=== PATIENT | female | born 1945 | race Caucasian/White ===

== ENCOUNTER 2019-09-13 03:20 | Inpatient (IN) | payer MEDICARE, SELFPAY ==
[2019-09-13] VITALS (17 sets, daily range): BP systolic 94–160; BP diastolic 56–95; PULSE 84–110; RESP 13–25; TEMP 36.5–37.9; O2SAT 91–100; BMI 22.3
--- NOTE | 2019-09-13 | DI.RAD.S_ITS ---
PROCEDURE: XR LUMBAR SPINE 1V INDICATIONS: T11-L1 LAMI TECHNIQUE: Single lateral view of the lumbar spine was acquired. COMPARISON: [facility], CT, CT LUMBAR SPINE WITHOUT CONTRAST, 09/12/2019, 17:41. [facility], CT, CT THORACIC SPINE WITHOUT CONTRAST, 09/12/2019, 17:41. [facility], MR, MR THORACIC SPINE WO CON, 09/13/2019, 8:30. [facility], CR, L-SPINE 2-3 VIEWS, 08/01/2014, 0:00. FINDINGS: Bones: Localization lateral view shows a posterior metallic probe overlying the hub of the L1 transverse pedicle screws, with reference to prior LS-spine CT scanning from 09/12/19 Soft tissues: Overlying bowel gas pattern is normal. No suspicious soft tissue calcifications. IMPRESSION: Single lateral view showing localization of the posterior elements of L1 by metallic probe. Dictated by: Clay Silvestre M.D. on 09/13/2019 at 13:33 Approved by: Clay Silvestre M.D. on 09/13/2019 at 13:37
--- NOTE | 2019-09-13 04:22 | PM.HP.1 ---
History of Present Illness History of Present Illness Date Patient Seen: 09/13/19 Time Patient Seen: 04:01 Chief complaint: Chronic Back Pain, Post Procedure Pain, Neuropathy Narrative: Ms. Marisol Valentine is a 74-year-old female with a history significant for thyroid disease, spinal stenosis, scoliosis, restless leg syndrome, chronic low back pain, osteoporosis, hyperlipidemia, GERD, degenerative joint disease and basal cell carcinoma and osteoarthritis who presents to [facility] for profound back pain and leg numbness following placement of a spinal stimulator by Dr. Mercer at [facility] earlier in the day on 09/12/2019. The patient reports her weakness has improved since onset and has sensation to touch bilateral feet but is unable to discern sharp or dull. She describes weakness that is greater on the left than the right but is unable to lift or move her legs. She denies systemic symptoms of headaches or dizziness, fevers or chills or vision changes. She reports no complaints of chest pain though she has had in the past and was told was related to her spine. She reports having a cough but no shortness of breath for 4 days. She complains of generalized abdominal tenderness but has no nausea or vomiting. Upon arrival to [facility] at 5:17 p.m. on 09/12/2019 she was afebrile with a temperature of 36.4? degrees centigrade, pulse 78, blood pressure 171/117, respirations 17 saturating 100% on room air. The patient was evaluated with imaging: CT lumbar spine identified extensive postsurgical changes with increased lucency between bone and hardware interface, no acute fracture, interval progression of mid level at endplate sclerosis. CT thoracic spine identifies no acute fracture diffuse osteopenia, multilevel spondylosis, spinal electrodes are noted, no high-grade bony canal stenosis or definite bony foraminal narrowing, no aleksey vertebral masses or hematomas. She was found to have neurogenic bladder with over 700 cc of urine and had a catheter placed. On laboratory analysis CBC from 1 day ago and found WBCs to be 13.4, hemoglobin 13.2, hematocrit 40.6 and platelets 286. On chemistry she had a sodium 136, potassium 4.0, BUN of 10, creatinine of 0.54, nonfasting glucose 127. The hospital service at [facility] was contacted regarding admission which was declined as the do not have spinal surgery or neurology services available. The patient previously had spinal surgery done by Dr. Vizcaino. [facility] was contacted and Dr. Navarro cabinet professional orthopedist was consulted regarding transfer the patient to [facility] for observation. He agreed to consult and requested medicine to admit the patient. He indicates that Dr. Vizcaino has reviewed the patient's imaging and does not need emergent surgery. The patient will be transferred from [facility] as a direct admit to the acute care floor. Patient History Medical History (Updated 09/13/19 @ 04:49 by FABIOLA Pacheco) Basal cell carcinoma (Acute) Cervical disc disease (Acute) Chronic low back pain (Acute) Degenerative joint disease (Acute) Gastroesophageal reflux disease (Acute) Hyperlipidemia (Acute) Hypothyroidism (Acute) Osteoarthritis (Acute) Osteoporosis (Acute) Restless leg syndrome (Acute) Scoliosis (Acute) Spinal stenosis (Acute) Surgical History (Updated 09/13/19 @ 04:49 by FABIOLA Pacheco) History of appendectomy (Acute) History of cervical spinal surgery (Acute) History of cholecystectomy (Acute) History of colonoscopy (Acute) History of esophagogastroduodenoscopy (EGD) (Acute) History of laminectomy (Acute) History of repair of rotator cuff (Acute) History of skin graft (Acute) History of tonsillectomy (Acute) History of total abdominal hysterectomy and bilateral salpingo-oophorectomy (Acute) Family & Social History Family History (Updated 09/13/19 @ 04:50 by FABIOLA Pacheco) Father Suicide Mother Alcohol abuse Sister Hyperthyroidism Comment: The patient is for 1 year and lives alone in a single family home. She has assistance in Max from her daughter. Smoking: Per the medical record patient is former smoker previously smoked 2.5 packs per day for 68 years Alcohol: Patient denies consuming alcohol beverages. Substance use: The patient denies recreation pharmaceuticals, herbal or cannabis products. Advanced directives: Patient does not have formal advanced directives but states her wish to be FULL CODE. She designates her daughter Rayna to be her surrogate decision maker. Meds Home Medications and Allergies Home Medications Medication Instructions Recorded Confirmed Type aspirin 81 mg PO TID #0 07/11/16 History fluticasone propionate 2 spray INTRANASAL QDAY #0 07/11/16 History ketotifen fumarate 1 drp OPHTH BID #0 07/11/16 History latanoprost 1 drp OPHTH HS #0 07/11/16 09/13/19 History oxycodone 0.5 tab PO BID #0 07/11/16 History pravastatin 20 mg PO EVERY OTHER DAY #0 07/11/16 History calcium carbonate-vitamin D3 1 tab PO QDAY #0 07/12/16 History [Calcium 600 with Vitamin D3] diphenhydramine HCl [Diphedryl] 25 mg PO BID #0 07/12/16 History ginkgo biloba 120 mg PO QDAY #0 07/12/16 History clopidogrel [Plavix] 75 mg PO DAILY 09/13/19 09/13/19 History dorzolamide-timolol 1 drp OPHTHALMIC (EYE) BID 09/13/19 09/13/19 History gabapentin 300 mg PO TID 09/13/19 09/13/19 History gemfibrozil 600 mg PO BID 09/13/19 09/13/19 History levothyroxine 88 mcg PO DAILY 09/13/19 09/13/19 History pantoprazole 40 mg PO BID 09/13/19 09/13/19 History Allergies Allergy/AdvReac Type Severity Reaction Status Date / Time baclofen [BACLOFEN] Allergy Severe RASH/FRAGA Verified 09/13/19 04:52 fenoprofen [FENOPROFEN] Allergy Severe RASH/FRAGA Verified 09/13/19 04:52 neomycin [NEOMYCIN] Allergy Severe RASH/FRAGA Verified 09/13/19 04:52 nickel [NICKEL] Allergy Severe RASH/FRAGA Verified 09/13/19 04:52 Penicillins [PENICILLINS] Allergy Severe RASH/FRAGA Verified 09/13/19 04:52 pentazocine [PENTAZOCINE] Allergy Severe RASH/FRAGA Verified 09/13/19 04:52 Sulfa (Sulfonamide Allergy Severe Rash Verified 09/13/19 04:24 Antibiotics) tapentadol [TAPENTADOL] Allergy Severe RASH - Verified 09/13/19 04:52 PAPER/SILK TAPE OK thimerosal [THIMEROSAL] Allergy Severe RASH/FRAGA Verified 09/13/19 04:52 Review of Systems Review of Systems Narrative: All systems reviewed and found unremarkable under discussed in the HPI above. Exam Vital Signs (past 8 hours): - 09/13/19 03:54 Temperature 98.2 F Pulse Rate 103 H Respiratory Rate 18 Blood Pressure 160/79 H Pulse Oximetry 95 Oxygen Flow Rate 3 Narrative Exam Narrative: GENERAL APPEARANCE: well developed, adequately nourished, BMI of 22.3, lying supine in bed restless in acute pain. HEENT: Normocephalic, wears glasses, PERRLA, conjunctiva clear, EOMs intact without nystagmus, clear rhinorrhea, mucous membranes are moist and pink. NECK/THYROID: Diminished range of motion, no JVD, no carotid bruit, no thyromegaly, trachea midline. LYMPH NODES: no cervical or supraclavicular lymphadenopathy. SKIN: [place], warm and dry, no visible lesions. HEART: regular rate and rhythm, S1-S2, 1/6 systolic murmur, no rubs or gallops, brisk capillary refill, no edema LUNGS: clear to auscultation bilaterally, no coarseness crackles or wheezing, no cough present CHEST: Symmetrical movement, no accessory muscle use, good tidal volume. ABDOMEN: Soft, dull to percussion, generalized abdominal tenderness, no organomegaly, active bowel tones. BACK: Lumbar spinal dressing with small amount of blood with spinal stimulator leads. EXTREMITIES: Full range of motion BUE, well-healed scar anterior right knee, poor muscle tone. NEUROLOGIC: AAO x4, cranial nerves II-XII grossly intact, sensation intact to gross touch bilateral lower extremities, no 2 point discrimination or sharp/dull discrimination, patellar and Achilles reflexes absent, no response to Babinski. PSYCH: Good eye contact, cooperative, restless Assessment & Plan Assessment & Plan narrative: This is a 74-year-old female patient who was transferred from [facility] to [facility] following placement of a spinal stimulator with acute and sudden onset of severe back pain and bilateral lower extremity neuropathy. 1. Acute exacerbation of chronic low back pain, status post spinal stimulator implant, present on admission, active. Patient has protracted history of chronic lumbar back pain status post lumbar fusion. Dr. Mercer, physical medicine and rehab implanted spinal stimulator earlier today. Patient returns to the ER with profound back pain and bilateral lower extremity motor and sensory neuropathy. CT scan thoracic spine finds no spinal hematoma or fractures. In the ER the patient received morphine, Dilaudid and fentanyl with incomplete pain control. Ordered acetaminophen 975 mg every 8 hours scheduled. Ordered oxycodone 5-10 mg every 4 hours as needed for pain. Ordered hydromorphone 1 mg IV every 4 hours as needed for breakthrough pain. Ordered amitriptyline 25 mg 1 time dose. Increased patient's gabapentin to 600 mg 3 times daily. Continued patient's home regimen of Flexeril 10 mg 3 times daily. 2. Bilateral lower extremity neuropathy, acute, present on admission, active. The patient reports that she had no movement or sensation in her legs and that now she has more sensation but is still unable to move her lower extremities. Patient can activate left quadriceps but not right and has no dorsi/plantar flexion of the foot. She has gross sensation but no 2 point or sharp/dull discrimination. CT of the thoracic spine finds no spinal hematoma or fractures spinal or foraminal stenosis. In discussion from Dr. Holley, ER physician at [facility], is noted the patient's neurological symptoms are improving and per Dr. Mercer the patient may experience transient neuropathy postprocedure. Dr. Navarro has agreed to consult the patient and will have spinal surgeon evaluate the patient in the morning. 3. Hypothyroidism, chronic, stable. Will continue the patient's home regimen of levothyroxine 88 mcg daily. 4. Mixed hyperlipidemia, chronic, stable Will continue the patient's home regimen of pravastatin 20 mg every other day. 5. Osteoporosis, age related, chronic, stable The patient is currently taking calcium and vitamin-D supplementation. VTE prophylaxis: Compression hose, chemical prophylaxis contraindicated to recent spinal surgery Diet: Clear liquid pending evaluation by surgery. IV fluid: Saline lock The patient is admitted to related to the severity of her symptoms, risk of complications and adverse events as well as availability of spinal surgeon to evaluate the patient. Patient is currently admitted observation with expected length of stay to be less than 2 midnights. Scores GCS [place] coma scale eye opening: Spontaneous [place] coma scale verbal response: Orientated [place] coma scale motor response: Obey commands [place] coma scale total score: 15
[2019-09-13] MEDS: HYDROMORPHONE 2 MG INJ 1 MG IV (05:02)
[2019-09-13] MEDS: SODIUM CHLORIDE 0.9% FLUSH 10 ML IV ×2 (05:03→08:00)
[2019-09-13] MEDS: ACETAMINOPHEN 325 MG TABLET 975 MG PO (05:04)
[2019-09-13] MEDS: GABAPENTIN 600 MG TABLET PO (05:04)
[2019-09-13] MEDS: AMITRIPTYLINE 25 MG TABLET PO (05:05)
[2019-09-13] MEDS: OXYCODONE IR 10 MG TABLET PO (05:32)
[2019-09-13] MEDS: PANTOPRAZOLE 20 MG TABLET PO (05:32)
--- NOTE | 2019-09-13 06:34 | PC.NURSE ---
Patient admitted to room 206 per stretcher from [facility] around 0320 for complaint of severe back pain occurring since spinal nerve stimulator implanted yesterday. States pain is 10/10, dull, burning in back radiating around to abdomen and down legs. Reports tingling in bilateral LE and unable to move them by herself. Tossing/turning side to side unable to get comfortable. Was medicated with Tylenol, Dilaudid, Amitriptyline and Oxycodone (after discussion with DICE SPOTTER, Clay, who okayed giving both Dilaudid and Oxycodone) and now pain is down to 8/10 but both patient and daughter continue to ask for additional pain meds. DICE SPOTTER informed of their concerns. Patient is oriented. Breath sounds CTA but is on oxygen at 3L/min and sat at 97% although was dropping with constant movements and difficulty getting good connection on oximeter so RT provided oximeter that sticks to finger and now maintaining. HRR but tachy in low 100's and per Glenys, INTERPRETER AND TRANSLATOR, telemetry reading was ST. BT present and abdomen is soft but has diffuse tenderness on palpation. Indwelling catheter patent (placed at [facility]). RD stockings applied as per order. Oriented to bed controls and call light. Fall risk score is moderate; bed alarm to be used when daughter not in room.
[2019-09-13 06:43] LABS: Bacteria Urine None Seen
[2019-09-13 06:44] LABS: Appearance Urine UA CLEAR; Bilirubin Urine UA NEGATIVE (NEGATIVE); Color Urine UA YELLOW; Glucose Urine UA NEGATIVE (Negative); Ketones Urine UA 2+ (NEGATIVE); Leukocyte Esterase Urine UA NEGATIVE (NEGATIVE); Nitrite Urine UA NEGATIVE (Negative); Occult Blood Urine UA 3+ (Negative); Protein Urine UA 2+ (Negative); Specific Gravity Urine UA >=1.030 (1.000-1.035); Urobilinogen Urine UA 0.2 E.U./dL (0.2)
[2019-09-13 06:51] LABS: Culture Indicated Urine Cult Not Indicated; Hyaline Casts Urine 0-1/LPF; RBC Urine 10-30/HPF (0-5/HPF); WBC Urine 0-1/HPF (0-5/HPF)
[2019-09-13 07:06] LABS: Add Manual Diff / Slide Review NO; Basophils Absolute Auto 0 /uL (0-100); Basophils Percent Auto 0.2 % (0-2); Eosinophils Absolute Auto 0 /uL (0-450); Eosinophils Percent Auto 0.1 % (2-4); Hematocrit 42.7 % (36-46); Hemoglobin 14.2 g/dL (12.0-16.0); Lymphocytes Absolute Auto 1000 /uL (1100-4500); Lymphocytes Percent Auto 6.5 % (25-40); Mean Corpuscular HGB Conc 33.2 % (30-36); Mean Corpuscular Hemoglobin 28.5 PG (26-34); Monocytes Absolute Auto 800 /uL (0-900); Monocytes Percent Auto 5.5 % (3-14); Neutrophils Absolute Auto 13400 /uL (1500-7000); Neutrophils Percent Auto 87.7 % (50-75); Platelet Count 312 X10^3/uL (150-400); Red Blood Cell Count 4.96 X10^6/uL (4.0-5.2); Red Cell Distribution Width 13.6 % (11.6-14.8); White Blood Cell Count 15.2 X10^3/uL (4.5-11.0)
[2019-09-13 07:18] LABS: Magnesium 1.7 mg/dL (1.6-2.3)
--- NOTE | 2019-09-13 07:24 | DI.MRI.S_ITS ---
PROCEDURE: MR LUMBAR SPINE WO CON INDICATIONS: back pain TECHNIQUE: Noncontrast sagittal T1 spin echo and T2 fast echo, sagittal STIR, axial T1 and T2 fast spin echo through the lumbar spine. In a previous scanning protocol was used, as the patient was in a lot of pain during the scan. COMPARISON: [facility], MR, MR THORACIC SPINE WO CON, 09/13/2019, 8:30. [facility], CR, L-SPINE 2-3 VIEWS, 08/01/2014, 0:00. FINDINGS: Image quality: Excellent. Alignment and Curvature: There is mild retrolisthesis at T12-L1 and L1-L2. Minimal anterolisthesis is seen at L4-L5 and minimal retrolisthesis is seen at L5-S1. Bone Marrow: Marrow is of normal overall signal. No acute vertebral body compression fractures. Spinal Cord: Conus medullaris terminates at the L1 level. Visualized cord demonstrates normal signal and size. There is heterogeneous material seen within the spinal canal posterior to the spinal cord primarily at the T12 and L1 levels, which is attributed to a hematoma measuring 6 cm craniocaudal. There is associated severe central canal narrowing with mass effect upon the conus medullaris, pushing it anteriorly and to the right. Paraspinous Soft Tissues: No paravertebral masses. Extensive postoperative hardware is seen, with right-sided pedicle screws at the L1-L5 levels and left-sided pedicle screws at L3-L4. Disc spacers are seen at L1-L2, L2-L3, and L4-L5. There has been removal of portions of the posterior elements. T12-L1: There is at least moderate loss of disc height and disc signal seen. Bridging endplate osteophytes are seen. Moderate generalized disc bulge is seen. There is a superimposed central/right disc extrusion. [id number] facet hypertrophy is seen. There is moderate to severe left-sided neural foraminal narrowing seen, with compression upon the exiting right T12 nerve root. There is moderate left-sided neural foraminal narrowing. At this level, there is severe central canal narrowing, which is attributed to a postoperative hematoma on the left posteriorly. L1-L2: Moderate to severe loss of disc height and disc signal are seen. Moderate disc bulge is seen. There is moderate to severe right-sided neural foraminal narrowing, with associated mass effect upon the exiting right L5. There is moderate left-sided neural foraminal narrowing. Severe central canal narrowing is seen, which is attributed to a postoperative hematoma on the left side posteriorly. L2-L3: The disc height is well-preserved. Moderate disc bulge is seen. At moderate facet hypertrophy is seen. There is moderate right-sided and mild left-sided neural foraminal narrowing seen and mild to moderate central canal narrowing is seen. L3-L4: Mild loss of disc height is seen. Loss of disc signal is seen. Mild to moderate disc bulge is seen. There is mild right-sided and no significant left-sided neural foraminal narrowing seen. The central canal is widely patent. L4-L5: At least moderate disc bulge is seen. Moderate facet joint hypertrophy is seen. There is moderate to severe right-sided neural foraminal narrowing seen, with the patient mass effect upon the exiting right L4 nerve root. There is moderate left-sided neural frontal narrowing. Moderate central canal narrowing is seen. L5-S1: Severe loss of disc height is seen at this level, with bony fusion anteriorly. Bridging endplate osteophytes are seen. Moderate disc bulge is seen. Mild to moderate facet hypertrophy is seen. There is mild right-sided and mild to moderate left-sided neural foraminal narrowing seen. No significant central canal narrowing is seen. IMPRESSION: There is abnormal soft tissue material seen within the spinal canal posteriorly and on the left measures 6 cm craniocaudally and is centered at the T12-L1 level. This is attributed to a postoperative hematoma. There is associated severe central canal narrowing. Extensive postoperative changes are seen. Multiple levels of degenerative change are seen elsewhere. Note: Case discussed by telephone with Dr. Wilcox at 9:41 AM Sebastian time on September 13, 2019. Dictated by: Michael Conner M.D. on 09/13/2019 at 8:29 Approved by: Michael Conner M.D. on 09/13/2019 at 8:42
--- NOTE | 2019-09-13 07:25 | DI.MRI.S_ITS ---
PROCEDURE: MR THORACIC SPINE WO CON INDICATIONS: back pain TECHNIQUE: Noncontrast sagittal T1 spine echo and T2 fast spin echo, sagittal STIR, axial T1 and T2 fast spin echo through the thoracic spine. In this patient, coronal T2-weighted images were also performed. An abbreviated scanning protocol was followed, as the patient was in significant pain during the scan. COMPARISON: [facility], MR, MR LUMBAR SPINE WO CON, 09/13/2019, 8:30. [facility], CR, L-SPINE 2-3 VIEWS, 08/01/2014, 0:00. FINDINGS: Image quality: This examination is limited by involuntary motion artifact, particularly on the axial images. Alignment and Curvature: Levoconvex thoracolumbar scoliotic curvature is seen. Mild retrolisthesis is seen at the T12-L1 level. Bone Marrow: Marrow is of normal overall signal. No acute vertebral body compression fractures. Spinal Cord: Visualized spinal cord is normal in size and signal. Paraspinous Soft Tissues: No paravertebral masses. Miscellaneous: Extensive cervical spine fixation hardware and lumbar spine fixation hardware can be seen. Scattered levels of mild to moderate disc space narrowing can be seen. Mild endplate irregularity can be seen. Several levels of central disc bulges can be seen. The most prominent of these can be seen at T7-T8 and at T10-T11. There is believed to be moderate central canal narrowing at the T7-T8 level, with mild mass effect upon the ventral spinal cord. At T10-T11, there is a relatively prominent disc protrusion seen, with protruding components into both lateral recesses. At least moderate mass effect can be seen on the ventral spinal cord, as on series 4 image 8. Moderate to severe neural bilateral foraminal narrowing can be seen at this level. At the T12-L1 level, there is moderate to severe disc space narrowing seen. At least moderate disc bulge is seen. There is an apparent central/right disc protrusion seen, with associated mass effect upon the conus medullaris. There is moderate to severe right-sided and at least moderate left-sided neural foraminal narrowing seen. IMPRESSION: Degenerative changes are seen throughout, which are worst at the T10-T11 and T12-T1 levels. Study limited by patient motion. When clinically appropriate, please consider a repeat examination, when the patient is able to hold still. Extensive cervical spine and lumbar spine fixation hardware can be seen. Dictated by: Michael Conner M.D. on 09/13/2019 at 8:23 Approved by: Michael Conner M.D. on 09/13/2019 at 8:29
[2019-09-13 07:29] LABS: Alanine Aminotransferase 13 IU/L (<35); Albumin 5.1 g/dL (3.5-5.0); Albumin Globulin Ratio 1.5 (1.0-2.8); Alkaline Phosphatase 108 U/L (38-126); Aspartate Aminotransferase 48 IU/L (14-36); Bilirubin Total 0.6 mg/dL (0.2-1.3); Blood Urea Nitrogen 11 mg/dL (7-17); Calcium 9.7 mg/dL (8.4-10.2); Carbon Dioxide 23 mmol/L (22-32); Chloride 98 mmol/L (98-107); Estimated Glomerular Filt Rate > 60.0 mL/min (>60); Globulin 3.5 g/dL (1.7-4.1); Glucose 113 mg/dL (80-110); HEMOLYSIS 18 (0-50); Potassium 3.6 mmol/L (3.4-5.1); Sodium 137 mmol/L (137-145); Total Protein 8.6 g/dL (6.3-8.2)
[2019-09-13] MEDS: HYDROMORPHONE 2 MG INJ IV (08:13)
[2019-09-13] MEDS: LORazepam 2 MG/ML INJ 1 MG IV (08:13)
--- NOTE | 2019-09-13 08:33 | PC.NURSE ---
Addendum entered by Sonya Figueroa R.N. 09/13/19 11:50: pt returned from MRI, she was on 3L NC, placed on continuous pulse ox, able to drop to 2L. RR=10 and she was sleeping comfortably. daughter present in room. sent down to OR for surgery with Dr Higgins around 1130. Original Note: Day Shift During change of shift, Dr Wilcox arrived and discussed case. MD removed spinal stimulator at bedside, dressing in place- gauze and tegaderm. After removal pt reports pain is decreased down to 5-6/10, she appears sleepy. Asked if she could lay on her back for MRI she reported no. Order for 2mg IV dilaudid and 1mg Ativan, only gave pt 1mg IV dilaudid and 0.5 mg Ativan as she was more comfortable than previously assessed and somewhat somnolent. On continuous pulse ox and tele on floor. on 3L O2 for transfer and MRI.
--- NOTE | 2019-09-13 10:50 | PT-IP ANOTE ---
Spoke to VALERIE Brown who stated pt is not medically stable to work with therapy team d/t severe pain and MRI showed abnormal soft tissue material seen within the spinal canal posteriorly at the T12-L1 level. Pt is scheduled to have surgery later this pm. Will attempt PT eval again tomorrow morning
--- NOTE | 2019-09-13 11:20 | P.CONS_ITS ---
History of Present Illness Consult details Date Patient Seen: 09/13/19 Time Patient Seen: 11:20 Chief complaint: Chronic Back Pain, Post Procedure Pain, Neuropathy Reason for consult: Epidural hematoma Requesting provider: Ruperto Wilcox Narrative: 74-year-old female well known to me. I have done previous L1 through L5 instrumented fusions on her. She had ongoing chronic nerve pain and yesterday had a spinal cord stimulator trial placed with Dr. Wilcox. Postoperatively she was having difficulty moving her legs and was feeling weak. She was transferred over to [facility] where CT scans were obtained. The CT scan last night did not indicate epidural hematoma. There was a concern that possibly this was just coming from an inadvertent spinal injection with the local at the time of the stimulator. She was transferred and admitted here. This morning Dr. Mercer saw her and pulled out the stimulator leads and MRI was obtained which showed a definite epidural hematoma. Her pain is better with pain medication but she has been having severe pain across the back. She has greatly decreased sensation from the waist down. She can touch her hips and quadriceps a little bit but otherwise can move her legs. She also had to have a urinary catheter placed for urinary retention last night. She has a history of Plavix use, but has been off this for a week. Meds Home Medications and Allergies Home Medications Medication Instructions Recorded Confirmed Type fluticasone propionate 2 spray INTRANASAL QDAY #0 07/11/16 09/13/19 History latanoprost 1 drp [facility] HS #0 07/11/16 09/13/19 History pravastatin 20 mg PO DAILY #0 07/11/16 09/13/19 History diphenhydramine HCl [Diphedryl] 25 mg PO 3-4XD #0 07/12/16 09/13/19 History ginkgo biloba 120 mg PO BID #0 07/12/16 09/13/19 History acetaminophen [Tylenol Extra 1,000 mg PO TID 09/13/19 09/13/19 History Strength] calcium carbonate [Calcium 600] 600 mg PO DAILY 09/13/19 09/13/19 History cholecalciferol (vitamin D3) 400 unit PO DAILY 09/13/19 09/13/19 History [Vitamin D3] cholestyramine (with sugar) 4 g PO BID 09/13/19 09/13/19 History clopidogrel [Plavix] 75 mg PO DAILY 09/13/19 09/13/19 History coQ10 (ubiquinol) 100 mg PO DAILY 09/13/19 09/13/19 History cyclobenzaprine 10 mg PO BEDTIME 09/13/19 09/13/19 History dorzolamide-timolol 1 drp OPHTHALMIC (EYE) BID 09/13/19 09/13/19 History pxjc-wfw-tkc-blkbor-om 3,6,9 5 1 cap PO BID 09/13/19 09/13/19 History [[place] 3-6-9 Fatty Acids] gabapentin 300 mg PO TID 09/13/19 09/13/19 History gemfibrozil 600 mg PO BID 09/13/19 09/13/19 History glucos sul 5ZEc-kct-epttc-C-Mn 1 cap PO BID 09/13/19 09/13/19 History [Glucosamine Chondroitin] hydrocodone-acetaminophen 1 tab PO Q6H 09/13/19 09/13/19 History levothyroxine 88 mcg PO DAILY 09/13/19 09/13/19 History wbtkijjtsaxn-rls-qiua-FA-vit K 1 tab PO DAILY 09/13/19 09/13/19 History [Adults Multivitamin] pantoprazole 40 mg PO BID 09/13/19 09/13/19 History psyllium husk [Metamucil] 1.5 tsp PO DAILY 09/13/19 09/13/19 History sertraline 25 mg PO DAILY 09/13/19 09/13/19 History trazodone 75 - 100 mg PO BEDTIME 09/13/19 09/13/19 History Allergies Allergy/AdvReac Type Severity Reaction Status Date / Time baclofen [BACLOFEN] Allergy Severe RASH/FRAGA Verified 09/13/19 04:52 fenoprofen [FENOPROFEN] Allergy Severe RASH/FRAGA Verified 09/13/19 04:52 neomycin [NEOMYCIN] Allergy Severe RASH/FRAGA Verified 09/13/19 04:52 nickel [NICKEL] Allergy Severe RASH/FRAGA Verified 09/13/19 04:52 Penicillins [PENICILLINS] Allergy Severe RASH/FRAGA Verified 09/13/19 04:52 pentazocine [PENTAZOCINE] Allergy Severe RASH/FRAGA Verified 09/13/19 04:52 Sulfa (Sulfonamide Allergy Severe Rash Verified 09/13/19 04:24 Antibiotics) tapentadol [TAPENTADOL] Allergy Severe RASH - Verified 09/13/19 04:52 PAPER/SILK TAPE [place] thimerosal [THIMEROSAL] Allergy Severe RASH/FRAGA Verified 09/13/19 04:52 Review of Systems Respiratory Respiratory: Reports cough Gastrointestinal Gastrointestinal: Denies abdominal pain Genitourinary Genitourinary: Reports difficulty voiding Musculoskeletal Musculoskeletal: Reports numbness Neurologic Neurologic: Reports numbness Hematologic/Lymphatic Hematologic/Lymphatic: Reports easy bleeding Exam Vital Signs (past 8 hours): - 09/13/19 03:54 09/13/19 07:40 Temperature 98.2 F 100.2 F H Pulse Rate 103 H 84 Respiratory Rate 18 16 Blood Pressure 160/79 H 146/82 H Pulse Oximetry 95 98 Oxygen Delivery Method Nasal Cannula Oxygen Flow Rate 0 Const Orientation: alert and oriented x3 Resp Auscultation: clear to auscultation bilaterally Cardio Rate: regular rate Rhythm: regular rhythm Back/Spine/Pelvis Other: Intact but greatly decreased sensation from the waist down. Cannot discern sharp from touch. Unable to move her legs although there is some twitching of her hip flexors and quadriceps with attempts. 1+ dorsalis pedis pulses. Tender across the thoracolumbar junction. No drainage on dressing. Objective Labs Result Diagrams: 09/13/19 06:40 09/13/19 06:40 Labs: Laboratory Results - last 24 hr 09/13/19 09/13/19 09/13/19 06:25 06:40 06:40 WBC 15.2 H RBC 4.96 Hgb 14.2 Hct 42.7 MCV 86.0 MCH 28.5 MCHC 33.2 RDW 13.6 Plt Count 312 Neut % (Auto) 87.7 H Lymph % (Auto) 6.5 L [place] % (Auto) 5.5 Eos % (Auto) 0.1 L Baso % (Auto) 0.2 Neut # (Auto) 08180 H Lymph # (Auto) 1000 L [place] # (Auto) 800 Eos # (Auto) 0 Baso # (Auto) 0 Sodium Potassium Chloride Carbon Dioxide BUN Creatinine Estimated GFR BUN/Creatinine Ratio Glucose Calcium Magnesium 1.7 Total Bilirubin AST ALT Alkaline Phosphatase Total Protein Albumin Globulin Albumin/Globulin Ratio Urine Color Yellow Urine Appearance Clear Urine pH 5.0 Ur Specific [place] >=1.030 H Urine Protein 2+ H Urine Glucose (UA) Negative Urine Ketones 2+ H Urine Occult Blood 3+ H Urine Nitrate Negative Urine Bilirubin Negative Urine Urobilinogen 0.2 Ur Leukocyte Esterase Negative Urine RBC 10-30/hpf H Urine WBC 0-1/hpf Urine Bacteria None seen Hyaline Casts 0-1/lpf Ur Culture Indicated? Cult not indicated 09/13/19 06:40 WBC RBC Hgb Hct MCV MCH MCHC RDW Plt Count Neut % (Auto) Lymph % (Auto) [place] % (Auto) Eos % (Auto) Baso % (Auto) Neut # (Auto) Lymph # (Auto) [place] # (Auto) Eos # (Auto) Baso # (Auto) Sodium 137 Potassium 3.6 Chloride 98 Carbon Dioxide 23 BUN 11 Creatinine 0.50 L Estimated GFR > 60.0 BUN/Creatinine Ratio 22.0 Glucose 113 H Calcium 9.7 Magnesium Total Bilirubin 0.6 AST 48 H ALT 13 Alkaline Phosphatase 108 Total Protein 8.6 H Albumin 5.1 H Globulin 3.5 Albumin/Globulin Ratio 1.5 Urine Color Urine Appearance Urine pH Ur Specific [place] Urine Protein Urine Glucose (UA) Urine Ketones Urine Occult Blood Urine Nitrate Urine Bilirubin Urine Urobilinogen Ur Leukocyte Esterase Urine RBC Urine WBC Urine Bacteria Hyaline Casts Ur Culture Indicated? Assessment & Plan Assessment & Plan narrative: She is a large epidural hematoma from T11 through L1. She needs to go to the operating room for evacuation of the hematoma with a laminectomy from T11 through L1. This is an emergency due to her paralysis cord compression from the hematoma. Risks and benefits of surgery were discussed including not limited to medical risk with heart attack, stroke, , DVT, PE, infection, ongoing bleeding, scarring, nerve injury with pain numbness weakness, ongoing paralysis, failure to alleviate symptoms, need for further surgery. Consents were obtained. We're taking her straight to the operating room.
--- NOTE | 2019-09-13 11:30 | PM.PREOP ---
Pre-operative Note Interval Note History & Physical reviewed/Exam performed by Physician: Yes Changes to H&P: No
--- NOTE | 2019-09-13 11:51 | SUR.HOLD ---
Patient to Holding area with daughter. Patient GCS 15 on arrival. Daughter signing anesthesia consent for patient. VSS. Blood sugar 100.
--- NOTE | 2019-09-13 12:28 | SUR.OPER ---
Prone on padded kypho spine table, head in foam head support, gel chest rolls, gel pad under knees, pillow under lower legs, toes free of pressure, arms secured on padded arm boards at <90 degrees abduction. Safety belt at thigh.
[2019-09-13] MEDS: SODIUM CHLORIDE 0.9% 1,000 ML, GENTAMICIN 80 MG IRR (12:39)
[2019-09-13] MEDS: THROMBIN (RECOMBINANT) 5,000 UNIT VIAL 5000 UNIT TOP (12:41)
[2019-09-13] MEDS: BUPIVACAINE 0.25% W/ EPI 30 ML VIAL INJ (12:41)
--- NOTE | 2019-09-13 12:41 | CM.DANOTE ---
Discharge Planning/Care Management DCP: assessment: case received, EMR reviewed, discussed in Team Rounds. Went now to room to meet pt for introduction of self and role. VALERIE Brown confirms she has just been taken to the OR. Pt is a 74 year old female who admitted early this morning to care of hospitalist team. Dr. Morgan confirmed in Rounds that orthopedic team was consulting. Payer: Medicare and [employer] Admission status: in review: per UR VALERIE Alberto. Dr. Higgins did see pt, notes that pt is very familiar to him as he has followed her in the past and hx of prior surgeries with pt. He has taken her urgently to the OR for evacuation of epidural hematoma and T11 to L1 spinal/see his consultation for more specifics. Pt is ; her daughter Rayna and a service dog have been in the room today per VALERIE Brown. P: will check in tomorrow with pt and follow accordingly. Expect PT and OT will be following as appropriate. CM Discharge Assessment Start: 09/13/19 12:39 Freq: Status: Active Protocol: Document 09/13/19 12:39 ITV (Rec: 09/13/19 12:41 ITV [id number]) Discharge Planning Assessment Advance Directives? No History Provided By Medical Record Prior Living Arrangements House Household Members none White board Updated in Patient Room with Yes name and ext. # of Grounds Manager Review Status In Process
[2019-09-13] MEDS: VANCOMYCIN 1,000 MG VIAL 1000 MG TOP (12:44)
--- NOTE | 2019-09-13 13:33 | PM.OP.1 ---
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 It was felt that she would require decompression of the hematoma. Risks and benefits of surgery were discussed and appropriate consents were obtained. Surgeon: Matthew Higgins Click Yes if Unassisted: Yes Anesthesia Type: General Operative Notes Findings: None Closure Type: primary Specimen(s): none sent Estimated Blood Loss (mL): 10 Procedure in detail: Patient brought the operating room and intubated on the stretcher. She was rolled over to the well-padded prone position on the table. The back was prepped and draped in the standard sterile fashion. Preoperative antibiotics were given. A time-out was performed. We used fluoroscopy for localization and made a 10 cm longitudinal incision in the midline at the thoracolumbar junction, incorporating part of her previous incision. We carefully dissected down the left-sided paraspinal muscles. A marker was placed to confirm positioning with fluoroscopy. Under magnification, we then used a bur and Kerrison rongeur is to perform a left-sided laminectomy from T11 through L2. We had to go approximately correction up T11 until there was no more hematoma and just underneath the superior aspect of L2 caudally. We used suction and a ball probe to remove the large hematoma. The cord was significantly depressed to the right side and anteriorly, but as the hematoma was removed to gradually build back into its normal channel. At the end we could sweep the probe across to the opposite side on the right, and also along the left lateral aspect of the canal where had been quite prominent on the preoperative MRI and there was no more hematoma. The wound was irrigated. We used FloSeal for additional prophylaxis, although there was no actual drainage going on. A deep drain was placed. The fascia was closed in layers. Vancomycin powder was placed in the wound. Superficial and skin were closed. Sterile dressing was placed. She was then rolled over, extubated, and brought the recovery with no complications. Complications: none Post-operative Condition: stable Disposition: PACU Plan for aftercare: Inpatient care. We will have to watch her neurologic status and see how quickly this hopefully returns.
--- NOTE | 2019-09-13 14:11 | SUR.PHASEI ---
Report called to Stephanie
--- NOTE | 2019-09-13 14:29 | SUR.PHASEI ---
Patient transferred to the floor. VS stable. Report to Stephanie. Dressing checked with RN. IV saline locked.
--- NOTE | 2019-09-13 15:21 | PM.PNPO.1 ---
Subjective Subjective Date Patient Seen: 09/13/19 Time Patient Seen: 15:21 Interval history: Pain is much better now. She is just starting to wiggle her toes, which she could not do in recovery room. Getting some charley horses in the legs. Exam Vital Signs (past 8 hours): - 09/13/19 07:40 09/13/19 11:36 09/13/19 13:39 Temperature 100.2 F H 98.3 F 100.2 F H Pulse Rate 84 105 H 109 H Respiratory Rate 16 13 14 Blood Pressure 146/82 H 110/72 100/57 L Pulse Oximetry 98 100 94 09/13/19 13:44 09/13/19 13:49 09/13/19 13:54 Temperature Pulse Rate 109 H 110 H 106 H Respiratory Rate 17 25 H 18 Blood Pressure 97/64 102/63 94/68 Pulse Oximetry 96 92 96 09/13/19 13:59 09/13/19 14:07 09/13/19 14:25 Temperature 97.7 F 98.6 F Pulse Rate 102 H 108 H 101 H Respiratory Rate 23 19 16 Blood Pressure 116/75 132/78 128/76 Pulse Oximetry 92 96 100 09/13/19 14:30 Temperature Pulse Rate Respiratory Rate Blood Pressure Pulse Oximetry 100 Oxygen Delivery Method Nasal Cannula Oxygen Flow Rate 2 Const Orientation: alert and oriented x3 Back/Spine/Pelvis Other: Able to twitch her hip flexors and quadriceps. Now starting to move her toes a little bit up and down both legs. Objective Labs Result Diagrams: 09/13/19 06:40 09/13/19 06:40 Labs: Laboratory Results - last 24 hr 09/13/19 09/13/19 09/13/19 06:25 06:40 06:40 WBC 15.2 H RBC 4.96 Hgb 14.2 Hct 42.7 MCV 86.0 MCH 28.5 MCHC 33.2 RDW 13.6 Plt Count 312 Neut % (Auto) 87.7 H Lymph % (Auto) 6.5 L [place] % (Auto) 5.5 Eos % (Auto) 0.1 L Baso % (Auto) 0.2 Neut # (Auto) 49297 H Lymph # (Auto) 1000 L [place] # (Auto) 800 Eos # (Auto) 0 Baso # (Auto) 0 Sodium Potassium Chloride Carbon Dioxide BUN Creatinine Estimated GFR BUN/Creatinine Ratio Glucose Calcium Magnesium 1.7 Total Bilirubin AST ALT Alkaline Phosphatase Total Protein Albumin Globulin Albumin/Globulin Ratio Urine Color Yellow Urine Appearance Clear Urine pH 5.0 Ur Specific [place] >=1.030 H Urine Protein 2+ H Urine Glucose (UA) Negative Urine Ketones 2+ H Urine Occult Blood 3+ H Urine Nitrate Negative Urine Bilirubin Negative Urine Urobilinogen 0.2 Ur Leukocyte Esterase Negative Urine RBC 10-30/hpf H Urine WBC 0-1/hpf Urine Bacteria None seen Hyaline Casts 0-1/lpf Ur Culture Indicated? Cult not indicated 09/13/19 06:40 WBC RBC Hgb Hct MCV MCH MCHC RDW Plt Count Neut % (Auto) Lymph % (Auto) [place] % (Auto) Eos % (Auto) Baso % (Auto) Neut # (Auto) Lymph # (Auto) [place] # (Auto) Eos # (Auto) Baso # (Auto) Sodium 137 Potassium 3.6 Chloride 98 Carbon Dioxide 23 BUN 11 Creatinine 0.50 L Estimated GFR > 60.0 BUN/Creatinine Ratio 22.0 Glucose 113 H Calcium 9.7 Magnesium Total Bilirubin 0.6 AST 48 H ALT 13 Alkaline Phosphatase 108 Total Protein 8.6 H Albumin 5.1 H Globulin 3.5 Albumin/Globulin Ratio 1.5 Urine Color Urine Appearance Urine pH Ur Specific [place] Urine Protein Urine Glucose (UA) Urine Ketones Urine Occult Blood Urine Nitrate Urine Bilirubin Urine Urobilinogen Ur Leukocyte Esterase Urine RBC Urine WBC Urine Bacteria Hyaline Casts Ur Culture Indicated? Assessment & Plan Post-op Postoperative Procedures: Procedures Operation Date: 09/13/19 11:45 Actual Procedures Side Surgeon p T11-L2 Laminectomy and removal of blood clot Matthew Higgins MD She is still extremely weak but making progress in the past hour. I discussed this with Dr. Wilcox and we will add some IV steroids, although the literature is equivocal. Continue to watch for now. Quality VTE Deep Vein Thrombosis/Pulmonary Embolism Present on Admission: No
[2019-09-13] MEDS: dexAMETHasone 20 MG in SODIUM CHLORIDE 0.9% 50 ML 208 ML IV (15:48)
[2019-09-13] MEDS: LACTATED RINGERS 1,000 ML 125 ML IV (15:49)
--- NOTE | 2019-09-13 16:04 | OT.IP.TRT ---
Surgery Performed Operation Date: 09/13/19 11:45 Actual Procedures p T11-L2 Laminectomy and removal of blood clot - Matthew Higgins MD Occupational Therapy Administrative Note M3 OT- IP Subjective and Pain Start: 09/13/19 15:52 Freq: Status: Active Protocol: Document 09/13/19 16:04 MANNIE (Rec: 09/13/19 16:07 MANNIE [id number]) OT- Subjective Occupational Therapy Visit Type Type Administrative Note Visit Start Time 16:00 Notes OT referral received. Chart reviewed. Pt to surgery today for emergent decompression of T11-L1 epidural hematoma with T11-L1 lami's to relieve spinal cord compression. Pt is s/p placement of spine stimulator on 09/12/19 at [facility]. Will initiate OT evaluation in AM as medical status permits.
[2019-09-13] MEDS: GABAPENTIN 300 MG CAPSULE PO ×2 (16:07→20:50)
[2019-09-13] MEDS: HYDROCODONE/ACET 5/325 TABLET 1 TAB PO ×2 (16:07→20:51)
[2019-09-13] MEDS: diphenhydrAMINE 25 MG TABLET PO ×2 (17:52→20:49)
[2019-09-13] MEDS: gemfibroziL 600 MG TABLET PO (17:52)
[2019-09-13] MEDS: KETOROLAC 30 MG/ML VIAL IV (17:59)
--- NOTE | 2019-09-13 19:20 | PC.NURSE ---
Addendum entered by Ela Mcneil R.N. 09/13/19 23:16: Pt does exhibit some short term memory loss, this specification writer finds need to repeat self frequently. When questioned about sensation to BL LE's, pt reports has sensation to buttocks and legs, but needs to move legs with own hands to position. This specification writer has witnessed movement in pt's legs this evening shift. Vicodin for pain effective. Prefers flat lying in bed. Daughter has left for the evening. Original Note: Pt lying in bed moving both legs up and down and wiggling toes. Able to log roll with assistance. Pt's daughter is present, attentive and involved in pt's care. BL foot pumps in place. Dr. Higgins has seen pt this evening shift. Pt is able to sit up @ bedside to eat evening meal. Dressing to back is dry and intact with hemovac intact. Vicodin and toradol to manage pain 3-4/10. Toblert to gravity. Waffle cushion under buttocks as pt c/o discomfort under bottom. BL kevin hose in place. Palpable post tib pulses.
[2019-09-13] MEDS: CLINDAMYCIN 600 MG/50 ML PIGGYBACK 50 MG IV (20:01)
[2019-09-13] MEDS: LATANOPROST 0.005% OPHTH 2.5 ML 1 DROPS EYE-BOTH (20:40)
[2019-09-13] MEDS: GLUCOSAMINE/CHONDROITIN CAPSULE 1 EACH PO (20:48)
[2019-09-13] MEDS: CYCLOBENZAPRINE 10 MG TABLET PO (20:49)
[2019-09-13] MEDS: PANTOPRAZOLE 40 MG TABLET PO (20:50)
[2019-09-13] MEDS: PRAVASTATIN 20 MG TABLET PO (20:51)
[2019-09-13] MEDS: TRAZODONE 50 MG TABLET 75 MG PO (20:51)
[2019-09-13] MEDS: FISH OIL 1,000 MG CAPSULE 1000 MG PO ×2 (21:04→21:05)
[2019-09-13] MEDS: DEXAMETHASONE 4 MG/ML VIAL IV (22:47)
[2019-09-14 01:30] VITALS: BP 119/74; PULSE 99; RESP 18; TEMP 36.7; O2SAT 93
[2019-09-14] MEDS: LACTATED RINGERS 1,000 ML 125 ML IV ×2 (01:31→03:59)
[2019-09-14] MEDS: KETOROLAC 30 MG/ML VIAL IV (01:31)
[2019-09-14] MEDS: HYDROCODONE/ACET 5/325 TABLET 1 TAB PO ×2 (02:59→03:46)
[2019-09-14] MEDS: DEXAMETHASONE 4 MG/ML VIAL IV ×4 (03:45→22:14)
[2019-09-14] MEDS: CLINDAMYCIN 600 MG/50 ML PIGGYBACK 50 MG IV (03:45)
[2019-09-14] MEDS: hydrOXYzine pamoate 25 MG CAPSULE PO (03:46)
[2019-09-14 05:00] VITALS: BP 108/64; PULSE 88; RESP 16; TEMP 37.1; O2SAT 93
[2019-09-14] MEDS: LEVOTHYROXINE 88 MCG TABLET PO (05:35)
[2019-09-14] MEDS: gemfibroziL 600 MG TABLET PO ×2 (05:35→15:57)
--- NOTE | 2019-09-14 06:40 | PC.NURSE ---
Pt s/p hematoma removal that was 7cm long and compressing spinal cord. Pt has sensation returning to bilat lower extremities, was encouraged when she saw her toes/feet wiggle when she tried overnight. Pt described pain in legs as heavy and big. Pt with new complaint of frontal headache. Denies vision changes. 1 tabe norco given at 0330 and pt with con't pain. 2nd tab norco given at 0430. Pt appeared to sleep without discomfort after that. 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 TEDS/foot SCDs on. Con't to monitor for signs of dural leak, increased headache, further neuro changes related to spinal cord compression and possible development of hematoma.
[2019-09-14 07:50] VITALS: BP 134/85; PULSE 100; RESP 16; TEMP 36.6; O2SAT 95
[2019-09-14] MEDS: GABAPENTIN 300 MG CAPSULE PO ×3 (08:22→21:51)
[2019-09-14] MEDS: FISH OIL 1,000 MG CAPSULE 1000 MG PO ×2 (08:22→21:48)
[2019-09-14] MEDS: diphenhydrAMINE 25 MG TABLET PO ×4 (08:22→21:45)
[2019-09-14] MEDS: PANTOPRAZOLE 40 MG TABLET PO ×2 (08:23→18:52)
[2019-09-14] MEDS: HYDROCODONE/ACET 5/325 TABLET 2 TAB PO ×4 (08:23→19:56)
[2019-09-14] MEDS: DOCUSATE 100 MG CAPSULE PO ×2 (08:23→21:54)
[2019-09-14] MEDS: PSYLLIUM HUSK 1 PACKET PO (08:24)
[2019-09-14] MEDS: FLUTICASONE 120 SPRAY/16 GM SPRAY.SUSP NASAL (08:24)
[2019-09-14] MEDS: CHOLESTYRAMINE/ASPARTAME 4 GM PACK PO (08:24)
[2019-09-14] MEDS: DORZOLAMIDE/TIMOLOL OPHTH 10 ML 1 DROPS EYE-BOTH ×2 (08:25→21:47)
[2019-09-14] MEDS: CALCIUM CARBONATE 600 MG TABLET PO (08:26)
[2019-09-14] MEDS: MULTIVIT,CALC,MINS/IRON/FOLIC 1 TABLET 1 TAB PO (08:26)
[2019-09-14] MEDS: SERTRALINE 25 MG TABLET PO (08:27)
[2019-09-14] MEDS: GLUCOSAMINE/CHONDROITIN CAPSULE 1 EACH PO ×2 (08:27→21:53)
[2019-09-14] MEDS: CHOLECALCIFEROL (VITAMIN D3) 400 UNIT TABLET PO (08:27)
--- NOTE | 2019-09-14 08:39 | PM.PNPO.1 ---
Subjective Subjective Date Patient Seen: 09/14/19 Time Patient Seen: 08:39 Interval history: She had some bad lower back to hip pain this morning but with repositioning was doing much better. She started move her legs more. Exam Vital Signs (past 8 hours): - 09/14/19 01:30 09/14/19 05:00 09/14/19 07:50 Temperature 98.0 F 98.8 F 97.9 F Pulse Rate 99 H 88 100 H Respiratory Rate 18 16 16 Blood Pressure 119/74 108/64 134/85 Pulse Oximetry 93 93 95 Oxygen Delivery Method Room Air Oxygen Flow Rate 0 Const Orientation: alert and oriented x3 Back/Spine/Pelvis Other: Mild dry drainage. Minimal drain output. IP Q AT [facility] GC R 1 2 1 3 3 L 1 2 1 0 0 Objective Labs Result Diagrams: 09/13/19 06:40 09/13/19 06:40 Assessment & Plan Post-op Postoperative Procedures: Procedures Operation Date: 09/13/19 11:45 Actual Procedures Side Surgeon p T11-L2 Laminectomy and removal of blood clot Matthew Higgins MD She is getting more strength recovery, but is still quite weak in the legs. I explained to her that I do not know her eventual outcome but I am very happy with the progress since yesterday so far. This is something we are going to have to watch and wait. Continue to mobilize today with physical therapy. Anticipate skilled rehab for her. Quality VTE Deep Vein Thrombosis/Pulmonary Embolism Present on Admission: No
--- NOTE | 2019-09-14 12:57 | PT-IP ANOTE ---
unable to complete eval in the morning due to schedule conflict. will complete later in the afternoon
--- NOTE | 2019-09-14 13:34 | P.PN_ITS ---
Subjective Subjective Date Patient Seen: 09/14/19 Time Patient Seen: 09:05 Interval history: Ms. Marisol Valentine is a 74-year-old female with a history significant for thyroid disease, spinal stenosis, scoliosis, restless leg syndrome, chronic low back pain, osteoporosis, hyperlipidemia, GERD, degenerative joint disease and basal cell carcinoma and osteoarthritis who presented initially to [facility] for profound back pain and leg numbness following placement of a spinal stimulator by Dr. Mercer at [facility] earlier in the day on 09/12/2019. She was then asked to transfer here for further surgical intervention by Dr. Higgins. On 09/13/2019 he performed a hematoma evacuation. She remains profoundly weak but is able to move her knees bilaterally from side to side and wiggle her toes. Exam Vital Signs (past 8 hours): - 09/14/19 07:50 Temperature 97.9 F Pulse Rate 100 H Respiratory Rate 16 Blood Pressure 134/85 Pulse Oximetry 95 Oxygen Delivery Method Room Air Oxygen Flow Rate 0 Narrative Exam Narrative: GENERAL APPEARANCE: well developed, adequately nourished female in NAD sitting upright in hospital bed. HEENT: Normocephalic, wears glasses, PERRLA, conjunctiva clear, EOMs intact without nystagmus, clear rhinorrhea, mucous membranes are moist and pink. NECK/THYROID: Diminished range of motion, no JVD, no carotid bruit, no thyromegaly, trachea midline. LYMPH NODES: no cervical or supraclavicular lymphadenopathy. SKIN: [place], warm and dry, no visible lesions. HEART: regular rate and rhythm, S1-S2, no murmur, rubs or gallops, brisk capillary refill, no edema LUNGS: clear to auscultation bilaterally, no wheezes, rhonchi, rales. CHEST: Symmetrical movement, no accessory muscle use. ABDOMEN: Soft, dull to percussion, generalized abdominal tenderness, no organomegaly, active bowel tones. BACK: Lumbar spinal dressing with small amount of blood with spinal stimulator leads. EXTREMITIES: Full range of motion BUE, well-healed scar anterior right knee, poor muscle tone lower extremities. NEUROLOGIC: AAO x4, cranial nerves II-XII grossly intact, sensation intact to gross touch bilateral lower extremities. unable to wiggle her R toes this morning but not her left, able to move bilateral knees from side to side but not much else. PSYCH: Good eye contact, cooperative, pleasant. Objective Labs Result Diagrams: 09/13/19 06:40 09/13/19 06:40 Assessment & Plan Assessment & Plan narrative: This is a 74-year-old female patient who was transferred from [facility] to [facility] following placement of a spinal stimulator with acute and sudden onset of severe back pain and bilateral lower extremity neuropathy, she is s/p a hematoma evacuation with Dr. Higgins on 09/13/2019. 1. Acute exacerbation of chronic low back pain, status post spinal stimulator implant, present on admission, active. Patient has protracted history of chronic lumbar back pain status post lumbar fusion. Dr. Mercer, physical medicine and rehab implanted spinal stimulator on 09/12/2019. Patient returned to the ER with profound back pain and bilateral lower extremity motor and sensory neuropathy. CT scan thoracic spine finds no spinal hematoma or fractures. In the ER the patient received morphine, Dilaudid and fentanyl with incomplete pain control. MRI done the next morning showed: extensive heterogeneous fluid collection seen posteriorly within the spinal canal that measures approximately 7 cm craniocaudally which is centered at the T12-L1 level. There is associated mass effect upon the spinal cord, coursing anteriorly and to the left, with associated severe central canal narrowing. Patient was taken to the operating room on 09/13/2019 for hematoma evacuation with Dr. Higgins. Postoperatively she has gained a small amount of function, but the amount that she will recover is yet to be determined. Patient will continue with physical therapy, and she was recommended for inpatient rehab per orthopedic surgery recommendations at this time. Continue pain management: flexeril 10 mg, gabapentin, norco 1-2 tab q4 prn. decadron 4 mg q6 hr x 8 doses per surgery, benadryl 25 mg QID per surgery. 2. Bilateral lower extremity neuropathy, acute, present on admission, active. As noted above this is a likely consequence of the spinal hematoma. 3. Hypothyroidism, chronic, stable. Will continue the patient's home regimen of levothyroxine 88 mcg daily. 4. Mixed hyperlipidemia, chronic, stable Will continue the patient's home regimen of pravastatin 20 mg every other day. 5. Osteoporosis, age related, chronic, stable The patient is currently taking calcium and vitamin-D supplementation. VTE prophylaxis: Compression hose, chemical prophylaxis contraindicated to recent spinal surgery with hematoma. Diet: General diet, patient is on an extensive bowel regimen. IV fluid: Saline lock Code: Full Quality VTE Deep Vein Thrombosis/Pulmonary Embolism Present on Admission: No
[2019-09-14 14:30] VITALS: BP 138/79; PULSE 91; RESP 16; TEMP 36.9; O2SAT 96
--- NOTE | 2019-09-14 14:37 | PC.NURSE ---
Nurse Note Patient alert and oriented this shift. CMS altered to LE, but patient reports increased mobility and sensation to LE post-surgically. Circulation intact. Frequent repositioning offered. Tolbert in place r/t diagnosis/previous neurogenic bladder. Patient denies any kind of increasing headache, pain managed with ordered PO meds. Care is ongoing.
--- NOTE | 2019-09-14 15:50 | CM.DANOTE ---
Discharge Planning/Care Management DCP: assessment: case received, EMR reviewed yesterday (pt was in surgery) and again today. Spoke with Dr. Higgins early today and he confirmed that pt would need INPT rehab setting after hospital stay. Met now with pt and her daughter Rayna Fitzpatrick, accompanied by her service dog Devon, to discuss this plan. Introduced self and role. Pt is a 74 year old female who admitted yesterday after being sent over from [facility] to care of hospitalist team. Dr. Higgins was consulted and took pt immediately to surgery. Payer: Medicare and [employer]. Discussed INPT rehab facilities in area with pt and Rayna paco for [facility] INPT rehab in [place] as they live in that area. Referral is now given to [facility] via to admissions line: [phone] and fax: [phone]. PT and OT are planning to co-treat pt this afternoon for first eval so these notes are not yet available. Discussed plan for post inpt rehab stay: Rayna plans to move in with pt to help her as she recovers and marcos Carpio is available for backup. P: DCP team will be following closely. Will check in tomorrow to see where the referral request stands. CM Discharge Assessment Start: 09/13/19 12:39 Freq: Status: Active Protocol: Document 09/13/19 12:39 ITV (Rec: 09/13/19 12:41 ITV [id number]) Discharge Planning Assessment Advance Directives? No History Provided By Medical Record Prior Living Arrangements House Household Members none Whiteboard Updated in Patient Room with Yes name and ext. # of Manager Product Design Review Status In Process Document 09/14/19 15:48 ITV (Rec: 09/14/19 15:50 ITV [id number]) Discharge Planning Assessment Advance Directives? No History Provided By Patient,Family Member,Medical Record Prior Living Arrangements House Comment 24 year old marcos Rodríguez lives in [facility] on lower level of the home Household Members none Comment Marcos works in day but is available during evening/night for prn support Is patient alert and oriented? Yes Discharge Plan Inpatient Rehab Unit Whiteboard Updated in Patient Room with Yes name and ext. # of Manager Product Design Review Status In Process
--- NOTE | 2019-09-14 16:28 | OT.IP.EVAL ---
Current Diagnoses Postprocedural hematoma of a nervous system organ or structure following a nervous system procedure (09/13/19) Surgery Performed Operation Date: 09/13/19 11:45 Actual Procedures p T11-L2 Laminectomy and removal of blood clot - Matthew Higgins MD Past Medical History (Last Reviewed 09/13/19 @ 11:25 by Matthew Higgins MD) Basal cell carcinoma (Acute) Cervical disc disease (Acute) Chronic low back pain (Acute) Degenerative joint disease (Acute) Gastroesophageal reflux disease (Acute) Hyperlipidemia (Acute) Hypothyroidism (Acute) Osteoarthritis (Acute) Osteoporosis (Acute) Restless leg syndrome (Acute) Scoliosis (Acute) Spinal stenosis (Acute) Surgical History (Last Reviewed 09/13/19 @ 11:25 by Matthew Higgins MD) History of appendectomy (Acute) History of cervical spinal surgery (Acute) History of cholecystectomy (Acute) History of colonoscopy (Acute) History of esophagogastroduodenoscopy (EGD) (Acute) History of laminectomy (Acute) History of repair of rotator cuff (Acute) History of skin graft (Acute) History of tonsillectomy (Acute) History of total abdominal hysterectomy and bilateral salpingo-oophorectomy (Acute) Occupational Therapy Inpatient Evaluation/Re-Eval M1 PT/OT-IP Prior Functional Status Start: 09/13/19 09:31 Freq: NEEDED Status: Active Protocol: Document 09/14/19 16:28 MANNIE (Rec: 09/14/19 18:01 PJAngeles [id number]) Medical Review Prior Functional Status Medical History Reviewed Yes Diet/Fluid Consistency Mechanical Soft Communication WNL Mobility and Gait Pt independent with ambulation without a device but with significant back pain. Activities of Daily Living and IADL's Pt independent with all self care, IADLS, driving. Pt limits lifting to gallon of milk due to back pain. Prior Functional Level (Other details) Daughter stops in 2x week to assist with yard work and heavy household appliances salesperson. Social History Household Members family Living Arrangements House Number of Floors (Floors) Two Floors Number of Stairs To Enter/Railing? 7 stairs to enter with old railing (not sturdy per daughter) Pt lives in manufactured home over daylight basement with separate entrance. Pt does not use basement. Her grandson lives there. Home Environment Standard Height Toilet,Walk in Shower,Built-In Shower Seat Home Equipment Shower Seat with Backrest Additional Social History Comment Pt has small built in shower seat (too small to be useful). Pt has separate shower seat but was not using it. M2 OT-IP Current Condition Start: 09/13/19 15:52 Freq: Status: Active Protocol: Document 09/14/19 16:28 PJM (Rec: 09/14/19 18:01 PJ [id number]) Occupational Therapy Current Condition Current Condition Evaluation Date 09/14/19 Treatment Diagnosis decr'd self care care, mobility due to incomplete T11 spinal cord injury Diagnosis Onset Date 09/13/19 Post Operative Precautions Lumbar Precautions Log Roll,No Twisting,Limit Bending,Lifting Restriction of 10 lbs,Gait Belt above Incisional Area Other Precautions fall risk, minimal motor function in BLE's, ceiling lift transfer at present, position changes q 2 hrs in bed to prevent skin breakdown, waffle cushion in bed, chair M3 OT- IP Subjective and Pain Start: 09/13/19 15:52 Freq: Status: Active Protocol: Document 09/14/19 16:28 PJM (Rec: 09/14/19 18:01 PJ [id number]) OT- Subjective Occupational Therapy Visit Type Type Initial Evaluation Visit Start Time 13:50 Visit Stop Time 14:28 Total Visit Minutes 38 Notes Pt's daughter observing this session. Occupational Therapy Visit Comments Patient Comments You know I can't move my legs. Right? Patient/Caregiver Goals to get stronger, be able to walk and go home OT Pain Assessment Pain When Pain Assessed After Treatment Pain Present Pain Present Pain Reported Location back/abdomen/legs Intensity 6 Scale Used Numeric (1 - 10) Description Aching,Acute M4 OT- IP ADL's Start: 09/13/19 15:52 Freq: Status: Active Protocol: Document 09/14/19 16:28 PJM (Rec: 09/14/19 18:01 [facility] [id number]) OT [id number] General Evaluation Self-Feeding Ability Independent Comments OT Self-Feeding Comments after set up in bed OT ADL-Grooming General Evaluation Grooming Ability Standby Assistance Areas Needing Assistance Retrieving/Set-up of Grooming Items,Combing/Brushing Hair, Face Washing Comments OT Grooming Comments after set up in bed OT ADL-Oral Care General Eval Oral Care Ability Standby Assistance Areas of Assistance Retrieving/Set-Up of Items Devices Oral Care Devices Toothbrush Comments Oral Care Comments after set up in bed OT ADL-Dressing General Eval Upper Body Dressing Ability Minimal Assistance Lower Body Dressing Ability Minimal Assistance,Total Assistance Areas Needing Assistance Socks, pants Comments OT Dressing Comments min assist with socks with head of bed fully elevated, total assist pants at present; began education re: lower body dressing techniques in bed with use of power bed features OT ADL-Toileting General Evaluation Toileting Ability Total Assistance Areas Needing Assistance Empty Catheter or Colostomy Devices Toileting Assistive Devices Bedpan Comments OT Toileting Comments pt has neurogenic bowel and bladder with stephens in place OT ADL-Bathing Bathing Type Bathing Type Bed Bath General Evaluation Bathing Ability Maximal Assistance M5 OT- IP IADL's Start: 09/13/19 15:52 Freq: Status: Active Protocol: Document 09/14/19 16:28 PJ (Rec: 09/14/19 18:01 [id number]) OT-Instrumental Activities of Daily Living Deficits IADL Deficits Identified Deficits Home Safety Awareness Awareness of Need for Assistance at Home Good Awareness Ability to Problem Solve Emergency Able to Problem Solve Situations Medication Management Medication Management No Deficits Identified Money Management Money Management No Deficits Identified Meal Preparation Meal Preparation Caregiver Provides Assist Meal Preparation Comments pt needs total assist at this time Mold Presser Mold Presser Caregiver Provides Assist Mold Presser Comments pt needs total assist at this time Driving Driving Comments pt unable to drive at this time M6 OT- IP Functional Cognition Start: 09/13/19 15:52 Freq: Status: Active Protocol: Document 09/14/19 16:28 PJ (Rec: 09/14/19 18:01 [facility] [id number]) Cognitive Factors Limiting Selfcare Function Cognitive Ability Level of Alertness Alert Patient Orientation Name,Age,Birthday,Month,Date, Year,Day of Week,Place, Situation Attention Span Ability Capable of Focused Attention, Capable of Sustained Attention Ability to Follow Commands Able to Follow One Step Commands Memory Description No Deficits Noted Problem Solving Ability Needs Assist to Identify Solutions Cognitive Comments Cognitive Assessment Comments Pt alert and oriented. Very motivated and determined to improve function. OT- Vision and Hearing OT- Hearing Assessment OT- Hearing Assessment WFL OT- Vision Assessment Visual Acuity WFL,Glasses All The Time M7 OT- IP Mobility and Balance Start: 09/13/19 15:52 Freq: Status: Active Protocol: Document 09/14/19 16:28 PJM (Rec: 09/14/19 18:01 PJ [id number]) OT- Bed Mobility Assessment Rolling Type of Rolling Roll to Left Level of Assistance Moderate Assistance,1 Person Assistance OT-Transfer Assessment Technique Transfer Technique Mechanical Lift OT- Gait Assessment Comments Gait Ability Comments pt non ambulatory due to lack of BLE motor function OT- Balance Assessment Comments Other Balance Tests/Deviations/Treatment see P.T. notes : M8 OT- IP Objective Assessments Start: 09/13/19 15:52 Freq: Status: Active Protocol: Document 09/14/19 16:28 PJM (Rec: 09/14/19 18:01 PJ [id number]) OT Gross Range of Motion Upper Extremity Range of Motion Assessment Bilaterally Impaired ROM Impairments Pt has old R rotator cuff tear with AROM to 90 then AAROM to 110, difficulty with eccentric motor control. LUE WFL but painful at end range of about 110 degrees. Distal AROM WFL in BUE. OT Strength Upper Extremity Strength Assessment Within Functional Limits Shoulder R scaption 3-/5, L scaption 3+/5 Hand Epoxy Fabrication Supervisor Strength Hand Dominance Right OT- Coordination Assessment Comments Coordination Comments BUE WFL OT-Muscle Tone Assessment Muscle Tone WNL Yes OT Sensation Assessment Comments Summary Comments B hand tingling for many years due to poor circulation Edema Edema Absent M9 OT- IP Assessment and Plan Start: 09/13/19 15:52 Freq: Status: Active Protocol: Document 09/14/19 16:28 PJM (Rec: 09/14/19 18:01 PJ [id number]) OT Summary Assessment and Plan Potential Rehabilitation Potential Good Analytic Complexity at Evaluation Moderate Summary OT Impairments Pain,Range of Motion,Strength, Balance,Functional Mobility, Dressing,Toileting,Bathing, Toilet Transfers,Shower Transfers,Activity Tolerance Assessment Summary Moderate complexity OT assessment completed on this 74 yr old woman s/p implantation of spinal cord stimulator 09/12/19 with post op pain, rapid onset BLE weakness/numbness, urinary retention with DX of T11-L1 epidural hematoma s/p emergent evacuation with T11-L1 lami's on 09/13/19. Pt presents with T11 incomplete paraplegia, neurogenic bowel, bladder, with 1+/5 BLE muscle contractions and impaired, but not absent, sensation in BLE's. See P.T. report for details of BLE function. Pt seen at bedside this session. Pt has significant performance deficits in all bed mobility/ transfers, dressing, bathing and toileting. With use of power bed features, pt beginning to participate in lower body dressing and rolling in bed. Pt very motivated to increase strength , mobility and independence. Provide education re: rehab process after spinal cord injury to pt/daughter at their request. Waffle cushion provided and turn q 2 hrs schedule discussed with RN and posted on white board to prevent skin breakdown. Recommend acute in pt rehab services at d/c. Will provide OT services here to address the goals below. Goals Grooming Goal Standby Assistance Dressing Goal Minimal Assistance Toileting Goal Moderate Assistance Bathing Goal Minimal Assistance Toilet Transfer Goal Moderate Assistance OT-Other Goals Grooming to be done sitting on EOB with no LOB. Dressing goal is for lower body dressing using power bed features to don/doff pants, socks, shoes. Bathing goal is for upper body sponge bath seated in chair. Toilet transfer goal is for sliding board transfer to [facility] Days to Meet Goals 10 Frequency of Treatment Frequency Of Treatment Once a Day Treatment Plan OT Treatment Plan ADL Training,Functional Mobility,Patient/Family Education,Discharge Planning Discharge Recommendations OT Discharge Recommendations Acute Rehab Home Equipment Needs to be determined pending progress in next rehab setting Transportation Needs at Discharge Wheelchair/Cabulance OR Stretcher /Ambulance pending progress with sitting tolerance here
[2019-09-14 16:40] VITALS: BP 140/90; PULSE 91; RESP 16; TEMP 36.3; O2SAT 91
--- NOTE | 2019-09-14 16:47 | PT.IIE ---
Current Diagnoses Postprocedural hematoma of a nervous system organ or structure following a nervous system procedure (09/13/19) Surgery Performed Operation Date: 09/13/19 11:45 Actual Procedures p T11-L2 Laminectomy and removal of blood clot - Matthew Higgins MD Surgical History (Last Reviewed 09/13/19 @ 11:25 by Matthew Higgins MD) History of appendectomy (Acute) History of cervical spinal surgery (Acute) History of cholecystectomy (Acute) History of colonoscopy (Acute) History of esophagogastroduodenoscopy (EGD) (Acute) History of laminectomy (Acute) History of repair of rotator cuff (Acute) History of skin graft (Acute) History of tonsillectomy (Acute) History of total abdominal hysterectomy and bilateral salpingo-oophorectomy (Acute) Medical History (Last Reviewed 09/13/19 @ 11:25 by Matthew Higgins MD) Basal cell carcinoma (Acute) Cervical disc disease (Acute) Chronic low back pain (Acute) Degenerative joint disease (Acute) Gastroesophageal reflux disease (Acute) Hyperlipidemia (Acute) Hypothyroidism (Acute) Osteoarthritis (Acute) Osteoporosis (Acute) Restless leg syndrome (Acute) Scoliosis (Acute) Spinal stenosis (Acute) Physical Therapy Inpatient Evaluation/Re-Eval M1 PT/OT-IP Prior Functional Status Start: 09/13/19 09:31 Freq: NEEDED Status: Active Protocol: Document 09/14/19 16:47 AB (Rec: 09/14/19 18:17 AB [id number]) Medical Review Prior Functional Status Medical History Reviewed Yes Communication able to make needs known Mobility and Gait pt stated that she was independent with all mobilities and ambulation without AD Social History Household Members none Living Arrangements House Number of Floors (Floors) Two Floors Number of Stairs To Enter/Railing? pt stays on main level of the house; has 8 steps with L rail ascending to enter. Home Environment Standard Height Toilet,Walk in Shower,Built-In Shower Seat Home Equipment Front Wheel Walker,Four Wheel Walker Employment Status Retired M2 PT-IP Current Condition Start: 09/13/19 09:31 Freq: NEEDED Status: Active Protocol: Document 09/14/19 16:47 AB (Rec: 09/14/19 18:17 AB [id number]) Physical Therapy Current Condition Current Condition Evaluation Date 09/14/19 Treatment Diagnosis large epidural hematoma s/p decompression lami; difficulty in walking Onset Date 09/13/2019 Precautions Lumbar Precautions Log Roll,No Twisting,Limit Bending,Lifting Restriction of 10 lbs,Gait Belt above Incisional Area M3 PT-IP Subjective Start: 09/13/19 09:31 Freq: NEEDED Status: Active Protocol: Document 09/14/19 16:47 AB (Rec: 09/14/19 18:17 AB [id number]) Subjective Physical Therapy Visit Type Type Initial Evaluation Visit Start Time 16:47 Visit Stop Time 17:29 Total Visit Minutes 42 Number of PUSHER OPERATOR Visits 0 Physical Therapy Visit Comments Patient Comments pt agreed to do PT Therapy Pain Assessment Pain When Pain Assessed At Rest Pain Present Pain Present Pain Reported Location back/abdomen/legs Intensity 6 Scale Used Numeric (1 - 10) Pain Management Techniques Modification of Treatment,Re- positioning,Timing of Activity with Medications M4 PT-IP Mobility and Gait Start: 09/13/19 09:31 Freq: NEEDED Status: Active Protocol: Document 09/14/19 16:47 AB (Rec: 09/14/19 18:17 AB [id number]) PT-Bed Mobility Assessment Rolling Type of Rolling Log Rolling Level of Assist Maximal Assistance Supine to Sit Supine to Sit Maximum Assistance,1 Person Assistance,2 Person Assistance Sit to Supine Sit to Supine Maximum Assistance,2 Person Assistance Scooting Scooting to Edge of Bed Maximum Assistance Scooting Up and Down in Bed Maximum Assistance PT-Transfer Assessment Sit to and From Stand Sit to and from Stand Maximum Assistance,Total Assistance,2 Person Assistance ,Use of Upper Extremities Equipment Transfer Assistive Device Gait Belt Orthotic/Prosthetic Devices or Brace: No Comments Mobility Comments pt supine in bed. completed supine to sit max A x 1-2 and max cues. pt sat on EOB requiring mod to max A with sitting balance. pt has poor trunk control. pt completed sit to stand requiring max A x 2 to total A with PT assisting pt from the front and stabilizing pt knees/legs. pt completed a partial stand with inability to maintain knee extension requiring 2 person max to total A. completed 2 sit to stand. assisted pt back to bed requiring max A with sit to supine. positioned pt in bed. call light and table placed within reach. Gait Assessment Comments Gait Comments unable at this time PT-Balance Assessment Sitting Balance and Reactions Static Sitting Balance Ability Poor Dynamic Sitting Balance Ability Poor Standing Balance and Reactions Static Standing Balance Ability Poor Dynamic Standing Balance Ability Poor Device Used PT stabilizing and assisting pt from the front M5 PT-IP Objective Assessments Start: 09/13/19 09:31 Freq: NEEDED Status: Active Protocol: Document 09/14/19 16:47 AB (Rec: 09/14/19 18:17 AB [id number]) Orientation Orientation/Cognition Level of Alertness Alert Orientation Name,Place,Situation Language Function Ability No Deficits Noted Safety Awareness Understands Safety Issues Memory Description No Deficits Noted Gross Range of Motion Lower Extremity ROM Assessment Within Functional Limits Strength Upper Extremity Strength Shoulder stated that she does not have R rotator cuff Lower Extremity Strength Assessment Bilaterally Impaired Comments Strength Comments R hip/knee flexion: 2-/5 R hip/knee extension: 1/5 R ankle DF: 1/5 R ankle PF: 1/5 L hip/knee flexion: 1/5 L hip/knee extension: 2-/5 L ankle DF/PF: 2-/5 Sensation Assessment Sensation Gross Sensation WNL Comments Sensation Comments no c/o numbness/tingling M6 PT-IP Treatment Start: 09/13/19 09:31 Freq: NEEDED Status: Active Protocol: Document 09/14/19 16:47 AB (Rec: 09/14/19 18:17 AB [id number]) Physical Therapy Treatment Exercises Exercises Quad Sets Education Education Provided Precautions,Weight Bearing Status,Post-Op Packet,Safety M7 PT-IP Assessment and Plan Start: 09/13/19 09:31 Freq: NEEDED Status: Active Protocol: Document 09/14/19 16:47 AB (Rec: 09/14/19 18:17 AB [id number]) PT Summary Assessment and Plan Potential Rehabilitation Potential Fair Status of Condition at Evaluation Evolving Summary Impairments Pain,ROM,Strength,Balance, Coordination,Sensation,Tone, Cognition,Bed Mobility, Transfers,Gait,Activity Tolerance Assessment Summary pt with large epidural hematoma after undergoing stimulator placement and just underwent 3 level thoracic lami to decompress hematoma. Pt with trunk weakness and BLE weakness and seems to be presenting a SCI. pt currently requiring 2-3 person assist and unable to sit on EOB without AD and unable to stand upright despite assistance provided. pt will require SNF rehab or acute rehab to improve strength and mobility. will continue to assess. Goals Bed Mobility Goal Moderate Assistance Transfer Goal Moderate Assistance,Front Wheeled Walker Gait Goal Moderate Assistance,Front Wheel Walker Gait Distance 10 Days to Meet Goals 10 Frequency of Treatment Frequency Of Treatment Twice a Day Treatment Plan Physical Therapy Treatment Plan Bed Mobility Training,Transfer Training,Gait Training, Therapeutic Exercise,Balance Retraining,Post Op Education, Discharge Planning,Hot or Cold Pack,Neuromuscular Re-ed, Coordination Retraining,Manual Therapy Other Recommendations and Next Treatment bed mobility, sitting balance/ Focus tolerance, trunk/LE strengthening Recommendations To Nursing Amount of Assist Needed 3 or More Person Assist, Mechanical Lift Discharge Recommendations PT Discharge Recommendations SNF Rehab,Acute Rehab
--- NOTE | 2019-09-14 17:28 | PM.CHAP ---
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 She was doing PT.
[2019-09-14 20:55] VITALS: BP 160/93; PULSE 92; RESP 18; TEMP 36.7; O2SAT 96
[2019-09-14] MEDS: LATANOPROST 0.005% OPHTH 2.5 ML 1 DROPS EYE-BOTH (21:47)
[2019-09-14] MEDS: TRAZODONE 50 MG TABLET 75 MG PO (21:50)
[2019-09-14] MEDS: PRAVASTATIN 20 MG TABLET PO (21:51)
[2019-09-14] MEDS: CYCLOBENZAPRINE 10 MG TABLET PO (21:53)
[2019-09-14] MEDS: SENNOSIDES 8.6 MG TABLET 17.2 MG PO (21:55)
--- NOTE | 2019-09-14 23:36 | PC.NURSE ---
Pt. stable throughout shift. Pain controlled. Repositioned q2 hours throughout. Waffle cushion under patient in bed. Wearing brief for stool incontinence. Drainage on surgical dressing increased slightly during shift; borders marked with Gloria at 2230.
[2019-09-15] VITALS (9 sets, daily range): BP systolic 102–189; BP diastolic 61–105; PULSE 71–102; RESP 15–18; TEMP 36.1–36.9; O2SAT 92–96
[2019-09-15] MEDS: HYDROCODONE/ACET 5/325 TABLET 2 TAB PO ×2 (01:16→06:02)
--- NOTE | 2019-09-15 02:35 | PC.NURSE ---
Addendum entered by Elena Paulino R.N. 09/15/19 06:18: pt in bed performing exercises. RD dupree bilat with SCD's on and pumping. 0600 and 0700 medications administered with 2 tabs [place] for 5/10 pain. Original Note: NOC shift. pt AO and receptive to care. pt able to express need to reposition, pain and ask for pain medication. Back dressing dry and intact with shadowing outlined in marker. pt able to lift lower extremities mildly and reports a dull sensation from her buttock down. Foot SCD's on. VSS. Hemovac compressed, Tolbert draining to gravity. Waffle cushion is under buttock and back. [place] 2 tabs managing moderate 5-6/10 pain. pt requesting a couple of her medications get re-timed. Her eye drops (dorzolamide) and protonix to pre-breakfast and pre-dinner. She also notes only wanting to take Prevalite in AM only.
[2019-09-15] MEDS: LACTATED RINGERS 1,000 ML 125 ML IV (03:14)
[2019-09-15] MEDS: DEXAMETHASONE 4 MG/ML VIAL IV ×3 (04:50→16:24)
[2019-09-15] MEDS: LEVOTHYROXINE 88 MCG TABLET PO (06:02)
[2019-09-15] MEDS: gemfibroziL 600 MG TABLET PO ×2 (06:02→16:24)
[2019-09-15] MEDS: hydrOXYzine pamoate 25 MG CAPSULE PO ×2 (07:49→12:37)
[2019-09-15] MEDS: KETOROLAC 30 MG/ML VIAL IV (07:50)
[2019-09-15] MEDS: DORZOLAMIDE/TIMOLOL OPHTH 10 ML 1 DROPS EYE-BOTH ×2 (08:00→17:42)
[2019-09-15] MEDS: PANTOPRAZOLE 40 MG TABLET PO ×2 (08:02→17:44)
--- NOTE | 2019-09-15 08:36 | PM.PNPO.1 ---
Subjective Subjective Date Patient Seen: 09/15/19 Time Patient Seen: 08:36 Interval history: Having some pain control issues across the back but this is better now with medication. Some charley horses in the front of the thighs but otherwise no leg pain. She does feel numb along the back of her thighs but denies saddle anesthesia. She reports that in the past she has felt like she needs to urinate when she has had a catheter. However this point she does not have any sensation for that. She does have rectal sensation and feels like she could have a bowel movement. Exam Vital Signs (past 8 hours): - 09/15/19 01:25 09/15/19 04:10 Temperature 97.8 F 98.5 F Pulse Rate 85 89 Respiratory Rate 17 18 Blood Pressure 131/105 H 102/62 Pulse Oximetry 96 92 Oxygen Delivery Method Room Air Oxygen Flow Rate 0 Const Orientation: alert and oriented x3 Back/Spine/Pelvis Other: Mild dry drainage. No drain output. IP Q AT [facility] GC R 2 2 1 3 3 L 2 2 1 0 0 Objective Labs Result Diagrams: 09/13/19 06:40 09/13/19 06:40 Assessment & Plan Post-op Postoperative Procedures: Procedures Operation Date: 09/13/19 11:45 Actual Procedures Side Surgeon p T11-L2 Laminectomy and removal of blood clot Matthew Higgins MD Her quads and hip flexors are definitely stronger today than they were yesterday. She is making slow neurologic recovery, more so on the right-hand side. I again explained her the not sure of her eventual outcome, this is going to take time. She most likely still has a neurogenic bladder, and I will continue the catheter for 1 more day and then try removing this tomorrow. Definitely will need inpatient neuro facility for recovery. Quality VTE Deep Vein Thrombosis/Pulmonary Embolism Present on Admission: No
--- NOTE | 2019-09-15 08:54 | CM.DPC ---
DCP: continued: Follow up this morning with Clay/S[facility] global program manager at [facility]/INPT rehab unit. He confirms he received the referral and will take to his senior microsoft consultant for review. A new liaison for the program, Dora, will come out tomorrow to see pt for assessment/acceptance consideration. OT/PT evals from late yesterday afternoon are faxed to Clay now. P: update pt and daughter re above. Acute INPT rehab at d/c when stable for same. Plan in process. Please see d/c planning note from yesterday for more detail.
[2019-09-15] MEDS: diphenhydrAMINE 25 MG TABLET PO ×4 (09:07→20:23)
[2019-09-15] MEDS: GABAPENTIN 300 MG CAPSULE PO ×3 (09:07→20:22)
[2019-09-15] MEDS: FLUTICASONE 120 SPRAY/16 GM SPRAY.SUSP NASAL (09:07)
[2019-09-15] MEDS: CALCIUM CARBONATE 600 MG TABLET PO (09:08)
[2019-09-15] MEDS: CHOLECALCIFEROL (VITAMIN D3) 400 UNIT TABLET PO (09:08)
[2019-09-15] MEDS: MULTIVIT,CALC,MINS/IRON/FOLIC 1 TABLET 1 TAB PO (09:08)
[2019-09-15] MEDS: CHOLESTYRAMINE/ASPARTAME 4 GM PACK PO (09:09)
[2019-09-15] MEDS: SERTRALINE 25 MG TABLET PO (09:09)
[2019-09-15] MEDS: GLUCOSAMINE/CHONDROITIN CAPSULE 1 EACH PO ×2 (09:09→20:23)
[2019-09-15] MEDS: PSYLLIUM HUSK 1 PACKET PO (09:10)
[2019-09-15] MEDS: FISH OIL 1,000 MG CAPSULE 1000 MG PO ×2 (09:20→20:28)
--- NOTE | 2019-09-15 09:41 | PC.NURSE ---
Day shift: Dr Garcia informed about Pt's high BP. Dr Garcia wants to continue to monitor and also stated that BP that is somewhat elevated is OK with this back surgery. Will continue to monitor. Pt denies any headache at this time. Call light in reach. Pt agrees to jot get OOB w/o help from staff. Pt stated this AM I can't stand and I can't even sit at the side of the bed.
[2019-09-15] MEDS: OXYCODONE IR 10 MG TABLET PO ×3 (11:14→19:03)
--- NOTE | 2019-09-15 11:30 | PT-IP ANOTE ---
Pt refused tx stating she would work with PT in afternoon.
[2019-09-15] MEDS: LABETALOL 20 MG/4 ML SYRINGE 10 MG IV (13:29)
--- NOTE | 2019-09-15 14:03 | PC.NURSE ---
Day shift: First dose Labetolol per MAR Pt on tele and per ELASTIC ATTACHER CHAINSTITCH Pt ok to take off tele. Will continue to monitor.
--- NOTE | 2019-09-15 14:19 | P.PN_ITS ---
Subjective Subjective Date Patient Seen: 09/15/19 Interval history: Marisol Valentine is a 74-year-old female with a past medical history significant for hyperlipidemia, depression, hypothyroidism, GERD, basal cell carcinoma, RLS, DJD, osteoarthritis, spinal stenosis, scoliosis, and chronic low back pain with opiate dependence who presented to [facility] ED and transferred to [facility] for direct admission following placement of a spinal stimulator with acute and sudden onset of severe back pain and bilateral lower extremity neuropathy. She is now status post hematoma evacuation with Dr. Higgins on 09/13/2019. The patient is resting in bed comfortably. She is quite anxious. She reports that she has had return of sensation in her lower extremities that was initially tingling and uncomfortable but now normal. She endorses lumbar back pain that is not well controlled. Orthopedic surgery has implemented oxycodone and added IV Dilaudid for significant breakthrough pain. She continues to have significant motor weakness L> R that is slightly improved. She continues to r eport that she believes she had a allergic reaction causing complication related to the nickel leads in the spinal stimulator. She is also concerned about her blood pressure potentially causing stroke and informed her that this is likely pain driven and will control pain and added antihypertensive if needed and to treat. She has no other complaints and denies headache, chest pain, shortness of breath, abdominal pain, nausea, vomiting, fever, chills, dysuria, diarrhea or constipation. She is voiding and eliminating without difficulty. She denies saddle anesthesia. She is up with moderate to maximum assistance. Continue physical and occupational therapy. Exam Vital Signs (past 8 hours): - 09/15/19 09:03 09/15/19 13:29 09/15/19 14:15 Temperature 97.4 F L Pulse Rate 102 H 82 71 Respiratory Rate 18 Blood Pressure 189/105 H 188/97 H 156/77 H Pulse Oximetry 95 Oxygen Delivery Method Room Air Oxygen Flow Rate 0 Narrative Exam Narrative: General: Elderly female lying in bed comfortably and in no acute distress, well-developed, well-nourished, anxious but otherwise appropriately interactive. HEENT: Normocephalic, atraumatic. External ears without defect. Pupils equal, round, and reactive to light. Anicteric sclerae, moist conjunctivae, and no lid lag. Oropharynx free of erythema and cobble stoning with moist mucosa. Neck: Supple with full range of motion. No jugular venous distension. No bruits. No lymphadenopathy or thyromegaly. Cardiovascular: Regular rate and rhythm without murmurs, rubs, or gallops appreciated Pulmonary: Clear to auscultation bilaterally without crackles, wheezes, or rhonchi. Normal respiratory effort with no use of accessory muscles. Abdomen: Soft, bowel sounds present, nontender, nondistended. No hepatosplenomegaly or masses appreciated. Extremities: No clubbing, cyanosis, or edema. Back: Low lumbar back with dressing in place C/D/I. Skin: Normal temperature, turgor, and texture; no rash, ulcers, or subcutaneous nodules appreciated. Neurological: Lower extremity paresis with L> R motor weakness +2/5. Sensation intact with mild numbness along posterior thighs. Psychiatric: Anxious mood and normal affect. Appears to be alert and oriented to person, place, and time. Objective Labs Result Diagrams: 09/15/19 16:24 09/15/19 16:24 Assessment & Plan Assessment & Plan narrative: Marisol Valentine is a 74-year-old female with a past medical history significant for hyperlipidemia, depression, hypothyroidism, GERD, basal cell carcinoma, RLS, DJD, osteoarthritis, spinal stenosis, scoliosis, and chronic low back pain with opiate dependence who presented to [facility] ED and transferred to [facility] for direct admission following placement of a spinal stimulator with acute and sudden onset of severe back pain and bilateral lower extremity neuropathy. She is now status post hematoma evacuation with Dr. Higgins on 09/13/2019. 1. Acute postoperative spinal hematoma with cord compression and paralysis, status post three level thoracic laminectomy to decompress epidural hematoma, present on admission. Active. -Patient has protracted history of chronic lumbar back pain status post lumbar fusion. -Dr. Wilcox, physical medicine and rehab implanted spinal stimulator on 09/12/2019. Patient returned to the ER with profound back pain and bilateral lower extremity motor and sensory neuropathy. -CT thoracic spine did not demonstrate any spinal hematoma or fractures. -MRI demonstrated extensive heterogeneous fluid collection seen posteriorly within the spinal canal that measures approximately 7 cm craniocaudally which is centered at the T12-L1 level. There is associated mass effect upon the spinal cord, coursing anteriorly and to the left, with associated severe central canal narrowing. -Patient was taken to the operating room on 09/13/2019 for hematoma evacuation with Dr. Higgins. Postoperatively she has gained a small amount of function, but the amount that she will recover is yet to be determined. -Continue with physical and occupational therapy evaluation and treatment. Plan for inpatient rehab per orthopedic surgery recommendations at this time. -Continue pain management per Orthopedic surgery with: Flexeril 10 mg daily at bedtime, gabapentin 300 mg 3 times daily, and oxycodone 10 mg every 3 hours. Added Dilaudid 0.5 mg IV every 6 hours as needed for severe breakthrough pain. -Continue decadron 4 mg every 6 hours x 8 doses and benadryl 25 mg 4 times daily per Orthopedic surgery. 2. Acute postoperative hypertension, not present on admission. Active. -Patient has no history and is not not treated for hypertension -Likely secondary to pain response. -Continue to control pain per Orthopedic surgery. Ordered labetalol 10 mg every 4 hours as needed for SBP > 180 mmHg sustain for 15 minutes and HR > 60. -Continue to monitor blood pressure closely. If patient remains hypertensive despite pain control could consider starting long-acting agents such as losartan 25 mg daily. 3. Hypothyroidism, chronic, present on admission. Stable. -Ordered TSH with reflex, pending. -Continue home levothyroxine 88 mcg daily. 4. Hyperlipidemia and carotid artery stenosis, present on admission. Presumed stable. -Continue pravastatin 20 mg every other day. Plavix for carotid artery stenosis has been held due to intra and extra spinal hematoma with cord compression as above. 5. Osteoporosis, chronic, present on admission. Stable. -Continue calcium and vitamin-D supplementation. Code: Full Code DVT prophylaxis: SCDs and chemical prophylaxis contraindicated to recent spinal surgery with hematoma. Disposition: Patient likely to discharge to inpatient rehabilitation in the next several days per Orthopedic surgery. Thank you for this most interesting consult. Medicine team will sign off at th is time but if you need any further assistance do not hesitate to contact us. Quality VTE Deep Vein Thrombosis/Pulmonary Embolism Present on Admission: No
--- NOTE | 2019-09-15 15:01 | PT.IPTN ---
Current Diagnoses Postprocedural hematoma of a nervous system organ or structure following a nervous system procedure (09/13/19) Surgery Performed Operation Date: 09/13/19 11:45 Actual Procedures p T11-L2 Laminectomy and removal of blood clot - Matthew Higgins MD Physical Therapy Treatment Note M2 PT-IP Current Condition Start: 09/13/19 09:31 Freq: NEEDED Status: Active Protocol: Document 09/14/19 16:47 AB (Rec: 09/14/19 18:17 AB [id number]) Physical Therapy Current Condition Current Condition Evaluation Date 09/14/19 Treatment Diagnosis large epidural hematoma s/p decompression lami; difficulty in walking Onset Date 09/13/2019 Precautions Lumbar Precautions Log Roll,No Twisting,Limit Bending,Lifting Restriction of 10 lbs,Gait Belt above Incisional Area M3 PT-IP Subjective Start: 09/13/19 09:31 Freq: NEEDED Status: Active Protocol: Document 09/15/19 15:01 CLB (Rec: 09/15/19 16:54 CLB [id number]) Subjective Physical Therapy Visit Type Type Treatment Note Visit Start Time 15:01 Visit Stop Time 15:35 Total Visit Minutes 34 Number of SOLID STATE TESTER Visits 1 Physical Therapy Visit Comments Patient Comments pt agreed to do PT Therapy Pain Assessment Pain When Pain Assessed At Rest Pain Present Pain Present Pain Reported Location back/abdomen/legs Intensity 5 Scale Used Numeric (1 - 10) Pain Management Techniques Modification of Treatment,Re- positioning,Timing of Activity with Medications M4 PT-IP Mobility and Gait Start: 09/13/19 09:31 Freq: NEEDED Status: Active Protocol: Document 09/15/19 15:01 CLB (Rec: 09/15/19 16:54 CLB [id number]) PT-Bed Mobility Assessment Rolling Type of Rolling Log Rolling Level of Assist Maximal Assistance Supine to Sit Supine to Sit Maximum Assistance,1 Person Assistance Sit to Supine Sit to Supine Maximum Assistance,1 Person Assistance Scooting Scooting to Edge of Bed Minimal Assistance Scooting Up and Down in Bed Maximum Assistance PT-Transfer Assessment Comments Mobility Comments Pt able to sit at EOB and was able to hip walk to EOB. Pt able to sit on EOB first with CGA then able to sit SBA while holding onto bed rail and bed cane then able to have walker in front of pt and pt held onto walker for support SBA. Pt able to perform seated knee ext/flex able to bring left leg up into ext but unable to remain in ext. Pt able to move right foot but unable to move left foot into PF/DF. Pt sat on bed for 15 minutes.Pt was then able to hip walk back onto bed, then required Max A for upper and lower extremities into bed. Left pt in bed with bed alarm on and SCD's on bilateral LE's with all needs within reach. Gait Assessment Comments Gait Comments unable at this time M5 PT-IP Objective Assessments Start: 09/13/19 09:31 Freq: NEEDED Status: Active Protocol: Document 09/14/19 16:47 AB (Rec: 09/14/19 18:17 AB [id number]) Orientation Orientation/Cognition Level of Alertness Alert Orientation Name,Place,Situation Language Function Ability No Deficits Noted Safety Awareness Understands Safety Issues Memory Description No Deficits Noted Gross Range of Motion Lower Extremity ROM Assessment Within Functional Limits Strength Upper Extremity Strength Shoulder stated that she does not have R rotator cuff Lower Extremity Strength Assessment Bilaterally Impaired Comments Strength Comments R hip/knee flexion: 2-/5 R hip/knee extension: 1/5 R ankle DF: 1/5 R ankle PF: 1/5 L hip/knee flexion: 1/5 L hip/knee extension: 2-/5 L ankle DF/PF: 2-/5 Sensation Assessment Sensation Gross Sensation WNL Comments Sensation Comments no c/o numbness/tingling M6 PT-IP Treatment Start: 09/13/19 09:31 Freq: NEEDED Status: Active Protocol: Document 09/15/19 15:01 CLB (Rec: 09/15/19 16:54 CLB [id number]) Physical Therapy Treatment Exercises Exercises Quad Sets Education Education Provided Precautions,Weight Bearing Status,Post-Op Packet,Safety M7 PT-IP Assessment and Plan Start: 09/13/19 09:31 Freq: NEEDED Status: Active Protocol: Document 09/15/19 15:01 CLB (Rec: 09/15/19 16:54 CLB [id number]) PT Summary Assessment and Plan Potential Rehabilitation Potential Fair Status of Condition at Evaluation Evolving Summary Impairments Pain,ROM,Strength,Balance, Coordination,Sensation,Tone, Cognition,Bed Mobility, Transfers,Gait,Activity Tolerance Assessment Summary Pt improving with bed mobility and was able to sit on EOB and able to perform knee flx/ ext exercies with minimal movement of feet and no movement of toes. Pt was able to walk hips to EOB with CGA and was able to sit on EOB for 15 minutes. Pt will require SNF rehab or acute rehab to improve strength and mobility. Goals Bed Mobility Goal Moderate Assistance Transfer Goal Moderate Assistance,Front Wheeled Walker Gait Goal Moderate Assistance,Front Wheel Walker Gait Distance 10 Days to Meet Goals 10 Frequency of Treatment Frequency Of Treatment Twice a Day Treatment Plan Physical Therapy Treatment Plan Bed Mobility Training,Transfer Training,Gait Training, Therapeutic Exercise,Balance Retraining,Post Op Education, Discharge Planning,Hot or Cold Pack,Neuromuscular Re-ed, Coordination Retraining,Manual Therapy Recommendations To Nursing Amount of Assist Needed 2 Person Assist,Mechanical Lift Discharge Recommendations PT Discharge Recommendations SNF Rehab,Acute Rehab
--- NOTE | 2019-09-15 15:07 | PM.CHAP ---
short visit and aprayer with patient. she asked me to return.
--- NOTE | 2019-09-15 16:33 | PC.NURSE ---
Addendum entered by Nayeli Bella R.N. 09/15/19 20:55: Pt had relatively uneventful evening. Med at x 1 @ 1900 for discomfort w/good relief. Dsg remains unchanged. TEDS & foot SCD in place. Call light w/in reach, bed alarm on for pt safety. Continue w/plan of care. Original Note: Pt repositioned in bed. Denies discomfort at this time. Lungs clear/diminished, SpO2 96% RA Dsg to back w/small shadow drainage noted. RD hose & foot SCD in place. Call light w/in reach, bed alarm on for pt safety.
[2019-09-15 16:35] LABS: Add Manual Diff / Slide Review NO; Basophils Absolute Auto 100 /uL (0-100); Basophils Percent Auto 0.2 % (0-2); Eosinophils Absolute Auto 0 /uL (0-450); Hemoglobin 14.1 g/dL (12.0-16.0); Lymphocytes Absolute Auto 1200 /uL (1100-4500); Lymphocytes Percent Auto 5.7 % (25-40); Mean Corpuscular HGB Conc 33.6 % (30-36); Mean Corpuscular Volume 86.5 fL (80-100); Monocytes Absolute Auto 1700 /uL (0-900); Neutrophils Absolute Auto 18300 /uL (1500-7000); Neutrophils Percent Auto 86.1 % (50-75); Platelet Count 347 X10^3/uL (150-400); Red Blood Cell Count 4.85 X10^6/uL (4.0-5.2); Red Cell Distribution Width 13.7 % (11.6-14.8); White Blood Cell Count 21.2 X10^3/uL (4.5-11.0)
[2019-09-15 16:46] LABS: Blood Urea Nitrogen 17 mg/dL (7-17); Calcium 10.4 mg/dL (8.4-10.2); Carbon Dioxide 31 mmol/L (22-32); Chloride 98 mmol/L (98-107); Estimated Glomerular Filt Rate > 60.0 mL/min (>60); Glucose 124 mg/dL (80-110); HEMOLYSIS < 15 (0-50); Magnesium 2.1 mg/dL (1.6-2.3); Potassium 3.4 mmol/L (3.4-5.1); Sodium 140 mmol/L (137-145)
[2019-09-15 17:28] LABS: TSH w/ Reflex to FT4 6.33 uIU/mL (0.47-4.68)
[2019-09-15 17:54] LABS: Free T4, Direct Thyroxine 1.28 ng/dL (0.78-2.19)
[2019-09-15] MEDS: TRAZODONE 50 MG TABLET 75 MG PO (20:22)
[2019-09-15] MEDS: PRAVASTATIN 20 MG TABLET PO (20:22)
[2019-09-15] MEDS: CYCLOBENZAPRINE 10 MG TABLET PO (20:22)
[2019-09-15] MEDS: LATANOPROST 0.005% OPHTH 2.5 ML 1 DROPS EYE-BOTH (20:24)
[2019-09-16] VITALS: BP 102/60; PULSE 74; RESP 14; TEMP 36.6; O2SAT 96
[2019-09-16 04:09] VITALS: BP 133/63; PULSE 73; RESP 15; TEMP 36.6; O2SAT 99
[2019-09-16] MEDS: OXYCODONE IR 10 MG TABLET PO ×6 (04:46→23:53)
--- NOTE | 2019-09-16 07:35 | P.PN_ITS ---
Subjective Subjective Date Patient Seen: 09/16/19 Time Patient Seen: 07:35 Interval history: She feels stronger. Pain is getting better. Complains of heartburn and draining sinuses Exam Vital Signs (past 8 hours): - 09/16/19 00:00 09/16/19 04:09 Temperature 97.8 F 97.9 F Pulse Rate 74 73 Respiratory Rate 14 15 Blood Pressure 102/60 133/63 Pulse Oximetry 96 99 Oxygen Delivery Method Room Air Oxygen Flow Rate 0 Const Orientation: alert and oriented x3 Back/Spine/Pelvis Other: CDI. IP Q AT [facility] GC R 2 2+ 2 3 3 L 2 2+ 1 0 0 Objective Labs Result Diagrams: 09/15/19 16:24 09/15/19 16:24 Labs: Laboratory Results - last 24 hr 09/15/19 09/15/19 09/15/19 16:24 16:24 16:24 WBC 21.2 H RBC 4.85 Hgb 14.1 Hct 42.0 MCV 86.5 MCH 29.0 MCHC 33.6 RDW 13.7 Plt Count 347 Neut % (Auto) 86.1 H Lymph % (Auto) 5.7 L [place] % (Auto) 8.0 Eos % (Auto) 0.0 L Baso % (Auto) 0.2 Neut # (Auto) 68041 H Lymph # (Auto) 1200 [place] # (Auto) 1700 H Eos # (Auto) 0 Baso # (Auto) 100 Sodium 140 Potassium 3.4 Chloride 98 Carbon Dioxide 31 BUN 17 Creatinine 0.50 L Estimated GFR > 60.0 BUN/Creatinine Ratio 34.0 H Glucose 124 H Calcium 10.4 H Magnesium 2.1 TSH 6.33 H Free T4 1.28 Assessment & Plan Post-op Postoperative Procedures: Procedures Operation Date: 09/13/19 11:45 Actual Procedures Side Surgeon p T11-L2 Laminectomy and removal of blood clot Matthew Higgins MD She is a little bit stronger today, mostly in the quadriceps. I am going to still keep her off her Plavix until postoperative day 5 as she is at risk another epidural hematoma if we anticoagulate too soon. I want to give her a trial without her catheter to see if her urinary function is working at all, we may have to replace the catheter if there is no result. Continue with pain management. I am going to restart her on her home guaifenesin and Tums for her severe heartburn. Quality VTE Deep Vein Thrombosis/Pulmonary Embolism Present on Admission: No
[2019-09-16] MEDS: gemfibroziL 600 MG TABLET PO ×2 (07:37→17:11)
[2019-09-16] MEDS: DORZOLAMIDE/TIMOLOL OPHTH 10 ML 1 DROPS EYE-BOTH ×2 (07:38→17:08)
[2019-09-16] MEDS: PANTOPRAZOLE 40 MG TABLET PO ×2 (07:38→17:06)
[2019-09-16] MEDS: LEVOTHYROXINE 88 MCG TABLET PO (07:38)
[2019-09-16 08:10] VITALS: BP 117/71; PULSE 85; RESP 18; TEMP 36.6; O2SAT 94
[2019-09-16] MEDS: GABAPENTIN 300 MG CAPSULE PO ×3 (09:22→21:48)
[2019-09-16] MEDS: PSYLLIUM HUSK 1 PACKET PO (09:22)
[2019-09-16] MEDS: CHOLESTYRAMINE/ASPARTAME 4 GM PACK PO (09:22)
[2019-09-16] MEDS: diphenhydrAMINE 25 MG TABLET PO ×4 (09:22→21:43)
[2019-09-16] MEDS: CALCIUM CARBONATE 500 MG TAB PO (09:22)
[2019-09-16] MEDS: guaiFENesin ER 600 MG TAB PO (09:23)
[2019-09-16] MEDS: CALCIUM CARBONATE 600 MG TABLET PO (09:25)
[2019-09-16] MEDS: MULTIVIT,CALC,MINS/IRON/FOLIC 1 TABLET 1 TAB PO (09:25)
[2019-09-16] MEDS: CHOLECALCIFEROL (VITAMIN D3) 400 UNIT TABLET PO (09:25)
[2019-09-16] MEDS: SERTRALINE 25 MG TABLET PO (09:25)
[2019-09-16] MEDS: FLUTICASONE 120 SPRAY/16 GM SPRAY.SUSP NASAL (09:25)
[2019-09-16] MEDS: GLUCOSAMINE/CHONDROITIN CAPSULE 1 EACH PO ×2 (09:26→21:49)
[2019-09-16] MEDS: FISH OIL 1,000 MG CAPSULE 1000 MG PO (09:32)
--- NOTE | 2019-09-16 10:56 | CM.DPC ---
Addendum entered by Marlyn Decker R.N. 09/16/19 14:01: Dora from [facility] called back, and stated that her rn medical inpatient services was wanting more information regarding discharge after inpatient rehab. Wanted to know if patient had a wheel-chair accessible home, and if she had an electric wheel-chair in the home. Spoke to Caitlin in [facility], and she has not spent much time working with patient to see how she would do in a wheel-chair. Called patient's daughter, Rayna. Also, let her know that quan would cost $180.[address], confirmed this with non-emergent transport. Daughter stated, they could put ramps in the home if necessary, they have neighbors that would help out with this. Daughter also stated that patient does have an electric wheel-chair at home, they just need to get new batteries. Stated that her and her would help patient when she gets home from rehab. Updated Dora at [facility]. Also, gave Dora daughter's phone number so she can get additional information regarding equipment in the home. Addendum entered by Marlyn Decker R.N. 09/16/19 12:29: Dora from [facility] came by to see patient, and confirmed acceptance. Gave her latest prog note and P.T. notes, as well as vitals and labs for Dora. Will need to talk to daughter about transportation, since they do not transport. Original Note: DCP Cont: Called [facility] to follow up regarding having nurse come and assess patient for placement. Was able to get in touch with Clay at [facility]. He mentioned that nurse, Dora, would be coming by this afternoon to see patient. NurseDora, called from [facility], and stated that she would be here shortly to see patient. She asked if patient's med sheets could be faxed over to their pharmacy. Faxed med sheets over to [facility] at [phone]. Will keep copies if Dora needs them when she arrives. P: DCP to continue to follow. Plan is for patient to go over to [facility], as long as they accept. will meet with nurseDora, today. Marlyn Decker RN/Chief Meter Reader
[2019-09-16 11:28] VITALS: BP 166/98; PULSE 82; RESP 16; TEMP 36.1; O2SAT 95
[2019-09-16] MEDS: hydrOXYzine pamoate 25 MG CAPSULE PO ×2 (11:29→23:53)
--- NOTE | 2019-09-16 11:38 | PT.IPTN ---
Current Diagnoses Postprocedural hematoma of a nervous system organ or structure following a nervous system procedure (09/13/19) Surgery Performed Operation Date: 09/13/19 11:45 Actual Procedures p T11-L2 Laminectomy and removal of blood clot - Matthew Higgins MD Physical Therapy Treatment Note M2 PT-IP Current Condition Start: 09/13/19 09:31 Freq: NEEDED Status: Active Protocol: Document 09/14/19 16:47 AB (Rec: 09/14/19 18:17 AB [id number]) Physical Therapy Current Condition Current Condition Evaluation Date 09/14/19 Treatment Diagnosis large epidural hematoma s/p decompression lami; difficulty in walking Onset Date 09/13/2019 Precautions Lumbar Precautions Log Roll,No Twisting,Limit Bending,Lifting Restriction of 10 lbs,Gait Belt above Incisional Area M3 PT-IP Subjective Start: 09/13/19 09:31 Freq: NEEDED Status: Active Protocol: Document 09/16/19 11:38 CLB (Rec: 09/16/19 16:39 CLB [id number]) Subjective Physical Therapy Visit Type Type Treatment Note Visit Start Time 11:38 Visit Stop Time 12:09 Total Visit Minutes 31 Notes Co-treat with OT Number of ANTHROPOLOGY FACULTY MEMBER Visits 2 Physical Therapy Visit Comments Patient Comments pt agreed to do PT Therapy Pain Assessment Pain When Pain Assessed At Rest Pain Present Pain Present Pain Reported Location back/abdomen/legs Intensity 7 Scale Used Numeric (1 - 10) Pain Management Techniques Modification of Treatment,Re- positioning,Timing of Activity with Medications M4 PT-IP Mobility and Gait Start: 09/13/19 09:31 Freq: NEEDED Status: Active Protocol: Document 09/16/19 11:38 CLB (Rec: 09/16/19 16:39 CLB [id number]) PT-Bed Mobility Assessment Rolling Type of Rolling Log Rolling Level of Assist Maximal Assistance Supine to Sit Supine to Sit Maximum Assistance,1 Person Assistance Scooting Scooting to Edge of Bed Minimal Assistance PT-Transfer Assessment Equipment Transfer Assistive Device Gait Belt,Sliding Board Orthotic/Prosthetic Devices or Brace: No Transfers Transfer Destination Chair Transfer Technique Lateral Scoot Transfer Ability Level of Assist Moderate Assistance,2 Person Assistance,Use of Upper Extremities Comments Mobility Comments Pt required Max A for bed mobility, CGA-Mod A for sitting balance. Pt attempted sit-stand with Max A x3 but was unable to come to full stand. Pt required Mod A x2 for slide board transfer. Transfer to left due to shoulder issue of RUE. Pt can push down with RUE but is unable to perform shoulder flx or abduction. Pt leaned to right with Mod A x1 while therapist put slide board under left hip. Pt then reached with left arm and pushed with right arm assisting with transfer. Pt was positioned in chair in reclined position with several pillow behind for support due to pt's small stature. Pt was left in chair and chair alarm was placed on chair and on pt . Pt left in room with OT and Dora from acute care facility. Gait Assessment Comments Gait Comments unable at this time PT-Balance Assessment Sitting Balance and Reactions Static Sitting Balance Ability Poor Dynamic Sitting Balance Ability Poor Standing Balance and Reactions Static Standing Balance Ability Poor Dynamic Standing Balance Ability Poor Device Used PT stabilizing and assisting pt from the front M5 PT-IP Objective Assessments Start: 09/13/19 09:31 Freq: NEEDED Status: Active Protocol: Document 09/14/19 16:47 AB (Rec: 09/14/19 18:17 AB [id number]) Orientation Orientation/Cognition Level of Alertness Alert Orientation Name,Place,Situation Language Function Ability No Deficits Noted Safety Awareness Understands Safety Issues Memory Description No Deficits Noted Gross Range of Motion Lower Extremity ROM Assessment Within Functional Limits Strength Upper Extremity Strength Shoulder stated that she does not have R rotator cuff Lower Extremity Strength Assessment Bilaterally Impaired Comments Strength Comments R hip/knee flexion: 2-/5 R hip/knee extension: 1/5 R ankle DF: 1/5 R ankle PF: 1/5 L hip/knee flexion: 1/5 L hip/knee extension: 2-/5 L ankle DF/PF: 2-/5 Sensation Assessment Sensation Gross Sensation WNL Comments Sensation Comments no c/o numbness/tingling M6 PT-IP Treatment Start: 09/13/19 09:31 Freq: NEEDED Status: Active Protocol: Document 09/16/19 11:38 CLB (Rec: 09/16/19 16:39 CLB [id number]) Physical Therapy Treatment Exercises Exercises Ankle Pumps,Quad Sets,Heel Slides Education Education Provided Precautions,Weight Bearing Status,Post-Op Packet,Safety M7 PT-IP Assessment and Plan Start: 09/13/19 09:31 Freq: NEEDED Status: Active Protocol: Document 09/16/19 11:38 CLB (Rec: 09/16/19 16:39 CLB [id number]) PT Summary Assessment and Plan Potential Rehabilitation Potential Fair Status of Condition at Evaluation Evolving Summary Impairments Pain,ROM,Strength,Balance, Coordination,Sensation,Tone, Cognition,Bed Mobility, Transfers,Gait,Activity Tolerance Assessment Summary Pt with increased difficulty with pain requiring Max A for sup-sit and Min A for scooting then Mod A for sitting balance. Once pt tood a seated rest break she was able to sit on EOB with FWW for UE support CGA. Pt able to transfer to chair with slide board transfer Mod Ax2. Pt with increased activity tolerance with transfers and sitting balance. Pt will require SNF rehab or acute rehab to improve strength and mobility. Goals Bed Mobility Goal Moderate Assistance Transfer Goal Moderate Assistance,Front Wheeled Walker Gait Goal Moderate Assistance,Front Wheel Walker Gait Distance 10 Days to Meet Goals 10 Frequency of Treatment Frequency Of Treatment Twice a Day Treatment Plan Physical Therapy Treatment Plan Bed Mobility Training,Transfer Training,Gait Training, Therapeutic Exercise,Balance Retraining,Post Op Education, Discharge Planning,Hot or Cold Pack,Neuromuscular Re-ed, Coordination Retraining,Manual Therapy Other Recommendations and Next Treatment bed mobility, sitting balance/ Focus tolerance, trunk/LE strengthening Recommendations To Nursing Amount of Assist Needed 2 Person Assist,Mechanical Lift Discharge Recommendations PT Discharge Recommendations SNF Rehab,Acute Rehab
--- NOTE | 2019-09-16 11:40 | OT.IP.TRT ---
Current Diagnoses Postprocedural hematoma of a nervous system organ or structure following a nervous system procedure (09/13/19) Surgery Performed Operation Date: 09/13/19 11:45 Actual Procedures p T11-L2 Laminectomy and removal of blood clot - Matthew Higgins MD Occupational Therapy Treatment Note M2 OT-IP Current Condition Start: 09/13/19 15:52 Freq: Status: Active Protocol: Document 09/14/19 16:28 PJM (Rec: 09/14/19 18:01 PJM [id number]) Occupational Therapy Current Condition Current Condition Evaluation Date 09/14/19 Treatment Diagnosis decr'd self care care, mobility due to incomplete T11 spinal cord injury Diagnosis Onset Date 09/13/19 Post Operative Precautions Lumbar Precautions Log Roll,No Twisting,Limit Bending,Lifting Restriction of 10 lbs,Gait Belt above Incisional Area Other Precautions fall risk, minimal motor function in BLE's, ceiling lift transfer at present, position changes q 2 hrs in bed to prevent skin breakdown, waffle cushion in bed, chair M3 OT- IP Subjective and Pain Start: 09/13/19 15:52 Freq: Status: Active Protocol: Document 09/16/19 12:18 [facility] (Rec: 09/16/19 12:41 [facility] [email or web address]) OT- Subjective Occupational Therapy Visit Type Type Treatment Note Visit Start Time 11:40 Visit Stop Time 12:11 Total Visit Minutes 31 Occupational Therapy Visit Comments Patient Comments Cotxt with INDUSTRIAL CONTROLS TECHNICIAN for mobility needs due to pt needing extensive assist for mobility at this time due to BLE weakness. Patient/Caregiver Goals Pt wanting to get stronger to be able to take care of herself again. OT Pain Assessment Pain When Pain Assessed During Mobility Pain Present Pain Present Pain Reported Location back/abdomen/legs Intensity 7 Scale Used Numeric (1 - 10) M4 OT- IP ADL's Start: 09/13/19 15:52 Freq: Status: Active Protocol: Document 09/16/19 12:18 CCC (Rec: 09/16/19 12:41 [facility] [id number]) OT [id number] Comments OT Self-Feeding Comments NOt at meal time. OT ADL-Grooming Comments OT Grooming Comments Pt states already did her grooming needs. OT ADL-Dressing General Eval Lower Body Dressing Ability Maximum Assistance Areas Needing Assistance Socks M5 OT- IP IADL's Start: 09/13/19 15:52 Freq: Status: Active Protocol: Document 09/14/19 16:28 PJM (Rec: 09/14/19 18:01 [facility] [id number]) OT-Instrumental Activities of Daily Living Deficits IADL Deficits Identified Deficits Home Safety Awareness Awareness of Need for Assistance at Home Good Awareness Ability to Problem Solve Emergency Able to Problem Solve Situations Medication Management Medication Management No Deficits Identified Money Management Money Management No Deficits Identified Meal Preparation Meal Preparation Caregiver Provides Assist Meal Preparation Comments pt needs total assist at this time Rail Car Repairer Rail Car Repairer Caregiver Provides Assist Rail Car Repairer Comments pt needs total assist at this time Driving Driving Comments pt unable to drive at this time M6 OT- IP Functional Cognition Start: 09/13/19 15:52 Freq: Status: Active Protocol: Document 09/16/19 12:18 [facility] (Rec: 09/16/19 12:41 [facility] [id number]) Cognitive Factors Limiting Selfcare Function Cognitive Ability Level of Alertness Alert Patient Orientation Name,Age,Birthday,Month,Date, Year,Day of Week,Place, Situation Attention Span Ability Capable of Focused Attention, Capable of Sustained Attention Ability to Follow Commands Able to Follow One Step Commands Problem Solving Ability Needs Assist to Identify Solutions Cognitive Comments Cognitive Assessment Comments Pt O x4, able to follow one step commands and very motivated to work with therapy. M7 OT- IP Mobility and Balance Start: 09/13/19 15:52 Freq: Status: Active Protocol: Document 09/16/19 12:18 [facility] (Rec: 09/16/19 12:41 [facility] [email or web address]) OT- Bed Mobility Assessment Rolling Type of Rolling Roll to Right Level of Assistance Maximum Assistance,1 Person Assistance,Bedrails OT-Transfer Assessment Transfers Transfer Ability Maximum Assistance,2 Person Assistance Technique Transfer Destination Bed,Chair Transfer Technique Lateral Scoot Devices Transfer Assistive Devices Sliding Board Comments Mobility Comments Attempted to stand with MAX A x 3 with FWW and pt not able to stand all the way up all the and having flexed trunk and not able to extend her hips. Pt use of hands on FWW heavily trying to assist . MAX A X 2 for sliding board transfer, total assist for set -up assist to place sliding board underneath the pt, her feet into position and to block her knees and help slowly control her down from the bed to recliner. Pt able to use of BUE to push down on the armrests and scoot her bottom back. OT- Gait Assessment Comments Gait Ability Comments pt non ambulatory due to lack of BLE motor function OT- Balance Assessment Sitting Balance and Reactions Static Sitting Balance Ability Poor Dynamic Sitting Balance Ability Poor Standing Balance and Reactions Static Standing Balance Ability Poor Dynamic Standing Balance Ability Poor Comments Other Balance Tests/Deviations/Treatment Initially pt needing MODA for : sitting balance and then after help to get to the edge of the bed with MAX A x1 able to sit with CGA. M8 OT- IP Objective Assessments Start: 09/13/19 15:52 Freq: Status: Active Protocol: Document 09/14/19 16:28 PJM (Rec: 09/14/19 18:01 [facility] [id number]) OT Gross Range of Motion Upper Extremity Range of Motion Assessment Bilaterally Impaired ROM Impairments Pt has old R rotator cuff tear with AROM to 90 then AAROM to 110, difficulty with eccentric motor control. LUE WFL but painful at endrange of about 110 degrees. Distal AROM WFL in BUE. OT Strength Upper Extremity Strength Assessment Within Functional Limits Shoulder R scaption 3-/5, L scaption 3+ /5 Hand Sweetbread Trimmer Strength Hand Dominance Right OT- Coordination Assessment Comments Coordination Comments BUE WFL OT-Muscle Tone Assessment Muscle Tone WNL Yes OT Sensation Assessment Comments Summary Comments B hand tingling for many years due to poor circulation Edema Edema Absent M9 OT- IP Assessment and Plan Start: 09/13/19 15:52 Freq: Status: Active Protocol: Document 09/16/19 12:18 [facility] (Rec: 09/16/19 12:41 [facility] [email or web address]) OT Summary Assessment and Plan Potential Rehabilitation Potential Good Analytic Complexity at Evaluation Moderate Summary OT Impairments Pain,Range of Motion,Strength, Balance,Functional Mobility, Dressing,Toileting,Bathing, Toilet Transfers,Shower Transfers,Activity Tolerance Progress Towards Goals Progressing Toward Goals Assessment Summary Pt able to tolerate transfer with sliding board today and trial on trying to stand up. Per INDUSTRIAL CONTROLS TECHNICIAN, noted improvements with movements to her BLE today. Increase frequency to twice a day due to improved overall activity tolerance and motivating to work on ADl and functional mobility needs. Trapeze bar place in the hospital pt so pt able to assist with bed mobility and to help keep up her BUE strength. Pt would benefit from acute rehab to maximize her independence with ADl, functional mobility, strength, balance and overall activity tolerance. Goals Grooming Goal Standby Assistance Dressing Goal Minimal Assistance Toileting Goal Moderate Assistance Bathing Goal Minimal Assistance Toilet Transfer Goal Moderate Assistance OT-Other Goals Grooming to be done sitting on EOB with no LOB. Dressing goal is for lower body dressing using power bed features to don/doff pants, socks, shoes. Bathing goal is for upper body sponge bath seated in chair. Toilet transfer goal is for sliding board transfer to [facility] Days to Meet Goals 9 Frequency of Treatment Frequency Of Treatment Twice a Day Treatment Plan OT Treatment Plan ADL Training,Functional Mobility,Patient/Family Education,Discharge Planning Discharge Recommendations OT Discharge Recommendations Acute Rehab Home Equipment Needs to be determined pending progress in next rehab setting Transportation Needs at Discharge Wheelchair/Cabulance,Stretcher /Ambulance
--- NOTE | 2019-09-16 13:25 | PT.IPTN ---
Current Diagnoses Postprocedural hematoma of a nervous system organ or structure following a nervous system procedure (09/13/19) Surgery Performed Operation Date: 09/13/19 11:45 Actual Procedures p T11-L2 Laminectomy and removal of blood clot - Matthew Higgins MD Physical Therapy Treatment Note M2 PT-IP Current Condition Start: 09/13/19 09:31 Freq: NEEDED Status: Active Protocol: Document 09/14/19 16:47 AB (Rec: 09/14/19 18:17 AB [id number]) Physical Therapy Current Condition Current Condition Evaluation Date 09/14/19 Treatment Diagnosis large epidural hematoma s/p decompression lami; difficulty in walking Onset Date 09/13/2019 Precautions Lumbar Precautions Log Roll,No Twisting,Limit Bending,Lifting Restriction of 10 lbs,Gait Belt above Incisional Area M3 PT-IP Subjective Start: 09/13/19 09:31 Freq: NEEDED Status: Active Protocol: Document 09/16/19 13:25 [facility] (Rec: 09/16/19 16:52 [facility] [id number]) Subjective Physical Therapy Visit Type Type Treatment Note Visit Start Time 13:25 Visit Stop Time 13:44 Total Visit Minutes 19 Number of RELIEF PILOT Visits 3 Physical Therapy Visit Comments Patient Comments Pt wanting to transfer back to bed. Therapy Pain Assessment Pain When Pain Assessed At Rest Pain Present Pain Present Pain Reported Location back/abdomen/legs Intensity 7 Scale Used Numeric (1 - 10) Pain Management Techniques Modification of Treatment,Re- positioning,Timing of Activity with Medications M4 PT-IP Mobility and Gait Start: 09/13/19 09:31 Freq: NEEDED Status: Active Protocol: Document 09/16/19 13:25 [facility] (Rec: 09/16/19 16:52 [facility] [id number]) PT-Bed Mobility Assessment Sit to Supine Sit to Supine Maximum Assistance,1 Person Assistance Scooting Scooting Up and Down in Bed Moderate Assistance PT-Transfer Assessment Equipment Transfer Assistive Device Gait Belt Orthotic/Prosthetic Devices or Brace: No Transfers Transfer Destination Bed Transfer Technique Squat Pivot Transfer Ability Level of Assist Maximum Assistance,2 Person Assistance Comments Mobility Comments Pt required Max A x2 for squat pivot transfer to bed. Pt then required Max A to scoot back on bed. Once pt was in bed pt was able to use trapeze to adjust her upper body in bed and required Mod A to postion LE's. Pt had difficulty finding comfortable position in bed due to pain. Pt left in bed with alarm on, call light and all other needs within reach. Gait Assessment Comments Gait Comments unable at this time M5 PT-IP Objective Assessments Start: 09/13/19 09:31 Freq: NEEDED Status: Active Protocol: Document 09/14/19 16:47 AB (Rec: 09/14/19 18:17 AB [id number]) Orientation Orientation/Cognition Level of Alertness Alert Orientation Name,Place,Situation Language Function Ability No Deficits Noted Safety Awareness Understands Safety Issues Memory Description No Deficits Noted Gross Range of Motion Lower Extremity ROM Assessment Within Functional Limits Strength Upper Extremity Strength Shoulder stated that she does not have R rotator cuff Lower Extremity Strength Assessment Bilaterally Impaired Comments Strength Comments R hip/knee flexion: 2-/5 R hip/knee extension: 1/5 R ankle DF: 1/5 R ankle PF: 1/5 L hip/knee flexion: 1/5 L hip/knee extension: 2-/5 L ankle DF/PF: 2-/5 Sensation Assessment Sensation Gross Sensation WNL Comments Sensation Comments no c/o numbness/tingling M6 PT-IP Treatment Start: 09/13/19 09:31 Freq: NEEDED Status: Active Protocol: Document 09/16/19 11:38 [facility] (Rec: 09/16/19 16:39 [facility] [id number]) Physical Therapy Treatment Exercises Exercises Ankle Pumps,Quad Sets,Heel Slides Education Education Provided Precautions,Weight Bearing Status,Post-Op Packet,Safety M7 PT-IP Assessment and Plan Start: 09/13/19 09:31 Freq: NEEDED Status: Active Protocol: Document 09/16/19 13:25 [facility] (Rec: 09/16/19 16:52 [facility] [id number]) PT Summary Assessment and Plan Potential Rehabilitation Potential Fair Status of Condition at Evaluation Evolving Summary Impairments Pain,ROM,Strength,Balance, Coordination,Sensation,Tone, Cognition,Bed Mobility, Transfers,Gait,Activity Tolerance Assessment Summary Pt transferred back to bed from chair total assist using squat pivot transfer. Pt required Max A for log roll and sit- supine and Mod A to position LE's, pt was able to use trapeze to position upper body. Pt will require SNF rehab or acute rehab to improve strength and mobility. Goals Bed Mobility Goal Moderate Assistance Transfer Goal Moderate Assistance,Front Wheeled Walker Gait Goal Moderate Assistance,Front Wheel Walker Gait Distance 10 Days to Meet Goals 10 Frequency of Treatment Frequency Of Treatment Twice a Day Treatment Plan Physical Therapy Treatment Plan Bed Mobility Training,Transfer Training,Gait Training, Therapeutic Exercise,Balance Retraining,Post Op Education, Discharge Planning,Hot or Cold Pack,Neuromuscular Re-ed, Coordination Retraining,Manual Therapy Other Recommendations and Next Treatment bed mobility, sitting balance, Focus trunk/LE strengthening, slide board transfer to . Recommendations To Nursing Amount of Assist Needed 2 Person Assist,Mechanical Lift Discharge Recommendations PT Discharge Recommendations SNF Rehab,Acute Rehab
--- NOTE | 2019-09-16 13:25 | OT.IP.TRT ---
Current Diagnoses Postprocedural hematoma of a nervous system organ or structure following a nervous system procedure (09/13/19) Surgery Performed Operation Date: 09/13/19 11:45 Actual Procedures p T11-L2 Laminectomy and removal of blood clot - Matthew Higgins MD Occupational Therapy Treatment Note M2 OT-IP Current Condition Start: 09/13/19 15:52 Freq: Status: Active Protocol: Document 09/14/19 16:28 PJM (Rec: 09/14/19 18:01 PJM [email or web address]) Occupational Therapy Current Condition Current Condition Evaluation Date 09/14/19 Treatment Diagnosis decr'd self care care, mobility due to incomplete T11 spinal cord injury Diagnosis Onset Date 09/13/19 Post Operative Precautions Lumbar Precautions Log Roll,No Twisting,Limit Bending,Lifting Restriction of 10 lbs,Gait Belt above Incisional Area Other Precautions fall risk, minimal motor function in BLE's, ceiling lift transfer at present, position changes q 2 hrs in bed to prevent skin breakdown, waffle cushion in bed, chair M3 OT- IP Subjective and Pain Start: 09/13/19 15:52 Freq: Status: Active Protocol: Document 09/16/19 13:58 CCC (Rec: 09/16/19 14:08 [facility] [email or web address]) OT- Subjective Occupational Therapy Visit Type Type Treatment Note Visit Start Time 13:25 Visit Stop Time 13:44 Total Visit Minutes 19 Occupational Therapy Visit Comments Patient Comments Pt wanting to get back to bed form the recliner. Patient/Caregiver Goals Pt wanting to get stronger to be able to take care of herself again. OT Pain Assessment Pain When Pain Assessed At Rest Pain Present Pain Present Pain Reported M4 OT- IP ADL's Start: 09/13/19 15:52 Freq: Status: Active Protocol: Document 09/16/19 12:18 CCC (Rec: 09/16/19 12:41 [facility] [email or web address]) OT [id number] Comments OT Self-Feeding Comments NOt at meal time. OT ADL-Grooming Comments OT Grooming Comments Pt states already did her grooming needs. OT ADL-Dressing General Eval Lower Body Dressing Ability Maximum Assistance Areas Needing Assistance Socks M5 OT- IP IADL's Start: 09/13/19 15:52 Freq: Status: Active Protocol: Document 09/14/19 16:28 PJM (Rec: 09/14/19 18:01 [facility] [id number]) OT-Instrumental Activities of Daily Living Deficits IADL Deficits Identified Deficits Home Safety Awareness Awareness of Need for Assistance at Home Good Awareness Ability to Problem Solve Emergency Able to Problem Solve Situations Medication Management Medication Management No Deficits Identified Money Management Money Management No Deficits Identified Meal Preparation Meal Preparation Caregiver Provides Assist Meal Preparation Comments pt needs total assist at this time Dental Surgeon Dental Surgeon Caregiver Provides Assist Dental Surgeon Comments pt needs total assist at this time Driving Driving Comments pt unable to drive at this time M6 OT- IP Functional Cognition Start: 09/13/19 15:52 Freq: Status: Active Protocol: Document 09/16/19 13:58 [facility] (Rec: 09/16/19 14:08 [facility] [id number]) Cognitive Factors Limiting Selfcare Function Cognitive Ability Level of Alertness Alert Patient Orientation Name,Age,Birthday,Month,Date, Year,Day of Week,Place, Situation Attention Span Ability Capable of Focused Attention, Capable of Sustained Attention Ability to Follow Commands Able to Follow One Step Commands Problem Solving Ability Needs Assist to Identify Solutions Cognitive Comments Cognitive Assessment Comments Pt having difficulty to get herself in a comfortable position in bed and needing therapist to assist via hospital bed positioning. Pt able to follow one step commands and needing step by step instructions to follow. M7 OT- IP Mobility and Balance Start: 09/13/19 15:52 Freq: Status: Active Protocol: Document 09/16/19 13:58 [facility] (Rec: 09/16/19 14:08 [facility] [email or web address]) OT- Bed Mobility Assessment Sit to Supine Sit to Supine Assist Contact Guard Assistance, Maximum Assistance,2 Person Assistance OT-Transfer Assessment Transfers Transfer Ability Maximum Assistance,2 Person Assistance Technique Transfer Destination Bed,Chair Transfer Technique Squat Pivot Devices Transfer Assistive Devices Gait Belt Comments Mobility Comments Squat pivot transfer MAX A X 2 , one person to block her knees and another to help guide her hips. Assist for sitting balance as pt able to assist to get hips back into bed. CGA with trunk needs and Total assist to help get legs back into bed. OT- Gait Assessment Comments Gait Ability Comments pt non ambulatory due to lack of BLE motor function OT- Balance Assessment Sitting Balance and Reactions Static Sitting Balance Ability Fair Dynamic Sitting Balance Ability Poor Standing Balance and Reactions Static Standing Balance Ability Poor Dynamic Standing Balance Ability Poor Comments Other Balance Tests/Deviations/Treatment Noted better sitting balance : after lunch from poor to fair if sitting still. M8 OT- IP Objective Assessments Start: 09/13/19 15:52 Freq: Status: Active Protocol: Document 09/14/19 16:28 PJM (Rec: 09/14/19 18:01 [facility] [id number]) OT Gross Range of Motion Upper Extremity Range of Motion Assessment Bilaterally Impaired ROM Impairments Pt has old R rotator cuff tear with AROM to 90 then AAROM to 110, difficulty with eccentric motor control. LUE WFL but painful at endrange of about 110 degrees. Distal AROM WFL in BUE. OT Strength Upper Extremity Strength Assessment Within Functional Limits Shoulder R scaption 3-/5, L scaption 3+ /5 Hand Supervisor Building Maintenance Strength Hand Dominance Right OT- Coordination Assessment Comments Coordination Comments BUE WFL OT-Muscle Tone Assessment Muscle Tone WNL Yes OT Sensation Assessment Comments Summary Comments B hand tingling for many years due to poor circulation Edema Edema Absent M9 OT- IP Assessment and Plan Start: 09/13/19 15:52 Freq: Status: Active Protocol: Document 09/16/19 13:58 [facility] (Rec: 09/16/19 14:08 [facility] [email or web address]) OT Summary Assessment and Plan Potential Rehabilitation Potential Good Analytic Complexity at Evaluation Moderate Summary OT Impairments Pain,Range of Motion,Strength, Balance,Functional Mobility, Dressing,Toileting,Bathing, Toilet Transfers,Shower Transfers,Activity Tolerance Progress Towards Goals Progressing Toward Goals Assessment Summary Pt able to do squat pivot transfer with therapists, mainly just able to assist with her arms at this time. Pt will continue to benefit from acute rehab however may also benefit from skilled rehab as pending the rate of progress on her BLE to be able to assist her for functional mobility needs or whether pt will need to be wheelchair bound for part or all of her mobility needs. Goals Grooming Goal Standby Assistance Dressing Goal Minimal Assistance Toileting Goal Moderate Assistance Bathing Goal Minimal Assistance Toilet Transfer Goal Moderate Assistance OT-Other Goals Grooming to be done sitting on EOB with no LOB. Dressing goal is for lower body dressing using power bed features to don/doff pants, socks, shoes. Bathing goal is for upper body sponge bath seated in chair. Toilet transfer goal is for sliding board transfer to [facility] Days to Meet Goals 9 Frequency of Treatment Frequency Of Treatment Twice a Day Treatment Plan OT Treatment Plan ADL Training,Functional Mobility,Patient/Family Education,Discharge Planning Other Treatment Recommendations and Next Transfer to to assess Treatment Focus mobility witih her BUE. Discharge Recommendations OT Discharge Recommendations SNF Rehab,Acute Rehab Home Equipment Needs to be determined pending progress in next rehab setting Transportation Needs at Discharge Wheelchair/Cabulance,Stretcher /Ambulance
--- NOTE | 2019-09-16 14:02 | PC.NURSE ---
Day shift: Pt c/o bladder distension and pain in that area. Placed indwelling and contacted [facility] for orders to leave in. 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 Put orders in for Tolbert. Will continue to monitor. Call light in reach. Bed alarm on. Also PT/OT placed trapeze bar to help Pts mobility in bed. Pt using and tolerating well.
[2019-09-16 15:55] VITALS: BP 166/103; PULSE 81; RESP 16; TEMP 36.4; O2SAT 95
--- NOTE | 2019-09-16 18:10 | PC.NURSE ---
Addendum entered by Nayeli Bella R.N. 09/16/19 22:45: Condition remains essentially unchanged. Tolbert cath patent clear urine. Med @ 1820 for discomfort w/good relief. Call light w/in reach, bed alarm on for pt safety. Continue w/plan of care. Original Note: Pt watching TV States that discomfort is 4/10. Lungs clear/slightly diminished SpO2 95% RA Dsg to back CDI. Tolbert cath patent clear yellow urine. Satisfactory post op course. Call light w/in reach, bed alrm on for pt safety.
[2019-09-16] MEDS: TRAZODONE 50 MG TABLET 75 MG PO (21:42)
[2019-09-16] MEDS: DOCUSATE 100 MG CAPSULE PO (21:43)
[2019-09-16] MEDS: PRAVASTATIN 20 MG TABLET PO (21:43)
[2019-09-16] MEDS: CYCLOBENZAPRINE 10 MG TABLET PO (21:43)
[2019-09-16] MEDS: SENNOSIDES 8.6 MG TABLET 17.2 MG PO (21:43)
[2019-09-16] MEDS: LATANOPROST 0.005% OPHTH 2.5 ML 1 DROPS EYE-BOTH (21:49)
[2019-09-16 21:55] VITALS: BP 122/72; PULSE 80; RESP 17; TEMP 36.6; O2SAT 92
[2019-09-17] VITALS (7 sets, daily range): BP systolic 103–198; BP diastolic 63–99; PULSE 80–99; RESP 15–18; TEMP 36.3–37; O2SAT 92–98
[2019-09-17] MEDS: OXYCODONE IR 10 MG TABLET PO ×7 (02:56→22:00)
[2019-09-17] MEDS: PANTOPRAZOLE 40 MG TABLET PO ×2 (06:00→16:51)
[2019-09-17] MEDS: LEVOTHYROXINE 88 MCG TABLET PO (06:00)
[2019-09-17] MEDS: DORZOLAMIDE/TIMOLOL OPHTH 10 ML 1 DROPS EYE-BOTH ×2 (06:00→15:48)
[2019-09-17] MEDS: gemfibroziL 600 MG TABLET PO ×2 (06:00→16:50)
--- NOTE | 2019-09-17 07:32 | PM.PNPO.1 ---
Subjective Subjective Date Patient Seen: 09/17/19 Time Patient Seen: 07:32 Interval history: She is still having fair amount of low back pain. We tried removing the catheter yesterday but she had no urinary sensation and was unable to urinate. The catheter was replaced Exam Vital Signs (past 8 hours): - 09/17/19 00:00 09/17/19 04:08 09/17/19 04:27 Temperature 97.3 F L 97.9 F Pulse Rate 80 88 99 H Respiratory Rate 18 18 Blood Pressure 124/78 198/90 H 152/99 H Pulse Oximetry 94 98 Oxygen Delivery Method Room Air Oxygen Flow Rate 0 Const Orientation: alert and oriented x3 Back/Spine/Pelvis Other: CDI. IP Q AT [facility] GC R 2+ 2+ 1 1 2 L 2+ 3 0 0 0 Objective Labs Result Diagrams: 09/15/19 16:24 09/15/19 16:24 Assessment & Plan Post-op Postoperative Procedures: Procedures Operation Date: 09/13/19 11:45 Actual Procedures Side Surgeon p T11-L2 Laminectomy and removal of blood clot Matthew Higgins MD for proximal function is much better today and hip flexors and is now starting to be able to resist gravity with the quadriceps. However she is not moving the right foot and toes up and down as well as she had previously. Still has a neurogenic bladder. I think fair amount of pain is from being in bed, even with repositioning to prevent bedsores, just being stuck in 1 position is quite painful. However this is being managed just with oral medication at this point. Continue work with mobility and plan to transfer to inpatient rehab in the next 1-2 days. Quality VTE Deep Vein Thrombosis/Pulmonary Embolism Present on Admission: No
[2019-09-17] MEDS: CHOLESTYRAMINE/ASPARTAME 4 GM PACK PO (08:53)
[2019-09-17] MEDS: hydrOXYzine pamoate 25 MG CAPSULE PO ×3 (08:54→16:55)
[2019-09-17] MEDS: GABAPENTIN 300 MG CAPSULE PO ×3 (08:54→20:20)
[2019-09-17] MEDS: diphenhydrAMINE 25 MG TABLET PO ×4 (08:54→20:18)
[2019-09-17] MEDS: CALCIUM CARBONATE 600 MG TABLET PO (08:55)
[2019-09-17] MEDS: CHOLECALCIFEROL (VITAMIN D3) 400 UNIT TABLET PO (08:55)
[2019-09-17] MEDS: FLUTICASONE 120 SPRAY/16 GM SPRAY.SUSP NASAL (08:55)
[2019-09-17] MEDS: GLUCOSAMINE/CHONDROITIN CAPSULE 1 EACH PO ×2 (08:56→20:20)
[2019-09-17] MEDS: MULTIVIT,CALC,MINS/IRON/FOLIC 1 TABLET 1 TAB PO (08:56)
[2019-09-17] MEDS: SERTRALINE 25 MG TABLET PO (08:56)
[2019-09-17] MEDS: PSYLLIUM HUSK 1 PACKET PO (08:57)
[2019-09-17] MEDS: FISH OIL 1,000 MG CAPSULE 1000 MG PO ×2 (09:06→20:20)
--- NOTE | 2019-09-17 10:09 | PT.IPTN ---
Current Diagnoses Postprocedural hematoma of a nervous system organ or structure following a nervous system procedure (09/13/19) Surgery Performed Operation Date: 09/13/19 11:45 Actual Procedures p T11-L2 Laminectomy and removal of blood clot - Matthew Higgins MD Physical Therapy Treatment Note M2 PT-IP Current Condition Start: 09/13/19 09:31 Freq: NEEDED Status: Active Protocol: Document 09/14/19 16:47 AB (Rec: 09/14/19 18:17 AB [id number]) Physical Therapy Current Condition Current Condition Evaluation Date 09/14/19 Treatment Diagnosis large epidural hematoma s/p decompression lami; difficulty in walking Onset Date 09/13/2019 Precautions Lumbar Precautions Log Roll,No Twisting,Limit Bending,Lifting Restriction of 10 lbs,Gait Belt above Incisional Area M3 PT-IP Subjective Start: 09/13/19 09:31 Freq: NEEDED Status: Active Protocol: Document 09/17/19 10:09 CLB (Rec: 09/17/19 12:46 CLB [id number]) Subjective Physical Therapy Visit Type Type Treatment Note Visit Start Time 10:09 Visit Stop Time 10:44 Total Visit Minutes 35 Notes Co-treat with OT Number of INSIDE PARTS SALES Visits 4 Physical Therapy Visit Comments Patient Comments Pt agreeable to do therapy. Therapy Pain Assessment Pain When Pain Assessed During Mobility Pain Present Pain Present Pain Reported Location back/abdomen/legs Intensity 5 Scale Used Numeric (1 - 10) Pain Management Techniques Modification of Treatment,Re- positioning,Timing of Activity with Medications M4 PT-IP Mobility and Gait Start: 09/13/19 09:31 Freq: NEEDED Status: Active Protocol: Document 09/17/19 10:09 CLB (Rec: 09/17/19 12:46 CLB [id number]) PT-Bed Mobility Assessment Rolling Type of Rolling Log Rolling,Roll to Right Level of Assist Moderate Assistance,1 Person Assistance Supine to Sit Supine to Sit Moderate Assistance,1 Person Assistance Scooting Scooting Up and Down in Bed Moderate Assistance PT-Transfer Assessment Equipment Transfer Assistive Device Gait Belt,Sliding Board Transfers Transfer Destination Wheelchair Transfer Ability Level of Assist Minimal Assistance,2 Person Assistance,Use of Upper Extremities Comments Mobility Comments Pt required Max A supine to sit, pt able to shift wt onto hips to then required Mod A to scoot hip forward to EOB. Pt required Min A for balance while OT placed slide board under left hip. Pt was then able to use UE's to transfer to WC Min A for balance. Pt was able to manuever WC in room and position herself by making a 180 and backing up to park . Pt was left in WC with brakes locked, pillows on either side as WC for balance support and table in front. Chair alarm and all other needs within reach. Informed nursing staff of pt progress and position in WC. Gait Assessment Comments Gait Comments unable at this time M5 PT-IP Objective Assessments Start: 09/13/19 09:31 Freq: NEEDED Status: Active Protocol: Document 09/14/19 16:47 AB (Rec: 09/14/19 18:17 AB [id number]) Orientation Orientation/Cognition Level of Alertness Alert Orientation Name,Place,Situation Language Function Ability No Deficits Noted Safety Awareness Understands Safety Issues Memory Description No Deficits Noted Gross Range of Motion Lower Extremity ROM Assessment Within Functional Limits Strength Upper Extremity Strength Shoulder stated that she does not have R rotator cuff Lower Extremity Strength Assessment Bilaterally Impaired Comments Strength Comments R hip/knee flexion: 2-/5 R hip/knee extension: 1/5 R ankle DF: 1/5 R ankle PF: 1/5 L hip/knee flexion: 1/5 L hip/knee extension: 2-/5 L ankle DF/PF: 2-/5 Sensation Assessment Sensation Gross Sensation WNL Comments Sensation Comments no c/o numbness/tingling M6 PT-IP Treatment Start: 09/13/19 09:31 Freq: NEEDED Status: Active Protocol: Document 09/17/19 10:09 CLB (Rec: 09/17/19 12:46 CLB [id number]) Physical Therapy Treatment Exercises Exercises Ankle Pumps,Quad Sets,Heel Slides Education Education Provided Precautions,Weight Bearing Status,Post-Op Packet,Safety M7 PT-IP Assessment and Plan Start: 09/13/19 09:31 Freq: NEEDED Status: Active Protocol: Document 09/17/19 10:09 CLB (Rec: 09/17/19 12:46 CLB [id number]) PT Summary Assessment and Plan Potential Rehabilitation Potential Fair Status of Condition at Evaluation Evolving Summary Impairments Pain,ROM,Strength,Balance, Coordination,Sensation,Tone, Cognition,Bed Mobility, Transfers,Gait,Activity Tolerance Assessment Summary Pt improving with all mobility requiring Mod A for bed mobilty and Min A for balance during slide board transfer. Pt was able to manuever WC safely in room. Goals Bed Mobility Goal Moderate Assistance Transfer Goal Moderate Assistance,Front Wheeled Walker Gait Goal Moderate Assistance,Front Wheel Walker Gait Distance 10 Days to Meet Goals 10 Frequency of Treatment Frequency Of Treatment Twice a Day Treatment Plan Physical Therapy Treatment Plan Bed Mobility Training,Transfer Training,Gait Training, Therapeutic Exercise,Balance Retraining,Post Op Education, Discharge Planning,Hot or Cold Pack,Neuromuscular Re-ed, Coordination Retraining,Manual Therapy Recommendations To Nursing Amount of Assist Needed 2 Person Assist,Mechanical Lift Discharge Recommendations PT Discharge Recommendations SNF Rehab,Acute Rehab
--- NOTE | 2019-09-17 11:03 | CM.DPC ---
DCP Cont: Dr. Higgins stopped by the care management office and stated that it is likely that patient will discharge tomorrow. Updated Dora at inpatient [facility]. She gave fax number for nurses to give report. Their number is: [phone], option 2. Stated that is she needs any additional information from today, will let us know. Confirmed that [facility] is not needed for their facility. She may need updated P.T notes, vitals, and prog notes for tomorrow, along with signed med list. Do have ambulance paper work signed. Patient will need to go by cabulence, not BLS. Confirmed the cost of $[address], and did let daughter know the cost. P: DCP to continue to follow. Plan is for [facility] inpatient for tomorrow. Marlyn Decker RN/Veterinary Assistant
--- NOTE | 2019-09-17 11:40 | PM.DS.1 ---
History of Present Illness History of Present Illness Date Patient Seen: 09/23/19 Time Patient Seen: 07:47 Chief complaint: Chronic Back Pain, Post Procedure Pain, Neuropathy Narrative: 74-year-old female with an epidural hematoma. 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 She also has been on Plavix. She had a spinal cord stimulator trial placed on 09/12/2019. In the recovery room she began having difficulty moving her legs. She was sent to [facility] for an emergent CT scan to make sure there was no epidural hematoma. Her CT scan was read out as no epidural hematoma and then she was transferred late that night to [facility] for further management. At that point it was presumed that the patient had an inadvertent spinal block with Marcaine at the time the spinal cord stimulator placement to explain her leg weakness. Discharge Providers Provider Date of admission: 09/13/19 03:20 Discharge Date: 09/23/19 Consults: 09/13/19 04:00 Consult to Discharge Planning Routine Comment: 09/13/19 04:01 Consult to Orthopedic Surgery Routine Comment: Consulting Provider: Keven Navarro Reason for consultation: BLE neuropathy post spinal stimulator Has provider been notified: Yes 09/13/19 04:51 Consult to Pastoral Services Routine Comment: would like visit 09/13/19 14:35 Consult to Occupational Therapy Evaluate & Treat Comment: Physician Instructions: Evaluate and treat Consult to Physical Therapy Evaluate & Treat Comment: Physician Instructions: Evaluate and Treat 09/14/19 08:42 Consult to NEON TECHNICIAN - Transit Proof Machine Operator Routine Comment: will need skilled rehab unit for DC Discharge provider: Matthew Higgins MD Summary Hospital Course Hospital Course: The morning after her admission her weakness had not resolved and the spinal cord stimulator was removed. An urgent MRI showed an epidural hematoma and she was urgently brought to the operating room on 09/13/19 for an irrigation debridement of her epidural hematoma. She began getting slow improvement in her leg function with increasing strength in the proximal muscle groups as well as the distal right leg but nothing on the left. However, she began having increasing back and right leg pain and loss of her right leg function on 09/18/2019 and and repeat MRI was obtained showing a recurrent epidural hematoma. She was brought back to the operating room for repeat debridement this day. Postoperatively her pain was much better and her strength began improving. However, she still required multi person assist for any mobility due to her leg weakness. She was found to have a E coli urinary tract infection which was treated with Levaquin. Postoperatively the 2nd time, her bleeding time was investigated due to her recurrent hematoma even though she had been off Plavix for almost 2 weeks at that point. She had an elevated PT/PTT. Abdominal ultrasound showed a normal appearance to the liver. There is felt that this could be an acute phase reaction or an underlying bleeding disorder that could be worked up outpatient once things at stabilized with Hematology. 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 It was felt that this should be restarted sometime in the future but her surgical region had to be stable and healed before this. Status at Discharge Cognitive/behavioral status at discharge: oriented Functional status at discharge: wheelchair bound Overall status at discharge: patient is progressing back to baseline Exam Vital Signs (past 8 hours): - 09/17/19 04:08 09/17/19 04:27 09/17/19 08:00 Temperature 97.9 F 97.4 F L Pulse Rate 88 99 H 84 Respiratory Rate 18 16 Blood Pressure 198/90 H 152/99 H 104/74 Pulse Oximetry 98 97 Oxygen Delivery Method Room Air Oxygen Flow Rate 0 Const Orientation: alert and oriented x3 Back/Spine/Pelvis Other: CDI IP Q AT [facility] CG R 3 3 2 2 3 L 4 4 0 0 0 Objective Labs Result Diagrams: 09/22/19 05:30 09/22/19 05:30 Discharge Plan Discharge Plan Patient Disposition: SNF Other facility: [facility] inpatient rehab unit Under care of provider: facility physician Consult as needed: Dental, Hearing, Mental health, Podiatry and Vision Discharge comment: f/u [address] Higgins Discharge orders & Medications Prescriptions: New guaifenesin [Mucus Relief ER] 600 mg Tablet Extended Release 12hr 600 mg PO Q12HR PRN (Reason: Cough) Qty: 60 RF: 0 levofloxacin 250 mg Tablet 250 mg PO Q24H Qty: 1 RF: 0 oxycodone 5 mg Tablet 5 mg PO Q3HR PRN (Reason: Pain, Moderate (4-6)) Qty: 30 RF: 0 Continued pravastatin 20 MG tablet 20 mg PO DAILY Qty: 0 RF: 0 latanoprost 0.005 % drops 1 drp OPHTH HS Qty: 0 RF: 0 fluticasone propionate 16 GM spray,suspension 2 spray Intranasal QDAY Qty: 0 RF: 0 ginkgo biloba 120 MG tablet 120 mg PO BID Qty: 0 RF: 0 diphenhydramine HCl [Diphedryl] 25 MG tablet 25 mg PO 3-4XD Qty: 0 RF: 0 levothyroxine 88 mcg Tablet 88 mcg PO DAILY RF: 0 gemfibrozil 600 mg Tablet 600 mg PO BID RF: 0 pantoprazole 40 mg Tablet,Delayed Release (Dr/Ec) 40 mg PO BID RF: 0 gabapentin 300 mg Capsule 300 mg PO TID RF: 0 dorzolamide-timolol 22.3-6.8 mg/mL Drops 1 drp OPHTHALMIC (EYE) BID RF: 0 cyclobenzaprine 10 mg Tablet 10 mg PO BEDTIME RF: 0 hydrocodone-acetaminophen 5-325 mg Tablet 1 tab PO Q6H RF: 0 acetaminophen [Tylenol Extra Strength] 500 mg Tablet 1,000 mg PO TID RF: 0 sertraline 25 mg Tablet 25 mg PO DAILY RF: 0 cholecalciferol (vitamin D3) [Vitamin D3] 10 mcg (400 unit) Capsule 400 unit PO DAILY RF: 0 Lorraine 3-6-9 Fatty Acids 400-400-200 mg Capsule 1 cap PO BID RF: 0 calcium carbonate [Calcium 600] 600 mg calcium (1,500 mg) Tablet 600 mg PO DAILY RF: 0 coQ10 (ubiquinol) 100 mg Capsule 100 mg PO DAILY RF: 0 Adults Multivitamin 18 mg iron-400 mcg-25 mcg Tablet 1 tab PO DAILY RF: 0 Glucosamine Chondroitin 550-30-1 mg Capsule 1 cap PO BID RF: 0 cholestyramine (with sugar) 4 gram Powder 4 g PO BID RF: 0 Metamucil 3.4 gram/5.4 gram Powder 1.5 tsp PO DAILY RF: 0 trazodone 50 mg Tablet 75 - 100 mg PO BEDTIME RF: 0 Discontinued clopidogrel [Plavix] 75 mg Tablet 75 mg PO DAILY RF: 0 Discharge Health Status Multidrug resistant organism: No MDRO Precautions: [place] Diet/Activity/Treatments Diet: Diet as Tolerated Liquid consistency: Normal/Thin Food texture: Regular Activity: as tolerated Skin/Wound/Dressing Care Report to your healthcare provider any signs of infection, such as:: chills, fever, night sweats, increased pain, unusual drainage and unusual redness Dressing: may change and shower prn Visit Report/Discharge Packet Instructions: DI for Laminectomy, DI for Incision and Drainage, DI for Epidural Hematoma Stand Alone Forms: Surgery Discharge Quality VTE Deep Vein Thrombosis/Pulmonary Embolism Present on Admission: No
--- NOTE | 2019-09-17 12:47 | PM.CHAP ---
visit with patient and prayer at request.
--- NOTE | 2019-09-17 12:48 | PT.IPTN ---
Current Diagnoses Postprocedural hematoma of a nervous system organ or structure following a nervous system procedure (09/13/19) Surgery Performed Operation Date: 09/13/19 11:45 Actual Procedures p T11-L2 Laminectomy and removal of blood clot - Matthew Higgins MD Physical Therapy Treatment Note M2 PT-IP Current Condition Start: 09/13/19 09:31 Freq: NEEDED Status: Active Protocol: Document 09/14/19 16:47 AB (Rec: 09/14/19 18:17 AB [id number]) Physical Therapy Current Condition Current Condition Evaluation Date 09/14/19 Treatment Diagnosis large epidural hematoma s/p decompression lami; difficulty in walking Onset Date 09/13/2019 Precautions Lumbar Precautions Log Roll,No Twisting,Limit Bending,Lifting Restriction of 10 lbs,Gait Belt above Incisional Area M3 PT-IP Subjective Start: 09/13/19 09:31 Freq: NEEDED Status: Active Protocol: Document 09/17/19 12:48 CLB (Rec: 09/17/19 15:40 CLB [id number]) Subjective Physical Therapy Visit Type Type Treatment Note Visit Start Time 12:47 Visit Stop Time 13:10 Total Visit Minutes 23 Notes Co-treat with OT Number of FIREWORKS MAKER Visits 5 Physical Therapy Visit Comments Patient Comments Pt wanting to transfer back to bed. Therapy Pain Assessment Pain When Pain Assessed During Mobility Pain Present Pain Present Pain Reported Location back/abdomen/legs Intensity 6 Scale Used Numeric (1 - 10) Pain Management Techniques Modification of Treatment,Re- positioning,Timing of Activity with Medications M4 PT-IP Mobility and Gait Start: 09/13/19 09:31 Freq: NEEDED Status: Active Protocol: Document 09/17/19 12:48 CLB (Rec: 09/17/19 15:40 CLB [id number]) PT-Bed Mobility Assessment Rolling Type of Rolling Log Rolling,Bilateral Level of Assist Moderate Assistance,1 Person Assistance Sit to Supine Sit to Supine Maximum Assistance,1 Person Assistance Scooting Scooting Up and Down in Bed Moderate Assistance PT-Transfer Assessment Equipment Transfer Assistive Device Gait Belt,Sliding Board Transfers Transfer Destination Bed,Wheelchair Transfer Ability Level of Assist Maximum Assistance,2 Person Assistance,Use of Upper Extremities Comments Mobility Comments Pt required Max A x2 for slide board transfer from WC to bed. Pt then required Max A sit-supine and Mod A log rolling to get comfortable in bed. Pt can assist with shifting in bed with use of trapeze. Left pt in bed with bed alarm on and all needs within reach. Pt requesting pain meds from RN. Gait Assessment Comments Gait Comments unable at this time M5 PT-IP Objective Assessments Start: 09/13/19 09:31 Freq: NEEDED Status: Active Protocol: Document 09/14/19 16:47 AB (Rec: 09/14/19 18:17 AB [id number]) Orientation Orientation/Cognition Level of Alertness Alert Orientation Name,Place,Situation Language Function Ability No Deficits Noted Safety Awareness Understands Safety Issues Memory Description No Deficits Noted Gross Range of Motion Lower Extremity ROM Assessment Within Functional Limits Strength Upper Extremity Strength Shoulder stated that she does not have R rotator cuff Lower Extremity Strength Assessment Bilaterally Impaired Comments Strength Comments R hip/knee flexion: 2-/5 R hip/knee extension: 1/5 R ankle DF: 1/5 R ankle PF: 1/5 L hip/knee flexion: 1/5 L hip/knee extension: 2-/5 L ankle DF/PF: 2-/5 Sensation Assessment Sensation Gross Sensation WNL Comments Sensation Comments no c/o numbness/tingling M6 PT-IP Treatment Start: 09/13/19 09:31 Freq: NEEDED Status: Active Protocol: Document 09/17/19 10:09 CLB (Rec: 09/17/19 12:46 CLB [id number]) Physical Therapy Treatment Exercises Exercises Ankle Pumps,Quad Sets,Heel Slides Education Education Provided Precautions,Weight Bearing Status,Post-Op Packet,Safety M7 PT-IP Assessment and Plan Start: 09/13/19 09:31 Freq: NEEDED Status: Active Protocol: Document 09/17/19 12:48 CLB (Rec: 09/17/19 15:40 CLB [id number]) PT Summary Assessment and Plan Potential Rehabilitation Potential Fair Status of Condition at Evaluation Evolving Summary Impairments Pain,ROM,Strength,Balance, Coordination,Sensation,Tone, Cognition,Bed Mobility, Transfers,Gait,Activity Tolerance Assessment Summary After sitting in WC for a few hours pt requested to return to bed. Pt agreed to slide board transfer requiring Max A x2 due to increased fatigue and pain this afternoon. Pt required Max A to supine and Mod A to roll bilaterally to find a comfortable position. Goals Bed Mobility Goal Moderate Assistance Transfer Goal Moderate Assistance,Front Wheeled Walker Gait Goal Moderate Assistance,Front Wheel Walker Gait Distance 10 Days to Meet Goals 10 Frequency of Treatment Frequency Of Treatment Twice a Day Treatment Plan Physical Therapy Treatment Plan Bed Mobility Training,Transfer Training,Gait Training, Therapeutic Exercise,Balance Retraining,Post Op Education, Discharge Planning,Hot or Cold Pack,Neuromuscular Re-ed, Coordination Retraining,Manual Therapy Other Recommendations and Next Treatment bed mobility, sitting balance, Focus trunk/LE strengthening, slide board transfer to . Recommendations To Nursing Amount of Assist Needed 2 Person Assist,Mechanical Lift Discharge Recommendations PT Discharge Recommendations SNF Rehab,Acute Rehab
--- NOTE | 2019-09-17 13:12 | OT.IP.TRT ---
Current Diagnoses Postprocedural hematoma of a nervous system organ or structure following a nervous system procedure (09/13/19) Surgery Performed Operation Date: 09/13/19 11:45 Actual Procedures p T11-L2 Laminectomy and removal of blood clot - Matthew Higgins MD Occupational Therapy Treatment Note M2 OT-IP Current Condition Start: 09/13/19 15:52 Freq: Status: Active Protocol: Document 09/14/19 16:28 PJM (Rec: 09/14/19 18:01 PJM [id number]) Occupational Therapy Current Condition Current Condition Evaluation Date 09/14/19 Treatment Diagnosis decr'd self care care, mobility due to incomplete T11 spinal cord injury Diagnosis Onset Date 09/13/19 Post Operative Precautions Lumbar Precautions Log Roll,No Twisting,Limit Bending,Lifting Restriction of 10 lbs,Gait Belt above Incisional Area Other Precautions fall risk, minimal motor function in BLE's, ceiling lift transfer at present, position changes q 2 hrs in bed to prevent skin breakdown, waffle cushion in bed, chair M3 OT- IP Subjective and Pain Start: 09/13/19 15:52 Freq: Status: Active Protocol: Document 09/17/19 15:00 [facility] (Rec: 09/17/19 15:24 [facility] [id number]) OT- Subjective Occupational Therapy Visit Type Type Treatment Note Visit Start Time 10:17 Visit Stop Time 13:12 Total Visit Minutes 53 Notes Saw pt twice for mobility needs to assess safety of sliding board and mobility with WC with OPERATOR ASSISTANT I CEMENTING. Occupational Therapy Visit Comments Patient Comments Pt agreeable to get up and try sliding board transfers and try to get around in a manual wc. Patient/Caregiver Goals Pt wanting to go to rehab. OT Pain Assessment Pain When Pain Assessed During Mobility Pain Present Pain Present Pain Reported Location back/abdomen/legs Intensity 5 Scale Used Numeric (1 - 10) M4 OT- IP ADL's Start: 09/13/19 15:52 Freq: Status: Active Protocol: Document 09/17/19 15:00 [facility] (Rec: 09/17/19 15:24 [facility] [id number]) OT XQT-[id number]-[id number] Comments OT Self-Feeding Comments NOt at meal time. OT ADL-Dressing General Eval Lower Body Dressing Ability Maximum Assistance Areas Needing Assistance Socks Comments OT Dressing Comments Pt wanting to focus on transfers and mobility needs. Therefore MAX A for socks. M5 OT- IP IADL's Start: 09/13/19 15:52 Freq: Status: Active Protocol: Document 09/14/19 16:28 PJM (Rec: 09/14/19 18:01 PJM [id number]) OT-Instrumental Activities of Daily Living Deficits IADL Deficits Identified Deficits Home Safety Awareness Awareness of Need for Assistance at Home Good Awareness Ability to Problem Solve Emergency Able to Problem Solve Situations Medication Management Medication Management No Deficits Identified Money Management Money Management No Deficits Identified Meal Preparation Meal Preparation Caregiver Provides Assist Meal Preparation Comments pt needs total assist at this time Weather Observer Weather Observer Caregiver Provides Assist Weather Observer Comments pt needs total assist at this time Driving Driving Comments pt unable to drive at this time M6 OT- IP Functional Cognition Start: 09/13/19 15:52 Freq: Status: Active Protocol: Document 09/17/19 15:00 [facility] (Rec: 09/17/19 15:24 [facility] [id number]) Cognitive Factors Limiting Selfcare Function Cognitive Ability Level of Alertness Alert Patient Orientation Name,Age,Birthday,Month,Date, Year,Day of Week,Place, Situation Attention Span Ability Capable of Focused Attention, Capable of Sustained Attention Ability to Follow Commands Able to Follow One Step Commands Problem Solving Ability Needs Assist to Identify Solutions Cognitive Comments Cognitive Assessment Comments Pt able follow concrete commands for mobility needs today and able to states her needs. M7 OT- IP Mobility and Balance Start: 09/13/19 15:52 Freq: Status: Active Protocol: Document 09/17/19 15:00 [facility] (Rec: 09/17/19 15:24 [facility] [id number]) OT- Bed Mobility Assessment Rolling Type of Rolling Roll to Right Level of Assistance Moderate Assistance Supine to Sit Supine to Sit Assist Moderate Assistance,1 Person Assistance Sit to Supine Sit to Supine Assist Maximum Assistance,1 Person Assistance OT-Transfer Assessment Transfers Transfer Ability Minimal Assistance,Maximum Assistance,2 Person Assistance Technique Transfer Destination Bed,Chair,Wheelchair Transfer Technique Lateral Scoot Devices Transfer Assistive Devices Gait Belt Comments Mobility Comments Dependent for board placement and CRYSTAL x2 from bed down to . Pt able to maneuver the wc on her own and needing crystal for tight spaces. Transfer from wc to bed with sliding board, MAX A X 2 as going , uphill. Overall noted increased trunk control today just SBA while sitting at the edge of the bed after helping to get her to the edge of the bed. OT- Gait Assessment Comments Gait Ability Comments pt non ambulatory due to lack of BLE motor function OT- Balance Assessment Sitting Balance and Reactions Static Sitting Balance Ability Fair Dynamic Sitting Balance Ability Poor Comments Other Balance Tests/Deviations/Treatment Sittignn balance FAir + today. : M8 OT- IP Objective Assessments Start: 09/13/19 15:52 Freq: Status: Active Protocol: Document 09/14/19 16:28 PJM (Rec: 09/14/19 18:01 PJM [id number]) OT Gross Range of Motion Upper Extremity Range of Motion Assessment Bilaterally Impaired ROM Impairments Pt has old R rotator cuff tear with AROM to 90 then AAROM to 110, difficulty with eccentric motor control. LUE WFL but painful at endrange of about 110 degrees. Distal AROM WFL in BUE. OT Strength Upper Extremity Strength Assessment Within Functional Limits Shoulder R scaption 3-/5, L scaption 3+ /5 Hand Sales Assistant Displays Strength Hand Dominance Right OT- Coordination Assessment Comments Coordination Comments BUE WFL OT-Muscle Tone Assessment Muscle Tone WNL Yes OT Sensation Assessment Comments Summary Comments B hand tingling for many years due to poor circulation Edema Edema Absent M9 OT- IP Assessment and Plan Start: 09/13/19 15:52 Freq: Status: Active Protocol: Document 09/17/19 15:00 [facility] (Rec: 09/17/19 15:24 [facility] [id number]) OT Summary Assessment and Plan Potential Rehabilitation Potential Good Analytic Complexity at Evaluation Moderate Summary OT Impairments Pain,Range of Motion,Strength, Balance,Functional Mobility, Dressing,Toileting,Bathing, Toilet Transfers,Shower Transfers,Activity Tolerance Progress Towards Goals Progressing Toward Goals Assessment Summary Pt able to tolerate slding board transfer bed to and then wc to bed and able to assist with her arms and noted overall better trunk control today to assist. Pt looking to go to acute rehab tomorrow to continue to work towards independence for Adl and functional mobility from level. Goals Grooming Goal Standby Assistance Dressing Goal Minimal Assistance Toileting Goal Moderate Assistance Bathing Goal Minimal Assistance Toilet Transfer Goal Moderate Assistance OT-Other Goals Grooming to be done sitting on EOB with no LOB. Dressing goal is for lower body dressing using power bed features to don/doff pants, socks, shoes. Bathing goal is for upper body sponge bath seated in chair. Toilet transfer goal is for sliding board transfer to [facility] Days to Meet Goals 7 Frequency of Treatment Frequency Of Treatment Once a Day Treatment Plan OT Treatment Plan ADL Training,Functional Mobility,Patient/Family Education,Discharge Planning Discharge Recommendations OT Discharge Recommendations SNF Rehab,Acute Rehab Home Equipment Needs to be determined pending progress in next rehab setting Transportation Needs at Discharge Wheelchair/Cabulance
--- NOTE | 2019-09-17 17:34 | PC.NURSE ---
Addendum entered by Nayeli Bella R.N. 09/17/19 20:21: Pt having relatively uneventful evening. Dozing @ intervals HL intact. Tolbert cath patent clear yellow urine. Stable post op course. Call light w/in reach, bed alarm on for pt safety. Continue w/plan of care. Original Note: P:t visiting w/family Med at 1655 w/ vistaril for more relief. HL intact. Surgical dsg CDI Tolbert cath patent clear yellow urine. Call light w/in reach, bed alrm on for pt safety.
[2019-09-17] MEDS: CYCLOBENZAPRINE 10 MG TABLET PO (20:18)
[2019-09-17] MEDS: PRAVASTATIN 20 MG TABLET PO (20:20)
[2019-09-17] MEDS: TRAZODONE 50 MG TABLET 75 MG PO (20:21)
[2019-09-17] MEDS: LATANOPROST 0.005% OPHTH 2.5 ML 1 DROPS EYE-BOTH (21:53)
[2019-09-18] VITALS (15 sets, daily range): BP systolic 101–145; BP diastolic 52–81; PULSE 92–107; RESP 10–18; TEMP 36.1–38.6; O2SAT 88–97; BMI 22.3
--- NOTE | 2019-09-18 | DI.RAD.S_ITS ---
PROCEDURE: XR LUMBAR SPINE 2-3V INDICATIONS: INTER OP TECHNIQUE: 2 views of the lumbar spine were acquired. COMPARISON: [facility], [place], XR LUMBAR SPINE 1V, 09/13/2019, 13:24. [facility], [place], L-SPINE 2-3 VIEWS, 08/01/2014, 0:00. FINDINGS: Bones: Intraoperative localization probe is present, correlated with the upper lumbosacral spine initially and then the thoracolumbar junction more superiorly subsequently. Soft tissues: Overlying bowel gas pattern is normal. No suspicious soft tissue calcifications. IMPRESSION: Limited intraoperative visualization during metallic probe localization of area of operative intervention at the just below the thoracolumbar junction. Previously present fixation devices are identified also evaluated by CT scanning 09/12/19. Dictated by: Clay Silvestre M.D. on 09/18/2019 at 17:34 Approved by: Clay Silvestre M.D. on 09/18/2019 at 17:36
--- NOTE | 2019-09-18 05:41 | PC.NURSE ---
Addendum entered by Gena Beal R.N. 09/18/19 06:47: Patient woke up around 0545 calling out for pain meds and since has not be able to get comfortable. This is compounded by the patient unable to tolerate many adjustments to her position or any movements that she judges as occurring too fast. Nursing staff has made multiple attempts to provide positioning relief to patient including turns, pillows, towels, etc but patient is unsure what position will make her comfortable. Original Note: Pt had a restful night, allowed to have maximum uninterrupted sleep as possible without impacting cares. Turned on request, can make needs known using call light. VSS, on room air.
[2019-09-18] MEDS: OXYCODONE IR 10 MG TABLET PO ×4 (05:49→19:04)
[2019-09-18] MEDS: PANTOPRAZOLE 40 MG TABLET PO ×2 (05:52→19:14)
[2019-09-18] MEDS: DORZOLAMIDE/TIMOLOL OPHTH 10 ML 1 DROPS EYE-BOTH ×2 (05:52→19:13)
[2019-09-18] MEDS: gemfibroziL 600 MG TABLET PO ×2 (05:52→19:13)
[2019-09-18] MEDS: LEVOTHYROXINE 88 MCG TABLET PO (05:52)
--- NOTE | 2019-09-18 07:58 | DI.MRI.S_ITS ---
PROCEDURE: MR THORACIC SPINE W CON INDICATIONS: back pain, hx epidural hematoma TECHNIQUE: Noncontrast images were performed on 09/13/19 and not repeated. After the administration of contrast, axial and sagittal T1 spin echo with fat saturation through the thoracic spine. COMPARISON: [facility], MR, MR THORACIC SPINE WO CON, 09/13/2019, 8:30. [facility], MR, MR LUMBAR SPINE WO CON, 09/13/2019, 8:30. [facility], MR, MR LUMBAR SPINE W CON, 09/18/2019, 10:30. [facility], CR, XR LUMBAR SPINE 1V, 09/13/2019, 13:24. FINDINGS: Image quality: Diagnostic, but limited by the lack of precontrast images. Since the prior examination, decompressive surgery has taken place, with removal of the previously seen epidural hematoma. There does appear to be an improvement in the degree of central canal narrowing in the lower thoracic spine. Mild enhancement can be seen within the spinal canal, which is centered at the T12 level, as on series 3 image 9. Postoperative changes are seen of the lumbar spine with interval removal of portions of posterior elements within the lower thoracic spine. IMPRESSION: Interval decompressive surgery, with improvement in the degree of central canal narrowing with removal of the epidural hematoma. This study is limited by the lack of precontrast images. Please consider a repeat examination, performed without and with IV contrast, which could be performed at no additional charge to the patient. Dictated by: Micheal Conner M.D. on 09/18/2019 at 10:50 Approved by: Michael Conner M.D. on 09/18/2019 at 10:52
--- NOTE | 2019-09-18 07:58 | DI.MRI.S_ITS ---
PROCEDURE: MR LUMBAR SPINE W CON INDICATIONS: back pain, hx epidural hematoma TECHNIQUE: Precontrast images were performed on 09/13/19 and not repeated. After the administration of contrast, sagittal and axial T1 spin echo with fat saturation through the lumbar spine. COMPARISON: [facility], MR, MR LUMBAR SPINE WO CON, 09/13/2019, 8:30. [facility], MR, MR THORACIC SPINE W CON, 09/18/2019, 10:30. FINDINGS: Image quality: Diagnostic, but limited by the lack of the precontrast images. On these postcontrast only images, there are postoperative changes seen within the thoracolumbar region. On these images, the previously seen epidural hematoma has been removed. There is a mild degree of enhancement seen within the thecal sac, which is centered at the T12 level, as on series 6 image 9. The degree of central canal narrowing appears greatly improved. IMPRESSION: Postoperative study, with improvement in the degree of central canal narrowing. The study is limited in that only postcontrast images were obtained. (If clinically appropriate, a full lumbar MRI (performed without and with IV contrast) could be considered for further evaluation, no additional charge to the patient.) Dictated by: Michael Conner M.D. on 09/18/2019 at 10:40 Approved by: Michael Conner M.D. on 09/18/2019 at 10:48
--- NOTE | 2019-09-18 07:59 | PM.DS.1 ---
History of Present Illness History of Present Illness Chief complaint: Chronic Back Pain, Post Procedure Pain, Neuropathy Narrative: 74-year-old female with an epidural hematoma. 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 She also has been on Plavix. She had a spinal cord stimulator trial placed on 09/12/2019. In the recovery room she began having difficulty moving her legs. She was sent to [facility] for an emergent CT scan to make sure there was no epidural hematoma. Her CT scan was read out as no epidural hematoma and then she was transferred late that night to [facility] for further management. At that point it was presumed that the patient had an inadvertent spinal block with Marcaine at the time the spinal cord stimulator placement to explain her leg weakness. Discharge Providers Provider Date of admission: 09/13/19 03:20 Consults: 09/13/19 04:00 Consult to Discharge Planning Routine Comment: 09/13/19 04:01 Consult to Orthopedic Surgery Routine Comment: Consulting Provider: Keven Navarro Reason for consultation: BLE neuropathy post spinal stimulator Has provider been notified: Yes 09/13/19 04:51 Consult to Pastoral Services Routine Comment: would like visit 09/13/19 14:35 Consult to Occupational Therapy Evaluate & Treat Comment: Physician Instructions: Evaluate and treat Consult to Physical Therapy Evaluate & Treat Comment: Physician Instructions: Evaluate and Treat 09/14/19 08:42 Consult to FIRE EXTINGUISHER CHARGER - Simulation Software Engineer Routine Comment: will need skilled rehab unit for DC Discharge provider: Matthew Higgins MD Exam Vital Signs (past 8 hours): - 09/18/19 03:00 09/18/19 05:37 Temperature 98.4 F 98.9 F Pulse Rate 103 H 107 H Respiratory Rate 18 18 Blood Pressure 101/52 L 107/69 Pulse Oximetry 92 97 Oxygen Delivery Method Room Air Oxygen Flow Rate 0 Objective Labs Result Diagrams: 09/15/19 16:24 09/15/19 16:24 Discharge Plan Discharge Plan Patient Disposition: SNF Other facility: [facility] inpatient rehab unit Under care of provider: facility physician Consult as needed: Dental, Hearing, Mental health, Podiatry and Vision Discharge orders & Medications Prescriptions: No Action pravastatin 20 MG tablet 20 mg PO DAILY Qty: 0 RF: 0 latanoprost 0.005 % drops 1 drp OPHTH HS Qty: 0 RF: 0 fluticasone propionate 16 GM spray,suspension 2 spray Intranasal QDAY Qty: 0 RF: 0 ginkgo biloba 120 MG tablet 120 mg PO BID Qty: 0 RF: 0 diphenhydramine HCl [Diphedryl] 25 MG tablet 25 mg PO 3-4XD Qty: 0 RF: 0 levothyroxine 88 mcg Tablet 88 mcg PO DAILY RF: 0 clopidogrel [Plavix] 75 mg Tablet 75 mg PO DAILY RF: 0 gemfibrozil 600 mg Tablet 600 mg PO BID RF: 0 pantoprazole 40 mg Tablet,Delayed Release (Dr/Ec) 40 mg PO BID RF: 0 gabapentin 300 mg Capsule 300 mg PO TID RF: 0 dorzolamide-timolol 22.3-6.8 mg/mL Drops 1 drp OPHTHALMIC (EYE) BID RF: 0 cyclobenzaprine 10 mg Tablet 10 mg PO BEDTIME RF: 0 hydrocodone-acetaminophen 5-325 mg Tablet 1 tab PO Q6H RF: 0 acetaminophen [Tylenol Extra Strength] 500 mg Tablet 1,000 mg PO TID RF: 0 sertraline 25 mg Tablet 25 mg PO DAILY RF: 0 cholecalciferol (vitamin D3) [Vitamin D3] 10 mcg (400 unit) Capsule 400 unit PO DAILY RF: 0 [place] 3-6-9 Fatty Acids 400-400-200 mg Capsule 1 cap PO BID RF: 0 calcium carbonate [Calcium 600] 600 mg calcium (1,500 mg) Tablet 600 mg PO DAILY RF: 0 coQ10 (ubiquinol) 100 mg Capsule 100 mg PO DAILY RF: 0 Adults Multivitamin 18 mg iron-400 mcg-25 mcg Tablet 1 tab PO DAILY RF: 0 Glucosamine Chondroitin 550-30-1 mg Capsule 1 cap PO BID RF: 0 cholestyramine (with sugar) 4 gram Powder 4 g PO BID RF: 0 Metamucil 3.4 gram/5.4 gram Powder 1.5 tsp PO DAILY RF: 0 trazodone 50 mg Tablet 75 - 100 mg PO BEDTIME RF: 0 Discharge Health Status Multidrug resistant organism: No MDRO Precautions: [place] Diet/Activity/Treatments Diet: Diet as Tolerated Liquid consistency: Normal/Thin Food texture: Regular Activity: as tolerated Skin/Wound/Dressing Care Dressing: may change and shower prn Visit Report/Discharge Packet Instructions: DI for Laminectomy Stand Alone Forms: Surgery Discharge Quality VTE Deep Vein Thrombosis/Pulmonary Embolism Present on Admission: No
--- NOTE | 2019-09-18 08:00 | PM.PNPO.1 ---
Subjective Subjective Date Patient Seen: 09/18/19 Time Patient Seen: 08:00 Interval history: She is complaining of still ongoing and severe pain in the right lower back radiating into the right groin. Exam Vital Signs (past 8 hours): - 09/18/19 03:00 09/18/19 05:37 Temperature 98.4 F 98.9 F Pulse Rate 103 H 107 H Respiratory Rate 18 18 Blood Pressure 101/52 L 107/69 Pulse Oximetry 92 97 Oxygen Delivery Method Room Air Oxygen Flow Rate 0 Const Orientation: alert and oriented x3 Back/Spine/Pelvis Other: CDI. Tender right lower lumbars. IP Q AT [facility] GC R 2 2+ 0 0 0 L 3 3 0 0 0 Objective Labs Result Diagrams: 09/15/19 16:24 09/15/19 16:24 Assessment & Plan Post-op Postoperative Procedures: Procedures Operation Date: 09/13/19 11:45 Actual Procedures Side Surgeon p T11-L2 Laminectomy and removal of blood clot Matthew Higgins MD she is having increasing pain and while her proximal strength is improving, she no longer has any function in the distal leg. I am going to get new MRIs with contrast of the thoracic and lumbar spine to make sure there is no ongoing hematoma. Her white count is up. This could be from the steroids, or this could be urinary infection as she does have an indwelling catheter. I will check a urinalysis today. I do not think she is going to be stable for discharge today. Quality VTE Deep Vein Thrombosis/Pulmonary Embolism Present on Admission: No
--- NOTE | 2019-09-18 08:45 | PT.IPTN ---
Current Diagnoses Postprocedural hematoma of a nervous system organ or structure following a nervous system procedure (09/13/19) Surgery Performed Operation Date: 09/13/19 11:45 Actual Procedures p T11-L2 Laminectomy and removal of blood clot - Matthew Higgins MD Physical Therapy Treatment Note M2 PT-IP Current Condition Start: 09/13/19 09:31 Freq: NEEDED Status: Active Protocol: Document 09/14/19 16:47 AB (Rec: 09/14/19 18:17 AB [id number]) Physical Therapy Current Condition Current Condition Evaluation Date 09/14/19 Treatment Diagnosis large epidural hematoma s/p decompression lami; difficulty in walking Onset Date 09/13/2019 Precautions Lumbar Precautions Log Roll,No Twisting,Limit Bending,Lifting Restriction of 10 lbs,Gait Belt above Incisional Area M3 PT-IP Subjective Start: 09/13/19 09:31 Freq: NEEDED Status: Active Protocol: Document 09/18/19 08:05 SP (Rec: 09/18/19 12:45 SP [id number]) Subjective Physical Therapy Visit Type Type Progress Note Visit Start Time 08:05 Visit Stop Time 08:45 Total Visit Minutes 40 Number of EXTRUDER Visits 6 Physical Therapy Visit Comments Patient Comments Pt willing to work with PT and get up to w/c like yesterday. Therapy Pain Assessment Pain When Pain Assessed During Mobility Pain Present Pain Present Pain Reported Location back/abdomen/legs Intensity 6 Scale Used 6/10 at rest, 8/10 during mobility Pain Management Techniques Modification of Treatment,Re- positioning,Timing of Activity with Medications M4 PT-IP Mobility and Gait Start: 09/13/19 09:31 Freq: NEEDED Status: Active Protocol: Document 09/18/19 08:05 SP (Rec: 09/18/19 12:45 SP [id number]) PT-Bed Mobility Assessment Rolling Type of Rolling Log Rolling,Bilateral Level of Assist Moderate Assistance,Maximal Assistance,1 Person Assistance Supine to Sit Supine to Sit Moderate Assistance,Maximum Assistance,1 Person Assistance ,Bedrails Sit to Supine Sit to Supine Moderate Assistance,2 Person Assistance,Bedrails Scooting Scooting to Edge of Bed Maximum Assistance PT-Transfer Assessment Sit to and From Stand Sit to and from Stand Maximum Assistance,1 Person Assistance,Use of Upper Extremities Equipment Transfer Assistive Device Gait Belt,Sliding Board Orthotic/Prosthetic Devices or Brace: No Transfers Transfer Destination Bed,Wheelchair Transfer Ability Level of Assist Maximum Assistance,2 Person Assistance,Use of Upper Extremities Comments Mobility Comments Pt required Mod-Max A for log roll to L and support for R>L LE to EOB and trunk transtioning to sitting then scoot foward to EOB (one LE scoot at time) with good patient directioning for coordiinating self support needed with good response to decreased pain if patient muscle facilitation. Pt was not successful sit to stand from EOB Max A of 1 and use of FWW for support. Pt was ableto slide board transfer bed to w/c Max A of 2 person with BUE support to WB on slide board and cuing for trunk hip hinge and BLe on floor pressure to unweight bottom, therapist provided support to anterior knees to prevent buckling and not scooting forward off board with good success. Completed bed to w/c with nursing home administrator 2nd Max A but needed to go back to bed due to BM accident during transition to w/c. Pt unable to stand so recommended to patient going back to bed for assist hygiene is the safest option with agreement. Max A x2 to w/c> bed slide board and scoot back in bed then transition sitting side lying then log roll to supine to maintian spinal alignment with no increase in pain reported. Pt had no adverse reactions to tx . Pt was laying in bed with nursing asistant to help patient and provide all needs when complete. Discussed progress during tx to OT and nurse at end of tx. PT-Balance Assessment Sitting Balance and Reactions Static Sitting Balance Ability Fair Dynamic Sitting Balance Ability Poor Standing Balance and Reactions Static Standing Balance Ability Poor Dynamic Standing Balance Ability Poor Device Used PT stabilizing and assisting pt from the front unsuccessful with use of FWW Comments Other Balance Tests/Deviations/Treatment Pt did demonstrate a LOB : forward during sititng at EOB with Mod A from front withcuing for body awareness upright posture for recovery. Pt requires BUE support on bed for self sitting balance. M5 PT-IP Objective Assessments Start: 09/13/19 09:31 Freq: NEEDED Status: Active Protocol: Document 09/14/19 16:47 AB (Rec: 09/14/19 18:17 AB [id number]) Orientation Orientation/Cognition Level of Alertness Alert Orientation Name,Place,Situation Language Function Ability No Deficits Noted Safety Awareness Understands Safety Issues Memory Description No Deficits Noted Gross Range of Motion Lower Extremity ROM Assessment Within Functional Limits Strength Upper Extremity Strength Shoulder stated that she does not have R rotator cuff Lower Extremity Strength Assessment Bilaterally Impaired Comments Strength Comments R hip/knee flexion: 2-/5 R hip/knee extension: 1/5 R ankle DF: 1/5 R ankle PF: 1/5 L hip/knee flexion: 1/5 L hip/knee extension: 2-/5 L ankle DF/PF: 2-/5 Sensation Assessment Sensation Gross Sensation WNL Comments Sensation Comments no c/o numbness/tingling M6 PT-IP Treatment Start: 09/13/19 09:31 Freq: NEEDED Status: Active Protocol: Document 09/18/19 08:05 SP (Rec: 09/18/19 12:45 SP [id number]) Physical Therapy Treatment Education Education Provided Precautions,Weight Bearing Status,Post-Op Packet,Safety M7 PT-IP Assessment and Plan Start: 09/13/19 09:31 Freq: NEEDED Status: Active Protocol: Document 09/18/19 08:05 SP (Rec: 09/18/19 12:45 SP [id number]) PT Summary Assessment and Plan Potential Rehabilitation Potential Fair Status of Condition at Evaluation Evolving Summary Impairments Pain,ROM,Strength,Balance, Coordination,Sensation,Tone, Cognition,Bed Mobility, Transfers,Gait,Activity Tolerance Assessment Summary See mobillity comments. Pt requires additional acute PT to increase strength and progress in functional mobiltiy, slide board transfer Max A of 2 persons. Recommending SNF when medically cleared for DC to progress in strength and funcitional mobility. Goals Bed Mobility Goal Moderate Assistance Transfer Goal Moderate Assistance,Front Wheeled Walker Gait Goal Moderate Assistance,Front Wheel Walker Gait Distance 10 Days to Meet Goals 10 Frequency of Treatment Frequency Of Treatment Twice a Day Treatment Plan Physical Therapy Treatment Plan Bed Mobility Training,Transfer Training,Gait Training, Therapeutic Exercise,Balance Retraining,Post Op Education, Discharge Planning,Hot or Cold Pack,Neuromuscular Re-ed, Coordination Retraining,Manual Therapy Other Recommendations and Next Treatment bed mobility, sitting balance, Focus trunk/LE strengthening, slide board transfer to . Recommendations To Nursing Amount of Assist Needed 2 Person Assist Discharge Recommendations PT Discharge Recommendations SNF Rehab,Acute Rehab
[2019-09-18] MEDS: GABAPENTIN 300 MG CAPSULE PO ×2 (09:29→21:53)
[2019-09-18] MEDS: CHOLECALCIFEROL (VITAMIN D3) 400 UNIT TABLET PO (09:29)
[2019-09-18] MEDS: PSYLLIUM HUSK 1 PACKET PO (09:29)
[2019-09-18] MEDS: CHOLESTYRAMINE/ASPARTAME 4 GM PACK PO ×2 (09:29→21:51)
[2019-09-18] MEDS: CALCIUM CARBONATE 600 MG TABLET PO (09:29)
[2019-09-18] MEDS: diphenhydrAMINE 25 MG TABLET PO ×3 (09:30→21:56)
[2019-09-18] MEDS: MULTIVIT,CALC,MINS/IRON/FOLIC 1 TABLET 1 TAB PO (09:30)
[2019-09-18] MEDS: GLUCOSAMINE/CHONDROITIN CAPSULE 1 EACH PO ×2 (09:30→21:53)
[2019-09-18] MEDS: FISH OIL 1,000 MG CAPSULE 1000 MG PO ×2 (09:31→21:54)
[2019-09-18] MEDS: FLUTICASONE 120 SPRAY/16 GM SPRAY.SUSP NASAL (09:31)
[2019-09-18] MEDS: SERTRALINE 25 MG TABLET PO (09:31)
--- NOTE | 2019-09-18 10:57 | PC.NURSE ---
Addendum entered by Cande Naylor R.N. 09/18/19 15:03: Patient just down to surgery now, states that patient is bleeding in one of her thoracic spinal area's. Consent signed. Original Note: Assess: Patient is a&ox3, she is very precise on making her needs know. Patient has some blanchable redness on her buttocks and between butt cheeks. She has been having some lose stools and incontinent of this. Patient always wants to have her legs repositioned but it seems that she may not want to completely turn on her sides and she has been laying on her buttocks quite a bit. Will make sure and turn patient as often as she will let us. Applying barrier cream to area's. Given 10mg of oxycodone for discomfort. Just got back from her MRI.... Patient has better movement of her left side and her dressing to her lower back is cdi.
--- NOTE | 2019-09-18 14:31 | DIET.PN ---
Dietary Progress Note Assessment: 74y F assessed by RD r/t 5d stay at . Pt experiencing severe px s/p hematoma evacuation with POs <50% for 3d. Because pt is experiencing px and has a BMI borderline normal for age (22.3), will send ensure enlive bid until d/c to support healing and nutritional status. HT: 151.77cm WT: 51.4kg BMI: 22.3 Diet Order: General
--- NOTE | 2019-09-18 14:41 | PT-IP ANOTE ---
Nursing reported patient on hold for PT this afternoon. See nursing for further details.
--- NOTE | 2019-09-18 14:41 | OT.IPNOTE ---
Per nursing hold pt from therapy at this time. To check on pt tomorrow.
--- NOTE | 2019-09-18 15:03 | PM.PREOP ---
Pre-operative Note Interval Note History & Physical reviewed/Exam performed by Physician: Yes Changes to H&P: No
--- NOTE | 2019-09-18 15:26 | PC.NURSE ---
Evening Shift Note Assigned patient. However, patient off floor to surgery less than 5 minutes into start of shift, unable to asses before report completed. Anticipate return to floor.
[2019-09-18] MEDS: METOCLOPRAMIDE 10 MG/2 ML INJ IV (15:43)
[2019-09-18] MEDS: LACTATED RINGERS 1,000 ML 42 ML IV ×2 (15:45→16:24)
--- NOTE | 2019-09-18 15:45 | SUR.HOLD ---
Reglan and famotidine ordered, pt on protonix- Dr. Tolbert notified, d/c'ed, Reglan only given as instructed.
[2019-09-18] MEDS: CLINDAMYCIN 600 MG/50 ML PIGGYBACK 50 MG IV ×2 (15:48→23:55)
--- NOTE | 2019-09-18 16:10 | CM.DPC ---
DCP Cont: Per MD, pt seems to have decreased neuro and waiting for scan to determine any further needs prior to d/c and pt not stable for d/c yet today. MALENA called Dora at [facility] and updated that pt not stable for d/c yet today. Dora confirms they can accept when stable and that cabulance will still need to be set up by DCP private pay and family aware. Dora requests med rec, d/c summ, updated labs be faxed at discharge and that pt family bring pt's eye drops Cosopt with her. Per RN, pt may now be scheduled for I&D tonight. Plan: MALENA to follow closely for scheduling cabulance private pay when pt stable for d/c and keeping Dora at [facility] updated on pt status and if stable for d/c tomorrow. Loyda Sam, SH[employer]ER
--- NOTE | 2019-09-18 16:12 | SUR.OPER ---
Prone on padded OR bed, head in foam head support, gel chest rolls, gel pad under knees, pillow under lower legs, toes free of pressure, arms secured on padded arm boards at <90 degrees abduction. Safety belt at thigh.
[2019-09-18] MEDS: SODIUM CHLORIDE 0.9% 1,000 ML, GENTAMICIN 80 MG IRR (16:28)
--- NOTE | 2019-09-18 17:09 | PM.OP.1 ---
Operative Date/Time/Diagnoses Date of procedure: 09/18/19 Time of procedure: 17:09 Pre-op diagnosis: Epidural hematoma Post-op diagnosis: same Procedure & Clinicians Procedure: Lumbar laminectomy with removal of epidural hematoma Same procedure as scheduled: Yes Indications: 74-year-old female who had an epidural hematoma we that was decompressed a week ago. She began having decline in her neurologic status. Of repeat MRI was taken showing recurrent hematoma mostly behind T12. His felt she would need a repeat removal of the hematoma. Risks and benefits were discussed and the appropriate consent obtained. Surgeon: Matthew Higgins Click Yes if Unassisted: Yes Anesthesia Type: General Operative Notes Findings: Moderate epidural hematoma primarily around T12. Closure Type: primary Specimen(s): none sent Estimated Blood Loss (mL): 15 Procedure in detail: Patient brought to the operating room and intubated on the stretcher. She was rolled over the well-padded prone position on the Charlie table. The back was prepped and draped in the standard sterile fashion. Preoperative antibiotics were given. Time-out was performed. We opened up her previous incision and opened up the deep fascia and came down to the thoracic laminectomy sites. There is a small appropriate postoperative hematoma around the T11 as well as the lower L1 region but there did not appear to be cord compression. However, mostly behind T12 and some of L1 the cord was pressed down as the hematoma was deeper. I did not see any quinitn fresh blood or any active bleeding. This was cleared up with suction and a ball probe until we could easily move the ball probe all along the length of the T12 through L2 laminectomies. The dura at the L1-2 level appeared to be more darker and bruised appearance. I opened up a little bit inferiorly and did a L2 laminectomy as well. I never saw any hematoma but the dura fill back into this space and retracted down to normal tissue. X-ray confirmed that we had been down to L2-3 and as high as mid T11. We used FloSeal prophylactically. The wound was then irrigated. A deep drain was placed. The fascia, superficial, and skin were closed. Sterile dressings placed. She was then rolled over, extubated, and brought to the recovery room with no complications. Complications: none Post-operative Condition: stable Disposition: PACU Plan for aftercare: Continue inpatient care.
[2019-09-18] MEDS: LACTATED RINGERS 1,000 ML 125 ML IV (19:15)
--- NOTE | 2019-09-18 19:54 | PC.NURSE ---
Nurse Note Patient arrives to floor from PACU alert and oriented. Patient endorses pain to back, states it is currently tolerable. Surgical dressing to back CDI, hemavac dressing shadowed, drain in place and to suction. Patient with significant decline in motion to bilateral lower extremities. Patient has a small amount of muscle movement to right lower extremity, with a flicker of muscle to move foot and toes. However, unable to discern any movement to left lower extremity. Patient is able to correctly identify touch to both lower extremities. Dressing to sacrum CDI. Frequent turning to offload back offered, but declined. Care is ongoing.
[2019-09-18 20:29] LABS: INR 1.3 (0.9-1.3); Prothrombin Time 15.5 SECONDS (10.1-12.7)
[2019-09-18 20:31] LABS: PTT Partial Thromboplastin Tim 40 SECONDS (26.4-36.2)
[2019-09-18] MEDS: ACETAMINOPHEN 325 MG TABLET 975 MG PO (21:50)
[2019-09-18] MEDS: CYCLOBENZAPRINE 10 MG TABLET PO (21:52)
[2019-09-18] MEDS: LATANOPROST 0.005% OPHTH 2.5 ML 1 DROPS EYE-BOTH (21:54)
[2019-09-18] MEDS: PRAVASTATIN 20 MG TABLET PO (21:59)
[2019-09-18] MEDS: TRAZODONE 50 MG TABLET 75 MG PO (21:59)
[2019-09-19] VITALS (16 sets, daily range): BP systolic 54–141; BP diastolic 35–75; PULSE 73–96; RESP 17–20; TEMP 36.5–37.4; O2SAT 94–98
--- NOTE | 2019-09-19 00:22 | PC.NURSE ---
Addendum entered by Gena Beal R.N. 09/19/19 04:00: Patient getting 2nd liter of LR, also had EKG, labs, and UA sent. Patient's VS have rebounded and are currently 127/75 HR 80. Hospitalist consulting. Addendum entered by Gena Beal R.N. 09/19/19 02:49: Gave patient both 500ml boluses of LR for a total liter of LR. Notified Dr Garcia who requested the hospitalist to consult. Will notify hospitalist. Original Note: Patient appears to be resting comfortably at time of assessment. Daughter Rayna rooming in, explained medications and purpose and timing of administration when asked if she was due for pain medication. Due to blanching forming on patient's back side, turned patient while asleep onto right side with combination of pillow and bed tilt. Patient on 2L by NC for 96% saturation, lung sounds clear bilaterally VS unstable with BP at 54/37 55/35/ 82/42 with HR of 80. manager call center surgeon paged, Dr Garcia returned page and gave new orders to bolus 500ml LR with second 500ml LR bolus if needed for pressures. Patient returned to her back during this time. Will continue to monitor.
[2019-09-19] MEDS: LACTATED RINGERS 500 ML 1000 ML IV ×2 (01:02→02:03)
--- NOTE | 2019-09-19 03:16 | P.PN_ITS ---
Subjective Subjective Date Patient Seen: 09/19/19 Time Patient Seen: 03:16 Interval history: Ms. Marisol Valentine is a 74-year-old female with a past medical history significant for hyperlipidemia, depression, hypothyroidism, GERD, basal cell carcinoma, RLS, DJD, osteoarthritis, spinal stenosis, scoliosis, and chronic low back pain with opiate dependence who presented to [facility] ED and transferred to [facility] for direct admission following placement of a spi nal stimulator with acute and sudden onset of severe back pain and bilateral lower extremity neuropathy. She is now status post hematoma evacuation with Dr. Higgins on 09/13/2019 and again taken to the OR on 09/18/2023 reoccurring hematoma at T12. The medicine team had admitted the patient however care with me managed by Orthopedics and as such hospitalist team had signed off. We were contacted to re-engage at the request of Dr. Garcia due to the patient having hypotension. Patient undergone her surgical procedure at 5:00 p.m. today. Postoperatively the patient was maintaining a pressure in the 110s after having previous marked hypertension on initial admission that resolved with pain management. At midnight and the patient was check she was found to be significantly hypertensive with a systolic blood pressure of 54/37. The patient is not tachycardic and maintains a heart rate in the 70s. She is not complaining of pain in is arousable but drowsy. Patient wakes to verbal stimulus and denies chest pain or shortness of breath. Dr. Garcia was contacted and the patient received 1 L bolus of lactated Ringer's with improvement of blood pressure up to 86/48 with heart rate of 75 with respirations of 20 saturating 97%. There are no recent laboratory studies completed for review. Exam Vital Signs (past 8 hours): - 09/18/19 20:00 09/18/19 21:00 09/19/19 00:00 Temperature 98.7 F 97.8 F 97.7 F Pulse Rate 97 H 92 H 80 Respiratory Rate 16 16 20 Blood Pressure 110/64 105/60 82/42 L Pulse Oximetry 97 09/19/19 00:47 09/19/19 01:02 09/19/19 01:17 Temperature Pulse Rate 77 76 77 Respiratory Rate Blood Pressure 79/47 L 83/55 L 94/52 L Pulse Oximetry 09/19/19 01:47 09/19/19 02:02 09/19/19 02:32 Temperature Pulse Rate 73 73 76 Respiratory Rate Blood Pressure 85/46 L 85/49 L 94/45 L Pulse Oximetry 09/19/19 02:47 Temperature Pulse Rate 75 Respiratory Rate Blood Pressure 86/48 L Pulse Oximetry Oxygen Delivery Method Nasal Cannula Oxygen Flow Rate 2 Narrative Exam Narrative: GENERAL APPEARANCE: well developed, adequately nourished, pale in appearance, responsive to verbal stimulus. HEENT: Symmetrical facies, no ptosis, PERRLA, conjunctiva clear, EOMs intact without nystagmus, no sinus tenderness to percussion, mucous membranes are dry. NECK/THYROID: neck supple, flat jugular veins, no carotid bruit, no thyromegaly, trachea midline. LYMPH NODES: no cervical or supraclavicular lymphadenopathy. SKIN: Pale, warm and dry, no visible lesions or rashes. HEART: regular rate and rhythm, S1-S2, slight murmur, no rubs or gallops, brisk capillary refill, no edema LUNGS: clear to auscultation bilaterally, no coarseness crackles or wheezing, no cough present CHEST: Symmetrical movement, no accessory muscle use, shallow tidal volume. ABDOMEN: Soft, no distention, no abdominal tenderness, no guarding or peritoneal signs, no organomegaly, no flank or suprapubic tenderness, active bowel tones. BACK: Normal curvature, nontender to palpation, no CVA tenderness on percussion EXTREMITIES: moves all extremities, strength is 5/5 and symmetrical, no deformities or joint effusions. NEUROLOGIC: GCS is 13 (3/4/6), cranial nerves II-XII grossly intact, patient reports intact sensation bilateral feet, slight wiggle of the left toes but not the right, thigh activation on the left, very weakly on the right, hearing grossly normal to speech. PSYCH: Patient is drowsy but cooperative and follows commands. Objective Labs Result Diagrams: 09/15/19 16:24 09/15/19 16:24 Labs: Laboratory Results - last 24 hr 09/18/19 20:09 PT 15.5 H INR 1.3 APTT 40 H Assessment & Plan Assessment & Plan narrative: This is a 74-year-old female who is status post 2nd evacuation of epidural hematoma. The patient has adequate respirations but remains hypotensive following 1 L bolus. Patient is not tachycardic denies chest pain or shortness of breath. 1. Hypotension, acute, post procedure, active -The patient is found hypotensive and is afebrile with adequate respirations saturating 94-95% with nasal cannula oxygen with no evidence of pulmonary congestion. -patient previously with hypertension following 1st evacuation of epidural hematoma. -The patient with improvement in her blood pressure from 54/37 to 86/48 with 1 L of fluid. -I&O balance reflex a negative balance of over 8 L, will repeat 1 L bolus of lactated Ringer's. -Obtain stat CBC, CMP, procalcitonin and urinalysis. -Obtain stat EKG. -the patient is no longer on antihypertensives, will review results and treat accordingly. 2. Acute postoperative spinal hematoma with cord compression and paralysis, status post three level thoracic laminectomy to decompress epidural hematoma, present on admission. Active. -Patient has protracted history of chronic lumbar back pain status post lumbar fusion. -Dr. Wilcox, physical medicine and rehab implanted spinal stimulator on 09/12/2019. Patient returned to the ER with profound back pain and bilateral lower extremity motor and sensory neuropathy. -CT thoracic spine did not demonstrate any spinal hematoma or fractures. -MRI demonstrated extensive heterogeneous fluid collection seen posteriorly within the spinal canal that measures approximately 7 cm craniocaudally which is centered at the T12-L1 level. There is associated mass effect upon the spinal cord, coursing anteriorly and to the left, with associated severe central canal narrowing. -Patient was taken to the operating room on 09/13/2019 for hematoma evacuation with Dr. Higgins. Postoperatively she has gained a small amount of function, but the amount that she will recover is yet to be determined. -patient was progressing satisfactorily when she had an increase in pain and neurological deficits. She had a recurrent epidural hematoma that was evacuated on 09/18/2019. -Continue with physical and occupational therapy evaluation and treatment. Plan for inpatient rehab per orthopedic surgery recommendations at this time. -Continue pain management per Orthopedic surgery with: Flexeril 10 mg daily at bedtime, gabapentin 300 mg 3 times daily, and oxycodone 10 mg every 3 hours. 3. Hypothyroidism, chronic, present on admission. Stable. -Continue home levothyroxine 88 mcg daily. 4. Hyperlipidemia and carotid artery stenosis, present on admission. Presumed stable. -Continue pravastatin 20 mg every other day. 5. Osteoporosis, chronic, present on admission. Stable. -Continue calcium and vitamin-D supplementation. Thank you for this most interesting consult. Medicine team will continue to follow along with you. Quality VTE Deep Vein Thrombosis/Pulmonary Embolism Present on Admission: No
[2019-09-19 03:35] LABS: Add Manual Diff / Slide Review NO; Basophils Absolute Auto 0 /uL (0-100); Basophils Percent Auto 0.2 % (0-2); Eosinophils Absolute Auto 400 /uL (0-450); Eosinophils Percent Auto 2.7 % (2-4); Hematocrit 31.3 % (36-46); Hemoglobin 10.6 g/dL (12.0-16.0); Lymphocytes Absolute Auto 1600 /uL (1100-4500); Lymphocytes Percent Auto 11.8 % (25-40); Mean Corpuscular HGB Conc 33.8 % (30-36); Mean Corpuscular Hemoglobin 29.3 PG (26-34); Mean Corpuscular Volume 86.7 fL (80-100); Monocytes Absolute Auto 1900 /uL (0-900); Neutrophils Absolute Auto 9900 /uL (1500-7000); Neutrophils Percent Auto 71.3 % (50-75); Platelet Count 310 X10^3/uL (150-400); Red Blood Cell Count 3.62 X10^6/uL (4.0-5.2); Red Cell Distribution Width 13.8 % (11.6-14.8); White Blood Cell Count 13.9 X10^3/uL (4.5-11.0)
[2019-09-19 03:44] LABS: Alanine Aminotransferase 16 IU/L (<35); Albumin 3.1 g/dL (3.5-5.0); Albumin Globulin Ratio 1.1 (1.0-2.8); Alkaline Phosphatase 63 U/L (38-126); Aspartate Aminotransferase 85 IU/L (14-36); Bilirubin Total 0.3 mg/dL (0.2-1.3); Blood Urea Nitrogen 14 mg/dL (7-17); Calcium 8.8 mg/dL (8.4-10.2); Carbon Dioxide 28 mmol/L (22-32); Chloride 100 mmol/L (98-107); Estimated Glomerular Filt Rate > 60.0 mL/min (>60); Globulin 2.8 g/dL (1.7-4.1); Glucose 117 mg/dL (80-110); HEMOLYSIS < 15 (0-50); Potassium 4.4 mmol/L (3.4-5.1); Sodium 134 mmol/L (137-145); Total Protein 5.9 g/dL (6.3-8.2)
[2019-09-19] MEDS: LACTATED RINGERS 1,000 ML 1000 ML IV (03:50)
[2019-09-19 03:56] LABS: Bilirubin Urine UA NEGATIVE (NEGATIVE); Color Urine UA YELLOW; Glucose Urine UA NEGATIVE (Negative); Ketones Urine UA NEGATIVE (NEGATIVE); Leukocyte Esterase Urine UA 3+ (NEGATIVE); Nitrite Urine UA NEGATIVE (Negative); Occult Blood Urine UA 2+ (Negative); Protein Urine UA NEGATIVE (Negative); Specific Gravity Urine UA <=1.005 (1.000-1.035); Urobilinogen Urine UA 0.2 E.U./dL (0.2)
[2019-09-19 03:57] LABS: Appearance Urine UA SL CLOUDY
[2019-09-19 04:01] LABS: WBC Urine 5-10/HPF (0-5/HPF)
[2019-09-19 04:02] LABS: Bacteria Urine Many (>30); RBC Urine 0-1/HPF (0-5/HPF)
[2019-09-19 04:03] LABS: Culture Indicated Urine Specimen Cultured
[2019-09-19 04:06] LABS: Procalcitonin 1.24 ng/mL (<0.5)
[2019-09-19] MEDS: OXYCODONE IR 10 MG TABLET PO ×5 (04:32→18:21)
[2019-09-19] MEDS: DORZOLAMIDE/TIMOLOL OPHTH 10 ML 1 DROPS EYE-BOTH ×2 (06:01→17:54)
[2019-09-19] MEDS: gemfibroziL 600 MG TABLET PO ×2 (06:01→17:53)
[2019-09-19] MEDS: LEVOTHYROXINE 88 MCG TABLET PO (06:01)
[2019-09-19] MEDS: PANTOPRAZOLE 40 MG TABLET PO ×2 (06:01→17:54)
--- NOTE | 2019-09-19 07:34 | PM.PNPO.1 ---
Subjective Subjective Date Patient Seen: 09/19/19 Time Patient Seen: 07:34 Interval history: She is feeling much better today. The pain in the right groin has resolved as well as a large amount of back pain. Exam Vital Signs (past 8 hours): - 09/19/19 00:00 09/19/19 00:47 09/19/19 01:02 Temperature 97.7 F Pulse Rate 80 77 76 Respiratory Rate 20 Blood Pressure 82/42 L 79/47 L 83/55 L Pulse Oximetry 97 09/19/19 01:17 09/19/19 01:47 09/19/19 02:02 Temperature Pulse Rate 77 73 73 Respiratory Rate Blood Pressure 94/52 L 85/46 L 85/49 L Pulse Oximetry 09/19/19 02:32 09/19/19 02:47 09/19/19 03:35 Temperature 97.8 F Pulse Rate 76 75 82 Respiratory Rate 17 Blood Pressure 94/45 L 86/48 L 113/63 Pulse Oximetry 94 09/19/19 03:59 Temperature Pulse Rate 80 Respiratory Rate Blood Pressure 127/75 Pulse Oximetry Oxygen Delivery Method Nasal Cannula Oxygen Flow Rate 2 Const Orientation: alert and oriented x3 Back/Spine/Pelvis Other: CDI. 0 drain output. IP Q AT [facility] GC R 3 3 2 2 2 L 3 4 0 0 0 Objective Labs Result Diagrams: 09/19/19 03:15 09/19/19 03:15 Labs: Laboratory Results - last 24 hr 09/18/19 09/19/19 09/19/19 20:09 03:15 03:15 WBC 13.9 H RBC 3.62 L Hgb 10.6 L Hct 31.3 L MCV 86.7 MCH 29.3 MCHC 33.8 RDW 13.8 Plt Count 310 Neut % (Auto) 71.3 Lymph % (Auto) 11.8 L Stanton % (Auto) 14.0 Eos % (Auto) 2.7 Baso % (Auto) 0.2 Neut # (Auto) 9900 H Lymph # (Auto) 1600 Stanton # (Auto) 1900 H Eos # (Auto) 400 Baso # (Auto) 0 PT 15.5 H INR 1.3 APTT 40 H Sodium Potassium Chloride Carbon Dioxide BUN Creatinine Estimated GFR BUN/Creatinine Ratio Glucose Calcium Magnesium Total Bilirubin AST ALT Alkaline Phosphatase Total Protein Albumin Globulin Albumin/Globulin Ratio Procalcitonin 1.24 H Urine Color Urine Appearance Urine pH Ur Specific [place] Urine Protein Urine Glucose (UA) Urine Ketones Urine Occult Blood Urine Nitrate Urine Bilirubin Urine Urobilinogen Ur Leukocyte Esterase Urine RBC Urine WBC Urine Bacteria Ur Culture Indicated? 09/19/19 09/19/19 09/19/19 03:15 03:15 03:50 WBC RBC Hgb Hct MCV MCH MCHC RDW Plt Count Neut % (Auto) Lymph % (Auto) Stanton % (Auto) Eos % (Auto) Baso % (Auto) Neut # (Auto) Lymph # (Auto) Stanton # (Auto) Eos # (Auto) Baso # (Auto) PT INR APTT Sodium 134 L Potassium 4.4 Chloride 100 Carbon Dioxide 28 BUN 14 Creatinine 0.70 Estimated GFR > 60.0 BUN/Creatinine Ratio 20.0 Glucose 117 H Calcium 8.8 Magnesium 2.0 Total Bilirubin 0.3 AST 85 H ALT 16 Alkaline Phosphatase 63 Total Protein 5.9 L Albumin 3.1 L Globulin 2.8 Albumin/Globulin Ratio 1.1 Procalcitonin Urine Color Yellow Urine Appearance Sl cloudy Urine pH 6.0 Ur Specific [place] <=1.005 Urine Protein Negative Urine Glucose (UA) Negative Urine Ketones Negative Urine Occult Blood 2+ H Urine Nitrate Negative Urine Bilirubin Negative Urine Urobilinogen 0.2 Ur Leukocyte Esterase 3+ H Urine RBC 0-1/hpf D Urine WBC 5-10/hpf H Urine Bacteria Many (>30) H Ur Culture Indicated? Specimen cultured Assessment & Plan Post-op Postoperative Procedures: Procedures Operation Date: 09/13/19 11:45 Actual Procedures Side Surgeon p T11-L2 Laminectomy and removal of blood clot Matthew Higgins MD Operation Date: 09/18/19 14:45 Actual Procedures Side Surgeon p Incision and Drainage Wound/Spine Matthew Higgins MD She is doing much better and her neurologic exam is greatly improved since her washout again yesterday. Hypotensive overnight, but this has resolved. Her PT/PTT are elevated. She has been off her Plavix for 2 weeks now but had a recurrent bleed and epidural hematoma. I will consult with Medicine to try to determine because of her increased bleeding. It looks like she has a urinary infection on her most recent urinalysis. Waiting for culture results. Quality VTE Deep Vein Thrombosis/Pulmonary Embolism Present on Admission: No
--- NOTE | 2019-09-19 07:44 | DI.US.S_ITS ---
PROCEDURE: US ABDOMEN COMPLETE INDICATIONS: EVALUATE FOR LIVER DISEASE TECHNIQUE: Real-time scanning was performed of the abdominal and retroperitoneal organs, with image documentation. COMPARISON: [facility], CT, CT ABDOMEN PELVIS WITH CONTRAST, 02/20/2018, 14:58. [facility], CT, CT ANGIO CHEST ABDOMEN PELVIS, 03/25/2018, 17:49. FINDINGS: Liver: Normal in size. Within normal limits in echogenicity and echotexture. No mass identified. Gallbladder: Surgically absent. Biliary ducts: Intrahepatic bile ducts are within normal limits. Extrahepatic bile duct caliber measures 5 mm. Normal is 6-7 mm or less in diameter, or 10 mm or less post-cholecystectomy. Pancreas: Visualized portions of the pancreas are sonographically normal. Spleen: Spleen is normal in size and homogeneous in echotexture. Kidneys: Kidneys are normal in size and echotexture. Right kidney measures 9.4 cm long; left kidney measures 10.4 cm long. No hydronephrosis or nephrolithiasis. No solid masses. Aorta: Visualized aorta is normal in caliber at less than 3 cm. Iliacs: Not identified. IVC: Intrahepatic inferior vena cava is patent. Miscellaneous: No free abdominal fluid. IMPRESSION: 1. Normal sonographic appearance of the liver. 2. No biliary ductal dilatation seen. Post cholecystectomy. 3. No free fluid. No hydronephrosis. Dictated by: Skip Villa M.D. on 09/19/2019 at 11:59 Approved by: Skip Villa M.D. on 09/19/2019 at 12:02
[2019-09-19] MEDS: CLINDAMYCIN 600 MG/50 ML PIGGYBACK 50 MG IV (08:14)
[2019-09-19] MEDS: ACETAMINOPHEN 325 MG TABLET 975 MG PO ×3 (08:14→22:10)
[2019-09-19] MEDS: FISH OIL 1,000 MG CAPSULE 1000 MG PO ×2 (08:17→22:13)
[2019-09-19] MEDS: GABAPENTIN 300 MG CAPSULE PO ×3 (08:17→22:12)
[2019-09-19] MEDS: MULTIVIT,CALC,MINS/IRON/FOLIC 1 TABLET 1 TAB PO (08:17)
[2019-09-19] MEDS: CHOLESTYRAMINE/ASPARTAME 4 GM PACK PO ×2 (08:18→22:11)
[2019-09-19] MEDS: CALCIUM CARBONATE 600 MG TABLET PO (08:18)
[2019-09-19] MEDS: PSYLLIUM HUSK 1 PACKET PO (08:18)
[2019-09-19] MEDS: CHOLECALCIFEROL (VITAMIN D3) 400 UNIT TABLET PO (08:18)
[2019-09-19] MEDS: GLUCOSAMINE/CHONDROITIN CAPSULE 1 EACH PO ×2 (08:19→22:12)
[2019-09-19] MEDS: FLUTICASONE 120 SPRAY/16 GM SPRAY.SUSP NASAL (08:20)
[2019-09-19] MEDS: SERTRALINE 25 MG TABLET PO (08:25)
--- NOTE | 2019-09-19 11:10 | PT.IPRE ---
Current Diagnoses Postprocedural hematoma of a nervous system organ or structure following a nervous system procedure (09/13/19) Surgery Performed Operation Date: 09/13/19 11:45 Actual Procedures p T11-L2 Laminectomy and removal of blood clot - Matthew Higgins MD Operation Date: 09/18/19 14:45 Actual Procedures p Incision and Drainage Wound/Spine - Matthew Higgins MD Surgical History (Last Reviewed 09/13/19 @ 11:25 by Matthew Higgins MD) History of appendectomy (Acute) History of cervical spinal surgery (Acute) History of cholecystectomy (Acute) History of colonoscopy (Acute) History of esophagogastroduodenoscopy (EGD) (Acute) History of laminectomy (Acute) History of repair of rotator cuff (Acute) History of skin graft (Acute) History of tonsillectomy (Acute) History of total abdominal hysterectomy and bilateral salpingo-oophorectomy (Acute) Medical History (Last Reviewed 09/13/19 @ 11:25 by Matthew Higgins MD) Basal cell carcinoma (Acute) Cervical disc disease (Acute) Chronic low back pain (Acute) Degenerative joint disease (Acute) Gastroesophageal reflux disease (Acute) Hyperlipidemia (Acute) Hypothyroidism (Acute) Osteoarthritis (Acute) Osteoporosis (Acute) Restless leg syndrome (Acute) Scoliosis (Acute) Spinal stenosis (Acute) Physical Therapy Inpatient Evaluation/Re-Eval M1 PT/OT-IP Prior Functional Status Start: 09/13/19 09:31 Freq: NEEDED Status: Active Protocol: Document 09/19/19 11:10 AB (Rec: 09/19/19 12:48 AB [id number]) Medical Review Prior Functional Status Medical History Reviewed Yes Communication able to make needs known Mobility and Gait pt stated that she was independent with all mobilities and ambulation without AD Social History Household Members none Living Arrangements House Number of Floors (Floors) Two Floors Number of Stairs To Enter/Railing? pt stays on main level of the house; has 8 steps with L rail ascending to enter. Home Environment Standard Height Toilet,Walk in Shower,Built-In Shower Seat Home Equipment Front Wheel Walker,Four Wheel Walker M2 PT-IP Current Condition Start: 09/13/19 09:31 Freq: NEEDED Status: Active Protocol: Document 09/19/19 11:10 AB (Rec: 09/19/19 12:48 AB [id number]) Physical Therapy Current Condition Current Condition Evaluation Date 09/19/19 Treatment Diagnosis s/p lumbar lami w/removal of epidural hematoma; difficulty in walking Onset Date 09/13/2019 Precautions Lumbar Precautions Log Roll,No Twisting,Limit Bending,Lifting Restriction of 10 lbs,Gait Belt above Incisional Area M3 PT-IP Subjective Start: 09/13/19 09:31 Freq: NEEDED Status: Active Protocol: Document 09/19/19 11:10 AB (Rec: 09/19/19 12:48 AB [id number]) Subjective Physical Therapy Visit Type Type Re-Evaluation Visit Start Time 11:10 Visit Stop Time 11:46 Total Visit Minutes 36 Number of SIDEWALK INSPECTOR Visits 0 Physical Therapy Visit Comments Patient Comments pt agreeable to do PT. daughter present in room Therapy Pain Assessment Pain When Pain Assessed At Rest Pain Present Pain Present Pain Reported Location back/abdomen/legs Intensity 4 Scale Used increases with mobility Pain Behaviors Guarding,Holding Area Pain Management Techniques Distraction,Re-positioning, Timing of Activity with Medications M4 PT-IP Mobility and Gait Start: 09/13/19 09:31 Freq: NEEDED Status: Active Protocol: Document 09/19/19 11:10 AB (Rec: 09/19/19 12:48 AB [id number]) PT-Bed Mobility Assessment Rolling Type of Rolling Log Rolling Level of Assist Maximal Assistance,2 Person Assistance Supine to Sit Supine to Sit Maximum Assistance,2 Person Assistance,Bedrails Scooting Scooting to Edge of Bed Dependent PT-Transfer Assessment Sit to and From Stand Sit to and from Stand Maximum Assistance,2 Person Assistance,Use of Upper Extremities Equipment Transfer Assistive Device Gait Belt,Front Wheeled Walker Orthotic/Prosthetic Devices or Brace: No Transfers Transfer Destination Wheelchair Transfer Ability Level of Assist Maximum Assistance,2 Person Assistance,Use of Upper Extremities Comments Mobility Comments pt completed supine to sit using bed rail max A x 2 and max cues. pt was able to sit on EOB max A to maintain sitting balance with increase shakiness and posterior lean. pt stated that she has increase pain when body is flexed forward. completed sit to stand x 2 reps. max A x 2 -3 and max cues. required max x 2 to stabilize BLE with RLE requiring more assistance is weaker than LLE. pt agreed to transfer but refused recliner chair but agreed to sit on w/ c. pt completed stand pivot transfer using FWW max A x 3 and max cues using FWW. positioned pt on chair. call light and table placed within reach. PT-Balance Assessment Sitting Balance and Reactions Static Sitting Balance Ability Poor Dynamic Sitting Balance Ability Poor Standing Balance and Reactions Static Standing Balance Ability Poor Dynamic Standing Balance Ability Poor Device Used FWW M5 PT-IP Objective Assessments Start: 09/13/19 09:31 Freq: NEEDED Status: Active Protocol: Document 09/19/19 11:10 AB (Rec: 09/19/19 12:48 AB [id number]) Orientation Orientation/Cognition Level of Alertness Alert Orientation Name Safety Awareness Decreased Safety Awareness Memory Description Short Term Impaired Comments alert with confusion Gross Range of Motion Lower Extremity ROM Assessment Within Functional Limits Impairments c/o R groin pain with PROM Strength Lower Extremity Strength Assessment Bilaterally Impaired Comments Strength Comments R hip/knee flexion: 2-/5 R hip/knee extension: 2-/5 R ankle DF: 0/5 R ankle PF: 1/5 L hip/knee flexion: 2-/5 L hip/knee extension: 2+/5 L ankle DF/PF: 1/5 M6 PT-IP Treatment Start: 09/13/19 09:31 Freq: NEEDED Status: Active Protocol: Document 09/19/19 11:10 AB (Rec: 09/19/19 12:48 AB [id number]) Physical Therapy Treatment Exercises Exercises Quad Sets,Heel Slides,Seated Knee Flexion/Extension Education Education Provided Precautions,Safety M7 PT-IP Assessment and Plan Start: 09/13/19 09:31 Freq: NEEDED Status: Active Protocol: Document 09/19/19 11:10 AB (Rec: 09/19/19 12:48 AB [id number]) PT Summary Assessment and Plan Potential Rehabilitation Potential Good Status of Condition at Evaluation Stable Summary Impairments Pain,ROM,Strength,Balance, Coordination,Sensation,Tone, Cognition,Bed Mobility, Transfers,Gait,Activity Tolerance Assessment Summary pt admitted 09/13 and underwent decompression lami and hematoma evacuation on thoracic area. Evaluated for PT 09/14/2019. pt underwent another lami with removal of epidural hematoma yesterday warranting a re-eval. pt's LE strength seems to improve and able to stand with max A x 2-3 and max cues. Pt will benefit from acute rehab vs SNF depending on activity tolerance and mobility. Goals Bed Mobility Goal Moderate Assistance Transfer Goal Moderate Assistance,Front Wheeled Walker Gait Goal Moderate Assistance,Front Wheel Walker Gait Distance 10 Days to Meet Goals 10 Frequency of Treatment Frequency Of Treatment Twice a Day Treatment Plan Physical Therapy Treatment Plan Bed Mobility Training,Transfer Training,Gait Training, Therapeutic Exercise,Balance Retraining,Post Op Education, Discharge Planning,Hot or Cold Pack,Neuromuscular Re-ed, Coordination Retraining,Manual Therapy Other Recommendations and Next Treatment bed mobility, sitting/standing Focus balance/tolerance, trunk/LE strengthening, transfers Recommendations To Nursing Amount of Assist Needed 2 Person Assist,Mechanical Lift Discharge Recommendations PT Discharge Recommendations SNF Rehab,Acute Rehab
--- NOTE | 2019-09-19 11:13 | PC.NURSE ---
Addendum entered by Cande Naylor R.N. 09/19/19 15:32: Patient complains of r.lower hip pain, which she sais is new. But she was complaining of the same pain yesterday. Urine is callie and pt did drink plenty of fluids today. She is anxious and this has been passed onto Madyson PADILLA. Addendum entered by Cande Naylor R.N. 09/19/19 13:38: Patient up to chair with ot/pt and slider board, she is now back to bed and was given oxycodone. Original Note: Assess- Patient is doing better this morning. Given oxycodone for discomfort and helpful. Dressing to lower coccyx intact, as patient does have some redness and shearing to her bottom. Patients abdomen distended and patient worried that she was bleeding. Sent a note to Dr. Higgins and Dr. Diaz. She does not think patient has an illeus as she is having bowel movments, her white count is down, and she is eating small amounts. Patient does worry a lot. We trialed her on RA and she dips down to 85%. Put back on oxygen . also states that patient probably needs to have more bowel movements and her abdomen will be less firm. IVF decreased to 75cc/hr, she is resting comfortably at this time.
--- NOTE | 2019-09-19 12:05 | CM.DPC ---
DCP: continued: Case received and discussed in Team Rounds. Hospitalist team is again following for medical issues and FABIOLA Williamson did see pt in the early hours of the morning. [facility] inpt liaison Dora Prieto has called requesting an update and to confirm that pt must be medically stable before he can be accepted. She is faxed recent clinical updates. Pt did go to surgery again yesterday for washout of recurring hematoma at T12, Dr. Higgins is working with the hospitalist team to see why this keeps occurring and pt is not yet ready for d/c today. P: remains: INPT rehab as per above when stable for same.
--- NOTE | 2019-09-19 13:30 | PT.IPTN ---
Current Diagnoses Postprocedural hematoma of a nervous system organ or structure following a nervous system procedure (09/13/19) Surgery Performed Operation Date: 09/13/19 11:45 Actual Procedures p T11-L2 Laminectomy and removal of blood clot - Matthew Higgins MD Operation Date: 09/18/19 14:45 Actual Procedures p Incision and Drainage Wound/Spine - Matthew Higgins MD Physical Therapy Treatment Note M2 PT-IP Current Condition Start: 09/13/19 09:31 Freq: NEEDED Status: Active Protocol: Document 09/19/19 11:10 AB (Rec: 09/19/19 12:48 AB [id number]) Physical Therapy Current Condition Current Condition Evaluation Date 09/19/19 Treatment Diagnosis s/p lumbar lami w/removal of epidural hematoma; difficulty in walking Onset Date 09/13/2019 Precautions Lumbar Precautions Log Roll,No Twisting,Limit Bending,Lifting Restriction of 10 lbs,Gait Belt above Incisional Area M3 PT-IP Subjective Start: 09/13/19 09:31 Freq: NEEDED Status: Active Protocol: Document 09/19/19 13:30 AB (Rec: 09/19/19 15:21 AB [id number]) Subjective Physical Therapy Visit Type Type Treatment Note Visit Start Time 13:30 Visit Stop Time 13:57 Total Visit Minutes 27 Number of SUPERVISOR URANIUM PROCESSING Visits 0 Physical Therapy Visit Comments Patient Comments pt agreeable to do PT Therapy Pain Assessment Pain When Pain Assessed At Rest Pain Present Pain Present Pain Reported Location back/abdomen/legs Scale Used pain scale not stated but increases with mov't Pain Behaviors Guarding,Holding Area,Wincing Pain Management Techniques Distraction,Modification of Treatment,Re-positioning, Timing of Activity with Medications M4 PT-IP Mobility and Gait Start: 09/13/19 09:31 Freq: NEEDED Status: Active Protocol: Document 09/19/19 13:30 AB (Rec: 09/19/19 15:21 AB [id number]) PT-Bed Mobility Assessment Rolling Type of Rolling Log Rolling Level of Assist Maximal Assistance,2 Person Assistance Sit to Supine Sit to Supine Maximum Assistance,Total Assistance,2 Person Assistance Scooting Scooting to Edge of Bed Dependent Scooting Up and Down in Bed Dependent PT-Transfer Assessment Equipment Transfer Assistive Device Sliding Board Orthotic/Prosthetic Devices or Brace: No Transfers Transfer Destination Bed Transfer Technique Lateral Scoot Transfer Ability Level of Assist Maximum Assistance,Total Assistance,2 Person Assistance ,Use of Upper Extremities Comments Mobility Comments pt sitting on w/c. attempted sit to stand x 2 from w/c and pt unable to stand despite max A x 2 provided. completed slide board transfer w/c to bed requiring max A x 2 to total A x 2. pt continues to have increasre posterior trunk LOB requiring cues to shift weight forwards. required max A x 2 to total A x 2 for sit to supine. required total A x 2 for positioning in bed. max A x 2 for rolling L<>R. informed nurse that pt needs to be cleaned up. left pt in bed with daughter in room. call light and table placed within reach. M5 PT-IP Objective Assessments Start: 09/13/19 09:31 Freq: NEEDED Status: Active Protocol: Document 09/19/19 11:10 AB (Rec: 09/19/19 12:48 AB [id number]) Orientation Orientation/Cognition Level of Alertness Alert Orientation Name Safety Awareness Decreased Safety Awareness Memory Description Short Term Impaired Comments alert with confusion Gross Range of Motion Lower Extremity ROM Assessment Within Functional Limits Impairments c/o R groin pain with PROM Strength Lower Extremity Strength Assessment Bilaterally Impaired Comments Strength Comments R hip/knee flexion: 2-/5 R hip/knee extension: 2-/5 R ankle DF: 0/5 R ankle PF: 1/5 L hip/knee flexion: 2-/5 L hip/knee extension: 2+/5 L ankle DF/PF: 1/5 M6 PT-IP Treatment Start: 09/13/19 09:31 Freq: NEEDED Status: Active Protocol: Document 09/19/19 13:30 AB (Rec: 09/19/19 15:21 AB [id number]) Physical Therapy Treatment Exercises Exercises Quad Sets,Seated Knee Flexion/ Extension Education Education Provided Precautions,Safety M7 PT-IP Assessment and Plan Start: 09/13/19 09:31 Freq: NEEDED Status: Active Protocol: Document 09/19/19 13:30 AB (Rec: 09/19/19 15:21 AB [id number]) PT Summary Assessment and Plan Potential Rehabilitation Potential Fair Status of Condition at Evaluation Stable Summary Impairments Pain,ROM,Strength,Balance, Coordination,Sensation,Tone, Cognition,Bed Mobility, Transfers,Gait,Activity Tolerance Progress Towards Goals Slow Progress due to Pain,Slow Progress due to Activity Tolerance Assessment Summary pt continues to require max A x 2 to total A x 2. c/o increase pain this afternoon and requires more assistance compared to this morning. will continue to assess pt's progress. pt will need SNF vs acute rehab to improve strength and mobility. Goals Bed Mobility Goal Moderate Assistance Transfer Goal Moderate Assistance,Front Wheeled Walker Gait Goal Moderate Assistance,Front Wheel Walker Gait Distance 10 Days to Meet Goals 10 Frequency of Treatment Frequency Of Treatment Twice a Day Treatment Plan Physical Therapy Treatment Plan Bed Mobility Training,Transfer Training,Gait Training, Therapeutic Exercise,Balance Retraining,Post Op Education, Discharge Planning,Hot or Cold Pack,Neuromuscular Re-ed, Coordination Retraining,Manual Therapy Other Recommendations and Next Treatment bed mobility, sitting/standing Focus balance/tolerance, trunk/LE strengthening, transfers Recommendations To Nursing Amount of Assist Needed 2 Person Assist,Mechanical Lift Discharge Recommendations PT Discharge Recommendations SNF Rehab,Acute Rehab
--- NOTE | 2019-09-19 15:33 | OT.IPRE ---
Current Diagnoses Postprocedural hematoma of a nervous system organ or structure following a nervous system procedure (09/13/19) Surgery Performed Operation Date: 09/13/19 11:45 Actual Procedures p T11-L2 Laminectomy and removal of blood clot - Matthew Higgins MD Operation Date: 09/18/19 14:45 Actual Procedures p Incision and Drainage Wound/Spine - Matthew Higgins MD Past Medical History (Last Reviewed 09/13/19 @ 11:25 by Matthew Higgins MD) Basal cell carcinoma (Acute) Cervical disc disease (Acute) Chronic low back pain (Acute) Degenerative joint disease (Acute) Gastroesophageal reflux disease (Acute) Hyperlipidemia (Acute) Hypothyroidism (Acute) Osteoarthritis (Acute) Osteoporosis (Acute) Restless leg syndrome (Acute) Scoliosis (Acute) Spinal stenosis (Acute) Surgical History (Last Reviewed 09/13/19 @ 11:25 by Matthew Higgins MD) History of appendectomy (Acute) History of cervical spinal surgery (Acute) History of cholecystectomy (Acute) History of colonoscopy (Acute) History of esophagogastroduodenoscopy (EGD) (Acute) History of laminectomy (Acute) History of repair of rotator cuff (Acute) History of skin graft (Acute) History of tonsillectomy (Acute) History of total abdominal hysterectomy and bilateral salpingo-oophorectomy (Acute) Occupational Therapy Inpatient Evaluation/Re-Eval M1 PT/OT-IP Prior Functional Status Start: 09/13/19 09:31 Freq: NEEDED Status: Active Protocol: Document 09/19/19 15:11 [facility] (Rec: 09/19/19 15:33 [facility] [id number]) Medical Review Prior Functional Status Medical History Reviewed Yes Communication able to make needs known Mobility and Gait pt stated that she was independent with all mobilities and ambulation without AD Social History Household Members none Living Arrangements House Number of Floors (Floors) Two Floors Number of Stairs To Enter/Railing? pt stays on main level of the house; has 8 steps with L rail ascending to enter. Home Environment Standard Height Toilet,Walk in Shower,Built-In Shower Seat Home Equipment Front Wheel Walker,Four Wheel Walker M2 OT-IP Current Condition Start: 09/13/19 15:52 Freq: Status: Active Protocol: Document 09/19/19 15:11 [facility] (Rec: 09/19/19 15:33 [facility] [id number]) Occupational Therapy Current Condition Current Condition Evaluation Date 09/19/19 Treatment Diagnosis L2 Laminectomy with removal of epidural hemetoma Diagnosis Onset Date 09/04/19 Post Operative Precautions Lumbar Precautions Log Roll,No Twisting,Limit Bending,Lifting Restriction of 10 lbs,Gait Belt above Incisional Area Weight Bearing Status Weight Bearing Status Weight Bear as Tolerated M3 OT- IP Subjective and Pain Start: 09/13/19 15:52 Freq: Status: Active Protocol: Document 09/19/19 15:11 [facility] (Rec: 09/19/19 15:33 [facility] [id number]) OT- Subjective Occupational Therapy Visit Type Type Re-Evaluation Visit Start Time 11:47 Visit Stop Time 13:57 Total Visit Minutes 72 Notes Split session, combined OT/PT eval due to pt needing extensive assist for all need. Occupational Therapy Visit Comments Patient Comments Pt agreeable to get up , Pt's daughter in the room and nursing aid also present to assist. Patient/Caregiver Goals Pt wanting to do to rehab. OT Pain Assessment Pain When Pain Assessed During Mobility Pain Present Pain Present Pain Reported FLACC Pain Scale Face Occasional grimace/frown M4 OT- IP ADL's Start: 09/13/19 15:52 Freq: Status: Active Protocol: Document 09/19/19 15:11 [facility] (Rec: 09/19/19 15:33 [facility] [id number]) OT [id number] Comments OT Self-Feeding Comments Not at meal time. OT ADL-Grooming Comments OT Grooming Comments Not performed. OT ADL-Oral Care Comments Oral Care Comments Not performed. OT ADL-Dressing General Eval Lower Body Dressing Ability Total Assistance Comments OT Dressing Comments At this time pt is total assist for all LB dressing needs due to lack of mobility and function with BLE. OT ADL-Toileting Comments OT Toileting Comments At the end of the session, pt states needing to have brief changed. Notified nursing of pt's request. OT ADL-Bathing Comments OT Bathing Comments At this time sponge bathing preferred due to lack of mobility. M5 OT- IP IADL's Start: 09/13/19 15:52 Freq: Status: Active Protocol: Document 09/14/19 16:28 [facility] (Rec: 09/14/19 18:01 [facility] [id number]) OT-Instrumental Activities of Daily Living Deficits IADL Deficits Identified Deficits Home Safety Awareness Awareness of Need for Assistance at Home Good Awareness Ability to Problem Solve Emergency Able to Problem Solve Situations Medication Management Medication Management No Deficits Identified Money Management Money Management No Deficits Identified Meal Preparation Meal Preparation Caregiver Provides Assist Meal Preparation Comments pt needs total assist at this time Flight Service Specialist Flight Service Specialist Caregiver Provides Assist Flight Service Specialist Comments pt needs total assist at this time Driving Driving Comments pt unable to drive at this time M6 OT- IP Functional Cognition Start: 09/13/19 15:52 Freq: Status: Active Protocol: Document 09/19/19 15:11 [facility] (Rec: 09/19/19 15:33 [facility] [id number]) Cognitive Factors Limiting Selfcare Function Cognitive Ability Level of Alertness Alert,Drowsy Patient Orientation Name,Place,Situation Attention Span Ability Capable of Focused Attention, Unable to Sustain Attention Ability to Follow Commands Able to Follow One Step Commands Memory Description Short Term Impaired Problem Solving Ability Needs Assist to Identify Solutions Cognitive Comments Cognitive Assessment Comments Pt this morning able to follow commands better and needign visual and step by step commands. In the afternoon pt appears to be more groogy and having difficulty to follow commands. In addition pt having trouble to keep her eyes open during the OT/PT session. Pt needing additional hand over hand to help place her hands on the sliding board. OT- Vision and Hearing OT- Hearing Assessment OT- Hearing Assessment WFL OT- Vision Assessment Visual Acuity Glasses All The Time M7 OT- IP Mobility and Balance Start: 09/13/19 15:52 Freq: Status: Active Protocol: Document 09/19/19 15:11 [facility] (Rec: 09/19/19 15:33 [facility] [id number]) OT- Bed Mobility Assessment Rolling Type of Rolling Roll to Right Level of Assistance Maximum Assistance x2 and bed rail Supine to Sit Supine to Sit Assist Maximum Assistance,2 Person Assistance Sit to Supine Sit to Supine Assist Maximum Assistance,2 Person Assistance OT-Transfer Assessment Transfers Transfer Ability Maximum Assistance,2 Person Assistance Technique Transfer Destination Bed,Wheelchair Transfer Technique Lateral Scoot Devices Transfer Assistive Devices Gait Belt Comments Mobility Comments In the AM able to stand pt from the bed with MAX A X 3 to FWW. Able to assist pt to move RLE > LLE to be able to take a few small steps to the wheelchair. Pt heavy use of BUE on the FWW and therapist and aid also assist to keep her upright. Pt not able to dot compliance coordinator PM as in too much pain and tired and MAX A X 2 with sliding board to the bed , dependent for board placement and assist to help scoot up into the bed. Pt dependent form sit to supine and for all positioning needs. OT- Balance Assessment Sitting Balance and Reactions Static Sitting Balance Ability poor + Dynamic Sitting Balance Ability Poor Standing Balance and Reactions Static Standing Balance Ability Poor Dynamic Standing Balance Ability Poor M8 OT- IP Objective Assessments Start: 09/13/19 15:52 Freq: Status: Active Protocol: Document 09/19/19 15:11 [facility] (Rec: 09/19/19 15:33 [facility] [id number]) OT Gross Range of Motion Upper Extremity Range of Motion Assessment Bilaterally Impaired OT Strength Upper Extremity Strength Assessment Bilaterally Impaired Shoulder 3-/5 Elbow 4-/5 Hand 4-/5 M9 OT- IP Assessment and Plan Start: 09/13/19 15:52 Freq: Status: Active Protocol: Document 09/19/19 15:11 [facility] (Rec: 09/19/19 15:33 [facility] [id number]) OT Summary Assessment and Plan Potential Rehabilitation Potential Good Analytic Complexity at Evaluation Moderate Summary OT Impairments Pain,Range of Motion,Strength, Balance,Functional Mobility, Dressing,Toileting,Bathing, Toilet Transfers,Shower Transfers,Activity Tolerance Progress Towards Goals Slow Progress due to Pain,Slow Progress due to Medical Issues,Slow Progress due to Activity Tolerance Assessment Summary Pt just having surgery yesterday evening and still having to have extensive assist for all Adl and functional mobility needs 2-3 persons. Pt able to tolerate standing in the morning and transfer with MAX A x3 and assist to help move her legs. Noted in the PM, pt too tired but able to tolerate sliding board transfer. Pt will benefit from rehab when medically stable skilled rehab versus inpt rehab. Goals Grooming Goal Standby Assistance Dressing Goal Minimal Assistance Toileting Goal Moderate Assistance Bathing Goal Minimal Assistance Toilet Transfer Goal Moderate Assistance OT-Other Goals Grooming to be done sitting on EOB with no LOB. Dressing goal is for lower body dressing using power bed features to don/doff pants, socks, shoes. Bathing goal is for upper body sponge bath seated in chair. Toilet transfer goal is for sliding board transfer to [facility] Days to Meet Goals 15 Frequency of Treatment Frequency Of Treatment Once a Day Treatment Plan OT Treatment Plan ADL Training,Functional Mobility,Patient/Family Education,Discharge Planning Discharge Recommendations OT Discharge Recommendations SNF Rehab,Acute Rehab Home Equipment Needs to be determined pending progress in next rehab setting Transportation Needs at Discharge Wheelchair/Cabulance
[2019-09-19] MEDS: hydrOXYzine pamoate 25 MG CAPSULE PO (18:24)
[2019-09-19] MEDS: LATANOPROST 0.005% OPHTH 2.5 ML 1 DROPS EYE-BOTH (22:12)
[2019-09-19] MEDS: PRAVASTATIN 20 MG TABLET PO (22:20)
[2019-09-19] MEDS: TRAZODONE 50 MG TABLET 75 MG PO (23:00)
[2019-09-19] MEDS: LACTATED RINGERS 1,000 ML 125 ML IV (23:02)
[2019-09-19] MEDS: CYCLOBENZAPRINE 10 MG TABLET PO (23:03)
[2019-09-20] VITALS (8 sets, daily range): BP systolic 105–128; BP diastolic 56–95; PULSE 80–97; RESP 18–20; TEMP 36.6–38.1; O2SAT 90–100
[2019-09-20] MEDS: OXYCODONE IR 10 MG TABLET PO ×4 (06:06→17:28)
[2019-09-20] MEDS: gemfibroziL 600 MG TABLET PO ×2 (06:07→17:30)
[2019-09-20] MEDS: PANTOPRAZOLE 40 MG TABLET PO ×2 (06:07→17:30)
[2019-09-20] MEDS: LEVOTHYROXINE 88 MCG TABLET PO (06:07)
[2019-09-20] MEDS: DORZOLAMIDE/TIMOLOL OPHTH 10 ML 1 DROPS EYE-BOTH ×2 (06:07→17:29)
--- NOTE | 2019-09-20 07:24 | PM.PNPO.1 ---
Subjective Subjective Date Patient Seen: 09/20/19 Time Patient Seen: 07:24 Interval history: She is doing better. Pain is under much better control. Exam Vital Signs (past 8 hours): - 09/20/19 00:15 09/20/19 04:45 Temperature 97.9 F 98.1 F Pulse Rate 80 91 H Respiratory Rate 19 19 Blood Pressure 114/59 L 114/56 L Pulse Oximetry 99 100 Oxygen Delivery Method Nasal Cannula Oxygen Flow Rate 1 Const Orientation: alert and oriented x3 Back/Spine/Pelvis Other: CDI. Drain output 200/25 IP Q AT [facility] GC R 2 3 2 3 3 L 2 4 0 0 0 Objective Labs Result Diagrams: 09/19/19 03:15 09/19/19 03:15 Assessment & Plan Post-op Postoperative Procedures: Procedures Operation Date: 09/13/19 11:45 Actual Procedures Side Surgeon p T11-L2 Laminectomy and removal of blood clot Matthew Higgins MD Operation Date: 09/18/19 14:45 Actual Procedures Side Surgeon p Incision and Drainage Wound/Spine Matthew Higgins MD She is doing much better with pain control. Her left proximal leg is getting much stronger but still no distal function. Still mild improvement overall in the right, better proximally. Continue to mobilize with therapy. Awaiting urine cultures and will defer to Medicine for treatment of this Medicine is also working on evaluation of her increased PT/PTT and her bleeding. She is going to need inpatient rehab once she leaves the hospital, arrangements are being made for the rehab center [facility]. Not ready in the next 2 days, but may be ready Monday or Monday. Quality VTE Deep Vein Thrombosis/Pulmonary Embolism Present on Admission: No
--- NOTE | 2019-09-20 08:39 | CM.DPC ---
DCP: continued: Dr. Higgins saw pt early today and his progress note states that pt will not be medically ready for a d/c to INPT rehab setting until at least Monday or Monday. [facility] had already confirmed that they can take no admits this weekend,see DCP note of yesterday. Called [facility] to update. She will plan to be ready for pt on Friday 09/22 if stable for same. DCP team will be following.
[2019-09-20] MEDS: SERTRALINE 25 MG TABLET PO (09:02)
[2019-09-20] MEDS: CALCIUM CARBONATE 600 MG TABLET PO (09:02)
[2019-09-20] MEDS: ACETAMINOPHEN 325 MG TABLET 975 MG PO ×3 (09:02→22:02)
[2019-09-20] MEDS: GLUCOSAMINE/CHONDROITIN CAPSULE 1 EACH PO ×2 (09:02→22:04)
[2019-09-20] MEDS: MULTIVIT,CALC,MINS/IRON/FOLIC 1 TABLET 1 TAB PO (09:02)
[2019-09-20] MEDS: CHOLECALCIFEROL (VITAMIN D3) 400 UNIT TABLET PO (09:02)
[2019-09-20] MEDS: FISH OIL 1,000 MG CAPSULE 1000 MG PO ×2 (09:02→22:04)
[2019-09-20] MEDS: FLUTICASONE 120 SPRAY/16 GM SPRAY.SUSP NASAL (09:02)
[2019-09-20] MEDS: GABAPENTIN 300 MG CAPSULE PO ×3 (09:02→22:04)
[2019-09-20] MEDS: CHOLESTYRAMINE/ASPARTAME 4 GM PACK PO ×2 (09:03→22:03)
[2019-09-20] MEDS: PSYLLIUM HUSK 1 PACKET PO (09:03)
--- NOTE | 2019-09-20 09:27 | CM.DPC ---
DCP Cont: Faxed 09/20/19 progress note to [facility] at fax # [phone]. Fax confirmation scanned in. Bella Dudley, [facility] MichiganResponder
--- NOTE | 2019-09-20 10:32 | PT.IPTN ---
Current Diagnoses Postprocedural hematoma of a nervous system organ or structure following a nervous system procedure (09/13/19) Surgery Performed Operation Date: 09/13/19 11:45 Actual Procedures p T11-L2 Laminectomy and removal of blood clot - Matthew Higgins MD Operation Date: 09/18/19 14:45 Actual Procedures p Incision and Drainage Wound/Spine - Matthew Higgins MD Physical Therapy Treatment Note M2 PT-IP Current Condition Start: 09/13/19 09:31 Freq: NEEDED Status: Active Protocol: Document 09/19/19 11:10 [facility] (Rec: 09/19/19 12:48 AB [id number]) Physical Therapy Current Condition Current Condition Evaluation Date 09/19/19 Treatment Diagnosis s/p lumbar lami w/removal of epidural hematoma; difficulty in walking Onset Date 09/13/2019 Precautions Lumbar Precautions Log Roll,No Twisting,Limit Bending,Lifting Restriction of 10 lbs,Gait Belt above Incisional Area M3 PT-IP Subjective Start: 09/13/19 09:31 Freq: NEEDED Status: Active Protocol: Document 09/20/19 10:32 [facility] (Rec: 09/20/19 12:02 AB [id number]) Subjective Physical Therapy Visit Type Type Treatment Note Visit Start Time 10:32 Visit Stop Time 11:25 Total Visit Minutes 44 Notes pt seen for split visits: 1032 to 1037 and 1046 to 1125 Number of WIRE WORKER Visits 0 Physical Therapy Visit Comments Patient Comments pt agreeable to do PT Therapy Pain Assessment Pain When Pain Assessed During Mobility Pain Present Pain Present Pain Reported Location back/abdomen/legs Scale Used c/o increase pain but pain scale not stated Pain Behaviors Guarding,Holding Area,Wincing Pain Management Techniques Re-positioning,Timing of Activity with Medications M4 PT-IP Mobility and Gait Start: 09/13/19 09:31 Freq: NEEDED Status: Active Protocol: Document 09/20/19 10:32 [facility] (Rec: 09/20/19 12:02 AB [id number]) PT-Bed Mobility Assessment Rolling Type of Rolling Log Rolling Level of Assist Maximal Assistance,1 Person Assistance Supine to Sit Supine to Sit Maximum Assistance,2 Person Assistance,Bedrails Scooting Scooting to Edge of Bed Dependent PT-Transfer Assessment Sit to and From Stand Sit to and from Stand Maximum Assistance,2 Person Assistance,Use of Upper Extremities Equipment Transfer Assistive Device Gait Belt,Front Wheeled Walker Orthotic/Prosthetic Devices or Brace: No Transfers Transfer Destination Wheelchair Transfer Technique Stand Pivot Transfer Ability Level of Assist Maximum Assistance,2 Person Assistance,Use of Upper Extremities Comments Mobility Comments completed LE AAROM. pt completed supine to sit max A x 2 and max cues for log roll. required max A to maintain sititng balance on EOB. completed sit to stand max A x 2-3 and max cues and completed pivot transfer using FWW max A x 2-3 and max cues. positioned pt on chair. call light and table placed within reach. M5 PT-IP Objective Assessments Start: 09/13/19 09:31 Freq: NEEDED Status: Active Protocol: Document 09/19/19 11:10 [facility] (Rec: 09/19/19 12:48 AB [id number]) Orientation Orientation/Cognition Level of Alertness Alert Orientation Name Safety Awareness Decreased Safety Awareness Memory Description Short Term Impaired Comments alert with confusion Gross Range of Motion Lower Extremity ROM Assessment Within Functional Limits Impairments c/o R groin pain with PROM Strength Lower Extremity Strength Assessment Bilaterally Impaired Comments Strength Comments R hip/knee flexion: 2-/5 R hip/knee extension: 2-/5 R ankle DF: 0/5 R ankle PF: 1/5 L hip/knee flexion: 2-/5 L hip/knee extension: 2+/5 L ankle DF/PF: 1/5 M6 PT-IP Treatment Start: 09/13/19 09:31 Freq: NEEDED Status: Active Protocol: Document 09/20/19 10:32 AB (Rec: 09/20/19 12:02 AB [id number]) Physical Therapy Treatment Exercises Exercises Gluteal Sets,Quad Sets,Heel Slides,Seated Knee Flexion/ Extension Education Education Provided Precautions,Safety M7 PT-IP Assessment and Plan Start: 09/13/19 09:31 Freq: NEEDED Status: Active Protocol: Document 09/20/19 10:32 [facility] (Rec: 09/20/19 12:02 AB [id number]) PT Summary Assessment and Plan Potential Rehabilitation Potential Fair Summary Impairments Pain,ROM,Strength,Balance, Coordination,Sensation,Tone, Cognition,Bed Mobility, Transfers,Gait,Activity Tolerance Progress Towards Goals Slow Progress due to Pain,Slow Progress due to Activity Tolerance Assessment Summary pt continues to require max A x 2-3 and max cues for mobility. pt will benefit from acute rehab vs SNF rehab. will continue to work towards goals. Goals Bed Mobility Goal Moderate Assistance Transfer Goal Moderate Assistance,Front Wheeled Walker Gait Goal Moderate Assistance,Front Wheel Walker Gait Distance 10 Days to Meet Goals 10 Frequency of Treatment Frequency Of Treatment Twice a Day Treatment Plan Physical Therapy Treatment Plan Bed Mobility Training,Transfer Training,Gait Training, Therapeutic Exercise,Balance Retraining,Post Op Education, Discharge Planning,Hot or Cold Pack,Neuromuscular Re-ed, Coordination Retraining,Manual Therapy Other Recommendations and Next Treatment bed mobility, sitting/standing Focus balance/tolerance, trunk/LE strengthening, transfers Recommendations To Nursing Amount of Assist Needed 2 Person Assist,Mechanical Lift Discharge Recommendations PT Discharge Recommendations SNF Rehab,Acute Rehab
--- NOTE | 2019-09-20 11:43 | PC.NURSE ---
Assess- Patient is in better spirits this morning... She still has some anxieties about more things happening to her. Given 10mg of oxycodone and helpful with pain. Back dressing is cdi, hemovac present and putting out minimal drainage. She also has a stephens catheter that is putting out adequate callie colored urine. LEAD RUBY ON RAILS DEVELOPER states that she did have some urine leaking around her catheter site. Will take a look at catheter after she is back to bed. Patients bottom is looking much better and dressing is to coccyx is cdi. Daughter called this morning to check on patient, and in pass down she states that patient had a good night, message relayed to daughter.
--- NOTE | 2019-09-20 14:00 | PT.IPTN ---
Current Diagnoses Postprocedural hematoma of a nervous system organ or structure following a nervous system procedure (09/13/19) Surgery Performed Operation Date: 09/13/19 11:45 Actual Procedures p T11-L2 Laminectomy and removal of blood clot - Matthew Higgins MD Operation Date: 09/18/19 14:45 Actual Procedures p Incision and Drainage Wound/Spine - Matthew Higgins MD Physical Therapy Treatment Note M2 PT-IP Current Condition Start: 09/13/19 09:31 Freq: NEEDED Status: Active Protocol: Document 09/19/19 11:10 AB (Rec: 09/19/19 12:48 AB [id number]) Physical Therapy Current Condition Current Condition Evaluation Date 09/19/19 Treatment Diagnosis s/p lumbar lami w/removal of epidural hematoma; difficulty in walking Onset Date 09/13/2019 Precautions Lumbar Precautions Log Roll,No Twisting,Limit Bending,Lifting Restriction of 10 lbs,Gait Belt above Incisional Area M3 PT-IP Subjective Start: 09/13/19 09:31 Freq: NEEDED Status: Active Protocol: Document 09/20/19 14:00 AB (Rec: 09/20/19 17:37 AB [id number]) Subjective Physical Therapy Visit Type Type Treatment Note Visit Start Time 14:00 Visit Stop Time 14:45 Total Visit Minutes 45 Number of PLASTIC STRAIGHTENING ROLL OPERATOR Visits 0 Physical Therapy Visit Comments Patient Comments pt agreeable to do PT Therapy Pain Assessment Pain When Pain Assessed At Rest Pain Present Pain Present Pain Reported Location back/abdomen/legs Intensity 6 Scale Used Numeric (1 - 10) Pain Management Techniques Distraction,Re-positioning, Timing of Activity with Medications M4 PT-IP Mobility and Gait Start: 09/13/19 09:31 Freq: NEEDED Status: Active Protocol: Document 09/20/19 14:00 AB (Rec: 09/20/19 17:37 AB [id number]) PT-Bed Mobility Assessment Rolling Type of Rolling Log Rolling Level of Assist Maximal Assistance,2 Person Assistance Sit to Supine Sit to Supine Maximum Assistance,2 Person Assistance,Bedrails PT-Transfer Assessment Equipment Transfer Assistive Device Gait Belt,Sliding Board Orthotic/Prosthetic Devices or Brace: No Transfers Transfer Destination Bed Transfer Technique Lateral Scoot Transfer Ability Level of Assist Maximum Assistance,2 Person Assistance,Use of Upper Extremities Comments Mobility Comments pt completed slide board transfer w/c to bed requiring max A x 2 and max cues. pt was able to assist more with mobility this time. pt completed sit to supine max A x 2 and max cues. required max A x 2 for positioning in bed. educated pt on LE exercises. completed SAQs. left pt with daughter in room. Call light and table placed within reach. M5 PT-IP Objective Assessments Start: 09/13/19 09:31 Freq: NEEDED Status: Active Protocol: Document 09/19/19 11:10 AB (Rec: 09/19/19 12:48 AB [id number]) Orientation Orientation/Cognition Level of Alertness Alert Orientation Name Safety Awareness Decreased Safety Awareness Memory Description Short Term Impaired Comments alert with confusion Gross Range of Motion Lower Extremity ROM Assessment Within Functional Limits Impairments c/o R groin pain with PROM Strength Lower Extremity Strength Assessment Bilaterally Impaired Comments Strength Comments R hip/knee flexion: 2-/5 R hip/knee extension: 2-/5 R ankle DF: 0/5 R ankle PF: 1/5 L hip/knee flexion: 2-/5 L hip/knee extension: 2+/5 L ankle DF/PF: 1/5 M6 PT-IP Treatment Start: 09/13/19 09:31 Freq: NEEDED Status: Active Protocol: Document 09/20/19 14:00 AB (Rec: 09/20/19 17:37 AB [id number]) Physical Therapy Treatment Exercises Exercises Quad Sets,Seated Knee Flexion/ Extension Education Education Provided Safety M7 PT-IP Assessment and Plan Start: 09/13/19 09:31 Freq: NEEDED Status: Active Protocol: Document 09/20/19 14:00 AB (Rec: 09/20/19 17:37 [id number]) PT Summary Assessment and Plan Potential Rehabilitation Potential Good Summary Impairments Pain,ROM,Strength,Balance, Coordination,Sensation,Tone, Cognition,Bed Mobility, Transfers,Gait,Activity Tolerance Progress Towards Goals Slow Progress due to Pain,Slow Progress due to Medical Issues,Slow Progress due to Activity Tolerance Assessment Summary pt continues to require 2 person assist with mobility but able to assist with mobility better this afternoon . pt will benefit from acute rehab vs SNF to improve strength and mobility. Goals Bed Mobility Goal Moderate Assistance Transfer Goal Moderate Assistance,Front Wheeled Walker Gait Goal Moderate Assistance,Front Wheel Walker Gait Distance 10 Days to Meet Goals 10 Frequency of Treatment Frequency Of Treatment Twice a Day Treatment Plan Physical Therapy Treatment Plan Bed Mobility Training,Transfer Training,Gait Training, Therapeutic Exercise,Balance Retraining,Post Op Education, Discharge Planning,Hot or Cold Pack,Neuromuscular Re-ed, Coordination Retraining,Manual Therapy Other Recommendations and Next Treatment bed mobility, sitting/standing Focus balance/tolerance, trunk/LE strengthening, transfers Recommendations To Nursing Amount of Assist Needed 2 Person Assist,Mechanical Lift Discharge Recommendations PT Discharge Recommendations SNF Rehab,Acute Rehab
--- NOTE | 2019-09-20 14:45 | OT.IP.TRT ---
Current Diagnoses Postprocedural hematoma of a nervous system organ or structure following a nervous system procedure (09/13/19) Surgery Performed Operation Date: 09/13/19 11:45 Actual Procedures p T11-L2 Laminectomy and removal of blood clot - Matthew Higgins MD Operation Date: 09/18/19 14:45 Actual Procedures p Incision and Drainage Wound/Spine - Matthew Higgins MD Occupational Therapy Treatment Note M2 OT-IP Current Condition Start: 09/13/19 15:52 Freq: Status: Active Protocol: Document 09/19/19 15:11 [facility] (Rec: 09/19/19 15:33 [facility] [id number]) Occupational Therapy Current Condition Current Condition Evaluation Date 09/19/19 Treatment Diagnosis L2 Laminectomy with removal of epidural hemetoma Diagnosis Onset Date 09/04/19 Post Operative Precautions Lumbar Precautions Log Roll,No Twisting,Limit Bending,Lifting Restriction of 10 lbs,Gait Belt above Incisional Area Weight Bearing Status Weight Bearing Status Weight Bear as Tolerated M3 OT- IP Subjective and Pain Start: 09/13/19 15:52 Freq: Status: Active Protocol: Document 09/20/19 17:44 [facility] (Rec: 09/20/19 18:01 [facility] [id number]) OT- Subjective Occupational Therapy Visit Type Type Treatment Note Visit Start Time 10:34 Visit Stop Time 14:45 Total Visit Minutes 101 Notes Split session in AM and PM. Seen with PT due pt needing extensive assist for mobility needs. Occupational Therapy Visit Comments Patient Comments Pt agreeable to get up, pt's daughter present fro the second session. Patient/Caregiver Goals Pt wanting to do to rehab. OT Pain Assessment Pain When Pain Assessed During Mobility Pain Present Pain Present Pain Reported M4 OT- IP ADL's Start: 09/13/19 15:52 Freq: Status: Active Protocol: Document 09/20/19 17:44 [facility] (Rec: 09/20/19 18:01 [facility] [id number]) OT [id number] Comments OT Self-Feeding Comments Not at meal time. OT ADL-Grooming Comments OT Grooming Comments Not performed. OT ADL-Oral Care Comments Oral Care Comments Not performed. OT ADL-Dressing General Eval Lower Body Dressing Ability Total Assistance Areas Needing Assistance Underpants/Brief,Socks OT ADL-Toileting General Evaluation Toileting Ability Maximum Assistance Areas Needing Assistance Manage Clothing,Perform Perineal Hygiene Comments OT Toileting Comments Pt able to use grab bar and trapeze bar and able to do so with SARAHI to MODA today , and mainly to help position and hold her legs while turning side to side. M5 OT- IP IADL's Start: 09/13/19 15:52 Freq: Status: Active Protocol: Document 09/14/19 16:28 [facility] (Rec: 09/14/19 18:01 [facility] [id number]) OT-Instrumental Activities of Daily Living Deficits IADL Deficits Identified Deficits Home Safety Awareness Awareness of Need for Assistance at Home Good Awareness Ability to Problem Solve Emergency Able to Problem Solve Situations Medication Management Medication Management No Deficits Identified Money Management Money Management No Deficits Identified Meal Preparation Meal Preparation Caregiver Provides Assist Meal Preparation Comments pt needs total assist at this time Vp Biology Vp Biology Caregiver Provides Assist Vp Biology Comments pt needs total assist at this time Driving Driving Comments pt unable to drive at this time M6 OT- IP Functional Cognition Start: 09/13/19 15:52 Freq: Status: Active Protocol: Document 09/20/19 17:44 [facility] (Rec: 09/20/19 18:01 [facility] [id number]) Cognitive Factors Limiting Selfcare Function Cognitive Ability Level of Alertness Alert Attention Span Ability Capable of Focused Attention, Capable of Sustained Attention Ability to Follow Commands Able to Follow One Step Commands Problem Solving Ability Needs Assist to Identify Solutions Cognitive Comments Cognitive Assessment Comments Pt doing better with following commands for mobility needs. Pt however needs concrete cues and highly vocal for how her legs need to be positioned. . M7 OT- IP Mobility and Balance Start: 09/13/19 15:52 Freq: Status: Active Protocol: Document 09/20/19 17:44 [facility] (Rec: 09/20/19 18:01 [facility] [id number]) OT- Bed Mobility Assessment Rolling Type of Rolling Roll to Right,Roll to Left Level of Assistance Moderate Assistance Supine to Sit Supine to Sit Assist Maximum Assistance,2 Person Assistance Sit to Supine Sit to Supine Assist Maximum Assistance,2 Person Assistance OT-Transfer Assessment Transfers Transfer Ability Maximum Assistance,2 Person Assistance Technique Transfer Destination Bed,Wheelchair Transfer Technique Lateral Scoot Devices Transfer Assistive Devices Gait Belt Comments Mobility Comments ABle to stand pivot with MAX A X3 and needing assist to help move her feet to transfer with FWW to the . Transfer on the way back MAX X 2, pt having more trunk control and able to assist more with BUE/ trunk. OT- Gait Assessment Comments Gait Ability Comments pt non ambulatory due to lack of BLE motor function OT- Balance Assessment Sitting Balance and Reactions Static Sitting Balance Ability Fair Dynamic Sitting Balance Ability Poor Standing Balance and Reactions Static Standing Balance Ability Poor Dynamic Standing Balance Ability Poor M8 OT- IP Objective Assessments Start: 09/13/19 15:52 Freq: Status: Active Protocol: Document 09/19/19 15:11 [facility] (Rec: 09/19/19 15:33 [facility] [id number]) OT Gross Range of Motion Upper Extremity Range of Motion Assessment Bilaterally Impaired OT Strength Upper Extremity Strength Assessment Bilaterally Impaired Shoulder 3-/5 Elbow 4-/5 Hand 4-/5 M9 OT- IP Assessment and Plan Start: 09/13/19 15:52 Freq: Status: Active Protocol: Document 09/20/19 17:44 [facility] (Rec: 09/20/19 18:01 [facility] [id number]) OT Summary Assessment and Plan Potential Rehabilitation Potential Good Analytic Complexity at Evaluation Moderate Summary OT Impairments Pain,Range of Motion,Strength, Balance,Functional Mobility, Dressing,Toileting,Bathing, Toilet Transfers,Shower Transfers,Activity Tolerance Progress Towards Goals Progressing Toward Goals Assessment Summary Pt able to tolerate standpivot transfer and sliding transfer today. Pt better trunk control during sliding board and for bed mobility needs. Goals Grooming Goal Standby Assistance Dressing Goal Minimal Assistance Toileting Goal Moderate Assistance Bathing Goal Minimal Assistance Toilet Transfer Goal Moderate Assistance OT-Other Goals Grooming to be done sitting on EOB with no LOB. Dressing goal is for lower body dressing using power bed features to don/doff pants, socks, shoes. Bathing goal is for upper body sponge bath seated in chair. Toilet transfer goal is for sliding board transfer [place] [facility] [place] Meet Goals 14 Frequency of Treatment Frequency Of Treatment Once a Day Treatment Plan OT Treatment Plan ADL Training,Functional Mobility,Patient/Family Education,Discharge Planning Discharge Recommendations OT Discharge Recommendations SNF Rehab,Acute Rehab Home Equipment Needs to be determined pending progress in next rehab setting Transportation Needs at Discharge Wheelchair/Cabulance
--- NOTE | 2019-09-20 16:49 | DI.US.S_ITS ---
PROCEDURE: US PERIPH VENOUS LOW EXTREM BI INDICATIONS: BILAT LEG SWELLING TECHNIQUE: Real-time imaging, as well as color and pulse Doppler interrogation, were performed of the deep veins of both legs from the inguinal ligament to the popliteal fossa. COMPARISON: None. FINDINGS: Right: The common femoral, femoral and popliteal veins are normally compressible, and free of intraluminal thrombus. Color and pulse Doppler demonstrate normal phasic intravascular flow. There is normal augmentation response to distal compression maneuver. Left: The common femoral, femoral and popliteal veins are normally compressible, and free of intraluminal thrombus. Color and pulse Doppler demonstrate normal phasic intravascular flow. There is normal augmentation response to distal compression maneuver. Miscellaneous: Right-sided Stevenson's cyst is noted measuring 24 x 7 x 17 mm. A left-sided Stevenson's cyst is identified measuring 28 x 8 x 24 mm. IMPRESSION: No deep venous thrombosis. Bilateral Stevenson's cyst. Dictated by: Ghada Titus M.D. on 09/20/2019 at 18:19 Approved by: Ghada Titus M.D. on 09/20/2019 at 18:20
[2019-09-20] MEDS: FUROSEMIDE 20 MG/2 ML VIAL IV (18:04)
[2019-09-20] MEDS: levoFLOXacin 250 MG TABLET PO (18:04)
--- NOTE | 2019-09-20 20:37 | PM.PN.1 ---
Subjective Subjective Date Patient Seen: 09/20/19 Interval history: Patient is status post hematoma evacuation with Dr. Higgins on 09/13/2019 and again taken to the OR on 09/18/2023 reoccurring hematoma at T12. She complains of swelling and tightness in both her legs and abdomen since surgery. She had low-grade fever this morning, complaining of pain in her pelvis, and has urine culture from 09/19 growing gram-negative bacilli. Also there was some concern regarding her coags with a slightly elevated PT/INR and PTT in regards to possible undiagnosed coagulation disorder resulting in postop spinal hematomas Exam Vital Signs (past 8 hours): - 09/20/19 15:56 Temperature 98.4 F Pulse Rate 92 H Respiratory Rate 18 Blood Pressure 128/95 H Pulse Oximetry 98 Oxygen Delivery Method Room Air Oxygen Flow Rate 2 Narrative Exam Narrative: General: Alert and oriented with mild distress secondary to pain in her back Lungs: Clear to auscultation Heart: Regular rhythm Abdomen: Soft Extremities: There is symmetric edema in the legs up into the thighs Objective Labs Result Diagrams: 09/19/19 03:15 09/19/19 03:15 Assessment & Plan Assessment & Plan narrative: 1. Postop hypotension, resolved -not on antihypertensives -discontinue LR due to now getting edematous 2. Edema -DC IV fluids -Lasix 20 mg IV x1 -bilateral venous duplex ultrasound ordered which was negative for DVT 3. Acute postoperative spinal hematoma with cord compression and paralysis, status post three level thoracic laminectomy to decompress epidural hematoma, present on admission. Active. -continue pain management per surgery, per ortho note: Her left proximal leg is getting much stronger but still no distal function. Still mild improvement overall in the right, better proximally. -off Plavix which should be discontinued on discharge but probably okay to restart down the road once patient has further healed and drain removed, patient has history of TIA for which she was started on Plavix 4. Possible coagulation disorder -labs 09/18/2019 mild elevated PT 15.5 with INR 1.3 mild elevated PTT of 40, it is possible she has an acquired factor deficiency or inhibitor, further evaluation is best left to airport clerk which can be done as outpatient as these blood tests have a long turnaround time and sometimes can be a challenge to interpret in setting of acute illness -recommend repeat coags in a month and refer to Hematology if needed 5. Urinary tract infection associated with Tolbert catheter -low-grade fever, pelvic pain, urine culture positive for gram-negative bacilli -on 09/20 started Levaquin 250 mg p.o. q.d. x3 days 6. Hypothyroidism -continue her levothyroxine 7. Hyperlipidemia and carotid artery stenosis -continue pravastatin 20 mg q.o.d. per home routine Patient is medically stable. Per ortho patient will need another couple days in the hospital but may be ready to discharge to inpatient rehab Monday or Monday. Quality VTE Deep Vein Thrombosis/Pulmonary Embolism Present on Admission: No
[2019-09-20] MEDS: CYCLOBENZAPRINE 10 MG TABLET PO (22:04)
[2019-09-20] MEDS: LATANOPROST 0.005% OPHTH 2.5 ML 1 DROPS EYE-BOTH (22:04)
[2019-09-20] MEDS: PRAVASTATIN 20 MG TABLET PO (22:05)
[2019-09-20] MEDS: TRAZODONE 50 MG TABLET 75 MG PO (22:12)
[2019-09-21] MEDS: OXYCODONE IR 5 MG TABLET PO ×2 (04:23→14:04)
[2019-09-21 04:37] VITALS: BP 141/71; PULSE 87; RESP 18; TEMP 36.4; O2SAT 95
[2019-09-21] MEDS: LEVOTHYROXINE 88 MCG TABLET PO (06:29)
[2019-09-21] MEDS: PANTOPRAZOLE 40 MG TABLET PO ×2 (06:29→16:07)
[2019-09-21] MEDS: gemfibroziL 600 MG TABLET PO ×2 (06:29→16:05)
[2019-09-21] MEDS: DORZOLAMIDE/TIMOLOL OPHTH 10 ML 1 DROPS EYE-BOTH ×2 (06:30→16:07)
[2019-09-21 07:45] VITALS: BP 120/59; PULSE 87; RESP 18; TEMP 36.3; O2SAT 91
--- NOTE | 2019-09-21 08:09 | P.PN_ITS ---
Subjective Subjective Date Patient Seen: 09/21/19 Time Patient Seen: 08:09 Interval history: Pain 4-5/10. Denies fever or chills. Exam Vital Signs (past 8 hours): - 09/21/19 04:37 Temperature 97.5 F L Pulse Rate 87 Respiratory Rate 18 Blood Pressure 141/71 H Pulse Oximetry 95 Oxygen Delivery Method Room Air Oxygen Flow Rate 0 Narrative Exam Narrative: Other: CDI. Drain output 0 ml last shift. Resting comfortably in bed in NAD. IP Q AT [facility] GC R 2 3 2 3 3 L 2 4 0 0 0 Objective Labs Result Diagrams: 09/19/19 03:15 09/19/19 03:15 Assessment & Plan Post-op Postoperative Procedures: Procedures Operation Date: 09/13/19 11:45 Actual Procedures Side Surgeon p T11-L2 Laminectomy and removal of blood clot Matthew Higgins MD Operation Date: 09/18/19 14:45 Actual Procedures Side Surgeon p Incision and Drainage Wound/Spine Matthew Higgins MD Per Dr. Higgins 09/20/28 She is doing much better with pain control. Her left proximal leg is getting much stronger but still no distal function. Still mild improvement overall in the right, better proximally. Continue to mobilize with therapy. Awaiting urine cultures and will defer to Medicine for treatment of this Medicine is also working on evaluation of her increased PT/PTT and her bleeding. She is going to need inpatient rehab once she leaves the hospital, arrangements are being made for the rehab center [facility]. Not ready in the next 2 days, but may be ready Monday or Monday. 09/21/[address] Mary note reviewed from 09/20/2019 Quality VTE Deep Vein Thrombosis/Pulmonary Embolism Present on Admission: No
[2019-09-21] MEDS: DOCUSATE 100 MG CAPSULE PO (08:41)
[2019-09-21] MEDS: ACETAMINOPHEN 325 MG TABLET 975 MG PO ×3 (08:41→21:23)
[2019-09-21] MEDS: FLUTICASONE 120 SPRAY/16 GM SPRAY.SUSP NASAL (08:41)
[2019-09-21] MEDS: CHOLECALCIFEROL (VITAMIN D3) 400 UNIT TABLET PO (08:42)
[2019-09-21] MEDS: GABAPENTIN 300 MG CAPSULE PO ×3 (08:42→21:23)
[2019-09-21] MEDS: OXYCODONE IR 10 MG TABLET PO ×3 (08:42→20:02)
[2019-09-21] MEDS: PSYLLIUM HUSK 1 PACKET PO (08:42)
[2019-09-21] MEDS: CALCIUM CARBONATE 600 MG TABLET PO (08:42)
[2019-09-21] MEDS: GLUCOSAMINE/CHONDROITIN CAPSULE 1 EACH PO ×2 (08:43→21:26)
[2019-09-21] MEDS: CHOLESTYRAMINE/ASPARTAME 4 GM PACK PO ×2 (08:43→21:23)
[2019-09-21] MEDS: SERTRALINE 25 MG TABLET PO (08:43)
[2019-09-21] MEDS: MULTIVIT,CALC,MINS/IRON/FOLIC 1 TABLET 1 TAB PO (08:43)
[2019-09-21] MEDS: SODIUM CHLORIDE 0.9% FLUSH 10 ML IV ×2 (08:44→21:26)
[2019-09-21] MEDS: FISH OIL 1,000 MG CAPSULE 1000 MG PO ×2 (08:44→21:26)
--- NOTE | 2019-09-21 10:11 | PT.IPTN ---
Current Diagnoses Postprocedural hematoma of a nervous system organ or structure following a nervous system procedure (09/13/19) Surgery Performed Operation Date: 09/13/19 11:45 Actual Procedures p T11-L2 Laminectomy and removal of blood clot - Matthew Higgins MD Operation Date: 09/18/19 14:45 Actual Procedures p Incision and Drainage Wound/Spine - Matthew Higgins MD Physical Therapy Treatment Note M2 PT-IP Current Condition Start: 09/13/19 09:31 Freq: NEEDED Status: Active Protocol: Document 09/19/19 11:10 AB (Rec: 09/19/19 12:48 AB [id number]) Physical Therapy Current Condition Current Condition Evaluation Date 09/19/19 Treatment Diagnosis s/p lumbar lami w/removal of epidural hematoma; difficulty in walking Onset Date 09/13/2019 Precautions Lumbar Precautions Log Roll,No Twisting,Limit Bending,Lifting Restriction of 10 lbs,Gait Belt above Incisional Area M3 PT-IP Subjective Start: 09/13/19 09:31 Freq: NEEDED Status: Active Protocol: Document 09/21/19 10:11 AB (Rec: 09/21/19 12:55 AB [id number]) Subjective Physical Therapy Visit Type Type Treatment Note Visit Start Time 10:11 Visit Stop Time 10:50 Total Visit Minutes 39 Number of MEDICAL BILLING ASSISTANT Visits 0 Physical Therapy Visit Comments Patient Comments pt agreeable to do PT Therapy Pain Assessment Pain When Pain Assessed During Mobility Pain Present Pain Present Pain Reported Location back/abdomen/legs Scale Used pain scale not stated M4 PT-IP Mobility and Gait Start: 09/13/19 09:31 Freq: NEEDED Status: Active Protocol: Document 09/21/19 10:11 [facility] (Rec: 09/21/19 12:55 AB [id number]) PT-Bed Mobility Assessment Rolling Type of Rolling Log Rolling Level of Assist Minimal Assistance Supine to Sit Supine to Sit Maximum Assistance,Bedrails Scooting Scooting to Edge of Bed Maximum Assistance PT-Transfer Assessment Sit to and From Stand Sit to and from Stand Maximum Assistance,2 Person Assistance,Use of Upper Extremities Equipment Transfer Assistive Device Sliding Board Orthotic/Prosthetic Devices or Brace: No Transfers Transfer Destination Wheelchair Transfer Technique Lateral Scoot Transfer Ability Level of Assist Moderate Assistance,2 Person Assistance,Use of Upper Extremities Comments Mobility Comments pt completed BLE exercises. completed bed mobility supine to sit max A and cues with use of bed rail. pt was able to sit on EOB min A and cues. completed sit to stand max A x 2 and max cues. requires stabilization on B knees to prevent from buckling. completed slide board transfer bed to w/c mod A x 2 and max cues. positioned on w/c max A x 2 and max cues. call light and table placed within reach . M5 PT-IP Objective Assessments Start: 09/13/19 09:31 Freq: NEEDED Status: Active Protocol: Document 09/19/19 11:10 AB (Rec: 09/19/19 12:48 AB [id number]) Orientation Orientation/Cognition Level of Alertness Alert Orientation Name Safety Awareness Decreased Safety Awareness Memory Description Short Term Impaired Comments alert with confusion Gross Range of Motion Lower Extremity ROM Assessment Within Functional Limits Impairments c/o R groin pain with PROM Strength Lower Extremity Strength Assessment Bilaterally Impaired Comments Strength Comments R hip/knee flexion: 2-/5 R hip/knee extension: 2-/5 R ankle DF: 0/5 R ankle PF: 1/5 L hip/knee flexion: 2-/5 L hip/knee extension: 2+/5 L ankle DF/PF: 1/5 M6 PT-IP Treatment Start: 09/13/19 09:31 Freq: NEEDED Status: Active Protocol: Document 09/21/19 10:11 AB (Rec: 09/21/19 12:55 AB [id number]) Physical Therapy Treatment Exercises Exercises Ankle Pumps,Heel Slides,Seated Knee Flexion/Extension Education Education Provided Precautions,Safety M7 PT-IP Assessment and Plan Start: 09/13/19 09:31 Freq: NEEDED Status: Active Protocol: Document 09/21/19 10:11 AB (Rec: 09/21/19 12:55 AB [id number]) PT Summary Assessment and Plan Potential Rehabilitation Potential Good Summary Impairments Pain,ROM,Strength,Balance, Coordination,Sensation,Tone, Cognition,Bed Mobility, Transfers,Gait,Activity Tolerance Progress Towards Goals Slow Progress due to Pain,Slow Progress due to Medical Issues Assessment Summary pt continues to require 2 person assist with transfers using slide board. pt progressing slowly with increase in muscle strength/ control. pt will benefit from acute rehab vs SNF rehab. Goals Bed Mobility Goal Moderate Assistance Transfer Goal Moderate Assistance,Front Wheeled Walker Gait Goal Moderate Assistance,Front Wheel Walker Gait Distance 10 Days to Meet Goals 10 Frequency of Treatment Frequency Of Treatment Twice a Day Treatment Plan Physical Therapy Treatment Plan Bed Mobility Training,Transfer Training,Gait Training, Therapeutic Exercise,Balance Retraining,Post Op Education, Discharge Planning,Hot or Cold Pack,Neuromuscular Re-ed, Coordination Retraining,Manual Therapy Other Recommendations and Next Treatment bed mobility, sitting/standing Focus balance/tolerance, trunk/LE strengthening, transfers Recommendations To Nursing Amount of Assist Needed 2 Person Assist,Mechanical Lift Discharge Recommendations PT Discharge Recommendations SNF Rehab,Acute Rehab
[2019-09-21 12:13] VITALS: BP 126/79; PULSE 88; RESP 18; TEMP 36.7; O2SAT 93
--- NOTE | 2019-09-21 14:05 | OT.IP.TRT ---
Current Diagnoses Postprocedural hematoma of a nervous system organ or structure following a nervous system procedure (09/13/19) Surgery Performed Operation Date: 09/13/19 11:45 Actual Procedures p T11-L2 Laminectomy and removal of blood clot - Matthew Higgins MD Operation Date: 09/18/19 14:45 Actual Procedures p Incision and Drainage Wound/Spine - Matthew Higgins MD Occupational Therapy Treatment Note M2 OT-IP Current Condition Start: 09/13/19 15:52 Freq: Status: Active Protocol: Document 09/19/19 15:11 [facility] (Rec: 09/19/19 15:33 [facility] [id number]) Occupational Therapy Current Condition Current Condition Evaluation Date 09/19/19 Treatment Diagnosis L2 Laminectomy with removal of epidural hemetoma Diagnosis Onset Date 09/04/19 Post Operative Precautions Lumbar Precautions Log Roll,No Twisting,Limit Bending,Lifting Restriction of 10 lbs,Gait Belt above Incisional Area Weight Bearing Status Weight Bearing Status Weight Bear as Tolerated M3 OT- IP Subjective and Pain Start: 09/13/19 15:52 Freq: Status: Active Protocol: Document 09/21/19 13:50 [facility] (Rec: 09/21/19 14:04 [facility] [id number]) OT- Subjective Occupational Therapy Visit Type Type Treatment Note Visit Start Time 10:03 Visit Stop Time 10:55 Total Visit Minutes 52 Occupational Therapy Visit Comments Patient Comments Pt agreeable to get up. Patient/Caregiver Goals Pt wanting to do to rehab. OT Pain Assessment Pain When Pain Assessed During Mobility Pain Present Pain Present Pain Reported M4 OT- IP ADL's Start: 09/13/19 15:52 Freq: Status: Active Protocol: Document 09/21/19 13:50 [facility] (Rec: 09/21/19 14:04 [facility] [id number]) OT [id number] Comments OT Self-Feeding Comments Not at meal time. OT ADL-Grooming General Evaluation Grooming Ability Standby Assistance Areas Needing Assistance Retrieving/Set-up of Grooming Items OT ADL-Oral Care Comments Oral Care Comments Not performed. OT ADL-Dressing General Eval Lower Body Dressing Ability Total Assistance Areas Needing Assistance Underpants/Brief,Socks Comments OT Dressing Comments At this time pt is total assist for all LB dressing needs due to lack of mobility and function with BLE. M5 OT- IP IADL's Start: 09/13/19 15:52 Freq: Status: Active Protocol: Document 09/14/19 16:28 [facility] (Rec: 09/14/19 18:01 [facility] [id number]) OT-Instrumental Activities of Daily Living Deficits IADL Deficits Identified Deficits Home Safety Awareness Awareness of Need for Assistance at Home Good Awareness Ability to Problem Solve Emergency Able to Problem Solve Situations Medication Management Medication Management No Deficits Identified Money Management Money Management No Deficits Identified Meal Preparation Meal Preparation Caregiver Provides Assist Meal Preparation Comments pt needs total assist at this time Fast Food Crew Member Fast Food Crew Member Caregiver Provides Assist [employer] Food Crew Member Comments pt needs total assist at this time Driving Driving Comments pt unable to drive at this time M6 OT- IP Functional Cognition Start: 09/13/19 15:52 Freq: Status: Active Protocol: Document 09/21/19 13:50 [facility] (Rec: 09/21/19 14:04 [facility] [id number]) Cognitive Factors Limiting Selfcare Function Cognitive Ability Level of Alertness Alert Patient Orientation Name,Place,Situation Attention Span Ability Capable of Focused Attention, Capable of Sustained Attention Ability to Follow Commands Able to Follow One Step Commands Memory Description Short Term Impaired Problem Solving Ability Needs Assist to Identify Solutions Cognitive Comments Cognitive Assessment Comments Pt at times forgetting how to do her leg exercises. Pt feels that the pain medications make her groogy and not able to think as clearly. M7 OT- IP Mobility and Balance Start: 09/13/19 15:52 Freq: Status: Active Protocol: Document 09/21/19 13:50 [facility] (Rec: 09/21/19 14:04 [facility] [id number]) OT- Bed Mobility Assessment Supine to Sit Supine to Sit Assist Maximum Assistance,1 Person Assistance OT-Transfer Assessment Transfers Transfer Ability Moderate Assistance,2 Person Assistance Technique Transfer Destination Bed,Wheelchair Transfer Technique Lateral Scoot Devices Transfer Assistive Devices Gait Belt Comments Mobility Comments Pt able to stand with MAX A 2 with FWW and blocking of her knees. Pt not able to case picker her feet in at this time, therefore opted to do sliding board transfer. Pt noted increased ability with trunk control and hand placement to be able to assist . Today improved to MODA X 2. OT- Balance Assessment Sitting Balance and Reactions Static Sitting Balance Ability Fair Dynamic Sitting Balance Ability Poor Standing Balance and Reactions Static Standing Balance Ability Poor Dynamic Standing Balance Ability Poor M8 OT- IP Objective Assessments Start: 09/13/19 15:52 Freq: Status: Active Protocol: Document 09/19/19 15:11 [facility] (Rec: 09/19/19 15:33 [facility] [id number]) OT Gross Range of Motion Upper Extremity Range of Motion Assessment Bilaterally Impaired OT Strength Upper Extremity Strength Assessment Bilaterally Impaired Shoulder 3-/5 Elbow 4-/5 Hand 4-/5 M9 OT- IP Assessment and Plan Start: 09/13/19 15:52 Freq: Status: Active Protocol: Document 09/21/19 13:50 [facility] (Rec: 09/21/19 14:04 [facility] [id number]) OT Summary Assessment and Plan Potential Rehabilitation Potential Good Analytic Complexity at Evaluation Moderate Summary OT Impairments Pain,Range of Motion,Strength, Balance,Functional Mobility, Dressing,Toileting,Bathing, Toilet Transfers,Shower Transfers,Activity Tolerance Progress Towards Goals Progressing Toward Goals Assessment Summary Better sitting balance fair+, and better able to assist for sliding board transfer today and log rolling in the bed. Pt will benefit form skilled rehab versus acute rehab when medically ready. Goals Grooming Goal Standby Assistance Dressing Goal Minimal Assistance Toileting Goal Moderate Assistance Bathing Goal Minimal Assistance Toilet Transfer Goal Moderate Assistance Days to Meet Goals 13 Frequency of Treatment Frequency Of Treatment Once a Day Treatment Plan OT Treatment Plan ADL Training,Functional Mobility,Patient/Family Education,Discharge Planning Discharge Recommendations OT Discharge Recommendations SNF Rehab,Acute Rehab Home Equipment Needs to be determined pending progress in next rehab setting Transportation Needs at Discharge Wheelchair/Cabulance
--- NOTE | 2019-09-21 14:19 | PT.IPTN ---
Current Diagnoses Postprocedural hematoma of a nervous system organ or structure following a nervous system procedure (09/13/19) Surgery Performed Operation Date: 09/13/19 11:45 Actual Procedures p T11-L2 Laminectomy and removal of blood clot - Matthew Higgins MD Operation Date: 09/18/19 14:45 Actual Procedures p Incision and Drainage Wound/Spine - Matthew Higgins MD Physical Therapy Treatment Note M2 PT-IP Current Condition Start: 09/13/19 09:31 Freq: NEEDED Status: Active Protocol: Document 09/19/19 11:10 [facility] (Rec: 09/19/19 12:48 AB [id number]) Physical Therapy Current Condition Current Condition Evaluation Date 09/19/19 Treatment Diagnosis s/p lumbar lami w/removal of epidural hematoma; difficulty in walking Onset Date 09/13/2019 Precautions Lumbar Precautions Log Roll,No Twisting,Limit Bending,Lifting Restriction of 10 lbs,Gait Belt above Incisional Area M3 PT-IP Subjective Start: 09/13/19 09:31 Freq: NEEDED Status: Active Protocol: Document 09/21/19 14:19 [facility] (Rec: 09/21/19 14:51 [facility] [id number]) Subjective Physical Therapy Visit Type Type Treatment Note Visit Start Time 14:19 Visit Stop Time 14:42 Total Visit Minutes 23 Number of PRODUCTION SUPV Visits 0 Physical Therapy Visit Comments Patient Comments pt agreeable to do PT Therapy Pain Assessment Pain When Pain Assessed At Rest Pain Present Pain Present Pain Reported Location back/abdomen/legs Scale Used pain scale not stated but stated not too bad M4 PT-IP Mobility and Gait Start: 09/13/19 09:31 Freq: NEEDED Status: Active Protocol: Document 09/21/19 14:19 [facility] (Rec: 09/21/19 14:54 AB [id number]) PT-Bed Mobility Assessment Rolling Type of Rolling Log Rolling Level of Assist Maximal Assistance,1 Person Assistance Sit to Supine Sit to Supine Maximum Assistance,2 Person Assistance,Bedrails Scooting Scooting to Edge of Bed Maximum Assistance PT-Transfer Assessment Transfers Transfer Destination Bed Transfer Technique Lateral Scoot Transfer Ability Level of Assist Moderate Assistance,Maximum Assistance,2 Person Assistance ,Use of Upper Extremities Comments Mobility Comments completed slide board transfer w/c to bed requiring mod x 1- 2 with lateral scooting but required max A for scooting backwards onto the bed. positioned pt on the chair. call light and table placed within reach. Left pt with visitor in room. M5 PT-IP Objective Assessments Start: 09/13/19 09:31 Freq: NEEDED Status: Active Protocol: Document 09/19/19 11:10 [facility] (Rec: 09/19/19 12:48 AB [id number]) Orientation Orientation/Cognition Level of Alertness Alert Orientation Name Safety Awareness Decreased Safety Awareness Memory Description Short Term Impaired Comments alert with confusion Gross Range of Motion Lower Extremity ROM Assessment Within Functional Limits Impairments c/o R groin pain with PROM Strength Lower Extremity Strength Assessment Bilaterally Impaired Comments Strength Comments R hip/knee flexion: 2-/5 R hip/knee extension: 2-/5 R ankle DF: 0/5 R ankle PF: 1/5 L hip/knee flexion: 2-/5 L hip/knee extension: 2+/5 L ankle DF/PF: 1/5 M6 PT-IP Treatment Start: 09/13/19 09:31 Freq: NEEDED Status: Active Protocol: Document 09/21/19 14:19 [facility] (Rec: 09/21/19 14:54 AB [id number]) Physical Therapy Treatment Education Education Provided Safety M7 PT-IP Assessment and Plan Start: 09/13/19 09:31 Freq: NEEDED Status: Active Protocol: Document 09/21/19 14:19 [facility] (Rec: 09/21/19 14:51 AB [id number]) PT Summary Assessment and Plan Potential Rehabilitation Potential Good Summary Impairments Pain,ROM,Strength,Balance, Coordination,Sensation,Tone, Cognition,Bed Mobility, Transfers,Gait,Activity Tolerance Assessment Summary pt progressing with mobility but continues to require 2 person assist. pt will benefit from acute rehab vs SNF to improve strength and funciton. Goals Bed Mobility Goal Moderate Assistance Transfer Goal Moderate Assistance,Front Wheeled Walker Gait Goal Moderate Assistance,Front Wheel Walker Gait Distance 10 Days to Meet Goals 10 Frequency of Treatment Frequency Of Treatment Twice a Day Treatment Plan Physical Therapy Treatment Plan Bed Mobility Training,Transfer Training,Gait Training, Therapeutic Exercise,Balance Retraining,Post Op Education, Discharge Planning,Hot or Cold Pack,Neuromuscular Re-ed, Coordination Retraining,Manual Therapy Other Recommendations and Next Treatment bed mobility, sitting/standing Focus balance/tolerance, trunk/LE strengthening, transfers Recommendations To Nursing Amount of Assist Needed 2 Person Assist,Mechanical Lift Discharge Recommendations PT Discharge Recommendations SNF Rehab,Acute Rehab
--- NOTE | 2019-09-21 14:44 | OT.IP.TRT ---
Current Diagnoses Postprocedural hematoma of a nervous system organ or structure following a nervous system procedure (09/13/19) Surgery Performed Operation Date: 09/13/19 11:45 Actual Procedures p T11-L2 Laminectomy and removal of blood clot - Matthew Higgins MD Operation Date: 09/18/19 14:45 Actual Procedures p Incision and Drainage Wound/Spine - Matthew Higgins MD Occupational Therapy Treatment Note M2 OT-IP Current Condition Start: 09/13/19 15:52 Freq: Status: Active Protocol: Document 09/19/19 15:11 [facility] (Rec: 09/19/19 15:33 [facility] [id number]) Occupational Therapy Current Condition Current Condition Evaluation Date 09/19/19 Treatment Diagnosis L2 Laminectomy with removal of epidural hemetoma Diagnosis Onset Date 09/04/19 Post Operative Precautions Lumbar Precautions Log Roll,No Twisting,Limit Bending,Lifting Restriction of 10 lbs,Gait Belt above Incisional Area Weight Bearing Status Weight Bearing Status Weight Bear as Tolerated M3 OT- IP Subjective and Pain Start: 09/13/19 15:52 Freq: Status: Active Protocol: Document 09/21/19 13:50 [facility] (Rec: 09/21/19 14:04 [facility] [id number]) OT- Subjective Occupational Therapy Visit Type Type Treatment Note Visit Start Time 10:03 Visit Stop Time 10:55 saw from [id number] assist to get back to bed Total Visit Minutes 78 Occupational Therapy Visit Comments Patient Comments Pt agreeable to get up. Patient/Caregiver Goals Pt wanting to do to rehab. OT Pain Assessment Pain When Pain Assessed During Mobility Pain Present Pain Present Pain Reported M4 OT- IP ADL's Start: 09/13/19 15:52 Freq: Status: Active Protocol: Document 09/21/19 13:50 [facility] (Rec: 09/21/19 14:04 [facility] [id number]) OT [id number] Comments OT Self-Feeding Comments Not at meal time. OT ADL-Grooming General Evaluation Grooming Ability Standby Assistance Areas Needing Assistance Retrieving/Set-up of Grooming Items OT ADL-Oral Care Comments Oral Care Comments Not performed. OT ADL-Dressing General Eval Lower Body Dressing Ability Total Assistance Areas Needing Assistance Underpants/Brief,Socks Comments OT Dressing Comments At this time pt is total assist for all LB dressing needs due to lack of mobility and function with BLE. M5 OT- IP IADL's Start: 09/13/19 15:52 Freq: Status: Active Protocol: Document 09/14/19 16:28 [facility] (Rec: 09/14/19 18:01 [facility] [id number]) OT-Instrumental Activities of Daily Living Deficits IADL Deficits Identified Deficits Home Safety Awareness Awareness of Need for Assistance at Home Good Awareness Ability to Problem Solve Emergency Able to Problem Solve Situations Medication Management Medication Management No Deficits Identified Money Management Money Management No Deficits Identified Meal Preparation Meal Preparation Caregiver Provides Assist Meal Preparation Comments pt needs total assist at this time Home Appliance Installer Home Appliance Installer Caregiver Provides Assist Home Appliance Installer Comments pt needs total assist at this time Driving Driving Comments pt unable to drive at this time M6 OT- IP Functional Cognition Start: 09/13/19 15:52 Freq: Status: Active Protocol: Document 09/21/19 13:50 [facility] (Rec: 09/21/19 14:04 [facility] [id number]) Cognitive Factors Limiting Selfcare Function Cognitive Ability Level of Alertness Alert Patient Orientation Name,Place,Situation Attention Span Ability Capable of Focused Attention, Capable of Sustained Attention Ability to Follow Commands Able to Follow One Step Commands Memory Description Short Term Impaired Problem Solving Ability Needs Assist to Identify Solutions Cognitive Comments Cognitive Assessment Comments Pt at times forgetting how to do her leg exercises. Pt feels that the pain medications make her groogy and not able to think as clearly. M7 OT- IP Mobility and Balance Start: 09/13/19 15:52 Freq: Status: Active Protocol: Document 09/21/19 13:50 [facility] (Rec: 09/21/19 14:04 [facility] [id number]) OT- Bed Mobility Assessment Supine to Sit Supine to Sit Assist Maximum Assistance,1 Person Assistance OT-Transfer Assessment Transfers Transfer Ability Moderate Assistance,2 Person Assistance Technique Transfer Destination Bed,Wheelchair Transfer Technique Lateral Scoot Devices Transfer Assistive Devices Gait Belt Comments Mobility Comments Pt able to stand with MAX A 2 with FWW and blockinig of her knees. Pt not able to filler picker her feet in at this time, therefore opted to do sliding board transfer. Pt noted increased ability with trunk control and hand placement to be able to assist . Today improved to MODA X 2. Transfer back to bed from with bed tipped 5 degrees. Pt mainly assist x1 MAX A assist for BLE management and pt able to slide on the board without another person to assist initially and then at the end due to going uphill on the sliding board needing another person to help scoot back. Pt was soiled but not wanting to be changed yet , due to her son just coming in to visit her. Pt told nursing will call them when she is ready to be changed. OT- Balance Assessment Sitting Balance and Reactions Static Sitting Balance Ability Fair Dynamic Sitting Balance Ability Poor Standing Balance and Reactions Static Standing Balance Ability Poor Dynamic Standing Balance Ability Poor M8 OT- IP Objective Assessments Start: 09/13/19 15:52 Freq: Status: Active Protocol: Document 09/19/19 15:11 [facility] (Rec: 09/19/19 15:33 [facility] [id number]) OT Gross Range of Motion Upper Extremity Range of Motion Assessment Bilaterally Impaired OT Strength Upper Extremity Strength Assessment Bilaterally Impaired Shoulder 3-/5 Elbow 4-/5 Hand 4-/5 M9 OT- IP Assessment and Plan Start: 09/13/19 15:52 Freq: Status: Active Protocol: Document 09/21/19 13:50 [facility] (Rec: 09/21/19 14:04 [facility] [id number]) OT Summary Assessment and Plan Potential Rehabilitation Potential Good Analytic Complexity at Evaluation Moderate Summary OT Impairments Pain,Range of Motion,Strength, Balance,Functional Mobility, Dressing,Toileting,Bathing, Toilet Transfers,Shower Transfers,Activity Tolerance Progress Towards Goals Progressing Toward Goals Assessment Summary Better sitting balance fair+, and better able to assist for sliding board transfer today and log rolling in the bed. Pt will benefit from skilled rehab versus acute rehab when medically ready. Goals Grooming Goal Standby Assistance Dressing Goal Minimal Assistance Toileting Goal Moderate Assistance Bathing Goal Minimal Assistance Toilet Transfer Goal Moderate Assistance Days to Meet Goals 13 Frequency of Treatment Frequency Of Treatment Once a Day Treatment Plan OT Treatment Plan ADL Training,Functional Mobility,Patient/Family Education,Discharge Planning Discharge Recommendations OT Discharge Recommendations SNF Rehab,Acute Rehab Home Equipment Needs to be determined pending progress in next rehab setting Transportation Needs at Discharge Wheelchair/Cabulance
--- NOTE | 2019-09-21 15:22 | CM.DPC ---
Addendum entered by Marlyn Decker R.N. 09/21/19 15:27: Did speak to Dora, she called back from [facility]. Stated that upon a rare case, they do not have a psysiatrist on campus tomorrow, and one is needed to do a face to face upon admit. Let her know that there is a possibility that patient may be medically stable for tomorrow, and will need to update orthopedic MD. Dora stated to call her back tomorrow, if ortho wants to discharge patient tomorrow. Original Note: DCP Cont: Called [facility], and spoke to Dora, who is in admissions and communications agent this week-end. Originally, attempted to reach [place]. Let Dora know that there is a chance that patient can be discharged tomorrow. Dora mentioned that she will need to consult their new MD, for their other MD has moved. She stated that she will get back to this piano case maker. P: DCP to continue to follow. There is a possibility that patient can be discharged tomorrow. Will await phone call back from Dora at [facility] acute rehab. Marlyn Decker RN/Senior Reservoir Engineer
--- NOTE | 2019-09-21 15:25 | PC.NURSE ---
Shift summary: Alert and oriented X3. Remains very weak in BLE's. Was up to wheelchair for a few hours- PT/OT transferred her there using slider board. Remains a PT only transfer, aide lift for nursing staff. Tolbert patent. Hemovac intact, no output this shift. Midline back dressing C/D/I, hemovac insertion site w/ sanguinous drainage on gauze under tegaderm. Reports pain well-managed with scheduled Tylenol and prn Oxycodone. Lungs CTA, HRR. C/O increasing edema in BLE's, asking this RN about getting another dose of Lasix like they gave me yesterday. Passed request for Lasix on to catherine shift RN to ask Dr Mary about (he still needs to make rounds on this patient). Back in bed now. Call light and belongings within reach, bed alarm on.
[2019-09-21 16:20] VITALS: BP 128/69; PULSE 99; RESP 16; TEMP 36.4; O2SAT 97
[2019-09-21] MEDS: levoFLOXacin 250 MG TABLET PO (18:05)
--- NOTE | 2019-09-21 19:13 | PM.PN.1 ---
Subjective Subjective Date Patient Seen: 09/21/19 Interval history: Patient is status post hematoma evacuation with Dr. Higgins on 09/13/2019 and again taken to the OR on 09/18/2023 reoccurring hematoma at T12. She is being treated for simple UTI. She does complain of pain across her pelvis which seems more musculoskeletal. She also had complained of swelling in her legs and abdomen and put out 5 L after IV Lasix last night. She feels there is still some swelling present. She does not feel dyspneic. Additionally there was some concern regarding her coags with a slightly elevated PT/INR and PTT in regards to possible undiagnosed coagulation disorder resulting in postop spinal hematomas Exam Vital Signs (past 8 hours): - 09/21/19 12:13 09/21/19 16:20 Temperature 98.1 F 97.6 F Pulse Rate 88 99 H Respiratory Rate 18 16 Blood Pressure 126/79 128/69 Pulse Oximetry 93 97 Oxygen Delivery Method Room Air Oxygen Flow Rate 0 Narrative Exam Narrative: General: Alert and appearing comfortable Abdomen: Appears swollen, nontender Extremities: Improvement of edema in the legs though thighs are still swollen Objective Labs Result Diagrams: 09/19/19 03:15 09/19/19 03:15 Assessment & Plan Assessment & Plan narrative: 1. Postop hypotension, resolved -not on antihypertensives 2. Edema, lower extremities and abdomen -stopped IV fluids 09/20 -Lasix 20 mg IV x1 with brisk diuresis, repeated Lasix 20 mg IV dose on -bilateral venous duplex ultrasound was negative for DVT 3. Acute postoperative spinal hematoma with cord compression and paralysis, status post three level thoracic laminectomy to decompress epidural hematoma, present on admission. Active. -continue pain management per surgery, per ortho note: Her left proximal leg is getting much stronger but still no distal function. Still mild improvement overall in the right, better proximally. -off Plavix which should be discontinued on discharge but probably okay to restart down the road once patient has further healed and drain removed -patient has history of TIA for which she was started on Plavix 4. Possible coagulation disorder -labs 09/18/2019 mild elevated PT 15.5 with INR 1.3 mild elevated PTT of 40, it is possible she has an acquired factor deficiency or inhibitor, further evaluation is best left to fixture repairer fabricator which can be done as outpatient as these blood tests have a long turnaround time and sometimes can be a challenge to interpret in setting of acute illness -recommend repeat coags in a month and refer to Hematology if abnormal 5. Urinary tract infection associated with Tolbert catheter -low-grade fever, pelvic pain, urine culture positive for pansensitive E coli -on 09/20 started Levaquin 250 mg p.o. q.d. x 3 days 6. Hypothyroidism -continue her levothyroxine 7. Hyperlipidemia and carotid artery stenosis -continue pravastatin 20 mg q.o.d. per home routine Patient is medically stable for discharge whenever cleared by Ortho. She still has wound drain in her back. Quality VTE Deep Vein Thrombosis/Pulmonary Embolism Present on Admission: No
[2019-09-21] MEDS: POTASSIUM CHLORIDE 20 MEQ TAB 40 MEQ PO (20:02)
[2019-09-21] MEDS: FUROSEMIDE 20 MG/2 ML VIAL IV (20:02)
[2019-09-21 20:30] VITALS: BP 127/71; PULSE 90; RESP 18; TEMP 37.5; O2SAT 98
[2019-09-21] MEDS: TRAZODONE 50 MG TABLET 75 MG PO (21:24)
[2019-09-21] MEDS: CYCLOBENZAPRINE 10 MG TABLET PO (21:25)
[2019-09-21] MEDS: PRAVASTATIN 20 MG TABLET PO (21:25)
[2019-09-21] MEDS: LATANOPROST 0.005% OPHTH 2.5 ML 1 DROPS EYE-BOTH (21:26)
--- NOTE | 2019-09-21 22:46 | PC.NURSE ---
A&OX4. pain controlled with 10mg oxycodone. stephens patent. UOP . q2turn. waffle cushion. pt states she starting to feel some sensation. pt is incontinent/continent of bowel. midline dressing cdi. HV compressed. call light in reach. bed alarm active.
[2019-09-21 23:00] VITALS: BP 103/57; PULSE 85; RESP 16; TEMP 36.6; O2SAT 92
[2019-09-22] MEDS: OXYCODONE IR 10 MG TABLET PO ×6 (03:12→22:05)
[2019-09-22 05:51] LABS: Hematocrit 30.1 % (36-46); Hemoglobin 10.1 g/dL (12.0-16.0); Mean Corpuscular HGB Conc 33.5 % (30-36); Mean Corpuscular Hemoglobin 28.9 PG (26-34); Mean Corpuscular Volume 86.3 fL (80-100); Platelet Count 463 X10^3/uL (150-400); Red Blood Cell Count 3.49 X10^6/uL (4.0-5.2); White Blood Cell Count 10.3 X10^3/uL (4.5-11.0)
[2019-09-22 05:53] LABS: Add Manual Diff / Slide Review YES
[2019-09-22 05:55] LABS: Blood Urea Nitrogen 5 mg/dL (7-17); Calcium 9.1 mg/dL (8.4-10.2); Carbon Dioxide 31 mmol/L (22-32); Chloride 100 mmol/L (98-107); Estimated Glomerular Filt Rate > 60.0 mL/min (>60); Glucose 110 mg/dL (80-110); HEMOLYSIS < 15 (0-50); Potassium 4.8 mmol/L (3.4-5.1); Sodium 135 mmol/L (137-145)
[2019-09-22] MEDS: LEVOTHYROXINE 88 MCG TABLET PO (05:59)
[2019-09-22 06:00] VITALS: BP 143/72; PULSE 96; RESP 16; TEMP 36.3
[2019-09-22] MEDS: DORZOLAMIDE/TIMOLOL OPHTH 10 ML 1 DROPS EYE-BOTH ×2 (06:00→16:12)
[2019-09-22] MEDS: gemfibroziL 600 MG TABLET PO ×2 (06:00→16:12)
[2019-09-22] MEDS: PANTOPRAZOLE 40 MG TABLET PO ×2 (06:00→16:16)
[2019-09-22 06:35] LABS: Neutrophils Absolute Manual 6180 /uL (3000-5900); RBC Morphology Normal Morphology; Total Cells Counted 100
--- NOTE | 2019-09-22 07:58 | PM.PNPO.1 ---
Subjective Subjective Date Patient Seen: 09/22/19 Time Patient Seen: 07:58 Interval history: She is doing well. Still requiring significant assistance for any mobility. Not much back pain but more discomfort across the lower abdomen. Exam Vital Signs (past 8 hours): - 09/22/19 06:00 Temperature 97.4 F L Pulse Rate 96 H Respiratory Rate 16 Blood Pressure 143/72 H Oxygen Delivery Method Room Air Oxygen Flow Rate 0 Const Orientation: alert and oriented x3 Back/Spine/Pelvis Other: CDI. Minimal drain output. IP Q AT [facility] GC R 3 3 3 2 3 L 3 4 0 0 0 Objective Labs Result Diagrams: 09/22/19 05:30 09/22/19 05:30 Labs: Laboratory Results - last 24 hr 09/22/19 09/22/19 05:30 05:30 WBC 10.3 RBC 3.49 L Hgb 10.1 L Hct 30.1 L MCV 86.3 MCH 28.9 MCHC 33.5 RDW 14.0 Plt Count 463 H Neut % (Auto) Not Reportable Lymph % (Auto) Not Reportable Atlantic % (Auto) Not Reportable Eos % (Auto) Not Reportable Baso % (Auto) Not Reportable Lymph # (Auto) Not Reportable [place] # (Auto) Not Reportable Baso # (Auto) Not Reportable Total Counted 100 Seg Neutrophils % 57.0 Band Neutrophils % 3.0 Lymphocytes % (Manual) 16.0 L Monocytes % (Manual) 10.0 Eosinophils % (Manual) 12.0 H Basophils % (Manual) 2.0 H Neutrophils # (Manual) 6180 H RBC Morphology Normal morphology Sodium 135 L Potassium 4.8 Chloride 100 Carbon Dioxide 31 BUN 5 L Creatinine 0.50 L Estimated GFR > 60.0 BUN/Creatinine Ratio 10.0 Glucose 110 Calcium 9.1 Assessment & Plan Post-op Postoperative Procedures: Procedures Operation Date: 09/13/19 11:45 Actual Procedures Side Surgeon p T11-L2 Laminectomy and removal of blood clot Matthew Higgins MD Operation Date: 09/18/19 14:45 Actual Procedures Side Surgeon p Incision and Drainage Wound/Spine Matthew Higgins MD she continues to gain a fair amount of proximal leg strength and is getting a little bit more on the right distal leg but still nothing on the left distally. Continue to mobilize with physical therapy. She is going to require inpatient rehab. Anticipate discharge tomorrow. Currently being treated for urinary tract infection. Most likely cause of lower abdominal pain. Last dose IV antibiotics tomorrow. Quality VTE Deep Vein Thrombosis/Pulmonary Embolism Present on Admission: No
[2019-09-22 08:01] VITALS: BP 111/66; PULSE 87; RESP 16; TEMP 36.5; O2SAT 94
[2019-09-22] MEDS: DOCUSATE 100 MG CAPSULE PO (09:14)
[2019-09-22] MEDS: GABAPENTIN 300 MG CAPSULE PO ×3 (09:14→20:20)
[2019-09-22] MEDS: ACETAMINOPHEN 325 MG TABLET 975 MG PO ×3 (09:14→20:20)
[2019-09-22] MEDS: SODIUM CHLORIDE 0.9% FLUSH 10 ML IV ×2 (09:15→20:22)
[2019-09-22] MEDS: FLUTICASONE 120 SPRAY/16 GM SPRAY.SUSP NASAL (09:15)
[2019-09-22] MEDS: CALCIUM CARBONATE 600 MG TABLET PO (09:15)
[2019-09-22] MEDS: GLUCOSAMINE/CHONDROITIN CAPSULE 1 EACH PO ×2 (09:15→20:21)
[2019-09-22] MEDS: SERTRALINE 25 MG TABLET PO (09:15)
[2019-09-22] MEDS: MULTIVIT,CALC,MINS/IRON/FOLIC 1 TABLET 1 TAB PO (09:15)
[2019-09-22] MEDS: CHOLESTYRAMINE/ASPARTAME 4 GM PACK PO ×2 (09:15→20:20)
[2019-09-22] MEDS: CHOLECALCIFEROL (VITAMIN D3) 400 UNIT TABLET PO (09:15)
[2019-09-22] MEDS: PSYLLIUM HUSK 1 PACKET PO (09:15)
[2019-09-22] MEDS: FISH OIL 1,000 MG CAPSULE 1000 MG PO ×2 (09:15→20:21)
--- NOTE | 2019-09-22 11:05 | P.PN_ITS ---
Subjective Subjective Date Patient Seen: 09/22/19 Interval history: Patient is status post hematoma evacuation with Dr. Higgins on 09/13/2019 and again taken to the OR on 09/18/2023 reoccurring hematoma at T12. She is being treated for simple UTI. She does complain of pain across her pelvis which may be musculoskeletal or due to UTI. She had also complained of swelling in her legs and abdomen which is much improved after 2 doses of IV Lasix. She does not feel dyspneic. Additionally there was some concern regarding her coags with a slightly elevated PT/INR and PTT in regards to p ossible undiagnosed coagulation disorder resulting in postop spinal hematomas Exam Vital Signs (past 8 hours): - 09/22/19 06:00 09/22/19 08:01 Temperature 97.4 F L 97.7 F Pulse Rate 96 H 87 Respiratory Rate 16 16 Blood Pressure 143/72 H 111/66 Pulse Oximetry 94 Oxygen Delivery Method Room Air Oxygen Flow Rate 0 Narrative Exam Narrative: General: Alert pleasant female no acute distress Abdomen: Soft and nontender Extremities: There is improvement in bilateral lower extremity edema, perhaps slight swelling remaining in the thighs Neuro/musculoskeletal: She has some distal and proximal movement in our RLE, no movement in LLE Objective Labs Result Diagrams: 09/22/19 05:30 09/22/19 05:30 Labs: Laboratory Results - last 24 hr 09/22/19 09/22/19 05:30 05:30 WBC 10.3 RBC 3.49 L Hgb 10.1 L Hct 30.1 L MCV 86.3 MCH 28.9 MCHC 33.5 RDW 14.0 Plt Count 463 H Neut % (Auto) Not Reportable Lymph % (Auto) Not Reportable [place] % (Auto) Not Reportable Eos % (Auto) Not Reportable Baso % (Auto) Not Reportable Lymph # (Auto) Not Reportable [place] # (Auto) Not Reportable Baso # (Auto) Not Reportable Total Counted 100 Seg Neutrophils % 57.0 Band Neutrophils % 3.0 Lymphocytes % (Manual) 16.0 L Monocytes % (Manual) 10.0 Eosinophils % (Manual) 12.0 H Basophils % (Manual) 2.0 H Neutrophils # (Manual) 6180 H RBC Morphology Normal morphology Sodium 135 L Potassium 4.8 Chloride 100 Carbon Dioxide 31 BUN 5 L Creatinine 0.50 L Estimated GFR > 60.0 BUN/Creatinine Ratio 10.0 Glucose 110 Calcium 9.1 Assessment & Plan Assessment & Plan narrative: 1. Postop hypotension, resolved -not on antihypertensives 2. Edema, lower extremities and abdomen -stopped IV fluids 09/20 -Lasix 20 mg IV x 2 with much improvement -bilateral venous duplex ultrasound was negative for DVT 3. Acute postoperative spinal hematoma with cord compression and paralysis, status post three level thoracic laminectomy to decompress epidural hematoma, present on admission. Active. -continue pain management per surgery, per ortho note: Her left proximal leg is getting much stronger but still no distal function. Still mild improvement overall in the right, better proximally. -still max 2 person assist -off Plavix which should be discontinued on discharge but probably okay to restart down the road once patient has further healed and drain removed -patient has history of TIA for which she was started on Plavix 4. Possible coagulation disorder -labs 09/18/2019 mild elevated PT 15.5 with INR 1.3 mild elevated PTT of 40, it is possible she has an acquired factor deficiency or inhibitor, further evaluation is best left to sales manager which can be done as outpatient as these blood tests have a long turnaround time and sometimes can be a challenge to interpret in setting of acute illness -recommend repeat coags in a month and refer to Hematology if abnormal 5. Urinary tract infection associated with Tolbert catheter -low-grade fever, pelvic pain, urine culture positive for pansensitive E coli -on 09/20 started Levaquin 250 mg p.o. q.d. x 3 days, completed 09/22/2019 6. Hypothyroidism -continue her levothyroxine 7. Hyperlipidemia and carotid artery stenosis -continue pravastatin 20 mg q.o.d. per home routine Patient is medically stable for discharge whenever cleared by Ortho. She still has wound drain in her back. Per ortho most likely will discharge tomorrow Monday. Quality VTE Deep Vein Thrombosis/Pulmonary Embolism Present on Admission: No
[2019-09-22 12:00] VITALS: BP 132/89; PULSE 93; RESP 18; TEMP 36.4; O2SAT 93
--- NOTE | 2019-09-22 15:18 | CM.DPC ---
DCP Cont: Spoke to Dr. Higgins, and stated that patient should be ready for discharge tomorrow. Called Dora at [facility] inpatient rehab and updated her. She asked for latest P.T/O.T. notes and med list. Faxed them over to her at [phone]. Upon discharge she will need discharge summary, and signed med sheets. P: DCP to continue to follow. Plan is for [facility] inpatient, can go via [facility]. Marlyn Decker RN/Felt Coverer
--- NOTE | 2019-09-22 15:36 | PT.IPTN ---
Current Diagnoses Postprocedural hematoma of a nervous system organ or structure following a nervous system procedure (09/13/19) Surgery Performed Operation Date: 09/13/19 11:45 Actual Procedures p T11-L2 Laminectomy and removal of blood clot - Matthew Higgins MD Operation Date: 09/18/19 14:45 Actual Procedures p Incision and Drainage Wound/Spine - Matthew Higgins MD Physical Therapy Treatment Note M2 PT-IP Current Condition Start: 09/13/19 09:31 Freq: NEEDED Status: Active Protocol: Document 09/19/19 11:10 AB (Rec: 09/19/19 12:48 AB [id number]) Physical Therapy Current Condition Current Condition Evaluation Date 09/19/19 Treatment Diagnosis s/p lumbar lami w/removal of epidural hematoma; difficulty in walking Onset Date 09/13/2019 Precautions Lumbar Precautions Log Roll,No Twisting,Limit Bending,Lifting Restriction of 10 lbs,Gait Belt above Incisional Area M3 PT-IP Subjective Start: 09/13/19 09:31 Freq: NEEDED Status: Active Protocol: Document 09/22/19 15:36 CLB (Rec: 09/22/19 16:35 CLB [id number]) Subjective Physical Therapy Visit Type Type Treatment Note Visit Start Time 15:36 Visit Stop Time 16:04 Total Visit Minutes 28 Number of FOXING PAINTER Visits 1 Physical Therapy Visit Comments Patient Comments Pt felt like she would have BM and make a mess if she tried to move but was agreeable to do stretching and ther ex. Therapy Pain Assessment Pain When Pain Assessed At Rest Pain Present Pain Present Pain Reported Location back/abdomen/legs Scale Used pain scale not stated but stated not too bad M4 PT-IP Mobility and Gait Start: 09/13/19 09:31 Freq: NEEDED Status: Active Protocol: Document 09/22/19 15:36 CLB (Rec: 09/22/19 16:35 CLB [id number]) PT-Transfer Assessment Comments Mobility Comments pt did not want to transfer M5 PT-IP Objective Assessments Start: 09/13/19 09:31 Freq: NEEDED Status: Active Protocol: Document 09/19/19 11:10 AB (Rec: 09/19/19 12:48 AB [id number]) Orientation Orientation/Cognition Level of Alertness Alert Orientation Name Safety Awareness Decreased Safety Awareness Memory Description Short Term Impaired Comments alert with confusion Gross Range of Motion Lower Extremity ROM Assessment Within Functional Limits Impairments c/o R groin pain with PROM Strength Lower Extremity Strength Assessment Bilaterally Impaired Comments Strength Comments R hip/knee flexion: 2-/5 R hip/knee extension: 2-/5 R ankle DF: 0/5 R ankle PF: 1/5 L hip/knee flexion: 2-/5 L hip/knee extension: 2+/5 L ankle DF/PF: 1/5 M6 PT-IP Treatment Start: 09/13/19 09:31 Freq: NEEDED Status: Active Protocol: Document 09/22/19 15:36 CLB (Rec: 09/22/19 16:35 CLB [id number]) Physical Therapy Treatment Exercises Exercises Ankle Pumps,Quad Sets,Heel Slides,Supine Hip Abduction Education Education Provided Safety Other Treatments Other Treatment Performed Calf stretches, Pt required assist with ther ex. M7 PT-IP Assessment and Plan Start: 09/13/19 09:31 Freq: NEEDED Status: Active Protocol: Document 09/22/19 15:36 CLB (Rec: 09/22/19 16:35 CLB [id number]) PT Summary Assessment and Plan Potential Rehabilitation Potential Good Summary Impairments Pain,ROM,Strength,Balance, Coordination,Sensation,Tone, Cognition,Bed Mobility, Transfers,Gait,Activity Tolerance Assessment Summary Pt able to initiate heel slide then requires assist, pt able to extend leg after HS. Pt able to ab/add LE>RE. Pt able to perform AP on RLE but not LLE.Pt able to perform quad sets with hold to 5 seconds. Pt required assist with repositioning for comfort due to pain on buttock area. Pt able to assist with use of Trapeze but required assist of LE's. Left pt in bed tilted to left with pillows for support, bed alarm on, call light within reach, SCDs on bilateral LEs and friend ( daughter) present. Informed RN of bed position and bed alarm status. Goals Bed Mobility Goal Moderate Assistance Transfer Goal Moderate Assistance,Front Wheeled Walker Gait Goal Moderate Assistance,Front Wheel Walker Gait Distance 10 Days to Meet Goals 10 Frequency of Treatment Frequency Of Treatment Twice a Day Treatment Plan Physical Therapy Treatment Plan Bed Mobility Training,Transfer Training,Gait Training, Therapeutic Exercise,Balance Retraining,Post Op Education, Discharge Planning,Hot or Cold Pack,Neuromuscular Re-ed, Coordination Retraining,Manual Therapy Other Recommendations and Next Treatment bed mobility, sitting/standing Focus balance/tolerance, trunk/LE strengthening, transfers Recommendations To Nursing Amount of Assist Needed 2 Person Assist,Mechanical Lift Discharge Recommendations PT Discharge Recommendations SNF Rehab,Acute Rehab
[2019-09-22 16:20] VITALS: BP 130/69; PULSE 92; RESP 16; TEMP 36.4; O2SAT 96
[2019-09-22] MEDS: levoFLOXacin 250 MG TABLET PO (17:33)
[2019-09-22 20:14] VITALS: BP 137/80; PULSE 89; RESP 18; TEMP 36.6; O2SAT 99
[2019-09-22] MEDS: CYCLOBENZAPRINE 10 MG TABLET PO (20:20)
[2019-09-22] MEDS: PRAVASTATIN 20 MG TABLET PO (20:20)
[2019-09-22] MEDS: LATANOPROST 0.005% OPHTH 2.5 ML 1 DROPS EYE-BOTH (20:21)
[2019-09-22] MEDS: TRAZODONE 50 MG TABLET 75 MG PO (22:04)
[2019-09-23] VITALS: BP 117/66; PULSE 88; RESP 16; TEMP 36.2; O2SAT 92
[2019-09-23] MEDS: OXYCODONE IR 5 MG TABLET PO ×3 (02:11→10:45)
[2019-09-23 06:00] VITALS: BP 142/74; PULSE 103; RESP 16; TEMP 36.7; O2SAT 93
--- NOTE | 2019-09-23 06:04 | PC.NURSE ---
TAIL EDGER position note: tilted Ermelinda bed to the left 3 degrees. Repositioned pillows under patient- pillow under left arm, no pillows under knees. Have been repositioned with microadjustments of pillows and tilting her all through the night approx 170 minutes.
[2019-09-23] MEDS: gemfibroziL 600 MG TABLET PO (06:11)
[2019-09-23] MEDS: LEVOTHYROXINE 88 MCG TABLET PO (06:13)
[2019-09-23] MEDS: PANTOPRAZOLE 40 MG TABLET PO (06:15)
--- NOTE | 2019-09-23 07:45 | P.PN_ITS ---
Subjective Subjective Date Patient Seen: 09/23/19 Time Patient Seen: 07:45 Interval history: Pain is about a 6/10 across the abdomen. She thinks is more radiating from the back. Legs feel little bit stronger every day. Exam Vital Signs (past 8 hours): - 09/23/19 00:00 09/23/19 06:00 Temperature 97.2 F L 98.0 F Pulse Rate 88 103 H Respiratory Rate 16 16 Blood Pressure 117/66 142/74 H Pulse Oximetry 92 93 Oxygen Delivery Method Room Air Oxygen Flow Rate 0 Const Orientation: alert and oriented x3 Back/Spine/Pelvis Other: Minimal drainage from drain site. Remainder of dressing dry. IP Q AT [facility] GC R 3 3 2 2 3 L 4 4 0 0 0 Objective Labs Result Diagrams: 09/22/19 05:30 09/22/19 05:30 Assessment & Plan Post-op Postoperative Procedures: Procedures Operation Date: 09/13/19 11:45 Actual Procedures Side Surgeon p T11-L2 Laminectomy and removal of blood clot Matthew Higgins MD Operation Date: 09/18/19 14:45 Actual Procedures Side Surgeon p Incision and Drainage Wound/Spine Matthew Higgins MD He continues to make slow improvement in her neurologic function although still nothing distally on the left. I am going to get her fitted for an AFO today. P tejal to discharge to inpatient rehab today. Quality VTE Deep Vein Thrombosis/Pulmonary Embolism Present on Admission: No
[2019-09-23] MEDS: DORZOLAMIDE/TIMOLOL OPHTH 10 ML 1 DROPS EYE-BOTH (07:48)
[2019-09-23 07:59] VITALS: BP 112/70; PULSE 98; RESP 18; TEMP 36.9; O2SAT 93
[2019-09-23] MEDS: DOCUSATE 100 MG CAPSULE PO (09:11)
[2019-09-23] MEDS: GLUCOSAMINE/CHONDROITIN CAPSULE 1 EACH PO (09:11)
[2019-09-23] MEDS: FISH OIL 1,000 MG CAPSULE 1000 MG PO (09:11)
[2019-09-23] MEDS: SERTRALINE 25 MG TABLET PO (09:12)
[2019-09-23] MEDS: CHOLECALCIFEROL (VITAMIN D3) 400 UNIT TABLET PO (09:12)
[2019-09-23] MEDS: CALCIUM CARBONATE 600 MG TABLET PO (09:12)
[2019-09-23] MEDS: ACETAMINOPHEN 325 MG TABLET 975 MG PO (09:12)
[2019-09-23] MEDS: GABAPENTIN 300 MG CAPSULE PO (09:12)
[2019-09-23] MEDS: MULTIVIT,CALC,MINS/IRON/FOLIC 1 TABLET 1 TAB PO (09:12)
[2019-09-23] MEDS: PSYLLIUM HUSK 1 PACKET PO (09:13)
[2019-09-23] MEDS: FLUTICASONE 120 SPRAY/16 GM SPRAY.SUSP NASAL (09:13)
[2019-09-23] MEDS: CHOLESTYRAMINE/ASPARTAME 4 GM PACK PO (09:13)
--- NOTE | 2019-09-23 10:51 | CM.DPC ---
DCP Discharge Acute Inpt Rehab Per Ortho MD, pt medically stable to d/c to Inpt Rehab today with no identified barriers to discharge but possible need to fit for AFO for the pt. MALENA spoke with PT/OT and confirmed no AFO available in house and state pt will likely not need but they added the AFO order to the d/c packet for Inpt Rehab to address after she is admitted there to determine if pt makes progress with her leg/foot then possible need for AFO in the near future. PT/OT confirmed that pt still would require Cab[facility] for transport as private vehicle would not be safe or comfortable with transfers for pt as she still requires 2PA for transfers and pt could safely sit in wheel chair for transport and BLS not needed. MALENA called [facility] Acute [facility]pt Re[facility] admissions Dora and updated on official discharge orders and faxed scripts, med rec, d/c summary/prog note, PT note, recent labs/vitals, height and weight to Dora to review and she confirms she received. Dora requesting transport early afternoon if possible. SW called [facility] and left msg and called [facility] and was able to set up [address] [facility] In[facility] and received quote of $170 to be billed to pt's house in about a month. MALENA met bedside with pt and explained role and updated on above and pt states she is still agreeable with d/c to [facility] In[facility] Rehab today and agreeable with cabulance and requests SW to call her Dtr Rayna to update. SW updated pt on need for her to provide her own eye drops as they are the only thing Inpt rehab does not cover and pt states she has some bedside right now she can bring and extra at home. MALENA called Dtr Rayna and updated on above and Dtr agreeable but asking if other transport available that is covered by insurance like BLS as pt does not have a lot of additional funds. MALENA discussed that pt unable to safely go by private vehicle (and Dtr strongly agrees) and discussed that hospital and Inpt Rehab does not cover transport especially if pt cannot ambulate and transfer on their own for a regular taxi. SW discussed that BLS typically not fully covered by insurance and no guarentee of the cost but possible out of pocket of at least $1200. Dtr agreeable with cabulance transport and aware that she can always ask [facility] if they have pinky care or payment plan option. SW updated RN, BOX WORKER, NTL and provided RN report number to call. Plan: Patient to d/c to [facility] today via private pay [facility] between [phone] with Dtr to meet pt at Inpt Rehab. MELECIO Yanes
--- NOTE | 2019-09-23 11:25 | OT.IP.TRT ---
Current Diagnoses Postprocedural hematoma of a nervous system organ or structure following a nervous system procedure (09/13/19) Surgery Performed Operation Date: 09/13/19 11:45 Actual Procedures p T11-L2 Laminectomy and removal of blood clot - Matthew Higgins MD Operation Date: 09/18/19 14:45 Actual Procedures p Incision and Drainage Wound/Spine - Matthew Higgins MD Occupational Therapy Treatment Note M3 OT- IP Subjective and Pain Start: 09/13/19 15:52 Freq: Status: Active Protocol: Document 09/23/19 11:53 [facility] (Rec: 09/23/19 12:02 [facility] [id number]) OT- Subjective Occupational Therapy Visit Type Type Treatment Note Visit Start Time 11:25 Visit Stop Time 11:37 Total Visit Minutes 12 Occupational Therapy Visit Comments Patient Comments Pt getting ready to go to inpt rehab. Patient/Caregiver Goals Pt wanting to do to rehab. OT Pain Assessment Pain When Pain Assessed At Rest Pain Present Pain Present Denied Pain M6 OT- IP Functional Cognition Start: 09/13/19 15:52 Freq: Status: Active Protocol: Document 09/23/19 11:53 [facility] (Rec: 09/23/19 12:02 [facility] [id number]) Cognitive Factors Limiting Selfcare Function Cognitive Ability Level of Alertness Alert Patient Orientation Name,Place,Situation Attention Span Ability Capable of Focused Attention, Capable of Sustained Attention Ability to Follow Commands Able to Follow One Step Commands Memory Description Short Term Impaired Problem Solving Ability Needs Assist to Identify Solutions Cognitive Comments Cognitive Assessment Comments Pt able to follow commands for bed mobility needs and transfer with sliding board to the . M7 OT- IP Mobility and Balance Start: 09/13/19 15:52 Freq: Status: Active Protocol: Document 09/23/19 11:53 [facility] (Rec: 09/23/19 12:02 [facility] [id number]) OT- Bed Mobility Assessment Supine to Sit Supine to Sit Assist Moderate Assistance,1 Person Assistance Scooting Scooting to Edge of Bed Moderate Assistance,1 Person Assistance OT-Transfer Assessment Transfers Transfer Ability Minimal Assistance,2 Person Assistance Technique Transfer Destination Bed,Wheelchair Transfer Technique Lateral Scoot Devices Transfer Assistive Devices Gait Belt Comments Mobility Comments Much improved for sliding board transfer, after set-up of sliding board now SARAHI x2 level transfer. Pt having good use of trunk control and placement on her hands to push on the sliding board appropriately. OT- Gait Assessment Comments Gait Ability Comments pt non ambulatory due to lack of BLE motor function OT- Balance Assessment Comments Other Balance Tests/Deviations/Treatment Static sitting balance : fair+/good-. M9 OT- IP Assessment and Plan Start: 09/13/19 15:52 Freq: Status: Active Protocol: Document 09/23/19 11:53 [facility] (Rec: 09/23/19 12:02 [facility] [id number]) OT Summary Assessment and Plan Potential Rehabilitation Potential Good Analytic Complexity at Evaluation Moderate Summary OT Impairments Pain,Range of Motion,Strength, Balance,Functional Mobility, Dressing,Toileting,Bathing, Toilet Transfers,Shower Transfers,Activity Tolerance Progress Towards Goals Progressing Toward Goals Assessment Summary Pt discharged to inpt rehab today. Discharge Recommendations OT Discharge Recommendations Acute Rehab Home Equipment Needs to be determined pending progress in next rehab setting Transportation Needs at Discharge Wheelchair/[facility]
--- NOTE | 2019-09-23 11:37 | PT.IPTN ---
Current Diagnoses Postprocedural hematoma of a nervous system organ or structure following a nervous system procedure (09/13/19) Surgery Performed Operation Date: 09/13/19 11:45 Actual Procedures p T11-L2 Laminectomy and removal of blood clot - Matthew Higgins MD Operation Date: 09/18/19 14:45 Actual Procedures p Incision and Drainage Wound/Spine - Matthew Higgins MD Physical Therapy Treatment Note M2 PT-IP Current Condition Start: 09/13/19 09:31 Freq: NEEDED Status: Discharge Protocol: Document 09/19/19 11:10 AB (Rec: 09/19/19 12:48 AB [id number]) Physical Therapy Current Condition Current Condition Evaluation Date 09/19/19 Treatment Diagnosis s/p lumbar lami w/removal of epidural hematoma; difficulty in walking Onset Date 09/13/2019 Precautions Lumbar Precautions Log Roll,No Twisting,Limit Bending,Lifting Restriction of 10 lbs,Gait Belt above Incisional Area M3 PT-IP Subjective Start: 09/13/19 09:31 Freq: NEEDED Status: Discharge Protocol: Document 09/23/19 11:25 [facility] (Rec: 09/23/19 12:22 CLB [id number]) Subjective Physical Therapy Visit Type Type Treatment Note Visit Start Time 11:25 Visit Stop Time 11:37 Total Visit Minutes 12 Number of CHURCH HISTORY TEACHER Visits 2 Physical Therapy Visit Comments Patient Comments Pt requiring assist with slideboard transfer to for discharge. Therapy Pain Assessment Pain When Pain Assessed At Rest Pain Present Pain Present Pain Reported M4 PT-IP Mobility and Gait Start: 09/13/19 09:31 Freq: NEEDED Status: Discharge Protocol: Document 09/23/19 11:25 [facility] (Rec: 09/23/19 12:22 CLB [id number]) PT-Bed Mobility Assessment Rolling Type of Rolling Log Rolling Level of Assist Moderate Assistance,1 Person Assistance Sit to Supine Sit to Supine Minimal Assistance,1 Person Assistance Scooting Scooting to Edge of Bed Maximum Assistance PT-Transfer Assessment Transfers Transfer Destination Wheelchair Transfer Technique Lateral Scoot Transfer Ability Level of Assist Moderate Assistance,2 Person Assistance,Use of Upper Extremities Comments Mobility Comments Pt required Max A for log roll of LE but was able to assist with supine-sit only requiring Min A x1. Pt completed slide board transfer bed to requiring mod x 1-2 with lateral scooting and use of UE 's, pt was able to use her UEs to control slide and move trunk. M5 PT-IP Objective Assessments Start: 09/13/19 09:31 Freq: NEEDED Status: Discharge Protocol: Document 09/19/19 11:10 AB (Rec: 09/19/19 12:48 AB [id number]) Orientation Orientation/Cognition Level of Alertness Alert Orientation Name Safety Awareness Decreased Safety Awareness Memory Description Short Term Impaired Comments alert with confusion Gross Range of Motion Lower Extremity ROM Assessment Within Functional Limits Impairments c/o R groin pain with PROM Strength Lower Extremity Strength Assessment Bilaterally Impaired Comments Strength Comments R hip/knee flexion: 2-/5 R hip/knee extension: 2-/5 R ankle DF: 0/5 R ankle PF: 1/5 L hip/knee flexion: 2-/5 L hip/knee extension: 2+/5 L ankle DF/PF: 1/5 M6 PT-IP Treatment Start: 09/13/19 09:31 Freq: NEEDED Status: Discharge Protocol: Document 09/23/19 11:25 CLB (Rec: 09/23/19 12:22 CLB [id number]) Physical Therapy Treatment Exercises Exercises Ankle Pumps,Heel Slides Other Treatments Other Treatment Performed Calf stretches, Pt required assist with ther ex. M7 PT-IP Assessment and Plan Start: 09/13/19 09:31 Freq: NEEDED Status: Discharge Protocol: Document 09/23/19 11:25 [facility] (Rec: 09/23/19 12:22 CLB [id number]) PT Summary Assessment and Plan Potential Rehabilitation Potential Good Summary Impairments Pain,ROM,Strength,Balance, Coordination,Sensation,Tone, Cognition,Bed Mobility, Transfers,Gait,Activity Tolerance Assessment Summary Pt progressing with control of trunk and use of UEs to assist her to wheel chair during slideboard transfer requiring Min A x1. Pt transfer to to d/c to acute rehab. Goals Bed Mobility Goal Moderate Assistance Transfer Goal Moderate Assistance,Front Wheeled Walker Gait Goal Moderate Assistance,Front Wheel Walker Gait Distance 10 Days to Meet Goals 10 Frequency of Treatment Frequency Of Treatment Twice a Day Treatment Plan Physical Therapy Treatment Plan Bed Mobility Training,Transfer Training,Gait Training, Therapeutic Exercise,Balance Retraining,Post Op Education, Discharge Planning,Hot or Cold Pack,Neuromuscular Re-ed, Coordination Retraining,Manual Therapy Recommendations To Nursing Amount of Assist Needed 2 Person Assist,Mechanical Lift Discharge Recommendations PT Discharge Recommendations SNF Rehab,Acute Rehab
== END 2019-09-23 11:35 | DRG 908 ==
PROVIDERS: Internal Medicine; Orthopaedic Surgery; Admitting Provider Nurse Practitioner Adult Health; Referring Provider Student in an Organized Health Care Education/Training Program; Visit Provider Nurse Practitioner Adult Health
PROC: 00CX0ZZ Extirpation of Matter from Thoracic Spinal Cord, Open Approach (ICD-10-PCS; principal; 2019-09-13 11:45)
DX: G97.61 Postprocedural hematoma of a nervous system organ or structure following a nervous system procedure (principal); G95.29 Other cord compression; T83.511A Infection and inflammatory reaction due to indwelling urethral catheter, initial encounter; N39.0 Urinary tract infection, site not specified; G82.20 Paraplegia, unspecified; D68.9 Coagulation defect, unspecified; M48.04 Spinal stenosis, thoracic region; N31.9 Neuromuscular dysfunction of bladder, unspecified; I97.3 Postprocedural hypertension; R12 Heartburn; I95.9 Hypotension, unspecified; B96.20 Unspecified Escherichia coli [E. coli] as the cause of diseases classified elsewhere; R60.9 Edema, unspecified
CPT/HCPCS: 36415; 72020; 72100; 72146; 72147; 72148; 72149; 76000; 76700; 80048; 80053; 81001; 83735; 84145; 84439; 84443; 85025; 85610; 85730; 87077; 87086; 87186; 93005; 93970; 94760; 97110; 97162; 97164; 97165; 97166; 97530; 97535; A9270; G0379; J0330; J1100; J1170; J1885; J1940; J2060; J2405; J2704; J2765; J3010

== ENCOUNTER → 2022-03-21 14:58 | Outpatient (CLI) | payer MEDICARE, SELFPAY ==
[2019-09-13 04:35] VITALS: BMI 22.3
[2022-03-21 17:23] LABS: COVID19 -Nasal RAPID Negative (Negative)
== END ==
PROVIDERS: PCP Internal Medicine; Referring Provider Orthopaedic Surgery; Visit Provider Orthopaedic Surgery
DX: Z20.822 Contact with and (suspected) exposure to COVID-19 (principal)
CPT/HCPCS: 87635; C9803

== ENCOUNTER 2022-03-24 12:45 | Observation (INO) | payer MEDICARE, SELFPAY ==
[2019-09-13 04:35] VITALS: BMI 22.3
[2022-03-17 11:34] VITALS: BMI 23.0
[2022-03-23] VITALS (13 sets, daily range): BP systolic 96–150; BP diastolic 51–80; PULSE 67–90; RESP 11–20; TEMP 36.1–37.1; O2SAT 93–97; BMI 22.6
--- NOTE | 2022-03-23 06:00 | DI.RAD.S_ITS ---
PROCEDURE: XR KNEE RT 1TO2V INDICATIONS: prosthesis placement TECHNIQUE: 3 views of the knee were acquired. COMPARISON: None. FINDINGS: Bones: Total right knee arthroplasty in good position. Postprocedural soft tissue air and joint effusion noted. Soft tissues: No joint effusion. No suspicious soft tissue calcifications. IMPRESSION: Total right knee arthroplasty in good position Approved by: Carmine King M.D. on 03/23/2022 at 11:35
[2022-03-23] MEDS: PREGABALIN 75 MG CAPSULE PO (09:05)
[2022-03-23] MEDS: ACETAMINOPHEN 325 MG TABLET 975 MG PO (09:05)
[2022-03-23] MEDS: LACTATED RINGERS 1,000 ML 42 ML IV (09:08)
--- NOTE | 2022-03-23 09:34 | PM.PREOP ---
Pre-operative Note COVID-19 COVID-19 status: Negative Result date/Date tested (Pos, Neg/Pending): 03/21/22 Interval Note History & Physical reviewed/Exam performed by Physician: Yes Changes to H&P: No
[2022-03-23] MEDS: CEFAZOLIN 2 GM/100 ML PREMIX 100 ML IV (10:19)
[2022-03-23] MEDS: TRANEXAMIC ACID 1,000 MG VIAL 1000 MG IV ×2 (10:20→11:22)
--- NOTE | 2022-03-23 10:31 | SUR.OPER ---
Supine on padded OR bed. Pillow under head, arms secured on padded armboards <90 degree abduction. Safety belt across torso. Non-operative leg secured with tape over blanket over lower leg. Operative leg secured in [place].
[2022-03-23] MEDS: BUPIVACAINE LIPOSOME 266 MG/20 ML VIAL INJ (10:46)
[2022-03-23] MEDS: MORPHINE 4 MG/ML INJ INJ (10:46)
[2022-03-23] MEDS: BUPIVACAINE 0.5% W/ EPI (PF) 30 ML VIAL INJ (10:48)
--- NOTE | 2022-03-23 11:48 | P.OP_ITS ---
Operative Date/Time/Diagnoses Date of procedure: 03/23/22 Time of procedure: 11:48 Pre-op diagnosis: Right knee osteoarthritis with retained anterior cruciate ligament reconstruction hardware Post-op diagnosis: same Procedure & Clinicians Procedure: Right total knee replacement with removal of deep screws Same procedure as scheduled: Yes Indications: The patient has had progressively worsening right knee pain with radiographic changes consistent with arthritis. Non-operative management has failed and the patient has requested total knee replacement. In addition ACL screws are present from a prior surgery and she is aware that these may need to be removed. The risks, benefits and alternatives to surgery were discussed with the patient prior to proceeding. Risks discussed included, but were not limited to, failure to relieve pain, stiffness, infection, nerve damage, deep venous thrombosis, pulmonary embolism, stroke, coma, heart attack, permanent paralysis and , as well as the potential need for eventual revision of the prosthetic. Surgeon: Alexey White Pulmonologist/Intensivist: Paco Hart Click Yes if Unassisted: No Anesthesia Type: General, Spinal and Local Operative Notes Findings: Complete loss of lateral compartment cartilage with relative preservation of the medial compartment. Both the femoral and tibial ACL screws interfered with the procedure and needed removal. Closure Type: primary Specimen(s): none sent Prosthetic devices, grafts, tissues, transplants, or devices: Implants used in this procedure were manufactured by the [email or web address] and included the BCS II Journey total knee replacement with a size 4 right Oxinium femur, a size 4 right non porous tibial base plate, a 9 mm cross- linked polyethylene tibial insert and a 29 mm oval Kayleigh II patella. Applied: implant(s) Estimated Blood Loss (mL): 25 Blood products transfused: none Tourniquet time (min): 53 Procedure in detail: The patient was seen in the pre-operative area, where the patient identified the right knee as the operative site and this was marked with my initials. The patient received pre-operative antibiotics, and was taken to the operating room and placed on the operative table in the supine position. After satisfactory anesthesia, a time clock inspector out was performed. The right leg was encircled with a tourniquet about the proximal thigh, and the leg was prepared from the toes to the tourniquet with ChloroPrep in the usual fashion and draped through sterile drapes. The leg was elevated and exsanguinated with Eschmark bandage and the tourniquet inflated to 250 mmHg pressure. The knee was approached through an approximately 18 cm incision centered over the patella and carried into the knee through a medial parapatellar arthrotomy. This was made to incorporate the tibial incision from her prior ACL reconstruction. The anterior osteophytes and soft tissues were removed. The rotational landmarks of [place]'s line and the transepicondylar axis were marked on the femur with electrocautery, and intramedullary guide holes for the femur and tibia were created. The distal femoral cut was made in 6 degrees of valgus using the intramedullary guide at the primary cut setting. Initially upon placement of the intramedullary guide we made contact with the femoral interference screw. The position of the screw was identified by finding the sutures that had been attached to the femoral end of the graft and following them down to the buried femoral screw. This was removed without difficulty. The proximal tibial cut was then made using the intramedullary guide, taking 9 mm of bone off the less involved side. The extension gap was checked and the rotation of the femoral component confirmed with the gap balancing system. The anterior, posterior and chamfer cuts were then made. The posterior osteophytes and soft tissues were then removed. The posterior capsule was injected with part of a mixture of 50 ml 0.25% Marcaine mixed with 20 ml Exparel and 4 mg of morphine for post-operative pain control. The remainder of this mixture was injected into the capsule and subcutaneous tissues during cement curing. The tibia was prepared with the rotation set by an extra medullary guide. Upon attempting to drill for the stem of the tibia we made contact with the tibial interference screw which was then removed through the drill hole in the tibial plateau. Trial tibial and femoral components were then placed and the intercondylar notch cut through the femoral trial. Range of motion was 0-135 d egrees, with good stability throughout the range. The patella was then cut to accommodate the patellar prosthetic. There was no need for a lateral release. The trials were then removed, and the femoral hole plugged with a bone plug. The track of the femoral screw was also plugged with a bone plug from 1 of the chamfer cuts. The bone was prepared with pulsatile lavage, and dried with a sponge. Cement was applied and the final prosthetics placed. Excess cement was removed during and after cement curing. After confirming there was no extruded cement posteriorly, the final tibial insert was placed. The knee was copiously irrigated and the tourniquet deflated. Hemostasis was obtained. The capsule was closed with interrupted # 2 polyester suture. The subcutaneous layer was closed with 3-0 Vicryl, and the skin with a running 3-0 V-Lock suture and Dermabond. An Aquacel Ag dressing was applied and the patient was taken to recovery having tolerated the procedure well. The services of Adán Tanner were required to make this procedure proceed expediently. A skilled it is glass ribbon machine operator assistant was necessary for exposure and positioning of the leg. This would have taken considerably longer had he not been available. Complications: none Post-operative Condition: stable Disposition: PACU Plan for aftercare: The patient will be maintained on a standard total knee replacement protocol with weight bearing as tolerated. The patient will receive aspirin and se quential compression devices for DVT prophylaxis. The patient will be discharged home when safe for the home environment.
[2022-03-23] MEDS: LACTATED RINGERS 1,000 ML 100 ML IV (13:22)
[2022-03-23] MEDS: ACETAMINOPHEN 325 MG TABLET 650 MG PO ×3 (13:22→23:37)
[2022-03-23] MEDS: GABAPENTIN 400 MG CAPSULE PO ×3 (15:12→20:39)
--- NOTE | 2022-03-23 17:14 | PC.NURSE ---
pt used the bsc, unable to void, bladder scan 250cc
--- NOTE | 2022-03-23 17:30 | PT.IIE ---
Current Diagnoses Unilateral primary osteoarthritis, right knee (03/23/22) Surgery Performed Operation Date: 03/23/22 10:00 Actual Procedures p Total Knee Arthroplasty w/femoral & tubial screw removal(Right) - Alexey White MD Surgical History (Last Updated 03/14/22 @ 13:29 by Britany Bell RN) History of appendectomy History of cervical spinal surgery History of cholecystectomy History of colonoscopy History of esophagogastroduodenoscopy (EGD) History of hysterectomy (1995) History of laminectomy History of lumbar fusion (2010) History of lumbar spinal fusion (2014) History of orthopedic surgery (09/13/19) History of orthopedic surgery (09/18/19) History of orthopedic surgery (2009) History of repair of rotator cuff History of skin graft History of tonsillectomy History of total abdominal hysterectomy and bilateral salpingo-oophorectomy Hx of fusion of cervical spine (2012) Hx of repair of right rotator cuff (1994) Hx of right knee surgery (1983) Medical History (Last Updated 03/17/22 @ 11:32 by Britany Bell RN) Anemia Basal cell carcinoma Carotid artery disease Cervical disc disease Chronic low back pain Degenerative joint disease Gastroesophageal reflux disease Glaucoma Headache Hyperlipidemia Hypothyroidism 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) Left foot drop Macular degeneration Neuropathy Osteoarthritis Osteoporosis Restless leg syndrome Scoliosis Sinus drainage Spinal stenosis Physical Therapy Inpatient Evaluation/Re-Eval M1 PT/OT-IP Prior Functional Status Start: 03/23/22 17:32 Freq: NEEDED Status: Active Protocol: Document 03/23/22 17:30 DLM (Rec: 03/23/22 17:47 DLM [id number]) Medical Review Prior Functional Status Medical History Reviewed Yes Diet/Fluid Consistency Regular Communication WFL, glasses Mobility and Gait Independent with cane, has left AFO that she does not always wear in the house but always wears it if leaving house Activities of Daily Living and IADL's modified due to right shoulder with rotator cuff tear, independent with basic ADL's, 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 8 with left rail Home Environment Standard Height Toilet,Walk in Shower,Built-In Shower Seat Home Equipment Bedside Commode Additional Social History Comment Her Daughter plans to stay with her at discharge M2 PT-IP Current Condition Start: 03/23/22 17:32 Freq: NEEDED Status: Active Protocol: Document 03/23/22 17:30 DLM (Rec: 03/23/22 17:47 [facility] [id number]) Physical Therapy Current Condition Current Condition Evaluation Date 03/23/22 Treatment Diagnosis right TKA, difficulty ambulating Onset Date 03/23/22 M3 PT-IP Subjective Start: 03/23/22 17:32 Freq: NEEDED Status: Active Protocol: Document 03/23/22 17:30 DLM (Rec: 03/23/22 17:47 [facility] [id number]) Subjective Physical Therapy Visit Type Type Initial Evaluation Visit Start Time 17:00 Visit Stop Time 17:30 Total Visit Minutes 30 Number of SCIENCE LIAISON Visits 0 Physical Therapy Visit Comments Patient Comments she reports having little to no pain in right knee today Patient Goals go home with her Daughter to help M4 PT-IP Mobility and Gait Start: 03/23/22 17:32 Freq: NEEDED Status: Active Protocol: Document 03/23/22 17:30 DLM (Rec: 03/23/22 17:47 [facility] [id number]) PT-Bed Mobility Assessment Supine to Sit Supine to Sit Standby Assistance Sit to Supine Sit to Supine Standby Assistance Scooting Scooting to Edge of Bed Standby Assistance Scooting Up and Down in Bed Independent PT-Transfer Assessment Sit to and From Stand Sit to and from Stand Contact Guard Assistance,Use of Upper Extremities Equipment Transfer Assistive Device Gait Belt,Front Wheeled Walker Transfers Transfer Destination Bed Transfer Technique Stand Step Pivot Transfer Ability Level of Assist Contact Guard Assistance,Use of Upper Extremities Comments Mobility Comments pt did not use AFO this visit on left foot per pt request, she reports she doesnot use it to do short distances in the house Gait Assessment Gait Gait Assistance Required: Contact Guard Assist Distance (Feet) 20 Able to Maintain Weight Bearing Status Yes During Gait Assistive Devices Assistive Device Gait Belt,Front Wheeled Walker Gait Deviations General Gait Pattern Antalgic,Ataxic Factors Limiting Gait Function Factors Limiting Gait Function Decreased Activity Tolerance, Decreased Strength,Limited Range of Motion,Pain Comments Gait Comments mild right medial knee pain with weight bearing, she uses increased left hip flexion to clear foot on left since not wearing AFO, educated pt to assist right LE with UE support on the FWW Stair Climbing Assessment Comments Stair Climbing Comments do stair training next visit or as tolerated PT-Balance Assessment Sitting Balance and Reactions Static Sitting Balance Ability Normal Dynamic Sitting Balance Ability Normal Standing Balance and Reactions Static Standing Balance Ability Good Dynamic Standing Balance Ability Fair Device Used FWW M5 PT-IP Objective Assessments Start: 03/23/22 17:32 Freq: NEEDED Status: Active Protocol: Document 03/23/22 17:30 DL (Rec: 03/23/22 17:47 [facility] [id number]) Orientation Orientation/Cognition Level of Alertness Alert Orientation Name,Age,Birthday,Month,Date, Year,Day of Week,Place, Situation Language Function Ability No Deficits Noted Safety Awareness Understands Safety Issues Memory Description No Deficits Noted Gross Range of Motion Upper Extremity ROM Assessment Right Impaired Impairments pain prevents elevation right shoulder Lower Extremity ROM Assessment Right Impaired Impairments knee limited post-op, lacking 10 degrees ext in supine and she is actively flexing to 75 degrees sitting Strength Upper Extremity Strength Assessment Right Impaired Shoulder 0/5 elevation Lower Extremity Strength Assessment Bilaterally Impaired Hip right LE able to lift off bed, left hip flexion 4/5 Knee right knee ext 3-/5, left knee 5/5 Ankle right DF 5/5, left DF 1+/5 Coordination Assessment Gross Coordination Gross Coordination WNL Sensation Assessment Sensation Gross Sensation Right LE Impaired,Left LE Impaired Sensation Description Numbness Comments Sensation Comments LE numbness since back surgeries, can feel touch but she does not feel it is normal Muscle Tone Muscle Tone WNL Yes M6 PT-IP Treatment Start: 03/23/22 17:32 Freq: NEEDED Status: Active Protocol: Document 03/23/22 17:30 DL (Rec: 03/23/22 17:47 [facility] [id number]) Physical Therapy Treatment Exercises Exercises Ankle Pumps Education Education Provided Weight Bearing Status,Safety Other Treatments Other Treatment Performed Her Daughter arrived during this visit and observed treatment M7 PT-IP Assessment and Plan Start: 03/23/22 17:32 Freq: NEEDED Status: Active Protocol: Document 03/23/22 17:30 DL (Rec: 03/23/22 17:47 [facility] [id number]) PT Summary Assessment and Plan Potential Rehabilitation Potential Good Status of Condition at Evaluation Evolving Summary Impairments Pain,ROM,Strength,Balance, Sensation,Bed Mobility, Transfers,Gait,Activity Tolerance Assessment Summary Marisol is alert and eager to get out of bed today. She has little pain in her right knee but shows good functional use of right LE. She was able to ambulate a short distance in her room with the FWW. Adjusted her FWW for home to her height. Pt requested back to bed after mobility this visit. Ice applied to right knee for pain management. Answered pt's questions. Will plan to advance her distance of gait and stair training tomorrow. If she continues to progress well anticipate she will be able to discharge home tomorrow. Goals Bed Mobility Goal Independent Transfer Goal Independent,Front Wheeled Walker Gait Goal Independent,Front Wheel Walker Gait Distance 100 feet Other Goals up and down 8 steps with rail and cane with CG assist Days to Meet Goals 2 Frequency of Treatment Frequency Of Treatment Twice a Day Treatment Plan Physical Therapy Treatment Plan Bed Mobility Training,Transfer Training,Gait Training, Therapeutic Exercise,Balance Retraining,Post Op Education, Discharge Planning,Hot or Cold Pack,Neuromuscular Re-ed Other Recommendations and Next Treatment stair training, provide post- Focus op packet with written HEP Precautions Other Precautions left foot drop, has AFO, right rotator cuff tear and no functional shoulder elevation Weight Bearing Status Weight Bearing Status Weight Bear as Tolerated Recommendations To Nursing Amount of Assist Needed 1 Person Assist Discharge Recommendations PT Discharge Recommendations Home with Assistance,Home Health Other Discharge Recommendations pt wants to start with home health PT Transportation Needs at Discharge Private Vehicle
--- NOTE | 2022-03-23 18:10 | PC.NURSE ---
pt was mixing up her the medication name and dosage. I verified her meds with her and I offered to let her look at the emar pt said I don't need to see It, I know what I take.
[2022-03-23] MEDS: DOCUSATE 100 MG CAPSULE PO (20:38)
[2022-03-23] MEDS: CYCLOBENZAPRINE 10 MG TABLET PO (20:38)
[2022-03-23] MEDS: TRAZODONE 50 MG TABLET 100 MG PO (20:39)
[2022-03-23] MEDS: PANTOPRAZOLE DR 40 MG TABLET PO (20:39)
[2022-03-23] MEDS: ASPIRIN EC 81 MG TABLET PO (20:39)
[2022-03-23] MEDS: diphenhydrAMINE 25 MG TABLET PO (20:39)
[2022-03-23] MEDS: DORZOLAMIDE/TIMOLOL OPHTH 10 ML 1 DROPS EYE-BOTH (20:41)
[2022-03-23] MEDS: gemfibroziL 600 MG TABLET PO (20:41)
[2022-03-23] MEDS: OXYCODONE IR 5 MG TABLET 10 MG PO (23:38)
[2022-03-24] VITALS (8 sets, daily range): BP systolic 95–173; BP diastolic 49–87; PULSE 84–103; RESP 16–20; TEMP 36.3–37.2; O2SAT 88–96; BMI 22.6
[2022-03-24] MEDS: ACETAMINOPHEN 325 MG TABLET 650 MG PO ×3 (05:21→17:48)
[2022-03-24] MEDS: GABAPENTIN 400 MG CAPSULE PO ×5 (05:21→22:06)
[2022-03-24] MEDS: OXYCODONE IR 5 MG TABLET 10 MG PO ×3 (05:47→20:17)
[2022-03-24 06:00] LABS: Hemoglobin 10.6 g/dL (12.0-16.0)
--- NOTE | 2022-03-24 07:22 | P.DS_ITS ---
History of Present Illness History of Present Illness Date Patient Seen: 03/24/22 Time Patient Seen: 07:22 Chief complaint: OPB Narrative: The history and physical is contained in the chart previously completed note. Please refer to that note for this information. Discharge Providers Provider Date of admission: March 23, 2022 Discharge Date: 03/24/22 Primary care physician: Kurt Garza MD Consults: 03/23/22 12:21 Consult to Discharge Planning Routine Comment: Consult to Physical Therapy Evaluate & Treat Comment: Physician Instructions: postop TKA protocol 03/23/22 12:56 Consult to Pastoral Services Routine Comment: Per pt request Discharge provider: Alexey White MD Summary Hospital Course Discharge Diagnosis: 1. Right knee osteoarthritis 2. Post hemorrhagic anemia Hospital Course: The patient was admitted to the hospital and taken directly to the operating room on March 23, 2022 where she underwent a right total knee replacement without complications. She also had removal of deep hardware from a prior ACL reconstruction. On postoperative day 1 she had an anticipated post hemorrhagic anemia. She was comfortable for pain control. Status at Discharge Cognitive/behavioral status at discharge: at baseline, oriented Functional status at discharge: uses cane/walker Overall status at discharge: patient is progressing back to baseline Time Spent with Patient Time spent: Less than 30 minutes Exam Vital Signs (past 8 hours): - 03/24/22 01:00 03/24/22 06:00 Temperature 98.1 F 97.6 F Pulse Rate 85 89 Respiratory Rate 18 18 Blood Pressure 124/55 L 140/66 Pulse Oximetry 96 94 Oxygen Flow Rate 0 0 Oxygen Delivery Method Room Air Oxygen Flow Rate 0 Narrative Exam Narrative: Right knee wound is dressed with no drainage on the bandage. Calf is soft. Light touch and motion are intact in the right lower extremity. 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) Left foot drop Macular degeneration Neuropathy Osteoarthritis Osteoporosis Restless leg syndrome Scoliosis Sinus drainage Spinal stenosis Surgical History (Updated 03/14/22 @ 13:29 by Britany Bell RN) History of appendectomy History of cervical spinal surgery History of cholecystectomy History of colonoscopy History of esophagogastroduodenoscopy (EGD) History of hysterectomy (1995) History of laminectomy History of lumbar fusion (2010) History of lumbar spinal fusion (2014) History of orthopedic surgery (09/13/19) History of orthopedic surgery (09/18/19) History of orthopedic surgery (2009) History of repair of rotator cuff History of skin graft History of tonsillectomy History of total abdominal hysterectomy and bilateral salpingo-oophorectomy Hx of fusion of cervical spine (2012) Hx of repair of right rotator cuff (1994) Hx of right knee surgery (1983) Family History Father Suicide Mother Alcohol abuse Sister Hyperthyroidism Social History household members: none Smoking Status: Former smoker alcohol intake: current Discharge Assessment & Plan Assessment and Plan Assessment: Stable postop day 1 from right total knee replacement with anticipated post hemorrhagic anemia. This should improve without specific intervention. At the time of this dictation it is planned to do physical therapy later today with possible discharge. Plan of Treatment: Physical therapy this morning, discharge later in the day if appropriate. Follow up in my office in 10-14 days. A prescription for oxycodone has been sent to her pharmacy. She is also been instructed in the use of Tylenol for additional pain control. She will be on Plavix and low-dose aspirin for DVT prophylaxis. Discharge Plan Discharge Plan Patient Disposition: Home Discharge orders & Medications Discharge Orders: Discharge (Order); Ordered 03/24/22 Ordered By: Alexey White Prescriptions: New acetaminophen 325 mg Tablet 650 mg PO Q6HR Qty: 100 0RF aspirin 81 mg Tablet,Delayed Release (Dr/Ec) 81 mg PO DAILY Qty: 42 0RF oxycodone 5 mg Tablet 10 mg PO Q4H PRN (Reason: Pain, Moderate (4-6)) Qty: 60 0RF Continued pravastatin 20 MG tablet 20 mg PO DAILY Qty: 0 ginkgo biloba 120 MG tablet 120 mg PO BID Qty: 0 diphenhydramine HCl [Diphedryl] 25 MG tablet 25 mg PO BID Qty: 0 levothyroxine 88 mcg Tablet 88 mcg PO DAILY gemfibrozil 600 mg Tablet 600 mg PO BID pantoprazole 40 mg Tablet,Delayed Release (Dr/Ec) 40 mg PO BID dorzolamide-timolol 22.3-6.8 mg/mL Drops 1 drp OPHTHALMIC (EYE) BID cyclobenzaprine 10 mg Tablet 10 mg PO BID sertraline 25 mg Tablet 25 mg PO DAILY cholecalciferol (vitamin D3) [Vitamin D3] 10 mcg (400 unit) Capsule 400 unit PO DAILY [place] 3-6-9 Fatty Acids 400-400-200 mg Capsule 1 cap PO BID calcium carbonate [Calcium 600] 600 mg calcium (1,500 mg) Tablet 600 mg PO DAILY coQ10 (ubiquinol) 100 mg Capsule 100 mg PO DAILY Adults Multivitamin 18 mg iron-400 mcg-25 mcg Tablet 1 tab PO DAILY Glucosamine Chondroitin 550-30-1 mg Capsule 1 cap PO BID trazodone 50 mg Tablet 100 mg PO BEDTIME gabapentin 400 mg Capsule 400 mg PO 5XD clopidogrel [Plavix] 75 mg Tablet 75 mg PO DAILY triamcinolone acetonide [Nasacort] 55 mcg Aerosol,[place] 2 spray INTRANASAL DAILY Rx Instructions: administer into each nostril Klarity (chondroitin) (PF) 0.25 % Drops 1 drp ophthalmic (eye) BID Discontinued acetaminophen [Tylenol Extra Strength] 500 mg Tablet 1,000 mg PO PRN PRN (Reason: Pain (Scale Score 1-3)) oxycodone 5 mg Tablet 5 mg PO Q3HR PRN (Reason: Pain, Moderate (4-6)) Qty: 30 0RF Follow up/Referrals: Kurt Garza MD [Primary Care Provider] - Alexey White MD [Physician] - As previously scheduled (Follow up w/ Lianne Hernandze PA-C, on 04/06/2022 @ 3:[address] [facility] in [place].) Diet/Activity/Treatments Diet: Diet as Tolerated Activity: Walk frequently! You may bear weight as tolerated on your right leg. Cold/Heat Therapy: Ice to knee as needed for pain. Skin/Wound/Dressing Care Report to your healthcare provider any signs of infection, such as:: chills, fever, night sweats, unusual drainage and unusual redness Dressing: May remove EZRA wrap and shower. Leave Aquacel dressing in place until follow up appointment. No bathing or otherwise soaking incision. Call office if dressing becomes saturated inside. Visit Report/Discharge Packet Instructions: DI for Knee Replacement Stand Alone Forms: Surgery Discharge Discharge Data Primary Care Provider: Kurt Garza Attending Provider: Alexey White Quality VTE Deep Vein Thrombosis/Pulmonary Embolism Present on Admission: No
[2022-03-24] MEDS: polyethylene glycoL 3350 17 GM POWD.PACK PO (08:15)
[2022-03-24] MEDS: DORZOLAMIDE/TIMOLOL OPHTH 10 ML 1 DROPS EYE-BOTH (08:16)
[2022-03-24] MEDS: ASPIRIN EC 81 MG TABLET PO ×2 (08:17→20:17)
[2022-03-24] MEDS: gemfibroziL 600 MG TABLET PO ×2 (08:17→20:18)
[2022-03-24] MEDS: DOCUSATE 100 MG CAPSULE PO ×2 (08:17→20:18)
[2022-03-24] MEDS: HYDROMORPHONE 2 MG TABLET PO ×2 (08:17→11:16)
[2022-03-24] MEDS: diphenhydrAMINE 25 MG TABLET PO ×2 (08:17→20:18)
[2022-03-24] MEDS: MULTIVITAMIN 1 TABLET 1 TAB PO (08:17)
[2022-03-24] MEDS: PRAVASTATIN 20 MG TABLET PO (08:17)
[2022-03-24] MEDS: PANTOPRAZOLE DR 40 MG TABLET PO ×2 (08:17→20:18)
[2022-03-24] MEDS: CHOLECALCIFEROL (VITAMIN D3) 400 UNIT TABLET PO (08:18)
[2022-03-24] MEDS: SERTRALINE 50 MG TABLET 25 MG PO (08:18)
[2022-03-24] MEDS: CALCIUM CARBONATE 600 MG TABLET PO (08:18)
[2022-03-24] MEDS: LEVOTHYROXINE 88 MCG TABLET PO (08:18)
[2022-03-24] MEDS: CLOPIDOGREL 75 MG TABLET PO (08:18)
[2022-03-24] MEDS: CYCLOBENZAPRINE 10 MG TABLET PO ×2 (08:18→20:17)
[2022-03-24] MEDS: TRIAMCINOLONE ACETONIDE 55 MCG 2 EACH NASAL (08:21)
--- NOTE | 2022-03-24 10:36 | PT.IPTN ---
Current Diagnoses Unilateral primary osteoarthritis, right knee (03/24/22) Surgery Performed Operation Date: 03/23/22 10:00 Actual Procedures p Total Knee Arthroplasty w/femoral & tubial screw removal(Right) - Alexey White MD Physical Therapy Treatment Note M2 PT-IP Current Condition Start: 03/23/22 17:32 Freq: NEEDED Status: Active Protocol: Document 03/23/22 17:30 DLM (Rec: 03/23/22 17:47 DLM [id number]) Physical Therapy Current Condition Current Condition Evaluation Date 03/23/22 Treatment Diagnosis right TKA, difficulty ambulating Onset Date 03/23/22 M3 PT-IP Subjective Start: 03/23/22 17:32 Freq: NEEDED Status: Active Protocol: Document 03/24/22 10:24 KS (Rec: 03/24/22 13:37 KS [id number]) Subjective Physical Therapy Visit Type Type Treatment Note Visit Start Time 10:24 Visit Stop Time 10:36 Total Visit Minutes 12 Notes BP: 87/39 after standing and O2 83% on RA Number of SKI PATROL OFFICER Visits 1 Physical Therapy Visit Comments Patient Comments Pt agreeable to working w/ therapy. Patient Goals go home with her Daughter to help M4 PT-IP Mobility and Gait Start: 03/23/22 17:32 Freq: NEEDED Status: Active Protocol: Document 03/24/22 10:24 KS (Rec: 03/24/22 13:37 KS [id number]) PT-Bed Mobility Assessment Supine to Sit Supine to Sit Standby Assistance Sit to Supine Sit to Supine Standby Assistance Scooting Scooting to Edge of Bed Standby Assistance Scooting Up and Down in Bed Independent PT-Transfer Assessment Sit to and From Stand Sit to and from Stand Contact Guard Assistance,Use of Upper Extremities Equipment Transfer Assistive Device Gait Belt,Front Wheeled Walker Transfers Transfer Destination Bed,Bedside Commode Transfer Technique Stand Step Pivot Transfer Ability Level of Assist Contact Guard Assistance,Use of Upper Extremities Comments Mobility Comments Pt in bed upon arrival w/ daughter. Pt w/ difficulty staying awake reporting she has narcolepsy. Pt BA for sup <>sit and CGA for sit<>stand w / FWW. Upon standing pt denied dizziness however could not keep eyes open and sat back down. BP: 87/39 and O2 83% on RA. Improved to 90s w/ cues for deep breathing. Pt refused to lay back down d/t needing to use bathroom. Performed stand step pivot to BSC CGA w/ FWW. O2 92-94% on RA, CLAIMS ANALYST arrived and pt left w/ CLAIMS ANALYST aware of low BP, low O2, and pt keeping eyes closed. Gait Assessment Gait Gait Assistance Required: Contact Guard Assist Distance (Feet) 2 Able to Maintain Weight Bearing Status Yes During Gait Assistive Devices Assistive Device Gait Belt,Front Wheeled Walker Gait Deviations General Gait Pattern Antalgic,Ataxic Factors Limiting Gait Function Factors Limiting Gait Function Decreased Activity Tolerance, Decreased Strength,Limited Range of Motion,Pain Comments Gait Comments Stand step pivot to BSC only, see mobility. Stair Climbing Assessment Comments Stair Climbing Comments Unable this AM, but pt states she has a ramp. PT-Balance Assessment Sitting Balance and Reactions Static Sitting Balance Ability Normal Dynamic Sitting Balance Ability Normal Standing Balance and Reactions Static Standing Balance Ability Fair Dynamic Standing Balance Ability Fair Device Used FWW M5 PT-IP Objective Assessments Start: 03/23/22 17:32 Freq: NEEDED Status: Active Protocol: Document 03/23/22 17:30 DLM (Rec: 03/23/22 17:47 DLM [id number]) Orientation Orientation/Cognition Level of Alertness Alert Orientation Name,Age,Birthday,Month,Date, Year,Day of Week,Place, Situation Language Function Ability No Deficits Noted Safety Awareness Understands Safety Issues Memory Description No Deficits Noted Gross Range of Motion Upper Extremity ROM Assessment Right Impaired Impairments pain prevents elevation right shoulder Lower Extremity ROM Assessment Right Impaired Impairments knee limited post-op, lacking 10 degrees ext in supine and she is actively flexing to 75 degrees sitting Strength Upper Extremity Strength Assessment Right Impaired Shoulder 0/5 elevation Lower Extremity Strength Assessment Bilaterally Impaired Hip right LE able to lift off bed, left hip flexion 4/5 Knee right knee ext 3-/5, left knee 5/5 Ankle right DF 5/5, left DF 1+/5 Coordination Assessment Gross Coordination Gross Coordination WNL Sensation Assessment Sensation Gross Sensation Right LE Impaired,Left LE Impaired Sensation Description Numbness Comments Sensation Comments LE numbness since back surgeries, can feel touch but she does not feel it is normal Muscle Tone Muscle Tone WNL Yes M6 PT-IP Treatment Start: 03/23/22 17:32 Freq: NEEDED Status: Active Protocol: Document 03/24/22 10:24 KS (Rec: 03/24/22 13:37 KS [id number]) Physical Therapy Treatment Education Education Provided Safety Other Treatments Other Treatment Performed Her Daughter observed treatment M7 PT-IP Assessment and Plan Start: 03/23/22 17:32 Freq: NEEDED Status: Active Protocol: Document 03/24/22 10:24 KS (Rec: 03/24/22 13:37 KS [id number]) PT Summary Assessment and Plan Potential Rehabilitation Potential Good Summary Impairments Pain,ROM,Strength,Balance, Sensation,Bed Mobility, Transfers,Gait,Activity Tolerance Progress Towards Goals Slow Progress due to Medical Issues Assessment Summary Limited by low O2 and low BP this morning as well as pts inability to stay awake/keep eyes open. Pt was impulsive and not wanting to follow cues , increasing risk of falls. Pt and daughter state they have ramp to enter instead of stairs. Will continue to progress when pt medically stable and more alert. Goals Bed Mobility Goal Independent Transfer Goal Independent,Front Wheeled Walker Gait Goal Independent,Front Wheel Walker Gait Distance 100 feet Other Goals up and down 8 steps with rail and cane with CG assist Days to Meet Goals 2 Frequency of Treatment Frequency Of Treatment Twice a Day Treatment Plan Physical Therapy Treatment Plan Bed Mobility Training,Transfer Training,Gait Training, Therapeutic Exercise,Balance Retraining,Post Op Education, Discharge Planning,Hot or Cold Pack,Neuromuscular Re-ed Other Recommendations and Next Treatment stair training, provide post- Focus op packet with written HEP Precautions Other Precautions left foot drop, has AFO, right rotator cuff tear and no functional shoulder elevation Weight Bearing Status Weight Bearing Status Weight Bear as Tolerated Recommendations To Nursing Amount of Assist Needed 1 Person Assist Discharge Recommendations PT Discharge Recommendations Home with Assistance,Home Health Other Discharge Recommendations pt wants to start with home health PT Transportation Needs at Discharge Private Vehicle
--- NOTE | 2022-03-24 11:36 | CM.DPC ---
Addendum entered by Jyothi Feliciano R.N. 03/24/22 11:36: Below note entered in error. Current discharge plan is to discharge home with [facility]. Referral initiated and will discharge home later this afternoon pending PT session. Daughter at bedside awaiting to transfer pt home. Per RN, O2 sats dropped during PT and pt requesting oxycodone. DCP to continue to follow. Jyothi Feliciano RN/KOJOP Original Note: DCP Cont: Per PT, pt can go home with outpatient PT. No home health needed. Pt discharging home today via POV. Jyothi Feliciano RN/KOJOP
--- NOTE | 2022-03-24 11:42 | CM.DANOTE ---
Addendum entered by Jyothi Feliciano R.N. 03/24/22 14:53: Per Alanis in PT, pt is physically ok to discharge, but pt is not medically. O2 sats dropping. Pt put on O2. DCP to continue to follow. Jyothi Feliciano RN/DAYRON Original Note: DCP Assessment: Payor confirmed: Medicare & AARP PCP: Kurt Garza Pt is a 76 y.o. F who presented to the hospital with a scheduled R knee surgery on 03/23/[address] White. Pt tolerated procedure with no complications. Pt admitted to the floor for further management and evaluation of surgical procedure. DCP met with pt this morning to discuss discharge needs. Pt sitting up in bed. DCP introduced self and role. Pt states she lives alone in a 1 story house in [place]. Pt states she has a daughter, Rayna, who will be assisting her upon discharge and staying with her until she recovers. Pt states that she wants home health services. Medicare choice list given to patient. [facility] was decided upon. Pt uses walker, cane, and wheelchair. Pt states that she still drives POV. Pt denies any other discharge needs. Pt to work with PT today prior to her discharge. P: Pt to work with PT in the afternoon as her O2 sats had dropped during morning session. If all clear by PT, pt to discharge home via daughter POV. Jyothi Feliciano RN/DAYRON Discharge Planning/Care Management CM Discharge Assessment Start: 03/24/22 11:41 Freq: Status: Active Protocol: Document 03/24/22 11:41 ELLEN (Rec: 03/24/22 11:42 ELLEN [id number]) Discharge Planning Assessment Assigned Dry Heat Cabinet Attendant Jyothi Feliciano RN/DAYRON Advance Directives? No History Provided By Patient,Medical Record Prior Living Arrangements House Household Members none Type of transporation used prior to Drives own vehicle admit Independent with ADL's Yes Is patient alert and oriented? Yes Caregiver for Another No Patient/Family Preference Home with Home Health Discharge Plan Home with Home Health [facility] Physical Therapy Transportation Arrangement Daughter POV Referrals Initiated Home Health Medicare Choice List Provided Yes SNF/HH Preference [facility] Updated in Patient Room with Yes name and ext. # of Dry Heat Cabinet Attendant Comment Instructed to call Review Status In Process Please Provide Date Initial DC 03/24/22 Assessment Was Performed Next Review Type Continued Stay Review Pre-Anesthesia Assessment Start: 03/14/22 12:44 Freq: Status: Active Protocol: Document 03/17/22 11:34 CAB (Rec: 03/14/22 13:48 CAB [id number]) Pre-Anesthesia Assessment PAC Comment SEVERE ALLERGY TO NICKEL Preferred Name Deepti or Marisol Patient Information Reviewed Via Phone Assessment Assessment Completed With Patient Diagnostic Results BMP/CMP,CBC,EKG Comment Outside labs/ECG scanned, COVID screen @ [facility] not identifiied Primary Care Provider Kurt Garza Seen Specialist in Last 12 Months Yes Specialist Seen ENT,Orthopedist Primary Language Lao Preferred Language Lao Panel Sewer Required No Height 149.86 cm Weight 51.71 kg Body Mass Index (BMI) 23.0 Hearing Ability Normal Visual Assist Glasses Dentition Type Full- Upper & Lower Barriers to Learning None Hx Anesthesia Reactions Yes: Difficulty waking up, don't want to put me too deep Hx Family Anesthesia Reaction Yes: Daughter-It's hard to wake her up Hx Malignant Hyperthermia No Hx Blood Transfusions No: Pt unsure Hx Blood Transfusion Reaction No Anesthesia Review Requested No alcohol intake current alcohol intake frequency a few times a week Smoking Status Former smoker Tobacco type cigarettes Smoking packs per day 2 how long ago did patient quit smoking Over 30 years ago Substance Use Type does not use Pain Present Pain Reported Musculoskeletal Symptoms Abnormal Gait,Back Pain, Difficulty Walking,Joint Pain History of Falling (Recent or History of Yes ) Patient is completely paralyzed or No completely immobile Prosthesis or Orthotic Device Cane Mental Status Oriented to own ability Is patient on oxygen? No Does patient have ALCOCER/SOB No Hx Sleep Apnea No CPAP/BIPAP use not prescribed Currently Taking a Beta Danni No Can You Climb a Flight of Stairs Without No SOB Hx Chest Pain No Hx SOB No Hx Syncope or Dizziness No Anti-Coagulant Therapy Yes: Plavix-advised to hold 5 days per Surgeon office Has a Hydraulic Lift Operator No Cardiac Testing No Hx Pacemaker/ICD No Pacemaker Rep Required? No Diet Type At Home Regular dysphagia No Gastrointestinal Symptoms Reflux Bladder Pattern Urgency Urinary Catheter Present No Hx Urinary Self Catheterization No Diabetes No Patient No Lactating No Hx Drug Resistant Organism No Presence of External or Internal Medical Yes: neck and back hardware Devices Have you had any close contact with No someone diagnosed with COVID-19? Received a COVID vaccine? Yes Received all doses? Yes Marital Status / Lives With none Prior Living Arrangements House Number of Floors (Floors) One Floor Support System Child/Children Does the Patient Have Assistance After Yes: Daughter will stay w/pt Surgery at [facility] to assist with care Patient Discharge Plan Description Return Home Comment Pt advised 2-3 day length of stay per surgeon Feels Safe in Current Environment Yes Been Physically Hurt or Threatened By a No Person in Current Environment Do you have thoughts of harming yourself None or others? Are you currently considering suicide? No Do you have a plan to hurt yourself or No Plan others? Do You Have Any Spiritual Beliefs That No May Affect Your HC Choices? Do You Have Any Cultural Practices That No May Affect Your HC Choices? Comment Gnosticism Who Can We Speak to About Patient's Care Family only Identifying Code for Release of Patient Declines to issue Information Health Care Proxy/Next of Kin Rayna (daughter) or Dax (son ) Nick (son) Health Care Proxy Phone Number Rayna: [phone] Dax: [phone] Nick: [phone] Emergency Contact Name Rayna (daughter) or Dax (son ) Nick (son) Emergency Contact Phone Number Rayna: [phone] Dax: [phone] Nick: [phone] Advance Directives? No Power of Photo Studio Assistant Yes Power of Photo Studio Assistant Name Rayna Fitzpatrick Power of Photo Studio Assistant PAC Instructions Do not shave/clip surgical site,Durable medical equipment ,Medications to take/avoid, Nasal antibiotic,No ETOH/ petroleum product on skin DOS, NPO,Pre-surgical wash,Sturdy shoes/comfortable clothes,Do not bring valuables and remove jewelry
--- NOTE | 2022-03-24 14:45 | PT.IPTN ---
Current Diagnoses Unilateral primary osteoarthritis, right knee (03/24/22) Surgery Performed Operation Date: 03/23/22 10:00 Actual Procedures p Total Knee Arthroplasty w/femoral & tubial screw removal(Right) - Alexey White MD Physical Therapy Treatment Note M2 PT-IP Current Condition Start: 03/23/22 17:32 Freq: NEEDED Status: Active Protocol: Document 03/23/22 17:30 DLM (Rec: 03/23/22 17:47 DLM [id number]) Physical Therapy Current Condition Current Condition Evaluation Date 03/23/22 Treatment Diagnosis right TKA, difficulty ambulating Onset Date 03/23/22 M3 PT-IP Subjective Start: 03/23/22 17:32 Freq: NEEDED Status: Active Protocol: Document 03/24/22 14:15 KS (Rec: 03/24/22 15:55 KS [id number]) Subjective Physical Therapy Visit Type Type Treatment Note Visit Start Time 14:15 Visit Stop Time 14:45 Total Visit Minutes 30 Notes BP stable, but O2 desat low 70s on RA, increased slowly to upper 80s on 1.5 L. RN present. Number of GREENS LABORER Visits 2 Physical Therapy Visit Comments Patient Comments Pt agreeable to working w/ therapy. Patient Goals go home with her Daughter to help M4 PT-IP Mobility and Gait Start: 03/23/22 17:32 Freq: NEEDED Status: Active Protocol: Document 03/24/22 14:15 KS (Rec: 03/24/22 15:55 KS [id number]) PT-Bed Mobility Assessment Supine to Sit Supine to Sit Standby Assistance Sit to Supine Sit to Supine Standby Assistance Scooting Scooting to Edge of Bed Standby Assistance Scooting Up and Down in Bed Independent PT-Transfer Assessment Sit to and From Stand Sit to and from Stand Contact Guard Assistance,Use of Upper Extremities Equipment Transfer Assistive Device Gait Belt,Front Wheeled Walker Transfers Transfer Destination Bed,Bedside Commode Transfer Technique Stand Step Pivot Transfer Ability Level of Assist Contact Guard Assistance,Use of Upper Extremities Comments Mobility Comments Pt in bed upon arrival, BP stale and no dizziness. SBA for bed mobility, CGA for sit< >stand w/ FWW. Pt on RA at 92- 93% upon arrival. O2 dropped to low-mid 70s after sit<> stand on RA. O2 re-applied at 1.5L and O2 gradually increased to 81-84%. RN arrived, pt sat and cued for deep breathing, O2 increased low 90's. O2 removed and pt ambulated ~20 ft w/ FWW CGA and returned to side of bed and O2 desat to low 70s again. O2 reapplied and pt left w/ RN attending. Gait Assessment Gait Gait Assistance Required: Contact Guard Assist Distance (Feet) 20 Able to Maintain Weight Bearing Status Yes During Gait Assistive Devices Assistive Device Gait Belt,Front Wheeled Walker Gait Deviations General Gait Pattern Antalgic,Ataxic Factors Limiting Gait Function Factors Limiting Gait Function Decreased Activity Tolerance, Decreased Strength,Limited Range of Motion,Pain Comments Gait Comments Pt ambulated 20 ft w/ FWW on RA but desat to low 70s. Stair Climbing Assessment Comments Stair Climbing Comments Did not assess due to low O2 and pt states she has a ramp. PT-Balance Assessment Sitting Balance and Reactions Static Sitting Balance Ability Normal Dynamic Sitting Balance Ability Normal Standing Balance and Reactions Static Standing Balance Ability Fair Dynamic Standing Balance Ability Fair Device Used FWW M5 PT-IP Objective Assessments Start: 03/23/22 17:32 Freq: NEEDED Status: Active Protocol: Document 03/23/22 17:30 DLM (Rec: 03/23/22 17:47 [facility] [id number]) Orientation Orientation/Cognition Level of Alertness Alert Orientation Name,Age,Birthday,Month,Date, Year,Day of Week,Place, Situation Language Function Ability No Deficits Noted Safety Awareness Understands Safety Issues Memory Description No Deficits Noted Gross Range of Motion Upper Extremity ROM Assessment Right Impaired Impairments pain prevents elevation right shoulder Lower Extremity ROM Assessment Right Impaired Impairments knee limited post-op, lacking 10 degrees ext in supine and she is actively flexing to 75 degrees sitting Strength Upper Extremity Strength Assessment Right Impaired Shoulder 0/5 elevation Lower Extremity Strength Assessment Bilaterally Impaired Hip right LE able to lift off bed, left hip flexion 4/5 Knee right knee ext 3-/5, left knee 5/5 Ankle right DF 5/5, left DF 1+/5 Coordination Assessment Gross Coordination Gross Coordination WNL Sensation Assessment Sensation Gross Sensation Right LE Impaired,Left LE Impaired Sensation Description Numbness Comments Sensation Comments LE numbness since back surgeries, can feel touch but she does not feel it is normal Muscle Tone Muscle Tone WNL Yes M6 PT-IP Treatment Start: 03/23/22 17:32 Freq: NEEDED Status: Active Protocol: Document 03/24/22 14:15 KS (Rec: 03/24/22 15:55 KS [id number]) Physical Therapy Treatment Education Education Provided Safety Other Treatments Other Treatment Performed Her Daughter observed treatment M7 PT-IP Assessment and Plan Start: 03/23/22 17:32 Freq: NEEDED Status: Active Protocol: Document 03/24/22 14:15 KS (Rec: 03/24/22 15:55 KS [id number]) PT Summary Assessment and Plan Potential Rehabilitation Potential Good Summary Impairments Pain,ROM,Strength,Balance, Sensation,Bed Mobility, Transfers,Gait,Activity Tolerance Progress Towards Goals Slow Progress due to Medical Issues Assessment Summary Pt limited by low O2 on RA dropping to 70s w/ any mobility w/ very slow recovery while on 1.5L to mid 80s and low 90s. SBA to CGA for mobility, but unable to progress due to O2. RN present during majority of treatment and confirms pt not medically stable due to low O2. Will continue to progress when pt medically stable. Goals Bed Mobility Goal Independent Transfer Goal Independent,Front Wheeled Walker Gait Goal Independent,Front Wheel Walker Gait Distance 100 feet Other Goals up and down 8 steps with rail and cane with CG assist Days to Meet Goals 2 Frequency of Treatment Frequency Of Treatment Twice a Day Treatment Plan Physical Therapy Treatment Plan Bed Mobility Training,Transfer Training,Gait Training, Therapeutic Exercise,Balance Retraining,Post Op Education, Discharge Planning,Hot or Cold Pack,Neuromuscular Re-ed Other Recommendations and Next Treatment stair training, provide post- Focus op packet with written HEP Precautions Other Precautions left foot drop, has AFO, right rotator cuff tear and no functional shoulder elevation Weight Bearing Status Weight Bearing Status Weight Bear as Tolerated Recommendations To Nursing Amount of Assist Needed 1 Person Assist Discharge Recommendations PT Discharge Recommendations Home with Assistance,Home Health Other Discharge Recommendations pt wants to start with home health PT Transportation Needs at Discharge Private Vehicle
--- NOTE | 2022-03-24 15:48 | PC.NURSE ---
Pt is AxOx4, calm and cooperative. VSS except BP as soft in the morning and drops when she worked with PT. Also, pt 's O2 keeps dropping even she is not doing activity. Pushed lots of PO fluid and BP went up but SpO2 can't go up. After worked with PT and her O2 drops till 70s sometimes and it took a long time to get back after put her on 1.5L O2. Pt can't maintain RA above 90s and constantly getting sleepy or drowsy. Pt stated that she has family members has narcolepsy. Pt c/o pain on R knee and insisted to have Oxy 10mg. PRN Dilaudid 2 mg given in the morning when BP was low. Later, Oxy 10mg given when BP is up 122s. Discussed with pt and her dtr regarding use of pain med at home. Pt can't d/c home today due to unable to keep SpO2 on RA above 90s. No other changes. Pt is doing well using walker. Encouraged to use IS more frequently. Continue monitor.
[2022-03-24] MEDS: TRAZODONE 50 MG TABLET 100 MG PO (20:19)
[2022-03-25] VITALS (7 sets, daily range): BP systolic 95–138; BP diastolic 42–73; PULSE 78–116; RESP 16–22; TEMP 35.8–37.3; O2SAT 84–100
[2022-03-25] MEDS: OXYCODONE IR 5 MG TABLET 10 MG PO ×4 (02:25→19:14)
--- NOTE | 2022-03-25 04:02 | PC.NURSE ---
Addendum entered by Chrissie Mccarty R.N. 03/25/22 06:41: Patient requesting oxycodone for 05/02 pain. FLACC score was 0. Tylenol given as scheduled, patient sleeping at this time. Original Note: Patient given oxycodone 10mg for pain, desat to mid 70's on 1.5L while asleep prior to oxycodone dose. Increased oxygen to 3 L, 96-98% at this time. Patient on continuous pulse ox and will continue to monitor.
[2022-03-25] MEDS: ACETAMINOPHEN 325 MG TABLET 650 MG PO ×3 (05:37→19:15)
[2022-03-25] MEDS: LEVOTHYROXINE 88 MCG TABLET PO (05:38)
[2022-03-25] MEDS: GABAPENTIN 400 MG CAPSULE PO ×5 (05:38→20:59)
[2022-03-25] MEDS: CLOPIDOGREL 75 MG TABLET PO (08:24)
[2022-03-25] MEDS: CYCLOBENZAPRINE 10 MG TABLET PO ×2 (08:24→20:51)
[2022-03-25] MEDS: MULTIVITAMIN 1 TABLET 1 TAB PO (08:24)
[2022-03-25] MEDS: PRAVASTATIN 20 MG TABLET PO (08:25)
[2022-03-25] MEDS: ASPIRIN EC 81 MG TABLET PO ×2 (08:25→20:51)
[2022-03-25] MEDS: diphenhydrAMINE 25 MG TABLET PO ×2 (08:25→20:51)
[2022-03-25] MEDS: PANTOPRAZOLE DR 40 MG TABLET PO ×2 (08:25→20:51)
[2022-03-25] MEDS: SERTRALINE 50 MG TABLET 25 MG PO (08:25)
[2022-03-25] MEDS: DOCUSATE 100 MG CAPSULE PO ×2 (08:25→20:51)
--- NOTE | 2022-03-25 08:25 | PM.PNPO.1 ---
Subjective Subjective Date Patient Seen: 03/25/22 Time Patient Seen: 08:25 Interval history: Pt sleeping on my visit but aroused easily to voice and answered questions appropriately. Was set up for discharge yesterday but states this was delayed due to pain. Would like to discharge home today. Exam Vital Signs (past 8 hours): - 03/25/22 03:00 03/25/22 05:25 Temperature 99.1 F 99.0 F Pulse Rate 111 H 101 H Respiratory Rate 22 20 Blood Pressure 132/67 Pulse Oximetry 98 98 Oxygen Flow Rate 3 3 Oxygen Delivery Method Room Air Oxygen Flow Rate 3 Narrative Exam Narrative: 4/5 strength in hip flexors, quadriceps, hamstrings; 5/5 DF, PF, EHL on right. Sensation to light touch intact in RLE. Calves soft, compressible, nontender and without palpable cords or masses. EZRA wrap and Aquacel dressing CDI. 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) Left foot drop Macular degeneration Neuropathy Osteoarthritis Osteoporosis Restless leg syndrome Scoliosis Sinus drainage Spinal stenosis Surgical History (Updated 03/25/22 @ 08:28 by Mimi Chicas PA-C) History of appendectomy History of cervical spinal surgery History of cholecystectomy History of colonoscopy History of esophagogastroduodenoscopy (EGD) History of hysterectomy (1995) History of laminectomy History of lumbar fusion (2010) History of lumbar spinal fusion (2014) History of orthopedic surgery (09/13/19) History of orthopedic surgery (09/18/19) History of orthopedic surgery (2009) History of repair of rotator cuff History of skin graft History of tonsillectomy History of total abdominal hysterectomy and bilateral salpingo-oophorectomy Hx of fusion of cervical spine (2012) Hx of repair of right rotator cuff (1994) Hx of right knee surgery (1983) Family History Father Suicide Mother Alcohol abuse Sister Hyperthyroidism Social History household members: none Smoking Status: Former smoker alcohol intake: current Assessment & Plan Post-op Assessment and plan (1) Total knee replacement status: Assessment and Plan narrative: Discharge home, HHPT if desired by pt. Plavix as taken preop and ASA 81 mg daily x 6 weeks for VTE prophylaxis. Postoperative Procedures: Procedures Operation Date: 03/23/22 10:00 Actual Procedure Side Surgeon p Total Knee Arthroplasty w/femoral & tubial screw removal Right Alexey White MD Postoperative day: 2 Quality VTE Deep Vein Thrombosis/Pulmonary Embolism Present on Admission: No
[2022-03-25] MEDS: CALCIUM CARBONATE 600 MG TABLET PO (09:12)
[2022-03-25] MEDS: CHOLECALCIFEROL (VITAMIN D3) 400 UNIT TABLET PO (09:12)
[2022-03-25] MEDS: gemfibroziL 600 MG TABLET PO ×2 (10:40→20:51)
--- NOTE | 2022-03-25 11:00 | PT-IP ANOTE ---
Unable to work w/ pt due to pt not being alert enough and O2 in low 80's. RN performed sternal rub and pt woke but then had trouble keeping her eyes open. Will check back in PM.
--- NOTE | 2022-03-25 11:32 | CM.DPC ---
DCP Discharge Home with HH Per Ortho MD, pt medically stable to d/c home today with HH. F2F and orders previously completed yesterday and [facility] received. Per VOCATIONAL SERVICES SPECIALIST and RN, pt remains on 3LO2 and attempted to wean to room air but pt desatted and orders placed for RT to assess for home O2. Dtr is bedside. SW called [facility] and left msg on plan of d/c home today via Dtr POV after RT determines if new home O2 needed. Plan: Patient to d/c home today after RT assess for home oxygen needs and [facility] to follow after discharge. Loyda Sam MSW
--- NOTE | 2022-03-25 14:05 | PT.IPTN ---
Current Diagnoses Unilateral primary osteoarthritis, right knee (03/24/22) Presence of unspecified artificial knee joint (03/24/22) Surgery Performed Operation Date: 03/23/22 10:00 Actual Procedures p Total Knee Arthroplasty w/femoral & tubial screw removal(Right) - Alexey White MD Physical Therapy Treatment Note M2 PT-IP Current Condition Start: 03/23/22 17:32 Freq: NEEDED Status: Active Protocol: Document 03/23/22 17:30 DLM (Rec: 03/23/22 17:47 DLM [id number]) Physical Therapy Current Condition Current Condition Evaluation Date 03/23/22 Treatment Diagnosis right TKA, difficulty ambulating Onset Date 03/23/22 M3 PT-IP Subjective Start: 03/23/22 17:32 Freq: NEEDED Status: Active Protocol: Document 03/25/22 13:46 KS (Rec: 03/25/22 14:31 KS [id number]) Subjective Physical Therapy Visit Type Type Treatment Note Visit Start Time 13:46 Visit Stop Time 14:05 Total Visit Minutes 19 Notes O2 67% on 4L standing EOB Number of FACTORY PROCESS WORKERS Visits 3 M4 PT-IP Mobility and Gait Start: 03/23/22 17:32 Freq: NEEDED Status: Active Protocol: Document 03/25/22 13:46 KS (Rec: 03/25/22 14:31 KS [id number]) PT-Bed Mobility Assessment Supine to Sit Supine to Sit Moderate Assistance,2 Person Assistance,Head of Bed Elevated Sit to Supine Sit to Supine Minimal Assistance,1 Person Assistance Scooting Scooting to Edge of Bed Moderate Assistance Scooting Up and Down in Bed Independent PT-Transfer Assessment Sit to and From Stand Sit to and from Stand Contact Guard Assistance,Use of Upper Extremities Equipment Transfer Assistive Device Gait Belt,Front Wheeled Walker Transfers Transfer Destination Bed Transfer Technique sit<>stand Comments Mobility Comments Pt still seems not fully alert , per RT pts O2 desat due to medications and pt dropped to 44% on 3L while in bed. Per RN okay to try to mobilize pt to see if O2 improves w/ mobility and alertness. O2 85% on 3L in bed, pt Mod A for sup<>sit today and CGA for sit <>stand w/ FWW. Pt very impulsive and not wanting to follow cues and also requesting more pain medication but denying pain. Pt stood EOB and performed minimal marching in placr and O2 immediately began to desat and dropped to 67% on 3L. Instructed pt to sit and then provided Min A for LE guidance into bed for sit<>sup. Pt able to scoot herself up independently. RN made aware of O2 desat w/ mobility. Pt left in bed on 3L O2 and O2 back to 85%. Gait Assessment Comments Gait Comments Pt only took a few steps marching in place due to oxygen desaturation to 67% when standing on 3L. Stair Climbing Assessment Comments Stair Climbing Comments Did not assess due to low O2 and pt states she has a ramp. PT-Balance Assessment Sitting Balance and Reactions Static Sitting Balance Ability Fair Dynamic Sitting Balance Ability Fair Standing Balance and Reactions Static Standing Balance Ability Fair Dynamic Standing Balance Ability Fair Device Used FWW M5 PT-IP Objective Assessments Start: 03/23/22 17:32 Freq: NEEDED Status: Active Protocol: Document 03/23/22 17:30 DLM (Rec: 03/23/22 17:47 DLM [id number]) Orientation Orientation/Cognition Level of Alertness Alert Orientation Name,Age,Birthday,Month,Date, Year,Day of Week,Place, Situation Language Function Ability No Deficits Noted Safety Awareness Understands Safety Issues Memory Description No Deficits Noted Gross Range of Motion Upper Extremity ROM Assessment Right Impaired Impairments pain prevents elevation right shoulder Lower Extremity ROM Assessment Right Impaired Impairments knee limited post-op, lacking 10 degrees ext in supine and she is actively flexing to 75 degrees sitting Strength Upper Extremity Strength Assessment Right Impaired Shoulder 0/5 elevation Lower Extremity Strength Assessment Bilaterally Impaired Hip right LE able to lift off bed, left hip flexion 4/5 Knee right knee ext 3-/5, left knee 5/5 Ankle right DF 5/5, left DF 1+/5 Coordination Assessment Gross Coordination Gross Coordination WNL Sensation Assessment Sensation Gross Sensation Right LE Impaired,Left LE Impaired Sensation Description Numbness Comments Sensation Comments LE numbness since back surgeries, can feel touch but she does not feel it is normal Muscle Tone Muscle Tone WNL Yes M6 PT-IP Treatment Start: 03/23/22 17:32 Freq: NEEDED Status: Active Protocol: Document 03/25/22 13:46 KS (Rec: 03/25/22 14:31 KS [id number]) Physical Therapy Treatment Education Education Provided Safety Other Treatments Other Treatment Performed Her Daughter observed treatment M7 PT-IP Assessment and Plan Start: 03/23/22 17:32 Freq: NEEDED Status: Active Protocol: Document 03/25/22 13:46 KS (Rec: 03/25/22 14:31 KS [id number]) PT Summary Assessment and Plan Potential Rehabilitation Potential Good Summary Impairments Pain,ROM,Strength,Balance, Sensation,Bed Mobility, Transfers,Gait,Activity Tolerance Progress Towards Goals Slow Progress due to Medical Issues Assessment Summary Pt continues to be limited by oxygen desaturation to 67% on 3L w/ minimal mobility and lack of alertness. Pt seemingly confused, groggy, and impulsive. She was mid 80s at rest on 3L, but dropped to 44% w/ RT at rest and levels very inconsistent. Required increased assistance for bed mobility this date and unable to progress gait as needed to clear PT. Pt not medically stable to d/c due to low O2 seeming to be as a result of narcotics as also stated by RN and RT. Will continue to progress when pt medically stable. Goals Bed Mobility Goal Independent Transfer Goal Independent,Front Wheeled Walker Gait Goal Independent,Front Wheel Walker Gait Distance 100 feet Other Goals up and down 8 steps with rail and cane with CG assist Days to Meet Goals 2 Frequency of Treatment Frequency Of Treatment Twice a Day Treatment Plan Physical Therapy Treatment Plan Bed Mobility Training,Transfer Training,Gait Training, Therapeutic Exercise,Balance Retraining,Post Op Education, Discharge Planning,Hot or Cold Pack,Neuromuscular Re-ed Other Recommendations and Next Treatment stair training, provide post- Focus op packet with written HEP Precautions Other Precautions left foot drop, has AFO, right rotator cuff tear and no functional shoulder elevation Weight Bearing Status Weight Bearing Status Weight Bear as Tolerated Recommendations To Nursing Amount of Assist Needed 1 Person Assist Discharge Recommendations PT Discharge Recommendations Home with Assistance,Home Health Other Discharge Recommendations pt wants to start with home health PT Transportation Needs at Discharge Private Vehicle
--- NOTE | 2022-03-25 14:33 | CM.DPNOTE ---
Zoe, PT therapist came in and said patient's O2 level decreased to 67% when standing up. I told her I will write this note and print it out for KOJO Sanchez resource management planner for tomorrow. GILDA Dumont.
--- NOTE | 2022-03-25 16:26 | PC.NURSE ---
Addendum entered by Clover Grossman R.N. 03/25/22 19:51: Pt did switch to oxy 5mg, still very sleepy but able to awaken quicker, has not needed a sternal rub. rr has been 14 to 18. Pt did wake up disoriented several times, sentences sometimes dont make sense, forgot she was in the hospital and had surgery but she was able to be more quickly reoriented. Was able to decrease O2 down to 2L and currently it is off. Report given to Chrissie PADILLA the O2 is off and it may need to be replaced. Continuous pulse ox has remained on. Dtr at bedside. Over all pt is more awake and aware. Did try to do PT but pt was hampered from doing more due to her loc, fluctuations in her O2 requirements, and over sedation. PT will see her again in the Am. The pt is still agreeable to stay with the oxy 5mg for pain. Original Note: Resp: Sleepy this am but rates pain 10/10. Slurs words. O2 sats on 4L is 94-95%. Cont pulse ox remains on. Ra sats checked and they were 83-84%. IS to 1500, crackles heard posterior rt base. RT notified and they are to come to eval and treat. (They did) Oxy 10mg was given per pt request of pain 10/10. She reports she isn't sleepy and she isnt slurring her words. Rechecked pt after meds given. RR 12-14, shallow. Cont pulse ox varies from mid 80's to mid 90's. Pt not responding to name, sternal rub performed and pt did wake up but was very groggy, slurring words. As she was coming awake was saying her pain was 10/10 and she is fine and not slurring her words. She is slurring her words. 2 messages have been sent to HCP. See order. RT came back to [facility] for home O2 but pt cant be covered for same by insurance because she is sedated. PT did come back to see patient but her abilities were less than optimal due to her sleepiness. Pt did agree to 5mg of oxy this afternoon. Still sleepy but is maintaining her sat in the high 90's on O2 at 4L. Will cont with continuos pulse ox, oxygen, monitoring. Hopefully pt will wake up more, be able to wean off O2 and work with PT.
[2022-03-25] MEDS: TRAZODONE 50 MG TABLET 100 MG PO (20:51)
[2022-03-26] VITALS (7 sets, daily range): BP systolic 104–134; BP diastolic 56–70; PULSE 56–89; RESP 14–18; TEMP 36.3–36.9; O2SAT 93–95
--- NOTE | 2022-03-26 04:09 | PC.NURSE ---
Addendum entered by Chrissie Mccarty R.N. 03/26/22 05:28: No narcotics given through the night, but patient is on several sedating scheduled medications. She stated that she requested to increase the flexeral dose. Provided patient education regarding medications. Patient slept through the night except when up to use the bathroom when sats dropped to low 70's. Sleeping at this time. Original Note: Sats decrease to 89% on RA while sleeping, 96% on 1L. When up, sats continue to decrease into the 70's.
[2022-03-26] MEDS: GABAPENTIN 400 MG CAPSULE PO ×5 (05:23→20:22)
[2022-03-26] MEDS: ACETAMINOPHEN 325 MG TABLET 650 MG PO ×3 (05:23→18:47)
[2022-03-26] MEDS: LEVOTHYROXINE 88 MCG TABLET PO (05:23)
[2022-03-26] MEDS: OXYCODONE IR 5 MG TABLET 10 MG PO ×3 (06:28→18:48)
[2022-03-26] MEDS: CYCLOBENZAPRINE 10 MG TABLET PO ×2 (09:17→20:22)
[2022-03-26] MEDS: PRAVASTATIN 20 MG TABLET PO (09:17)
[2022-03-26] MEDS: PANTOPRAZOLE DR 40 MG TABLET PO ×2 (09:17→20:23)
[2022-03-26] MEDS: DOCUSATE 100 MG CAPSULE PO ×2 (09:17→20:22)
[2022-03-26] MEDS: ASPIRIN EC 81 MG TABLET PO ×2 (09:17→20:22)
[2022-03-26] MEDS: MULTIVITAMIN 1 TABLET 1 TAB PO (09:17)
[2022-03-26] MEDS: CLOPIDOGREL 75 MG TABLET PO (09:17)
[2022-03-26] MEDS: SERTRALINE 50 MG TABLET 25 MG PO (09:17)
[2022-03-26] MEDS: diphenhydrAMINE 25 MG TABLET PO ×2 (09:18→20:22)
[2022-03-26] MEDS: gemfibroziL 600 MG TABLET PO ×2 (09:19→20:24)
--- NOTE | 2022-03-26 10:26 | DI.CT.S_ITS ---
PROCEDURE: CT ANGIO CHEST PE PROTOCOL INDICATIONS: h/o hypercoagulopathy, POD# 3 TKA TECHNIQUE: After the administration of intravenous contrast, 2 mm thick sections acquired from the pulmonary apices to the posterior costophrenic angles. 3-dimensional maximum intensity projection (MIP) coronal and sagittal reformats were then acquired through the thorax. For radiation dose reduction, the following was used: automated exposure control, adjustment of mA and/or kV according to patient size. COMPARISON: [facility], CT, CT ANGIO CHEST ABDOMEN PELVIS, 03/25/2018, 17:49. FINDINGS: Image quality: Excellent. Pulmonary arteries: Pulmonary arteries are normal in size, and demonstrate no intraluminal filling defects to suggest central pulmonary embolism. Lungs and pleura: Patchy nodular appearing opacity measuring 1.8 cm is present in the lateral right lower lobe series 5, image 140. It is unchanged in size compared to prior exam multiple does appear slightly less ground-glass and more dense on today's exam. Pleural based nodule in the anterior right middle lobe is present on series 5, image 166 measuring 5 mm as well as the adjacent parenchymal nodule measuring 3 mm. Faint appearance of punctate nodules are noted in the left base seen on series 3 image 133. Dependent changes are present within the bases, left greater than right. No pleural effusions or pneumothorax. Central and peripheral airways are patent. Mediastinum: Heart size is enlarged without pericardial effusion. No mediastinal or hilar adenopathy. Thoracic aorta is normal in caliber and enhancement. Esophagus is normal in caliber, without hiatal hernia. Bones and chest wall: No suspicious bony lesions. Ribs and thoracic spine appear intact throughout. Thyroid gland is unremarkable within visualized portions. No axillary or supraclavicular adenopathy. Lower lumbar fusion is present. Abdomen: Visualized upper abdominal solid organs appear normal in the early arterial phase of enhancement. IMPRESSION: Bilateral pulmonary nodules unchanged since 2018 larger ground-glass appearing nodule in the right lower lobe. This is overall nonspecific and suspected to be likely benign given stability over 4 years. No pulmonary embolism. Dependent changes are present within the bases. Dictated by: Ghada Titus M.D. on 03/26/2022 at 12:44 Approved by: Ghada Titus M.D. on 03/26/2022 at 12:48
--- NOTE | 2022-03-26 10:56 | PT.IPTN ---
Current Diagnoses Unilateral primary osteoarthritis, right knee (03/24/22) Hypoxemia (03/24/22) Presence of unspecified artificial knee joint (03/24/22) Surgery Performed Operation Date: 03/23/22 10:00 Actual Procedures p Total Knee Arthroplasty w/femoral & tubial screw removal(Right) - Alexey White MD Physical Therapy Treatment Note M2 PT-IP Current Condition Start: 03/23/22 17:32 Freq: NEEDED Status: Active Protocol: Document 03/23/22 17:30 DLM (Rec: 03/23/22 17:47 DLM [id number]) Physical Therapy Current Condition Current Condition Evaluation Date 03/23/22 Treatment Diagnosis right TKA, difficulty ambulating Onset Date 03/23/22 M3 PT-IP Subjective Start: 03/23/22 17:32 Freq: NEEDED Status: Active Protocol: Document 03/26/22 10:30 KS (Rec: 03/26/22 13:00 KS [id number]) Subjective Physical Therapy Visit Type Type Treatment Note Visit Start Time 10:30 Visit Stop Time 10:56 Total Visit Minutes 26 Notes O2 67-70's on 1L w/ mobility. Number of DRAW FRAME RUNNER Visits 4 M4 PT-IP Mobility and Gait Start: 03/23/22 17:32 Freq: NEEDED Status: Active Protocol: Document 03/26/22 10:30 KS (Rec: 03/26/22 13:00 KS [id number]) PT-Bed Mobility Assessment Supine to Sit Supine to Sit Minimal Assistance,1 Person Assistance,Head of Bed Elevated Sit to Supine Sit to Supine Contact Guard Assistance Scooting Scooting to Edge of Bed Contact Guard Assistance Scooting Up and Down in Bed Independent PT-Transfer Assessment Sit to and From Stand Sit to and from Stand Contact Guard Assistance,Use of Upper Extremities Equipment Transfer Assistive Device Gait Belt,Front Wheeled Walker Transfers Transfer Destination Bed,Bedside Commode Transfer Technique Stand Step Pivot Transfer Ability Level of Assist Contact Guard Assistance,Use of Upper Extremities Comments Mobility Comments Pt in bed on RA w/ O2 88-91%. Min A for sup<>sit, pts O2 dropped to 83% on RA sitting EOB. Increased O2 to 2L and O2 98% and then decreased to 1L and O2 93%. Pt sit<>stand CGA w/ FWW c/o knee pain. She performed minimal marching in place however O2 desat to 67% on 1L. Instructed pt to sit down, O2 improved to high 80s and pt requested to use BSC. Performed stand step pivot to BSC w/ FWW and O2 dropped to mid 70's during transfer, but recovered to 91% while pt sitting on BSC. O2 desat again to low 80s during transfer back to bed but improved to mid 90s when pt supine. Decreased O2 back to RA and was stable 93-94% while pt resting in bed - RN and FRUIT PITTER aware. Daughter present in room. Left pt w/ SCDs on and all needs in reach. Gait Assessment Gait Gait Assistance Required: Contact Guard Assist Distance (Feet) 3 Able to Maintain Weight Bearing Status Yes During Gait Assistive Devices Assistive Device Gait Belt,Front Wheeled Walker Gait Deviations General Gait Pattern Antalgic,Ataxic Factors Limiting Gait Function Factors Limiting Gait Function Decreased Activity Tolerance, Decreased Strength,Limited Range of Motion,Pain Comments Gait Comments Pt only took a few steps marching in place due to oxygen desaturation to 67-70's % when standing on 1L. Stair Climbing Assessment Comments Stair Climbing Comments Did not assess due to low O2 and pt states she has a ramp. PT-Balance Assessment Sitting Balance and Reactions Static Sitting Balance Ability Good Dynamic Sitting Balance Ability Good Standing Balance and Reactions Static Standing Balance Ability Good Dynamic Standing Balance Ability Fair Device Used FWW M5 PT-IP Objective Assessments Start: 03/23/22 17:32 Freq: NEEDED Status: Active Protocol: Document 03/23/22 17:30 DLM (Rec: 03/23/22 17:47 DLM [id number]) Orientation Orientation/Cognition Level of Alertness Alert Orientation Name,Age,Birthday,Month,Date, Year,Day of Week,Place, Situation Language Function Ability No Deficits Noted Safety Awareness Understands Safety Issues Memory Description No Deficits Noted Gross Range of Motion Upper Extremity ROM Assessment Right Impaired Impairments pain prevents elevation right shoulder Lower Extremity ROM Assessment Right Impaired Impairments knee limited post-op, lacking 10 degrees ext in supine and she is actively flexing to 75 degrees sitting Strength Upper Extremity Strength Assessment Right Impaired Shoulder 0/5 elevation Lower Extremity Strength Assessment Bilaterally Impaired Hip right LE able to lift off bed, left hip flexion 4/5 Knee right knee ext 3-/5, left knee 5/5 Ankle right DF 5/5, left DF 1+/5 Coordination Assessment Gross Coordination Gross Coordination WNL Sensation Assessment Sensation Gross Sensation Right LE Impaired,Left LE Impaired Sensation Description Numbness Comments Sensation Comments LE numbness since back surgeries, can feel touch but she does not feel it is normal Muscle Tone Muscle Tone WNL Yes M6 PT-IP Treatment Start: 03/23/22 17:32 Freq: NEEDED Status: Active Protocol: Document 03/26/22 10:30 KS (Rec: 03/26/22 13:00 KS [id number]) Physical Therapy Treatment Education Education Provided Safety Other Treatments Other Treatment Performed Her Daughter observed treatment M7 PT-IP Assessment and Plan Start: 03/23/22 17:32 Freq: NEEDED Status: Active Protocol: Document 03/26/22 10:30 KS (Rec: 03/26/22 13:00 KS [id number]) PT Summary Assessment and Plan Potential Rehabilitation Potential Good Summary Impairments Pain,ROM,Strength,Balance, Sensation,Bed Mobility, Transfers,Gait,Activity Tolerance Progress Towards Goals Slow Progress due to Medical Issues Assessment Summary Pt still desatting as low as 67% w/ mobility on 1L O2. Recovery to 90's much quicker today and pt more alert but remains limited in mobility by oxygen desaturation. Chest CTA ordered. Will continue to progress following clearance from chest Ct. Goals Bed Mobility Goal Independent Transfer Goal Independent,Front Wheeled Walker Gait Goal Independent,Front Wheel Walker Gait Distance 100 feet Other Goals up and down 8 steps with rail and cane with CG assist Days to Meet Goals 2 Frequency of Treatment Frequency Of Treatment Twice a Day Treatment Plan Physical Therapy Treatment Plan Bed Mobility Training,Transfer Training,Gait Training, Therapeutic Exercise,Balance Retraining,Post Op Education, Discharge Planning,Hot or Cold Pack,Neuromuscular Re-ed Precautions Other Precautions left foot drop, has AFO, right rotator cuff tear and no functional shoulder elevation Weight Bearing Status Weight Bearing Status Weight Bear as Tolerated Recommendations To Nursing Amount of Assist Needed 1 Person Assist Discharge Recommendations PT Discharge Recommendations Home with Assistance,Home Health Other Discharge Recommendations pt wants to start with home health PT Transportation Needs at Discharge Private Vehicle
[2022-03-26] MEDS: CHOLECALCIFEROL (VITAMIN D3) 400 UNIT TABLET PO (11:21)
[2022-03-26] MEDS: CALCIUM CARBONATE 600 MG TABLET PO (11:23)
--- NOTE | 2022-03-26 11:31 | P.PN_ITS ---
Subjective Subjective Date Patient Seen: 03/26/22 Time Patient Seen: 11:32 Interval history: Pt sitting up in bed comfortably, friend at bedside. She would like to go home today, but per PT and OT reports, she has been desaturating down to as low as 67% when mobile. RT consulted yesterday and felt desaturation d/t narcotics, but she is now having episodes unrelated to narcotic dosing. She complains of having a lot of phlegm over the past several months. Per our office H&P, she has a h/o DVT and is chronically on Plavix. Per pt, she does not have a h/o DVT but rather significant bilateral carotid artery stenosis; this is why she takes Plavix. Exam Vital Signs (past 8 hours): - 03/26/22 04:00 03/26/22 08:00 03/26/22 10:15 Temperature 97.5 F L 98.4 F Pulse Rate 89 85 Respiratory Rate 16 18 Blood Pressure 104/63 115/58 L Pulse Oximetry 95 95 93 Oxygen Delivery Method Room Air Oxygen Flow Rate 1 1.5 Oxygen Delivery Method Room Air Oxygen Flow Rate 1.5 Narrative Exam Narrative: 4/5 hip flexors, quadriceps, hamstrings; 5/5 DF, PF, EHL on right. Sensation to light touch intact throughout O2 sats currently in the 90s on room air. Aquacel dressing and EZRA wrap intact. 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) Left foot drop Macular degeneration Neuropathy Osteoarthritis Osteoporosis Restless leg syndrome Scoliosis Sinus drainage Spinal stenosis Surgical History (Updated 03/25/22 @ 08:28 by Mimi Chicas PA-C) History of appendectomy History of cervical spinal surgery History of cholecystectomy History of colonoscopy History of esophagogastroduodenoscopy (EGD) History of hysterectomy (1995) History of laminectomy History of lumbar fusion (2010) History of lumbar spinal fusion (2014) History of orthopedic surgery (09/13/19) History of orthopedic surgery (09/18/19) History of orthopedic surgery (2009) History of repair of rotator cuff History of skin graft History of tonsillectomy History of total abdominal hysterectomy and bilateral salpingo-oophorectomy Hx of fusion of cervical spine (2012) Hx of repair of right rotator cuff (1994) Hx of right knee surgery (1983) Family History Father Suicide Mother Alcohol abuse Sister Hyperthyroidism Social History household members: none Smoking Status: Former smoker alcohol intake: current Assessment & Plan Post-op Assessment and plan (1) Total knee replacement status: Assessment and Plan narrative: Continue Plavix, ASA, and SCDs for VTE prophylaxis. Possible d/c today pending CT results. (2) Oxygen desaturation: Assessment and Plan narrative: D/w Dr Dudley. Will order CTA to r/o PE; CT will also reveal pneumonia if present. If CT negative for acute pulmonary pathology, will d/c today w/ home O2. Postoperative Procedures: Procedures Operation Date: 03/23/22 10:00 Actual Procedure Side Surgeon p Total Knee Arthroplasty w/femoral & tubial screw removal Right Alexey White MD Postoperative day: 3 Quality VTE Deep Vein Thrombosis/Pulmonary Embolism Present on Admission: No
[2022-03-26 12:08] LABS: BUN Creatinine Ratio 16.7 (6-22); Blood Urea Nitrogen 10 mg/dL (7-17); Estimated Glomerular Filt Rate > 60 mL/min (>60)
--- NOTE | 2022-03-26 12:46 | CM.DPNOTE ---
Addendum entered by Rayna Leonard R.N. 03/26/22 15:13: DCP Note: Patient expected to discharge tomorrow. RT has ordered home O2 through [place] and will follow up with tomorrow. Plan: DC tomorrow if medically cleared. Home with [facility] RN/PT and RT arranging O2 for tomorrow. SEJ Original Note: Discharge Planning Note: Met with patient and daughter. patient still looks fatigued but apparently better than yesterday. She is still de-saturating and a CT is ordered for evaluation. Plan: CT results will be pending. If and when patient returns home will need O2 if still desaturating. [facility] referral has been set and is pending. Follow today for discharge vs stay in hospital. RT is following. Laura Leonard RN/DCP
--- NOTE | 2022-03-26 14:38 | PT.IPTN ---
Current Diagnoses Unilateral primary osteoarthritis, right knee (03/24/22) Hypoxemia (03/24/22) Presence of unspecified artificial knee joint (03/24/22) Surgery Performed Operation Date: 03/23/22 10:00 Actual Procedures p Total Knee Arthroplasty w/femoral & tubial screw removal(Right) - Alexey White MD Physical Therapy Treatment Note M2 PT-IP Current Condition Start: 03/23/22 17:32 Freq: NEEDED Status: Active Protocol: Document 03/23/22 17:30 DLM (Rec: 03/23/22 17:47 DLM [id number]) Physical Therapy Current Condition Current Condition Evaluation Date 03/23/22 Treatment Diagnosis right TKA, difficulty ambulating Onset Date 03/23/22 M3 PT-IP Subjective Start: 03/23/22 17:32 Freq: NEEDED Status: Active Protocol: Document 03/26/22 14:11 KS (Rec: 03/26/22 14:50 KS [id number]) Subjective Physical Therapy Visit Type Type Treatment Note Visit Start Time 14:11 Visit Stop Time 14:38 Total Visit Minutes 27 Notes O2 86% on 1L during ambulation . Number of [employer] Visits 5 M4 PT-IP Mobility and Gait Start: 03/23/22 17:32 Freq: NEEDED Status: Active Protocol: Document 03/26/22 14:11 KS (Rec: 03/26/22 14:50 KS [id number]) PT-Bed Mobility Assessment Supine to Sit Supine to Sit Minimal Assistance,1 Person Assistance,Head of Bed Elevated Sit to Supine Sit to Supine Contact Guard Assistance Scooting Scooting to Edge of Bed Contact Guard Assistance Scooting Up and Down in Bed Independent PT-Transfer Assessment Sit to and From Stand Sit to and from Stand Contact Guard Assistance,Use of Upper Extremities Equipment Transfer Assistive Device Gait Belt,Front Wheeled Walker Transfers Transfer Destination Bed,Bedside Commode Transfer Technique Pt ambulated w/ FWW Transfer Ability Level of Assist Contact Guard Assistance,Use of Upper Extremities Comments Mobility Comments Pt in bed on 2L upon arrival, high 90s. Able to maintain low to mis 90s on 1L during sup<> sit which required Min A from her daughter. Pt more groggy than this AM, but O2 more stable. Pt transferred to [facility] w/ FWW CGA and daughter assisted w/ pad and underwear doffing. O2 88% during transfer, but recovered to 93% while using BSC. Pt then ambulated ~12 ft to other side of bed w/ FWW CGA and took seated rest break before ambulating additional 12 ft back to R side of bed. O2 dropped to 86% on 1L during ambulation, but recovered to mid 90's shortly after sitting . Pts daughter provided Min A for sit<>sup. Pt able to reposition herself in bed, had difficulty keeping eyes open following mobility but O2 94% on 1L. RN stated to keep pt on 1L. Pts daughter states pt has electric w/c they will use to get pt into house. Gait Assessment Gait Gait Assistance Required: Contact Guard Assist Distance (Feet) 12 Able to Maintain Weight Bearing Status Yes During Gait Assistive Devices Assistive Device Gait Belt,Front Wheeled Walker Gait Deviations General Gait Pattern Antalgic,Ataxic Factors Limiting Gait Function Factors Limiting Gait Function Decreased Activity Tolerance, Decreased Strength,Limited Range of Motion,Pain Comments Gait Comments L foot drop - pt refused AFO. Able to flex hip and knee to clear ground. Decreased stride and groud clearance w/ RLE. Decreased alertness, cues for FWW mgmt and breathing. Stair Climbing Assessment Comments Stair Climbing Comments Did not assess due to low O2 and pt states she has a ramp. Pts daughter states pt has electric w/c she plans to use to enter home. PT-Balance Assessment Sitting Balance and Reactions Static Sitting Balance Ability Good Dynamic Sitting Balance Ability Good Standing Balance and Reactions Static Standing Balance Ability Good Dynamic Standing Balance Ability Fair Device Used FWW M5 PT-IP Objective Assessments Start: 03/23/22 17:32 Freq: NEEDED Status: Active Protocol: Document 03/23/22 17:30 [facility] (Rec: 03/23/22 17:47 [facility] [id number]) Orientation Orientation/Cognition Level of Alertness Alert Orientation Name,Age,Birthday,Month,Date, Year,Day of Week,Place, Situation Language Function Ability No Deficits Noted Safety Awareness Understands Safety Issues Memory Description No Deficits Noted Gross Range of Motion Upper Extremity ROM Assessment Right Impaired Impairments pain prevents elevation right shoulder Lower Extremity ROM Assessment Right Impaired Impairments knee limited post-op, lacking 10 degrees ext in supine and she is actively flexing to 75 degrees sitting Strength Upper Extremity Strength Assessment Right Impaired Shoulder 0/5 elevation Lower Extremity Strength Assessment Bilaterally Impaired Hip right LE able to lift off bed, left hip flexion 4/5 Knee right knee ext 3-/5, left knee 5/5 Ankle right DF 5/5, left DF 1+/5 Coordination Assessment Gross Coordination Gross Coordination WNL Sensation Assessment Sensation Gross Sensation Right LE Impaired,Left LE Impaired Sensation Description Numbness Comments Sensation Comments LE numbness since back surgeries, can feel touch but she does not feel it is normal Muscle Tone Muscle Tone WNL Yes M6 PT-IP Treatment Start: 03/23/22 17:32 Freq: NEEDED Status: Active Protocol: Document 03/26/22 14:11 KS (Rec: 03/26/22 14:50 KS [id number]) Physical Therapy Treatment Education Education Provided Safety Other Treatments Other Treatment Performed Discussed at home safety, enocuraged purchase of pulse oximeter to monitor pts O2. M7 PT-IP Assessment and Plan Start: 03/23/22 17:32 Freq: NEEDED Status: Active Protocol: Document 03/26/22 14:11 KS (Rec: 03/26/22 14:50 KS [id number]) PT Summary Assessment and Plan Potential Rehabilitation Potential Good Summary Impairments Pain,ROM,Strength,Balance, Sensation,Bed Mobility, Transfers,Gait,Activity Tolerance Progress Towards Goals Slow Progress due to Medical Issues Assessment Summary Pt showed improved mobility and O2 saturation this PM, but still desat to 86% on 1L during 12 ft ambulation w/ FWW . She requires safety cues and can be impulsive. High fall risk due to L foot drop, weakness, impulsivity, and O2 desat. Pts daughter was able to assist pt w/ mobility and confirms she will stay w/ pt / and also reports pt has electric w/c they plan to use for pt to enter home. Will continue to progress mobility as pts ability to maintain O2 while mobilizing improves. Goals Bed Mobility Goal Independent Transfer Goal Independent,Front Wheeled Walker Gait Goal Independent,Front Wheel Walker Gait Distance 100 feet Other Goals up and down 8 steps with rail and cane with CG assist Days to Meet Goals 2 Frequency of Treatment Frequency Of Treatment Twice a Day Treatment Plan Physical Therapy Treatment Plan Bed Mobility Training,Transfer Training,Gait Training, Therapeutic Exercise,Balance Retraining,Post Op Education, Discharge Planning,Hot or Cold Pack,Neuromuscular Re-ed Other Recommendations and Next Treatment Review post-op packet. Focus Encourage use of L AFO. Precautions Other Precautions left foot drop, has AFO, right rotator cuff tear and no functional shoulder elevation Weight Bearing Status Weight Bearing Status Weight Bear as Tolerated Recommendations To Nursing Amount of Assist Needed 1 Person Assist Discharge Recommendations PT Discharge Recommendations Home with Assistance,Home Health Other Discharge Recommendations pt wants to start with home health PT Transportation Needs at Discharge Private Vehicle
[2022-03-26] MEDS: TRAZODONE 50 MG TABLET 100 MG PO (20:22)
[2022-03-27] VITALS: O2SAT 92
[2022-03-27 04:00] VITALS: BP 138/62; PULSE 88; RESP 18; TEMP 36.8; O2SAT 94
[2022-03-27] MEDS: ACETAMINOPHEN 325 MG TABLET 650 MG PO (05:06)
[2022-03-27] MEDS: LEVOTHYROXINE 88 MCG TABLET PO (05:07)
[2022-03-27] MEDS: GABAPENTIN 400 MG CAPSULE PO ×2 (05:07→09:02)
[2022-03-27] MEDS: OXYCODONE IR 5 MG TABLET 10 MG PO ×2 (07:31→10:55)
[2022-03-27 08:00] VITALS: BP 115/70; PULSE 99; RESP 20; TEMP 36.7; O2SAT 95
[2022-03-27] MEDS: gemfibroziL 600 MG TABLET PO (08:16)
[2022-03-27] MEDS: SERTRALINE 50 MG TABLET 25 MG PO (08:16)
[2022-03-27] MEDS: CALCIUM CARBONATE 600 MG TABLET PO (08:18)
[2022-03-27] MEDS: CLOPIDOGREL 75 MG TABLET PO (08:18)
[2022-03-27] MEDS: CYCLOBENZAPRINE 10 MG TABLET PO (08:18)
[2022-03-27] MEDS: PANTOPRAZOLE DR 40 MG TABLET PO (08:19)
[2022-03-27] MEDS: DOCUSATE 100 MG CAPSULE PO (08:19)
[2022-03-27] MEDS: MULTIVITAMIN 1 TABLET 1 TAB PO (08:19)
[2022-03-27] MEDS: diphenhydrAMINE 25 MG TABLET PO (08:19)
[2022-03-27] MEDS: ASPIRIN EC 81 MG TABLET PO (08:19)
[2022-03-27] MEDS: CHOLECALCIFEROL (VITAMIN D3) 400 UNIT TABLET PO (08:19)
[2022-03-27] MEDS: PRAVASTATIN 20 MG TABLET PO (08:19)
[2022-03-27 09:07] VITALS: O2SAT 96
--- NOTE | 2022-03-27 09:40 | PM.DS.1 ---
History of Present Illness History of Present Illness Date Patient Seen: 03/27/22 Time Patient Seen: 09:40 Chief complaint: OPB Narrative: Operative Date/Time/Diagnoses Date of procedure: 03/23/22 Time of procedure: 11:48 Pre-op diagnosis: Right knee osteoarthritis with retained anterior cruciate ligament reconstruction hardware Post-op diagnosis: same Procedure & Clinicians Procedure: Right total knee replacement with removal of deep screws Same procedure as scheduled: Yes Indications: The patient has had progressively worsening right knee pain with radiographic changes consistent with arthritis. Non-operative management has failed and the patient has requested total knee replacement.? In addition ACL screws are present from a prior surgery and she is aware that these may need to be removed.? The risks, benefits and alternatives to surgery were discussed with the patient prior to proceeding. Risks discussed included, but were not limited to, failure to relieve pain, stiffness, infection, nerve damage, deep venous thrombosis, pulmonary embolism, stroke, coma, heart attack, permanent paralysis and , as well as the potential need for eventual revision of the prosthetic. Surgeon: Alexey White Supervisor Elementary Education: Paco Hart Click Yes if Unassisted: No Anesthesia Type: General, Spinal and Local Operative Notes Findings: Complete loss of lateral compartment cartilage with relative preservation of the medial compartment.? Both the femoral and tibial ACL screws interfered with the procedure and needed removal. Closure Type: primary Specimen(s): none sent Prosthetic devices, grafts, tissues, transplants, or devices: Implants used in this procedure were manufactured by the [employer] and included the BCS II Journey total knee replacement with a size 4 right Oxinium femur, a size 4 right non porous tibial base plate, a 9 mm cross-linked polyethylene tibial insert and a 29 mm oval Kayleigh II patella. Applied: implant(s) Estimated Blood Loss (mL): 25 Blood products transfused: none Tourniquet time (min): 53 Discharge Providers Provider Date of admission: 03/24/22 12:45 Discharge Date: 03/27/22 Primary care physician: Kurt Garza MD Consults: 03/23/22 12:21 Consult to Discharge Planning Routine Comment: Consult to Physical Therapy Evaluate & Treat Comment: Physician Instructions: postop TKA protocol 03/23/22 12:56 Consult to Pastoral Services Routine Comment: Per pt request 03/24/22 09:38 Consult to Home Health Routine Comment: Reason For Exam: Evaluate and Treat-PT 03/25/22 09:05 Consult to Respiratory Therapy Evaluate & Treat Comment: Decreased sats to the 70's,using IS, please eval Physician Instructions: Evaluate and treat 03/26/22 14:59 Consult to Respiratory Therapy Evaluate & Treat Comment: Aggressive Pulm toilet, IS, Nebs if needed Physician Instructions: Evaluate and treat Discharge provider: Mimi Chicas PA-C Summary Hospital Course Discharge Diagnosis: s/p RIGHT total knee arthroplasty Hypoxia w/ activity Hospital Course: Ms Valentine's hospital course was significant for the development of hypoxia when working w/ PT on POD#2. CTA was ordered on POD#3 to r/o PE or pneumonia. Findings included bilateral pulmonary nodules unchanged since 2018 larger ground-glass appearing nodule in the right lower lobe.? This is overall nonspecific and suspected to be likely benign given stability over 4 years. No pulmonary embolism. Dependent changes are present within the bases, consistent w/ atelectasis. Pt received RT, incentive spirometry training, and supplemental O2 for home. Exam Vital Signs (past 8 hours): - 03/27/22 04:00 03/27/22 08:00 03/27/22 09:07 Temperature 98.2 F 98.0 F Pulse Rate 88 99 H Respiratory Rate 18 20 Blood Pressure 138/62 115/70 Pulse Oximetry 94 95 96 Oxygen Delivery Method Nasal Cannula Oxygen Flow Rate 2 2 1 Oxygen Delivery Method Nasal Cannula Oxygen Flow Rate 1 Narrative Exam Narrative: 4/5 hip flexors, quadriceps, hamstrings; 5/5 DF, PF, EHL on right. H/o foot drop and AFO on left. Sensation to light touch intact in RLE. Calves soft, compressible, nontender and without palpable cords or masses. 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) Left foot drop Macular degeneration Neuropathy Osteoarthritis Osteoporosis Restless leg syndrome Scoliosis Sinus drainage Spinal stenosis Surgical History (Updated 03/25/22 @ 08:28 by Mimi Chicas PA-C) History of appendectomy History of cervical spinal surgery History of cholecystectomy History of colonoscopy History of esophagogastroduodenoscopy (EGD) History of hysterectomy (1995) History of laminectomy History of lumbar fusion (2010) History of lumbar spinal fusion (2014) History of orthopedic surgery (09/13/19) History of orthopedic surgery (09/18/19) History of orthopedic surgery (2009) History of repair of rotator cuff History of skin graft History of tonsillectomy History of total abdominal hysterectomy and bilateral salpingo-oophorectomy Hx of fusion of cervical spine (2012) Hx of repair of right rotator cuff (1994) Hx of right knee surgery (1983) Family History Father Suicide Mother Alcohol abuse Sister Hyperthyroidism Social History household members: none Smoking Status: Former smoker alcohol intake: current Discharge Assessment & Plan Assessment and Plan Assessment: s/p RIGHT total knee arthroplasty Acute postop anemia d/t expected surgical blood loss; no intervention required Hypoxia w/ activity d/t atelectasis; incentive spirometry and supplemental O2 for home Plan of Treatment: Follow up in office in 10-14 days as scheduled. A prescription for oxycodone has been sent to her pharmacy. She is also been instructed in the use of Tylenol for additional pain control. She will be on Plavix as prior to surgery d/t h/o carotid artery stenosis and low-dose aspirin once a day x 6 weeks for DVT prophylaxis. Discharge Plan Discharge Plan Patient Disposition: Home Discharge orders & Medications Prescriptions: New acetaminophen 325 mg Tablet 650 mg PO Q6HR Qty: 100 0RF aspirin 81 mg Tablet,Delayed Release (Dr/Ec) 81 mg PO DAILY Qty: 42 0RF oxycodone 5 mg Tablet 10 mg PO Q4H PRN (Reason: Pain, Moderate (4-6)) Qty: 60 0RF Continued pravastatin 20 MG tablet 20 mg PO DAILY Qty: 0 ginkgo biloba 120 MG tablet 120 mg PO BID Qty: 0 diphenhydramine HCl [Diphedryl] 25 MG tablet 25 mg PO BID Qty: 0 levothyroxine 88 mcg Tablet 88 mcg PO DAILY gemfibrozil 600 mg Tablet 600 mg PO BID pantoprazole 40 mg Tablet,Delayed Release (Dr/Ec) 40 mg PO BID dorzolamide-timolol 22.3-6.8 mg/mL Drops 1 drp OPHTHALMIC (EYE) BID cyclobenzaprine 10 mg Tablet 10 mg PO BID sertraline 25 mg Tablet 25 mg PO DAILY cholecalciferol (vitamin D3) [Vitamin D3] 10 mcg (400 unit) Capsule 400 unit PO DAILY [place] 3-6-9 Fatty Acids 400-400-200 mg Capsule 1 cap PO BID calcium carbonate [Calcium 600] 600 mg calcium (1,500 mg) Tablet 600 mg PO DAILY coQ10 (ubiquinol) 100 mg Capsule 100 mg PO DAILY Adults Multivitamin 18 mg iron-400 mcg-25 mcg Tablet 1 tab PO DAILY Glucosamine Chondroitin 550-30-1 mg Capsule 1 cap PO BID trazodone 50 mg Tablet 100 mg PO BEDTIME gabapentin 400 mg Capsule 400 mg PO 5XD clopidogrel [Plavix] 75 mg Tablet 75 mg PO DAILY triamcinolone acetonide [Nasacort] 55 mcg Aerosol,[place] 2 spray INTRANASAL DAILY Rx Instructions: administer into each nostril Klarity (chondroitin) (PF) 0.25 % Drops 1 drp ophthalmic (eye) BID Discontinued acetaminophen [Tylenol Extra Strength] 500 mg Tablet 1,000 mg PO PRN PRN (Reason: Pain (Scale Score 1-3)) oxycodone 5 mg Tablet 5 mg PO Q3HR PRN (Reason: Pain, Moderate (4-6)) Qty: 30 0RF Follow up/Referrals: Kurt Garza MD [Primary Care Provider] - Alexey White MD [Physician] - As previously scheduled (Follow up w/ Lianne Hernandez PA-C, on 04/06/2022 @ 3:50 pm at [facility] in [place].) Diet/Activity/Treatments Diet: Diet as Tolerated Activity: Walk frequently! You may bear weight as tolerated on your right leg. Cold/Heat Therapy: Ice to knee as needed for pain. Skin/Wound/Dressing Care Report to your healthcare provider any signs of infection, such as:: chills, fever, night sweats, unusual drainage and unusual redness Dressing: May remove ELLIS wrap and shower. Leave Aquacel dressing in place until follow up appointment. No bathing or otherwise soaking incision. Call office if dressing becomes saturated inside. Visit Report/Discharge Packet Instructions: Atelectasis, DI for Knee Replacement, DI for Constipation, How to Prevent Falls, How to Apply an Ellis Wrap, DI for Taking Pain Medication, DI for Prescription Opioid Use Stand Alone Forms: Surgery Discharge Discharge Data Primary Care Provider: Kurt Garza Attending Provider: Alexey White Quality VTE Deep Vein Thrombosis/Pulmonary Embolism Present on Admission: No
== END 2022-03-27 12:00 | disposition home or self-care (01) ==
LOC: OR 13:17 → AC 13:17
PROVIDERS: Physician Assistant; Admitting Provider Orthopaedic Surgery; PCP Internal Medicine; Referring Provider Orthopaedic Surgery; Visit Provider Orthopaedic Surgery
PROC: 0SRC0JZ Replacement of Right Knee Joint with Synthetic Substitute, Open Approach (ICD-10-PCS; CPT 27447; principal; 2022-03-23 10:00)
DX: M17.11 Unilateral primary osteoarthritis, right knee (principal); G89.29 Other chronic pain; M54.50 Low back pain, unspecified; D62 Acute posthemorrhagic anemia; R09.02 Hypoxemia
CPT/HCPCS: 27447; 36415; 71275; 73560; 82565; 84520; 85014; 85018; 94762; 97116; 97162; 97530; C1776; G0378; C1713; C9290; J0690; J1100; J2250; J2270; J2274; J2405; J2704; J3010; Q9967